=== PATIENT | female | born 1965 | race Caucasian/White ===

== ENCOUNTER 2019-12-22 10:10 | Inpatient (IN) ==
--- NOTE | 2019-11-26 10:09 | PAT Medication Instructions ---
Medication Instructions Date of Service November 26, 2019 Home Medications acetaminophen [Tylenol] 325 mg PO QID PRN amlodipine 2.5 mg PO HS aspirin 81 mg PO QAM atorvastatin 80 mg PO QAM buspirone 10 mg PO HS clonidine HCl 0.1 mg PO HS clopidogrel 75 mg PO HS docusate sodium [Stool Softener] 100 mg PO DAILY PRN empagliflozin [Jardiance] 25 mg PO QAM ezetimibe [Zetia] 10 mg PO QAM fluoxetine [Prozac] 20 mg PO HS insulin aspart U-100 [Novolog U-100 Insulin aspart] 14 unit SUBCUT QDD insulin glargine [Lantus U-100 Insulin] 24 unit SUBCUT QAM levothyroxine 112 mcg PO QAM losartan 50 mg PO HS metoprolol succinate 25 mg PO HS montelukast [Singulair] 10 mg PO QAM omeprazole 20 mg PO QAM spironolactone 12.5 mg PO QAM trazodone 50 mg PO HS ASK your prescriber and surgeon aspirin 81 mg PO QAM clopidogrel 75 mg PO HS DO NOT take the morning of surgery docusate sodium [Stool Softener] 100 mg PO DAILY PRN empagliflozin [Jardiance] 25 mg PO QAM montelukast [Singulair] 10 mg PO QAM spironolactone 12.5 mg PO QAM Take morning of surgery With a small sip of water, OTHERWISE NOTHING TO EAT OR DRINK AFTER MIDNIGHT: acetaminophen [Tylenol] 325 mg PO QID PRN (okay to take up to 4 hours prior to surgery if needed) atorvastatin 80 mg PO QAM ezetimibe [Zetia] 10 mg PO QAM levothyroxine 112 mcg PO QAM omeprazole 20 mg PO QAM Take evening before surgery acetaminophen [Tylenol] 325 mg PO QID PRN (if needed) amlodipine 2.5 mg PO HS buspirone 10 mg PO HS clonidine HCl 0.1 mg PO HS docusate sodium [Stool Softener] 100 mg PO DAILY PRN (if needed) fluoxetine [Prozac] 20 mg PO HS insulin aspart U-100 [Novolog U-100 Insulin aspart] 14 unit SUBCUT QDD losartan 50 mg PO HS metoprolol succinate 25 mg PO HS trazodone 50 mg PO HS Insulin Dependent Diabetic Patients * Test your blood sugar the morning of surgery * If Blood Sugar is GREATER THAN 150, take HALF of your regular dose of: insulin glargine [Lantus U-100 Insulin] take 12 units * If Blood Sugar is LESS THAN 150, DO NOT TAKE ANY: insulin glargine [Lantus U- 100 Insulin] Other Notes If you have any questions please call us at [phone] or [phone] or [phone] or [phone]
--- NOTE | 2019-11-27 13:24 | Anesthesiology Consultation ---
Date of Service November 27, 2019 Assessment & Plan (1) Encounter for pre-operative examination: - Awaiting surgeon-ordered cardiology preop evaluation scheduled 12/11 (Eden Waller, PAC/[facility]). - Check BSG, test AM DOS - ASA/plavix instructions: per surgeon/prescriber History Surgery Operation Date: 12/22/19 09:55 Proposed Procedures p L4-S1 Decompression and Fusion, Spinal Cord Monitoring - Terrance Nuñez, Height/Weight Height: 5 ft 6 in Weight: 101.3 kg Allergies Allergy/AdvReac Type Severity Reaction Status Date / Time lisinopril AdvReac Intermediate cough Unverified 11/21/19 15:31 Medications Home Medications Medication Instructions Recorded Confirmed Last Taken acetaminophen [Tylenol] 325 mg PO QID PRN 11/21/19 11/21/19 Unknown amlodipine 2.5 mg PO HS 11/21/19 11/21/19 Unknown aspirin 81 mg PO QAM 11/21/19 11/21/19 Unknown atorvastatin 80 mg PO QA 11/21/19 11/21/19 Unknown buspirone 10 mg PO HS 11/21/19 11/21/19 Unknown clonidine HCl 0.1 mg PO 11/21/19 11/21/19 Unknown clopidogrel 75 mg PO HS 11/21/19 11/21/19 Unknown docusate sodium [Stool Softener] 100 mg PO DAILY PRN 11/21/19 11/21/19 Unknown empagliflozin [Jardiance] 25 mg PO QAM 11/21/19 11/21/19 Unknown ezetimibe [Zetia] 10 mg PO QA 11/21/19 11/21/19 Unknown fluoxetine [Prozac] 20 mg PO HS 11/21/19 11/21/19 Unknown insulin aspart U-100 [Novolog 14 unit SUBCUT QDD 11/21/19 11/21/19 Unknown U-100 Insulin aspart] insulin glargine [Lantus U-100 24 unit SUBCUT QAM 11/21/19 11/21/19 Unknown Insulin] levothyroxine 112 mcg PO QAM 11/21/19 11/21/19 Unknown losartan 50 mg PO HS 11/21/19 11/21/19 Unknown metoprolol succinate 25 mg PO HS 11/21/19 11/21/19 Unknown montelukast [Singulair] 10 mg PO QAM 11/21/19 11/21/19 Unknown omeprazole 20 mg PO QAM 11/21/19 11/21/19 Unknown spironolactone 12.5 mg PO QAM 11/21/19 11/21/19 Unknown trazodone 50 mg PO HS 11/21/19 11/21/19 Unknown Past Medical History Medical History Anxiety CHF (congestive heart failure) CVA (cerebral vascular accident) 2011- on plavix, residual LUE weakness Degenerative disc disease Depression Diabetes mellitus, type 2 IDDM GERD (gastroesophageal reflux disease) controlled HTN (hypertension) Hyperlipemia Hypothyroidism Myocardial infarction 2013- medically managed Obesity Osteoarthritis Spinal stenosis Exercise / Class Metabolic Activity III < 4 Walking/Shop/Light housework Past Family History Family History Other Adopted Past Surgical History Surgical History History of cardiac cath 2013- no stents History of colonoscopy History of D&C History of transesophageal echocardiography (LILI) Past Anesthesia History No Hx of Anesthesia Complications and No Family Hx of Anesthesia Complications (Patient adopted- no known family hx) History of PONV No Hx of PONV and No Hx of Motion Sickness Social History Smoking Status: Former smoker Do You Dip or Chew Tobacco: No Smoking End Date: Quit 10 years ago Hx Alcohol Use: No Hx Substance Use: No substance use type: does not use Review of Systems Controlled reflux. Patient denies chest pain, shortness of breath, cough, wheezing, palpitations. Physical Exam Vital Signs VITALS BP 111/66 P 54 TEMP 98.0 SP02 96%RA RESP 16 PHYSICAL Full neck and c-spine range of motion. Full TMJ range of motion. TMD 3 finger breaths Mallampati Score 3 Dentition: misisng sides/molars, upper front caps, poor dentition Lungs: clear throughout to auscultation Cardiac: regular rate and rhythm, no murmurs noted Spine: normal Carotid arteries: negative bruit Extremities: no edema Testing Laboratory Results 11/27/19 13:55 11/27/19 13:55 PT 10.3 Seconds (9.0-12.0) 11/27/19 13:55 INR 1.0 (0.9-1.1) 11/27/19 13:55 APTT 25.4 Seconds (21.0-31.0) 11/27/19 13:55 Hemoglobin A1c 9.6 % (4.5-5.6) H 11/27/19 13:55 Urine Color Yellow 11/27/19 13:55 Urine Appearance Clear (Clear) 11/27/19 13:55 Urine pH 5.0 (4.5-7.5) 11/27/19 13:55 Ur Specific [place] 1.043 (1.000-1.030) H 11/27/19 13:55 Urine Protein Negative (Negative) 11/27/19 13:55 Urine Glucose (UA) 3+ (Negative) H 11/27/19 13:55 Urine Ketones Negative (Negative) 11/27/19 13:55 Urine Nitrite Negative (Negative) 11/27/19 13:55 Ur Leukocyte Esterase Negative (Negative) 11/27/19 13:55 Blood Type O Positive 11/27/19 13:55 Antibody Screen NEGATIVE 11/27/19 13:55 *Surgeon's office made aware of elevated HGBA1C* Electrocardiogram Date: 07/17/19 Ectopic atrial rhythm at 63 bpm. Low voltage QRS, consider pulmonary disease, pericardial effusion, or normal variant. Cannot rule out anterior infarct, age undetermined. No change compared to 01/30/2017 per cardiology. Patient subsequently had nuclear stress test 07/2019 without evidence of myocardial ischemia. Chest X-Ray Date: 11/27/19 Findings: + NAD Echocardiogram Date: 01/06/19 LVEF 45 to 49%. Anterior, anterolateral, inferolateral, and apical wall hypokinesis. Borderline increased concentric LV wall thickness. grade 1 diastolic dysfunction. Mildly calcified mitral valve leaflets. Grade 1 diastolic dysfunction. Stress Test Date: 08/21/19 Type: nuclear Medium sized infarct involving the anterior and anterior lateral arias. No signs of ischemia. Akinesis of the above segments. EF calculated to be 47%. Stress test positive for scar without superimposed ischemia. No change compared to previous study 03/01/2017. Chest pain once again reproduced with Lexiscan injection. 87% MPHR. Cardiac Catheterization Date: 08/24/14 Hyperdynamic right coronary system. coronary anatomy is widely patent and within normal limit. There is evidence of the left ventriculogram of a previous ND with an aneurysmal segment of the lateral myocardium with akinesis to dyskinesia. Medical management recommended.
--- NOTE | 2019-11-27 14:12 | XRay Report ---
XR chest Pre-admission PA/Lat CLINICAL HISTORY: Preoperative chest COMPARISON STUDY: 07/29/2014 FINDINGS: The cardiac and mediastinal contours are normal. There is no evidence of focal pulmonary co nsolidation. There is no evidence of failure. No pleural effusions are visualized.[ IMPRESSION: No active disease in the chest. ACT 112: Negative or not required by law. Electronically signed by: William Ag M.D. 11/27/2019 2:11 PM
[2019-11-27 15:17] LABS: Appearance Urine Clear (Clear); Bilirubin Urine Negative (Negative); Blood Urine Negative (Negative); Color Urine Yellow; Glucose Urine UA 3+ (Negative); Ketones Urine Negative (Negative); Leukocyte Esterase Urine Negative (Negative); Nitrite Urine Negative (Negative); Protein Urine Negative (Negative); Specific Gravity Urine 1.043 (1.000-1.030); Urobilinogen Urine Negative (Negative)
[2019-11-27 15:22] LABS: Basophils # (auto) 0.03 K/uL (0-0.2); Basophils % (auto) 0.4 %; Eosinophils # (auto) 0.23 K/uL (0-0.5); Hematocrit (blood only) 41.6 % (37-47); Immature Granulocytes # (auto) 0.01 K/uL (0.00-0.02); Immature Granulocytes % (auto) 0.1 %; Lymphocytes # (auto) 2.42 K/uL (1.2-3.4); Lymphocytes % (auto) 31.9 %; Mean Corpuscular Hemoglobin 29.4 pg (25-34); Mean Corpuscular Hgb Conc 33.7 g/dL (32-36); Mean Corpuscular Volume 87.2 fL (80-100); Mean Platelet Volume 11.5 fL (7.4-10.4); Monocytes # (auto) 0.43 K/uL (0.11-0.59); Monocytes % (auto) 5.7 %; Neutrophils # (auto) 4.47 K/uL (1.4-6.5); Neutrophils % (auto) 58.9 %; Platelet Count 240 K/uL (130-400); RDW Coefficient of Variation 13.4 % (11.5-14.5); RDW Standard Deviation 42.5 fL (36.4-46.3); Red Blood Count 4.77 M/uL (4.2-5.4); White Blood Count 7.59 K/uL (4.8-10.8)
[2019-11-27 15:23] LABS: BUN Creatinine Ratio 16.6 (10-20); Calcium 9.5 mg/dl (8.5-10.1); Est GFR (African American) 74.9; Est GFR (Non-African American) 64.6
[2019-11-27 15:39] LABS: Partial Thromboplastin Ratio 0.9; Partial Thromboplastin Time 25.4 Seconds (21.0-31.0); Prothrombin Time 10.3 Seconds (9.0-12.0)
[2019-11-28 05:54] LABS: Estimated Average Glucose 229 mg/dl; Hemoglobin A1C 9.6 % (4.5-5.6)
[~2019-12-22 10:10] MED LIST: ACETAMINOPHEN 500 MG TAB PO SCH; CEFAZOLIN 2000MG 2,000 MG/15 ML SYR IV SCH; CeleBREX 200 MG CAP PO SCH; GABAPENTIN 900 MG DOSE PO SCH; LR 15ML/HR IV SCH
[2019-12-22] MEDS ORDERED: INSULIN ASPART PER UNIT ONE (11:55)
[2019-12-22] MEDS ORDERED: INSULIN ASPART PER UNIT SC STA (11:56)
[2019-12-22] MEDS ORDERED: ATROPINE SULFATE 0.1 MG/ML 10ML SYR IV PRN (11:57)
[2019-12-22] MEDS ORDERED: fentaNYL citrate 100 MCG/2 ML VIAL IV PRN (11:57)
[2019-12-22] MEDS ORDERED: ePHEDrine sulfate 50 MG/ML AMP IV PRN (11:57)
[2019-12-22] MEDS ORDERED: HYDROmorphone INJ 2 MG/ML SYR/VIAL IV PRN (11:57)
[2019-12-22] MEDS ORDERED: PROMETHAZINE HCL 12.5 MG in SODIUM CHLORIDE 0.9% 50 ML IV PRN ×2 (11:57→16:43)
[2019-12-22] MEDS ORDERED: ONDANSETRON INJ 2 MG/ML 2 ML VIAL IV PRN ×2 (11:57→16:43)
--- NOTE | 2019-12-22 12:11 | History & Physical Bridge Note ---
Date of Service December 22, 2019 History & Physical Bridge Note I have examined the patient, reviewed the History & Physical and in the interval since the performance of the History & Physical I have noted the following changes of clinical significance: no changes noted
--- NOTE | 2019-12-22 12:12 | History & Physical Report ---
Date of Service December 22, 2019 Assessment & Plan (1) Neurogenic claudication due to lumbar spinal stenosis: L4-S1 decompression fusion Present on Admission?: Yes History of Present Illness Chief Complaint: Back and bilateral leg pain Primary Care Provider: Jes Medina MD This is a 54-year-old female who presents with back and bilateral leg pain. After failing extensive course of nonoperative care is here for surgical intervention. Allergies Allergy/AdvReac Type Severity Reaction Status Date / Time lisinopril AdvReac Intermediate cough Unverified 11/21/19 15:31 Home Medications Home Medications Medication Instructions Recorded Confirmed Type acetaminophen [Tylenol] 325 mg PO QID PRN 11/21/19 12/22/19 History amlodipine 2.5 mg PO HS 11/21/19 12/22/19 History aspirin 81 mg PO QAM 11/21/19 12/22/19 History atorvastatin 80 mg PO QAM 11/21/19 12/22/19 History buspirone 10 mg PO HS 11/21/19 12/22/19 History clonidine HCl 0.1 mg PO HS 11/21/19 12/22/19 History clopidogrel 75 mg PO HS 11/21/19 12/22/19 History docusate sodium [Stool Softener] 100 mg PO DAILY PRN 11/21/19 12/22/19 History empagliflozin [Jardiance] 25 mg PO QAM 11/21/19 12/22/19 History ezetimibe [Zetia] 10 mg PO QAM 11/21/19 12/22/19 History fluoxetine [Prozac] 20 mg PO HS 11/21/19 12/22/19 History insulin aspart U-100 [Novolog 14 unit SUBCUT QDD 11/21/19 12/22/19 History U-100 Insulin aspart] insulin glargine [Lantus U-100 24 unit SUBCUT QAM 11/21/19 12/22/19 History Insulin] levothyroxine 112 mcg PO QAM 11/21/19 12/22/19 History losartan 50 mg PO HS 11/21/19 12/22/19 History metoprolol succinate 25 mg PO HS 11/21/19 12/22/19 History montelukast [Singulair] 10 mg PO QAM 11/21/19 11/21/19 History omeprazole 20 mg PO QAM 11/21/19 12/22/19 History spironolactone 12.5 mg PO QAM 11/21/19 12/22/19 History trazodone 50 mg PO HS 11/21/19 12/22/19 History Past Med/Surg History Medical History Anxiety CHF (congestive heart failure) CVA (cerebral vascular accident) 2012- on plavix, residual LUE weakness Degenerative disc disease Depression Diabetes mellitus, type 2 IDDM GERD (gastroesophageal reflux disease) controlled HTN (hypertension) Hyperlipemia Hypothyroidism Myocardial infarction 2013- medically managed Obesity Osteoarthritis Spinal stenosis Surgical History History of cardiac cath 2014- no stents History of colonoscopy History of D&C History of transesophageal echocardiography (LILI) Family History Other Adopted Social History Preferred Language: Greenlandic Communication Ability: Effective 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 Results & Data Vital Signs (Past 12 Hours) Vital Signs Temp Pulse Resp BP Pulse Ox 12/22/19 11:07 36.7 C 60 20 131/77 96
[2019-12-22] MEDS ORDERED: ONDANSETRON INJ 2 MG/ML 2 ML VIAL ONE (12:29)
[2019-12-22] MEDS ORDERED: fentaNYL citrate 100 MCG/2 ML VIAL ONE (12:29)
[2019-12-22] MEDS ORDERED: LIDOCAINE HCL 2% 2 ML VIAL/AMP(20MG/ML) INFIL ONE (12:29)
[2019-12-22] MEDS ORDERED: HYDROmorphone INJ 2 MG/ML SYR/VIAL ONE (12:29)
[2019-12-22] MEDS ORDERED: PROPOFOL IV EMULSION 10 MG/ML 20 ML VIAL IV ONE (12:29)
[2019-12-22] MEDS ORDERED: MIDAZOLAM HCL 1 MG/ML 2ML VIAL ONE (12:29)
[2019-12-22] MEDS ORDERED: DEXAMETHASONE SOD INJ 4 MG/ML VIAL ONE (12:30)
[2019-12-22] MEDS ORDERED: BACITRACIN INJ 50,000 UNIT VIAL ONE (12:31)
[2019-12-22] MEDS ORDERED: ROCURONIUM BROMIDE 10 MG/ML 5 ML VIAL ONE (12:31)
[2019-12-22] MEDS ORDERED: BUPIVACAINE/EPINEPHRINE 0.5% MPF 1:200,000 10 ML VIAL ONE (12:32)
[2019-12-22] MEDS ORDERED: SODIUM CHLORIDE 0.9% INJ 10 ML VIAL ONE ×2 (12:33→13:58)
[2019-12-22] MEDS ORDERED: BUPIVACAINE/EPINEPHRINE 0.25% 1:200,000 30 ML VIAL ONE (12:51)
[2019-12-22] MEDS ORDERED: LARYING-O-JET KIT (LTA) ONE (13:38)
[2019-12-22] MEDS ORDERED: NEOSTIGMINE METHYLSULFATE 1 MG/ML 10ML VIAL ONE (13:46)
[2019-12-22] MEDS ORDERED: ePHEDrine sulfate 50 MG/ML SYR ONE (13:46)
[2019-12-22] MEDS ORDERED: GLYCOPYRROLATE 0.2 MG/ML VIAL ONE (13:46)
[2019-12-22] MEDS ORDERED: ePHEDrine sulfate 50 MG/ML AMP ONE (13:58)
[2019-12-22] MEDS ORDERED: FLOSEAL HEMOSTATIC MATRIX 10ML TOP ONE (14:40)
--- NOTE | 2019-12-22 14:55 | Operative Report ---
Post Operative Report Pre & Post Diagnosis Operation Date: 12/22/19 12:15 Pre-Op Diagnosis: Lumbar spinal stenosis with neurogenic claudication Post-Op Diagnosis: Same I identified the patient and participated in the time-out.: Yes Procedure Operation Date: 12/22/19 12:15 Actual Procedures #1 lumbar decompression with bilateral medial facetectomies and foraminotomies L4-5, L5-S1. #2 posterior spinal fusion L4-5 and L5-S1. #3 posterior instrumentation L4-5 L5-S1. #4 interbody fusion L4-5 L5-S1. #5 placement peek cage 10 x 22 mm at L4-5 and 8 x 22 mm at L5-S1. #6 placement locally harvested morselized autograft in the posterior lateral gutters. #7 placement infuse collagen sponge combined master graft in the posterior lateral gutters and ost ial amp and interbody space. Surgeon Terrance Nuñez, Fretted Instruments Inspector Ivana Yi Estimated Blood Loss 200 Findings See Below The patient is 5 foot 6 inches tall weighing over 99 kg with a BMI in excess of 35. The patient's body habitus did add increased significant technical difficulty requiring her deepest retractors and longus instruments in order to perform her procedure. This added at least 25% increase to the operative time. Specimens None Indications This is a 54-year-old female who presents above-mentioned diagnosis after failed extensive course of elected to go with above-mentioned procedure. Description of Procedure Patient was met with identified informed consent obtained. Patient was then taken to the operative suite underwent the patient placed in prone position on the Ramirez table on top of the Christopher frame. All bony prominences well-padded eyes inspected to ensure no external pressure placed upon the. This point the lumbar spine was prepped and draped in a normal sterile fashion. Sharp dissection with the assistance of Bovie cautery was performed down to and exposing the lamina and transverse processes of L4-L5 and the sacral ala bilaterally. From caudal cephalad fashion complete laminectomy of L5 and L4 was performed including bilateral medial facetectomies and foraminotomies addressing all stenosis. Pedicle screws were then placed in L4 and L5 and S1 levels bilaterally with assistance of fluoroscopy and the proper sized linn placed. By way of a transforaminal approach on the right complete discectomy of L5-S1 was performed endplates curetted to subcortical bleeding bone and a 8 x 22 mm peek cage filled with osteo-amp bone graft tapped in position. Then proceeded L4-5 and again a complete discectomy performed by way of a transforaminal approach on the right endplates curetted to subcortical bleeding bone and a 10 x 22 mm peek cage with osteo-bone graft tapped in position. The rods were then locked in final position bilaterally. The transverse processes of L4-L5 and sacral ala burred to subcortical bleeding bone. Infuse collagen sponge master graft local autograft placed in the posterior lateral gutters. 15 round DIMITRIOS drain inserted. Incision was then closed with 1 Vicryl in the fascia 2-0 Vicryl subcutaneously and 4 Monocryl for final skin closure. Steri-Strip sterile dressings placed. Patient will continue to PACU stable addition. Please note Ivana Yi present at the entire procedure involved the patient positioning complex portions of the surgery and final skin closure. Lastly spinal cord monitoring was utilized that the procedure no changes noted. I attest to the content of the Intraoperative Record and any orders documented therein. Any exceptions are noted below.
--- NOTE | 2019-12-22 15:01 | Fluoroscopy Report ---
FL lumbar spine 2-3V CLINICAL HISTORY: L4-S1 DECOMPRESSION AND FUSION COMPARISON STUDY: None FLUOROSCOPY TIME: 18 seconds. NUMBER OF FLUOROSCOPIC IMAGES: 2 FINDINGS: 2 intraoperative fluoroscopic spot images reveal postsurgical changes of discectomies inter body fusions at the L4-5 and L5-S1 levels. There is posterior spinal fusion with L4, L5, and S1 pedic le screws and adjoining spinal rods IMPRESSION: Intraoperative fluoroscopic spot images demonstrating an L4-S1 spinal decompression and fusion. ACT 112: Negative or not required by law. Electronically signed by: William Ag M.D. 12/22/2019 2:59 PM
--- NOTE | 2019-12-22 16:04 | Anesthesiology Progress Note ---
Date of Service December 22, 2019 Anesthesia Post Procedure Vital Signs Vital Signs: Temp Pulse Pulse Resp BP Pulse Ox 12/22/19 15:55 37.0 C 65 16 135/87 94 12/22/19 15:45 37.0 C 70 16 142/80 H 96 12/22/19 15:35 70 16 148/82 H 97 12/22/19 15:25 75 16 156/82 H 96 12/22/19 15:15 37.2 C 83 16 149/87 H 96 12/22/19 11:07 36.7 C 60 20 131/77 96 Pain Intensity Back: Pain Intensity: 6 Transfer of Care Handoff Completed per policy Notes Mental Status: alert / awake / arousable Patient Amnestic to Procedure: Yes Nausea / Vomiting: adequately controlled Pain: adequately controlled Airway Patency, RR, SpO2: stable & adequate BP & HR: stable & adequate Hydration State: stable & adequate Anesthetic Complications: no major complications apparent
[2019-12-22] MEDS ORDERED: ACETAMINOPHEN 500 MG TAB PO PRN (16:43)
[2019-12-22] MEDS ORDERED: bisacodyL 10 MG SUPP PR PRN (16:43)
[2019-12-22] MEDS ORDERED: LORazepam 0.5 MG TAB PO PRN (16:43)
[2019-12-22] MEDS ORDERED: DO NOT ADMINISTER FLU VACCINE PRN (16:43)
[2019-12-22] MEDS ORDERED: FAMOTIDINE 20 MG TAB PO PRN (16:43)
[2019-12-22] MEDS ORDERED: HYDROmorphone INJ 1 MG/ML SYRINGE IV PRN (16:43)
[2019-12-22] MEDS ORDERED: NALOXONE HCL 0.4 MG/1 ML VIAL/CARP IV PRN (16:43)
[2019-12-22] MEDS ORDERED: METOCLOPRAMIDE HCL INJ 5 MG/ML 2 ML VIAL IV PRN (16:43)
[2019-12-22] MEDS ORDERED: HYDROmorphone INJ 0.5 MG/0.5 ML SYR IV PRN (16:43)
[2019-12-22] MEDS ORDERED: ALUMINUM/MAGNESIUM SUSP 30 ML UDC PO PRN (16:43)
[2019-12-22] MEDS ORDERED: ACETAMINOPHEN 1,000 MG/100 ML VIAL IV PRN (16:43)
[2019-12-22] MEDS ORDERED: SOD PHOSPHATE/SOD BIPHOSPHATE ENEMA 132 ML BTL PR PRN (16:43)
[2019-12-22] MEDS ORDERED: LORazepam 0.5 MG/1 ML VIAL IV PRN (16:43)
[2019-12-22] MEDS ORDERED: ONDANSETRON 4 MG OD TAB PO PRN (16:43)
[2019-12-22] MEDS ORDERED: MAGNESIUM HYDROXIDE SUSP 30 ML UDC PO PRN (16:43)
[2019-12-22] MEDS ORDERED: OXYCODONE HCL IR 5 MG TAB (IMMEDIATE RELEASE) PO PRN (16:43)
[2019-12-22] MEDS ORDERED: DO NOT ADMINISTER PNEUMOCOCCAL VACCINE PRN (16:43)
[2019-12-22] MEDS ORDERED: DEXTROSE 50% 50 ML SYRINGE IV PRN (17:21)
[2019-12-22] MEDS ORDERED: GLUCOSE 40% GEL 15 GM TUBE PO PRN (17:21)
[2019-12-22] MEDS ORDERED: GLUCAGON FOR INJ 1 MG VIAL SQ PRN (17:21)
[2019-12-22] MEDS ORDERED: CARBOHYDRATES FOR HYPOGLYCEMIA PO PRN (17:21)
[2019-12-22] MEDS ORDERED: GLUCOSE 10 TABS/TUBE PO PRN (17:21)
--- NOTE | 2019-12-22 17:54 | Consultation ---
Date of Consultation December 22, 2019 Assessment & Plan (1) Status post lumbar surgery: Post op day# 0 S/P L4-S1 decompression and fusion by Dr Savannah LEBRON#200ml -pain management per ortho -wound management per ortho -PT/OT as appropriate -DVT prophylaxis per ortho -incentive spirometry -monitor H&H for acute blood loss anemia; pre-op Hgb: 14 (2) Diabetes mellitus, type II: A1c: 9.6 on 11/27/2019. Pt non compliant with meds -Pt received dexamethasone intraoperatively, expect BSGs will be elevated -Hold Jardiance, home insulin -Basal bolus insulin per protocol (3) Shingles: Pt with history shingles to right flank rash started on 12/05/2019. Started 7 day course of Valtrex on 12/10/2019 Rash much improved. No further pain (4) CAD (coronary artery disease): No CP or SOB -Continue aspirin, metoprolol, statin, zetia (5) Hypertension: Stable -Hold tomorrow morning spironolactone and reassess -Plan to resume losartan tomorrow -Continue amlodipine, metoprolol, clonidine with hold parameters (6) Cerebrovascular disease: -Continue aspirin, statin -Resume Plavix when allowed per ortho (7) Chronic combined systolic and diastolic heart failure: Currently euvolemic -Hold tomorrow morning spironolactone and reassess volume status (8) Depression: Stable -Continue fluoxetine, buspirone (9) Hypothyroidism: TSH: 2.7 in 08/2019 -Continue levothyroxine DVT Prophylaxis -SCDs per ortho Disposition per primary service Follows with Dr Medina for routine care Pt was seen and care coordinated with Dr Park. See addendum Thank you for this consultation. We will follow the patient with you during their hospital stay. You can reach a member of the [facility] Hospitalist Team 21/05 via pager @ [phone]. Supervising Physician Co-Signing Physician Notes HISTORY: Record reviewed. Patient interviewed and examined. Care coordinated with Alejandra Byrd PA-C. Please refer to her documentation for complete history. Briefly, 54-year-old female with history of coronary artery disease, CHF, hypertension, diabetes mellitus, and other problems. Lumbar decompression/fusion performed earlier today. Having some postoperative back pain, but otherwise doing well. No chest pain, cough, shortness of breath, nausea, vomiting. EXAM: General- no distress Lungs- clear to auscultation; no respiratory distress Cardiovascular- RRR; no gallop; no JVD; no pretibial edema Abdomen- + bowel sounds, soft, nontender - Ponce cath Extremities- no cyanosis; no calf tenderness Neuro- alert, oriented Skin- warm & dry DATA: Preoperative hemoglobin A1c 9.6 on 11/27/2019. Blood sugar this evening at 1729 = 227. Other lab studies as noted. ASSESSMENT AND PLAN: Status post lumbar decompression/fusion. History of CAD, CHF, hypertension. Cardiovascular status stable postoperatively. Resume aspirin and Plavix postoperatively when okay from cardiac perspective. Continue metoprolol, amlodipine, losartan, spironolactone, statin. Diabetes mellitus type 2, not well controlled. Preoperative hemoglobin A1c 9.6. Anticipate fluctuating blood sugars preoperatively due to surgery, anesthesia, perioperative steroids, etc. Hold Jardiance during hospital stay. Lantus/NovoLog per protocol. Ongoing diabetes education/support as outpatient with PCP and clinic diabetes team. Please refer to ANA Byrd's documentation for discussion of other issues. Thank you for this consultation. We will follow the patient with you during their hospital stay. My cell # is [phone]. You can reach a member of the [facility] Medicine Team 21/05 via pager @ [phone]. History of Present Illness Requesting Physician: Dr Nuñez Reason for Consultation: Post op medical management Attending Physician: Terrance Nuñez, DO History of Present Illness Pt is 54 y/o F with PMH CAD, HTN, dyslipidemia, chronic systolic and diastolic heart failure, EF: 45%, DM II, obesity, hypothyroidism, depression seen in medical consultation for post op medical management s/p L4-S1 decompression and fusion today by Dr Nuñez. Post op pt reports some back pain and leg paresthesias. Denies nausea, vomiting. Last BM reported 2 days ago, pt reports chronic constipation. Pt with history shingles to right flank started on 12/05/2019 and started on Valtrex 12/10/2019 for 7 days. Reports rash much improved and no current blisters and no current pain. Denies MORENO, dizziness, syncope, vision changes, neck pain, CP, SOB, orthopnea, palpitations, cough, sore throat, choking, otalgia, rhinorrhea, abdominal pain, weakness, extremity edema. Allergies Allergy/AdvReac Type Severity Reaction Status Date / Time lisinopril AdvReac Intermediate cough Unverified 11/21/19 15:31 Home Medications Home Medications Medication Instructions Recorded Confirmed Type acetaminophen [Tylenol] 325 mg PO QID PRN 11/21/19 12/22/19 History amlodipine 2.5 mg PO HS 11/21/19 12/22/19 History aspirin 81 mg PO QAM 11/21/19 12/22/19 History atorvastatin 80 mg PO QAM 11/21/19 12/22/19 History buspirone 10 mg PO HS 11/21/19 12/22/19 History clonidine HCl 0.1 mg PO HS 11/21/19 12/22/19 History clopidogrel 75 mg PO HS 11/21/19 12/22/19 History docusate sodium [Stool Softener] 100 mg PO DAILY PRN 11/21/19 12/22/19 History empagliflozin [Jardiance] 25 mg PO QAM 11/21/19 12/22/19 History ezetimibe [Zetia] 10 mg PO QAM 11/21/19 12/22/19 History fluoxetine [Prozac] 20 mg PO HS 11/21/19 12/22/19 History insulin aspart U-100 [Novolog 14 unit SUBCUT QDD 11/21/19 12/22/19 History U-100 Insulin aspart] insulin glargine [Lantus U-100 24 unit SUBCUT QA 11/21/19 12/22/19 History Insulin] levothyroxine 112 mcg PO QAM 11/21/19 12/22/19 History losartan 50 mg PO HS 11/21/19 12/22/19 History metoprolol succinate 25 mg PO HS 11/21/19 12/22/19 History montelukast [Singulair] 10 mg PO QAM 11/21/19 11/21/19 History omeprazole 20 mg PO QAM 11/21/19 12/22/19 History spironolactone 12.5 mg PO QAM 11/21/19 12/22/19 History trazodone 50 mg PO HS 11/21/19 12/22/19 History Patient History Medical History (Updated 12/22/19 @ 18:12 by Alejandra Byrd PA-C) Anxiety CAD (coronary artery disease) CHF (congestive heart failure) Chronic combined systolic and diastolic heart failure CVA (cerebral vascular accident) 2011- on plavix, residual LUE weakness Degenerative disc disease Depression Diabetes mellitus, type 2 IDDM GERD (gastroesophageal reflux disease) controlled HTN (hypertension) Hyperlipemia Hypothyroidism Myocardial infarction 2013- medically managed Obesity Osteoarthritis Spinal stenosis Surgical History (Updated 12/22/19 @ 18:04 by Alejandra Byrd PA-C) History of cardiac cath 2014- no stents History of colonoscopy History of D&C History of transesophageal echocardiography (LILI) Family History Other Adopted Social History Preferred Language: Romanian Communication Ability: Effective Automatic Glove Turner And Former Required: No Beliefs That Will Affect Care: None Current Living Situation: Spouse Other Information That Helps Us Care for You: No Feels Safe at Home: Yes Safety Concerns: Feels Safe At This Time Smoking Status: Former smoker Do You Dip or Chew Tobacco: No ; Smoking End Date: Quit 10 years ago ; Second Hand Exposure: No ; Tobacco Cessation Education Requested by Patient: No Hx Alcohol Use: No Hx Substance Use: No Review of Systems Review of Systems: All systems reviewed & are unremarkable except as noted in HPI & below Physical Exam Physical Exam: General: no distress, obese Head: normocephalic, atraumatic Eyes: PERRL, EOM's intact, conjunctiva non-injected, anicteric ENT: normal inspection external ears, nose, mucous membranes moist Neck: supple, trachea midline Lungs: clear, no respiratory distress, no wheezing/rhonchi/rales CV: RRR, no murmur, no pretibial edema Abd: normal BS, soft, non-tender Back: dressing dry and intact, DIMITRIOS drain with serosanguineous drainage Ext: no cyanosis, no calf tenderness Neuro: A&O x 3, no focal deficits noted, normal affect Skin: warm, dry; right flank with dermatomal distribution patches papules Results & Data ([facility]) Vital Signs (Past 12 Hours) Vital Signs Temp Pulse Pulse Pulse Resp BP Pulse Ox 12/22/19 17:30 36.3 C L 77 20 138/79 96 12/22/19 16:52 36.4 C L 75 16 142/83 H 97 12/22/19 16:20 36.9 C 69 16 138/78 98 12/22/19 15:55 37.0 C 65 16 135/87 94 12/22/19 15:45 37.0 C 70 16 142/80 H 96 12/22/19 15:35 70 16 148/82 H 97 12/22/19 15:25 75 16 156/82 H 96 12/22/19 15:15 37.2 C 83 16 149/87 H 96 12/22/19 11:07 36.7 C 60 20 131/77 96
[2019-12-22] MEDS: INSULIN ASPART 100 UNITS/ML 3 ML PEN SC SCH ×2 (18:07→21:43)
[2019-12-22] MEDS: KETOROLAC TROMETHAMINE 15 MG/ML VIAL IV SCH (18:07)
[2019-12-22] MEDS: CEFAZOLIN 2000MG 2,000 MG/15 ML SYR IV SCH (19:40)
[2019-12-22] MEDS ORDERED: LOSARTAN POTASSIUM 50 MG TAB PO SCH (21:00)
[2019-12-22] MEDS: INSULIN GLARGINE SOLOSTAR 100 UNITS/ML 3 ML PEN SC SCH (21:42)
[2019-12-22] MEDS: METOPROLOL SUCC 25MG EXT REL TAB PO SCH (21:48)
[2019-12-22] MEDS: DOCUSATE SODIUM/SENNA 50/8.6MG TAB PO SCH (21:48)
[2019-12-22] MEDS: FLUOXETINE HCL 20 MG CAP PO SCH (21:48)
[2019-12-22] MEDS: cloNIDine HCL 0.1 MG TAB PO SCH (21:49)
[2019-12-22] MEDS: TRAZODONE HCL 50 MG TAB PO SCH (21:56)
[2019-12-22] MEDS: TRAMADOL HCL 50 MG TABLET PO PRN (21:56)
[2019-12-22] MEDS: AMLODIPINE BESYLATE 5 MG TAB PO SCH (21:57)
[2019-12-22] MEDS: SODIUM CHLORIDE 0.9% 1000ML 1,000 ML IV SCH (22:01)
[2019-12-23] MEDS: KETOROLAC TROMETHAMINE 15 MG/ML VIAL IV SCH ×3 (00:24→12:55)
[2019-12-23] MEDS: SODIUM CHLORIDE 0.9% 1000ML 1,000 ML IV SCH (00:58)
[2019-12-23] MEDS: CEFAZOLIN 2000MG 2,000 MG/15 ML SYR IV SCH (03:11)
[2019-12-23] MEDS: TRAMADOL HCL 50 MG TABLET PO PRN ×3 (05:30→23:15)
[2019-12-23] MEDS: LEVOTHYROXINE SODIUM 112 MCG TABLET PO SCH (05:31)
[2019-12-23] MEDS: POLYETHYLENE (MIRALAX) 17 GM PACK PO SCH ×4 (05:31→23:15)
[2019-12-23 06:05] LABS: Basophils # (auto) 0.01 K/uL (0-0.2); Basophils % (auto) 0.1 %; Eosinophils # (auto) 0.02 K/uL (0-0.5); Eosinophils % (auto) 0.2 %; Hematocrit (blood only) 34.3 % (37-47); Hemoglobin 11.5 g/dL (12.0-16.0); Immature Granulocytes # (auto) 0.01 K/uL (0.00-0.02); Immature Granulocytes % (auto) 0.1 %; Lymphocytes # (auto) 1.39 K/uL (1.2-3.4); Lymphocytes % (auto) 15.4 %; Mean Corpuscular Hemoglobin 29.3 pg (25-34); Mean Corpuscular Hgb Conc 33.5 g/dL (32-36); Mean Corpuscular Volume 87.3 fL (80-100); Mean Platelet Volume 10.6 fL (7.4-10.4); Monocytes # (auto) 0.67 K/uL (0.11-0.59); Monocytes % (auto) 7.4 %; Neutrophils # (auto) 6.92 K/uL (1.4-6.5); Neutrophils % (auto) 76.8 %; Platelet Count 182 K/uL (130-400); RDW Coefficient of Variation 13.7 % (11.5-14.5); RDW Standard Deviation 43.5 fL (36.4-46.3); Red Blood Count 3.93 M/uL (4.2-5.4); White Blood Count 9.02 K/uL (4.8-10.8)
[2019-12-23 06:13] LABS: BUN Creatinine Ratio 12.7 (10-20); Blood Urea Nitrogen 11 mg/dl (7-18); Calcium 8.4 mg/dl (8.5-10.1); Carbon Dioxide 27 mmol/L (21-32); Chloride 105 mmol/L (98-107); Creatinine Clr Calc Pharmacy 89.8 ml/min; Est GFR (Non-African American) 77.7; Glucose 169 mg/dl (70-99); Sodium 137 mmol/L (136-145)
--- NOTE | 2019-12-23 07:48 | Anesthesiology Progress Note ---
Date of Service December 23, 2019 Anesthesia Post Procedure Vital Signs Vital Signs: Temp Pulse Pulse Pulse Resp BP Pulse Ox 12/22/19 22:51 36.6 C 70 18 106/67 97 12/22/19 21:13 36.6 C 70 18 144/81 H 97 12/22/19 19:20 36.6 C 72 16 119/70 96 12/22/19 18:18 36.4 C L 64 12 129/77 95 12/22/19 17:30 36.3 C L 77 20 138/79 96 12/22/19 16:52 36.4 C L 75 16 142/83 H 97 12/22/19 16:20 36.9 C 69 16 138/78 98 12/22/19 15:55 37.0 C 65 16 135/87 94 12/22/19 15:45 37.0 C 70 16 142/80 H 96 12/22/19 15:35 70 16 148/82 H 97 12/22/19 15:25 75 16 156/82 H 96 12/22/19 15:15 37.2 C 83 16 149/87 H 96 12/22/19 11:07 36.7 C 60 20 131/77 96 Pain Intensity Back: Pain Intensity: 8 Notes Mental Status: alert / awake / arousable and participated in evaluation Patient Amnestic to Procedure: Yes Nausea / Vomiting: adequately controlled Pain: adequately controlled Airway Patency, RR, SpO2: stable & adequate BP & HR: stable & adequate Hydration State: stable & adequate Anesthetic Complications: no major complications apparent and Pt Satisfied with anesthetic care
[2019-12-23] MEDS: INSULIN ASPART 100 UNITS/ML 3 ML PEN SC SCH ×4 (08:40→21:19)
[2019-12-23] MEDS: INSULIN GLARGINE SOLOSTAR 100 UNITS/ML 3 ML PEN SC SCH ×2 (08:41→21:19)
[2019-12-23] MEDS: ATORVASTATIN 40 MG TAB PO SCH (08:43)
[2019-12-23] MEDS: MONTELUKAST SODIUM 10 MG TABLET PO SCH (08:44)
[2019-12-23] MEDS: ASPIRIN 81 MG ECTAB PO SCH (08:44)
[2019-12-23] MEDS: PANTOprazole 40 MG TAB PO SCH (08:44)
[2019-12-23] MEDS: EZETIMIBE 10 MG TABLET PO SCH (08:45)
[2019-12-23] MEDS ORDERED: SPIRONOLACTONE 25 MG TAB PO SCH (09:00)
--- NOTE | 2019-12-23 11:02 | Hospitalist Progress Note ---
Date of Service December 23, 2019 Assessment & Plan (1) Status post lumbar surgery: Acute blood loss anemia -S/P L4-S1 decompression and fusion by Dr Nuñez on 12/22/2019 -pain management per ortho -PT/OT -hemoglobin as pre-op Hemoglobin of 14, with estimated blood loss around 200 ml during the 12/22/2019, and Hgb is 11.5 on 12/23/2019. management of DIMITRIOS drain with serosanguinous fluid as per orthopedics. no need for blood transfusions at this time. repeat CBC on 12/24/2019 (2) Diabetes mellitus, type II: Type 2 diabetes mellitus with fpc current use of medications -HbA1c: 9.6 on 11/27/2019. possible non compliance with outpatient medications -Pt received dexamethasone intraoperatively -Hold Jardiance, home insulin -Basal bolus insulin per protocol -glucose under 200 (3) Shingles: Pt with history shingles to right flank rash started on 12/05/2019. Started 7 day course of Valtrex on 12/10/2019 -no further skin complaints or skin issues at this time (4) CAD (coronary artery disease): patient denies any history of coronary artery stent but reported history of heart attack several years ago -No Chest pain or shortness of breath -Continue aspirin, metoprolol, statin, zetia (5) Hypertension: blood pressure is low normotensive on 12/23/2019 -Hold spironolactone for now -can consider resuming spironolactone when blood pressures are higher -on losartan, on amlodipine, on metoprolol (6) Cerebrovascular disease: -Continue aspirin, statin -Resume Plavix when allowed per ortho (7) Chronic combined systolic and diastolic heart failure: Currently euvolemic -Hold spironolactone for now -can consider resuming spironolactone when blood pressures are higher (8) Depression: Stable -Continue fluoxetine, buspirone (9) Hypothyroidism: TSH: 2.7 in 08/2019 -Continue levothyroxine DVT Prophylaxis -SCDs per ortho Disposition per primary service Follows with Dr Medina for routine care My colleague Dr. Oconnor will by following the patient starting on 12/24/2019 Admission and Anticipated Discharge Date Admission Date: December 22, 2019 Subjective Patient seen and examined sitting up in the chair. No acute distress. DIMITRIOS drain in place. some back stiffness. otherwise pain is controlled. patient was able to work with therapy today. no distress breathing on room air. speaking in full sentences. no abdomen pain. no nausea. no vomiting Review of Systems Review of Systems: All systems reviewed & are unremarkable except as noted in HPI & below Physical Exam Constitutional: comfortable Eyes: PERRL, conjunctivae normal, anicteric sclerae EOM intact bilaterally Neck: normal visual inspection Respiratory: normal respiratory effort, lungs clear to auscultation Cardiovascular: Rate/Rhythm: regular rate and regular rhythm Gastrointestinal (Abdomen): normal bowel sounds, soft, nontender, no hepatosplenomegaly Musculoskeletal: Head/Neck/Chest: normocephalic and head atraumatic Neurologic: PERRL, EOMI, accommodation nl, no face palsy, no dysarthria CN's II-XI intact bilaterally Psychiatric: A+Ox3, euthymic affect Results & Data ([facility]) Vital Signs (Past 12 Hours) Vital Signs Temp Pulse Resp BP Pulse Ox 12/23/19 07:52 36.6 C 67 16 104/65 96
--- NOTE | 2019-12-23 13:26 | Orthopedic Progress Note ---
Date of Service December 23, 2019 Assessment & Plan (1) Neurogenic claudication due to lumbar spinal stenosis: This time we will continue physical therapy monitor DIMITRIOS output hopefully discharge home in the next few days. Present on Admission?: Yes Admission and Anticipated Discharge Date Admission Date: December 22, 2019 Subjective Back pain controlled leg pain improved. Physical Exam Physical Exam: Patient is in the chair at the bedside is good strength testing. Appears comfortable. Results & Data ([facility]) Vital Signs (Past 12 Hours) Vital Signs Temp Pulse Resp BP Pulse Ox 12/23/19 11:46 36.5 C 58 L 16 93/58 L 98 12/23/19 07:52 36.6 C 67 16 104/65 96
[2019-12-23] MEDS ORDERED: LOSARTAN POTASSIUM 50 MG TAB PO SCH (21:00)
[2019-12-23] MEDS: METOPROLOL SUCC 25MG EXT REL TAB PO SCH (21:13)
[2019-12-23] MEDS: AMLODIPINE BESYLATE 5 MG TAB PO SCH (21:14)
[2019-12-23] MEDS: cloNIDine HCL 0.1 MG TAB PO SCH (21:14)
[2019-12-23] MEDS: FLUOXETINE HCL 20 MG CAP PO SCH (21:43)
[2019-12-23] MEDS: TRAZODONE HCL 50 MG TAB PO SCH (21:43)
[2019-12-23] MEDS: DOCUSATE SODIUM/SENNA 50/8.6MG TAB PO SCH (21:43)
[2019-12-24] MEDS: POLYETHYLENE (MIRALAX) 17 GM PACK PO SCH ×4 (06:01→23:17)
[2019-12-24] MEDS: TRAMADOL HCL 50 MG TABLET PO PRN ×2 (06:01→16:53)
[2019-12-24] MEDS: LEVOTHYROXINE SODIUM 112 MCG TABLET PO SCH (07:15)
[2019-12-24] MEDS: INSULIN ASPART 100 UNITS/ML 3 ML PEN SC SCH ×4 (08:27→21:30)
[2019-12-24] MEDS: INSULIN GLARGINE SOLOSTAR 100 UNITS/ML 3 ML PEN SC SCH ×2 (08:30→21:31)
[2019-12-24] MEDS: ASPIRIN 81 MG ECTAB PO SCH (09:11)
[2019-12-24] MEDS: ATORVASTATIN 40 MG TAB PO SCH (09:12)
[2019-12-24] MEDS: PANTOprazole 40 MG TAB PO SCH (09:13)
[2019-12-24] MEDS: EZETIMIBE 10 MG TABLET PO SCH (09:14)
[2019-12-24] MEDS: MONTELUKAST SODIUM 10 MG TABLET PO SCH (09:14)
--- NOTE | 2019-12-24 11:07 | Hospitalist Progress Note ---
Date of Service December 24, 2019 Assessment & Plan (1) Status post lumbar surgery: -POD#2 L4-S1 decompression and fusion by Dr Nuñez -PT/OT -activity and wound care orders as per ortho -pain control with bowel regimen -monitor H/H for acute blood loss anemia and transfuse blood products PRN -EBL 200cc, DIMITRIOS drain output to date 595 cc (2) Acute blood loss anemia: -Preop Hgb 14 -> 11.5 -> 11.5 -No need for PRBC transfusion at this time (3) Diabetes mellitus, type II: -HbA1c: 9.6 on 11/27/2019 (? non compliance with outpatient medications) -Managed with Jardiance, Lantus, NovoLog at home -Pt received dexamethasone intraoperatively -Lantus and NovoLog per protocol while hospitalized- -blood sugars controlled (4) Shingles: -Pt with history shingles to right flank rash started on 12/05/2019. Started 7 day course of Valtrex on 12/10/2019 -no further skin complaints or skin issues at this time (5) Hypertension: -BPs remain borderline low at times -Spironolactone has been on hold -will hold losartan, amlodipine, clonidine starting today; reduce metoprolol to 12.5 mg -Gentle IVF, monitor orthostatic BPs (6) CAD (coronary artery disease): -patient denies any history of coronary artery stent but reported history of heart attack several years ago -Appears stable, no reports of chest pain -Continue aspirin, statin, zetia; metoprolol dosing as above -Resume Plavix when okay with spine orthopedics (7) Cerebrovascular disease: -Continue aspirin, statin -Resume Plavix when allowed per ortho (8) Chronic combined systolic and diastolic heart failure: -Appears euvolemic -Holding spironolactone as above -consider resuming spironolactone when blood pressures are higher (9) Depression: -Continue fluoxetine, buspirone (10) Hypothyroidism: -TSH: 2.7 in 08/2019 -Continue levothyroxine (11) DVT prophylaxis: -Teds/SCDs as per spine orthopedics Admission and Anticipated Discharge Date Admission Date: December 22, 2019 Supervising Physician Co-Signing Physician Notes Attending Addendum: care coordinated with REGGIE [place] please refer to her notes for full details, I agree with her notes patient seen and examined, records reviewed by myself as well on exam, patient seen sitting up in bedside chair, comfortable, in good spirits Able to ambulate in the hallways today, no dizziness, no shortness of breath, no chest Back pain adequately controlled no other symptoms VS noted and reviewed oriented x 3, not in distress, speaks in sentences with no effort nor accessory muscle use normal rate, regular rhythm, no murmurs clear breath sounds bilaterally non distended, soft, nontender no bipedal edema, erythema, warmth no neuro deficits WBC 8.3 Hg 11.5 Crea 0.75 ASSESSMENT AND PLAN Marginal blood pressure --Hold all blood pressure medications except for metoprolol but reduce to 12.5 mg p.o. at bedtime Gentle IV fluids ordered Hold diuretics --Monitor blood pressure closely Acute blood loss anemia --Repeat H&H tomorrow other diagnoses and plan of care as per REGGIE Oconnor MD Subjective Patient seen and examined. Sitting up in the chair. Just received some pain medications and reports she is feeling a bit woozy. Pain is well controlled with current pain medication regimen. Denies chest pain and shortness of breath. No numbness or tingling to lower extremities. Passing flatus however no BM yet. Physical Exam Constitutional: no acute distress Sitting up in the chair Respiratory: normal respiratory effort, lungs clear to auscultation Cardiovascular: Rate/Rhythm: regular rate and regular rhythm Vessels: normal peripheral pulses Extremities: no edema Musculoskeletal: S/p back surgery, strength strong and equal to bilateral lower extremities, drain in place draining serous sanguinous drainage Psychiatric: Orientation: alert and oriented x 3 Results & Data ([facility]) Vital Signs (Past 12 Hours) Vital Signs Temp Pulse Resp BP Pulse Ox 12/24/19 06:31 36.6 C 54 L 16 113/68 98 12/23/19 23:50 36.7 C 58 L 16 116/73 96
[2019-12-24 11:26] LABS: Hematocrit (blood only) 34.5 % (37-47); Hemoglobin 11.5 g/dL (12.0-16.0); Mean Corpuscular Hgb Conc 33.3 g/dL (32-36); Mean Corpuscular Volume 87.1 fL (80-100); Mean Platelet Volume 10.1 fL (7.4-10.4); Platelet Count 192 K/uL (130-400); RDW Standard Deviation 44.2 fL (36.4-46.3); Red Blood Count 3.96 M/uL (4.2-5.4); White Blood Count 8.38 K/uL (4.8-10.8)
[2019-12-24 11:55] LABS: Calcium 8.6 mg/dl (8.5-10.1); Creatinine Clr Calc Pharmacy 101.8 ml/min; Est GFR (African American) 104.7; Est GFR (Non-African American) 90.4; Potassium 4.1 mmol/L (3.5-5.1)
[2019-12-24] MEDS ORDERED: SODIUM CHLORIDE 0.9% 1000ML 1,000 ML IV SCH (12:00)
--- NOTE | 2019-12-24 13:03 | Orthopedic Progress Note ---
Date of Service December 24, 2019 Assessment & Plan (1) Neurogenic claudication due to lumbar spinal stenosis: At this time we will continue physical therapy monitor DIMITRIOS output. I will change her from oxycodone to Dilaudid as she is unable to tolerate the oxycodone. Present on Admission?: Yes Admission and Anticipated Discharge Date Admission Date: December 22, 2019 Subjective Back pain controlled leg symptoms improved. Physical Exam Physical Exam: Patient is in the chair at the bedside. Skin strength testing. Results & Data ([facility]) Vital Signs (Past 12 Hours) Vital Signs Temp Pulse Pulse Resp BP BP Pulse Ox 12/24/19 11:50 36.5 C 69 17 124/80 96 12/24/19 06:31 36.6 C 54 L 16 113/68 98
[2019-12-24] MEDS ORDERED: DEXAMETHASONE SOD PHOSPHATE 8 MG in SYRINGE 0 ML IV ONE (13:30)
[2019-12-24] MEDS: HYDROmorphone HCL 2 MG TAB PO PRN ×2 (13:37→21:29)
[2019-12-24] MEDS ORDERED: METOPROLOL SUCC 25MG EXT REL TAB PO SCH (21:00)
[2019-12-24] MEDS: DOCUSATE SODIUM/SENNA 50/8.6MG TAB PO SCH (21:42)
[2019-12-24] MEDS: FLUOXETINE HCL 20 MG CAP PO SCH (21:42)
[2019-12-24] MEDS: TRAZODONE HCL 50 MG TAB PO SCH (21:42)
[2019-12-25] MEDS: POLYETHYLENE (MIRALAX) 17 GM PACK PO SCH (06:05)
[2019-12-25] MEDS: HYDROmorphone HCL 2 MG TAB PO PRN (06:06)
[2019-12-25] MEDS: LEVOTHYROXINE SODIUM 112 MCG TABLET PO SCH (06:06)
[2019-12-25 08:52] LABS: Hematocrit (blood only) 35.5 % (37-47); Hemoglobin 12.1 g/dL (12.0-16.0)
[2019-12-25] MEDS: INSULIN ASPART 100 UNITS/ML 3 ML PEN SC SCH (09:00)
[2019-12-25] MEDS: ATORVASTATIN 40 MG TAB PO SCH (09:02)
[2019-12-25] MEDS: MONTELUKAST SODIUM 10 MG TABLET PO SCH (09:02)
[2019-12-25] MEDS: INSULIN GLARGINE SOLOSTAR 100 UNITS/ML 3 ML PEN SC SCH (09:02)
[2019-12-25] MEDS: PANTOprazole 40 MG TAB PO SCH (09:02)
[2019-12-25] MEDS: ASPIRIN 81 MG ECTAB PO SCH (09:03)
[2019-12-25] MEDS: EZETIMIBE 10 MG TABLET PO SCH (09:03)
--- NOTE | 2019-12-25 10:26 | Hospitalist Progress Note ---
Date of Service December 25, 2019 Assessment & Plan (1) Status post lumbar surgery: -POD#3 L4-S1 decompression and fusion by Dr Nuñez -PT/OT -activity and wound care orders as per ortho -pain control with bowel regimen -monitor H/H for acute blood loss anemia and transfuse blood products PRN -EBL 200cc, DIMITRIOS drain output to date 730 cc (2) Acute blood loss anemia: -Preop Hgb 14 -> 11.5 -> 11.5 -> 12.1 -No need for PRBC transfusion at this time (3) Diabetes mellitus, type II: -HbA1c: 9.6 on 11/27/2019 (? non compliance with outpatient medications) -Managed with Jardiance, Lantus, NovoLog at home -Pt received dexamethasone intraoperatively -Lantus and NovoLog per protocol while hospitalized -blood sugars controlled (4) Shingles: -Pt with history shingles to right flank rash started on 12/05/2019. Started 7 day course of Valtrex on 12/10/2019 -no further skin complaints or skin issues at this time (5) Hypertension: -BPs remain borderline low at times -Spironolactone has been on hold -losartan, amlodipine, clonidine held and metoprolol reduced to 12.5 mg daily on 12/24 -On discharge, continue reduced metoprolol dose and continue to hold other antihypertensives until follow-up with PCP on 12/29 (6) CAD (coronary artery disease): -patient denies any history of coronary artery stent but reported history of heart attack several years ago -Appears stable, no reports of chest pain -Continue aspirin, statin, zetia; metoprolol dosing as above -Resume Plavix when okay with spine orthopedics (7) Cerebrovascular disease: -Continue aspirin, statin -Resume Plavix when allowed per ortho (8) Chronic combined systolic and diastolic heart failure: -Appears euvolemic -Holding spironolactone as above -consider resuming spironolactone when blood pressures are higher (9) Depression: -Continue fluoxetine, buspirone (10) Hypothyroidism: -TSH: 2.7 in 08/2019 -Continue levothyroxine (11) DVT prophylaxis: -Teds/SCDs as per spine orthopedics Admission and Anticipated Discharge Date Admission Date: December 22, 2019 Supervising Physician Co-Signing Physician Notes Attending Addendum: care coordinated with REGGIE emjía please refer to her notes for full details, I agree with her notes patient seen and examined, records reviewed by myself as well on exam, patient seen resting in bedside chair, using her iPad tablet In good spirits, states pain is well controlled Denies chest pain, shortness of breath, dizziness, palpitations, ambulating with no problem no other symptoms VS noted and reviewed oriented x 3 , not in distress, speaks in sentences with no effort nor accessory muscle use normal rate, regular rhythm, no murmurs clear breath sounds bilaterally non distended, soft, nontender no bipedal edema, erythema, warmth no neuro deficits Hemoglobin 12.1 ASSESSMENT AND PLAN History of hypertension --Currently blood pressure stable --Recommended to patient to hold off on all blood pressure medications except for metoprolol which is reduced to 12.5 mg daily Strongly encouraged to follow-up with primary care physician next week for reevaluation Acute blood loss anemia --Hemoglobin is 12 Monitor as an outpatient other diagnoses and plan of care as per REGGIE Oconnor MD Subjective Patient seen and examined. Reports feeling well this morning, offers no complaints. Pain is well controlled current pain medication regimen. Denies chest pain and shortness of breath. No lightheadedness or dizziness. Urinating without difficulty, passing flatus however no BM. Denies abdominal pain and nausea. Physical Exam Constitutional: no acute distress Sitting up in the chair Respiratory: normal respiratory effort, lungs clear to auscultation Cardiovascular: Rate/Rhythm: regular rate and regular rhythm Vessels: normal peripheral pulses Extremities: no edema Musculoskeletal: S/p back surgery, pedal pushes and pulls strong bilaterally, drain in place draining a small amount of serosanguineous drainage Psychiatric: Orientation: alert and oriented x 3 Results & Data ([facility]) Vital Signs (Past 12 Hours) Vital Signs Temp Pulse Resp BP Pulse Ox 12/25/19 07:25 36.8 C 57 L 14 107/63 97 12/24/19 23:52 36.8 C 65 14 114/68 96 Laboratory Results Short CBC 12/24/19 12/25/19 Range/Units 11:10 08:39 WBC 8.38 (4.8-10.8) K/uL Hgb 11.5 L 12.1 (12.0-16.0) g/dL Hct 34.5 L 35.5 L (37-47) % Plt Count 192 (130-400) K/uL BMP 12/24/19 11:10 Sodium 138 Potassium 4.1 Chloride 107 Carbon Dioxide 27 BUN 13 Creatinine 0.75 Glucose 165 H Calcium 8.6
[2019-12-25] MEDS: TRAMADOL HCL 50 MG TABLET PO PRN (10:57)
--- NOTE | 2019-12-25 14:02 | Discharge Summary ---
Date of Service December 25, 2019 Admission HPI Per Admitting Provider This is a 54-year-old female who presents with back and bilateral leg pain. After failing extensive course of nonoperative care is here for surgical intervention. Principal Diagnosis Lumbar spinal stenosis with neurogenic claudication Discharge Data Allergies Allergy/AdvReac Type Severity Reaction Status Date / Time lisinopril AdvReac Intermediate cough Unverified 11/21/19 15:31 Consultations 12/22/19 16:43 Consult Case Management - Discharge Planning Routine Consult Hospitalist Routine Procedures Performed Operation Date: 12/22/19 12:15 Actual Procedures p L4-S1 Decompression and Fusion, Spinal Cord Monitoring, Application of Bone Infuse and Allograft, Placement of Interbody L4-S1 - Terrance Nuñez, Ordered Studies 12/22/19 12:15 FL fluoroscopy <1hr Routine FL lumbar spine 2-3V Routine Hospital Course (1) Neurogenic claudication due to lumbar spinal stenosis: Patient underwent multilevel lumbar decompression fusion tolerated this well stay to the orthopedic floor postoperative. Postop day 1 she was up and ambulating leg symptoms improved. She progressed to postop day #2 on postop day 3 she had good strength testing was comfortable DIMITRIOS drain decreasing probably. Subsequent discharge home. Discharge orders and instructions found in the chart for further review. Total Time Total Time Spent Total Time Spent (In Minutes): 20 minutes Discharge Plan Discharge Items Patient Disposition: Home - Self-Care Reason For Visit: LUMBAR SPINAL STENOSIS WO NEUROGENIC CLAUDICATION Discharge Diagnosis: Lumbar spinal stenosis with neurogenic claudication Activity: As commented below Non-emergency contact: Primary Care Provider Call non-emergency contact if: you have any medication questions Follow-up/Referrals: Jes Medina MD [Primary Care Provider] - 12/30/19 12:45 pm (F/U VISIT WITH DR MEDINA. IF YOU NEED TO CHANGE APPT PLEASE CALL [phone].) Diet: Regular Addtl Attending Provider Instructions: ACTIVITY RECOMMENDATIONS: SELF CARE INSTRUCTIONS AFTER THORACIC/LUMBAR FUSIONS 1. You may walk to your tolerance. It is good exercise for your legs and back. Expect some back and intermittent leg aches and pains. 2. You may perform "counter-top" level activities (make a sandwich, [place] with a project, etc.). 3. No bending or lifting of more than 10 pounds or back twisting of any nature (roll like a log when turning in bed). 4. You may ride in a car for 20-30 minutes at a time. No driving until after your first visit with your doctor. 5. Frequent changes of position and restricting sitting to 30 minutes at a time will help limit the amount of back spasms and stiffness you may experience. 6. You may discontinue the use of ambulatory aids (cane, crutches, etc.) once your strength and confidence allow. 7. You may concession stand attendant the shower and let water strike your incision when you arrive home at least once daily. Do not take a tub bath, sit in a hot tub or go into a swimming pool until after your first recheck in the office. SPECIAL CARE INSTRUCTIONS: VERY IMPORTANT TO READ AND REVIEW A. Your surgical incision has been closed with a cosmetic suture under the skin that will dissolve in about 6 weeks. In 14 days, you can use a pair of clean scissors and cut the suture that is left outside of the skin at the ends of your incision. 1. The small skin tapes can be removed 7 days after surgery if they have not fallen off by that point. 2. You may keep the wound open to air as much as possible to promote healing after post-op day number 5 unless told otherwise by your doctor. 3. If you think the wound looks like it is becoming infected (redness or worsening drainage) and/or you are experiencing fever, chill or worsening back pain and muscle spasms, contact the office so that we may evaluate you as soon as possible. B. Complications are uncommon, but please contact us if you have any signs or symptoms of: 1. wound infection (fever higher than 102.5 degrees F, redness, separation of wound, drainage, or increasing pain from the incision) 2. blood clots in legs (pain, swelling, redness and warmth in legs) 3. urinary tract infection (fever higher than 102.5 degrees F, burning upon urination or increased frequency of urination) 4. nerve problems (inability to walk on your toes or heels, numbness, loss of bowel or bladder control) 5. any other symptoms that concern you C. Please call the office at if you have any concerns or questions about your operation or recovery. D. No smoking! Smoking drastically decreases the chance of a solid fusion. E. Do not take any anti-inflammatory medications (Indocin, Advil, Motrin, Aspirin, Naprosyn, etc.) as these may inhibit the chance of a solid fusion. Tylenol is okay to take for pain. MANAGING PAIN AFTER SPINAL SURGERY 1. Narcotic medication is intended for short-term use and will be provided for surgical pain. Surgical pain usually lasts for a period of 4-6 weeks. Narcotic medication includes Percocet, Vicodin, Darvocet, Tylenol #3 or Lortab. 2. Longer-term pain is more appropriately treated with non-narcotic medication such as Tylenol ES. 3. Muscle spasm is not appropriately treated with narcotics. Muscle relaxers such as Soma, Flexeril or Skelaxin can be used along with Tylenol ES. 4. Remember that we all live with some "aches and pains". This is not unusual or uncommon after an injury or as we get older. a. Back pain is expected and may include muscle spasms for 4 to 6 weeks after surgery. The pain should gradually improve. If the pain worsens for no apparent reason, please contact the office. b. Intermittent leg pain may also be experienced and should not be concerned about unless it worsens for no apparent reason. If so, please contact the office. 5. We will provide appropriate medication within the normal guidelines of their prescribed use. We will also be very cautious and aware of potential abuse and extended duration of patients' medication needs. a. Pain medications are for your comfort and to assist with sleep and rest so that the tissue can heal. They are not provided in order to return to normal activity and should not be used through the day. To do so or worsening pain at night can result from ongoing tissue damage and development of tolerance to the prescribed medicine. 6. Please allow 2-3 days to process refills. Prescriptions will not be mailed but must be picked up at the office. FOLLOW UP VISIT: Keep your scheduled follow-up appointment. Any questions, please call the office at . Addtl Client Coordinator Provider Instructions: HOSPITALIST INSTRUCTIONS: Hold the following blood pressure medications until you are seen by your PCP: amlodipine, losartan, clonidine, spironolactone Reduce your metoprolol dose to 12.5mg (half of the 25mg tablet you have) Pending Studies at Discharge: No Stand-Alone Forms: [facility], Opioid Pain Management, Smoking Cessation Medications and DC Order Prescriptions: New tramadol 50 mg tablet 50 mg PO Q6H PRN (Reason: pain, moderate) Qty: 30 RF: 0 hydromorphone [Dilaudid] 2 mg tablet 2 mg PO Q6H PRN (Reason: pain) Qty: 10 RF: 0 metoprolol succinate 25 mg Tablet Extended Release 24 Hr 12.5 mg PO HS Qty: 10 RF: 0 Continued atorvastatin 80 mg Tablet 80 mg PO QAM RF: 0 acetaminophen [Tylenol] 325 mg Tablet 325 mg PO QID PRN (Reason: Pain) RF: 0 trazodone 50 mg Tablet 50 mg PO HS RF: 0 clopidogrel 75 mg Tablet 75 mg PO HS RF: 0 aspirin 81 mg Tablet,Delayed Release (Dr/Ec) 81 mg PO QAM RF: 0 buspirone 10 mg Tablet 10 mg PO HS RF: 0 omeprazole 20 mg Capsule,Delayed Release(Dr/Ec) 20 mg PO QAM RF: 0 montelukast [Singulair] 10 mg Tablet 10 mg PO QAM RF: 0 fluoxetine [Prozac] 20 mg Capsule 20 mg PO HS RF: 0 docusate sodium [Stool Softener] 100 mg Tablet 100 mg PO DAILY PRN (Reason: constipation ) RF: 0 levothyroxine 112 mcg Tablet 112 mcg PO QAM RF: 0 ezetimibe [Zetia] 10 mg Tablet 10 mg PO QAM RF: 0 Jardiance 25 mg Tablet 25 mg PO QAM RF: 0 Lantus U-100 Insulin 100 unit/mL Solution 24 unit SUBCUT QAM RF: 0 insulin aspart U-100 [Novolog U-100 Insulin aspart] 100 unit/mL Solution 14 unit SUBCUT QDD RF: 0 Discontinued losartan 50 mg Tablet 50 mg PO HS RF: 0 clonidine HCl 0.1 mg Tablet 0.1 mg PO HS RF: 0 amlodipine 2.5 mg Tablet 2.5 mg PO HS RF: 0 spironolactone 25 mg Tablet 12.5 mg PO QAM RF: 0 metoprolol succinate 25 mg Tablet Extended Release 24 Hr 25 mg PO HS RF: 0 Discharge Orders: Discharge Order (Routine); Ordered 12/25/19 Ordered By: Terrance Nguyen/Other Patient Handouts: Diabetes Residential Complications, Diabetes Healthy Meals, Diabetes Exercise Benefits, Diabetes Living Life, Diabetes Manage A1C Test Admission Data Admit Date/Time: 12/22/19 15:18 Attending Provider: Terrance Nuñez Admit Provider: Terrance Nuñez Primary Care Provider: Jes Medina Other Providers: Amanda Joseph I. ; Antonino Estrada ; [place] Other Interventions: Discharge Summary Assessment (RN) Last Done: 12/25/19 10:51 DC Date/Time DO NOT enter until pt leaves facility: 12/25/19 12:59
== END 2019-12-25 12:59 | disposition home or self-care (01) | DRG 454 ==
LOC: ASU 10:10 → 3E 15:18

== ENCOUNTER 2024-08-14 11:33 | Inpatient (IN) ==
--- NOTE | 2024-08-14 11:49 | Emergency Department Note ---
Impression & Plan Atrial flutter, Atrial fibrillation with rapid ventricular response, Hypomagnesemia, Elevated troponin I level ED Provider Note NAME: SHANELLE GUERRERO AGE: 58 SEX: F : 1965 ARRIVES VIA: Ambulance INFORMANT: Patient, EMS ED PROVIDER(S): Gino Brenner DO CHIEF COMPLAINT: Chest pain HPI: The patient is a 58-year-old female who presented to the emergency department for chest pain. The patient states that she has had some GI issues such as diarrhea over the last few days. This is since improved over the last 24 hours but today when she was getting ready for her day and was showering she noticed an episode of chest pressure. She states she then felt her defibrillator fired. She has had the defibrillator for 2 years and has not had any firing of the defibrillator. She has a defibrillator because of a history of cardiac sarcoidosis and low ejection fraction. The patient denies having any history of dysrhythmia in the past. She denies having any nausea or vomiting today. She states her chest discomfort is not resolved. She states she did have a second episode of the defibrillator pacemaker firing. This occurred prior to EMS arrival. ROS: See above HPI for pertinent positives & negatives. A total of 10 systems reviewed and were otherwise negative. PAST MEDICAL HISTORY: See Below PAST SURGICAL HISTORY: See Below FAMILY HISTORY: See Below SOCIAL HISTORY: See Below HOME MEDICATIONS: See Below ALLERGIES: See Below VITALS: See Below PHYSICAL EXAMINATION: GENERAL: The patient is awake and alert. She is somewhat anxious appearing. EYES: The conjunctivae are clear. The pupils are round and reactive. EARS, NOSE, MOUTH AND THROAT: The nose is without any evidence of any deformity. NECK: The neck is nontender and supple. RESPIRATORY: Normal respiratory effort is noted there is no evidence of wheezing rhonchi or rales CARDIOVASCULAR: Tachycardic and irregular heart sounds were noted to auscultation. There is no definite murmur. GASTROINTESTINAL: The abdomen is soft. Abdomen is nontender. MUSCULOSKELETAL/EXTREMITIES: There is no evidence of gross deformity full range of motion is noted in the hips and shoulders. SKIN: There is no obvious evidence of any rash. There are no petechiae, pallor or cyanosis noted. NEUROLOGIC: Patient is awake alert and oriented x3 MEDICAL DECISION MAKING: The patient is a 58-year-old female who presented to the emergency department for an evaluation of chest pain as well as her defibrillator firing. The patient arrived at the emergency department appeared to be in atrial flutter. She was treated with IV fluids IV magnesium and IV Cardizem in the emergency department. She was reevaluated multiple times. She did have a recent GI illness. This could be part of the reason why she went into this dysrhythmia today. She did receive 2 defibrillation's from her implantable defibrillator. This was interrogated and appears to be consistent with a rapid atrial flutter over 200 bpm. I discussed the patient's laboratory and radiographic studies with her. She continued to be in a tachycardic dysrhythmia. For this reason I discussed her condition with the on-call [facility] hospitalist. They have agreed to evaluate the patient in the emergency department. Triage Nursing notes reviewed. Prior medical records reviewed Vital Signs: reviewed and remarkable for tachycardia. Differential diagnosis: Cardiac ischemia, aortic dissection, pulmonary embolism, pneumothorax, pneumonia, pericarditis, myocarditis, esophageal rupture, GERD, cholecystitis, pancreatitis, musculoskeletal, as well as other pathologies. ER treatment provided: See below Diagnostics interpreted by me: ECG: EKG was obtained in the emergency department. My interpretation is atrial fibrillation at 135 bpm. No PVCs were noted. Nonspecific ST segment depressions with low voltage was noted. This was compared to a tracing from November 09, 2021. The previous tracing was consistent with sinus rhythm at 65 bpm. Prehospital EKG was also reviewed. My interpretation is atrial fibrillation at 140 bpm. No PVCs were noted. This compares similar to the tracing obtained in the emergency department. An EKG was obtained while the patient was in the emergency department. 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 The EKG to my interpretation is sinus rhythm at 76 bpm. There is no ectopy. There was no acute ST segment abnormalities noted. Cardiac Monitoring: An order was placed for continuous cardiac monitoring. The monitor shows a rate of 130 bpm with atrial flutter. Laboratory studies: As stated above and show below. Imaging studies: See below. Radiographic imaging was reviewed by myself Consultation(s): I discussed the patient's defibrillator interrogation with the [employer] rep. The patient was shocked for what appears to be atrial flutter but her rate was over 200 bpm. I discussed this case [facility] COURSE: Procedures: none Critical Care: I have personally spent greater than 45 minutes of critical care time in the direct management of this patient. This includes bedside care, interpretation of diagnostic studies, and testing, discussion with consultants, patient, and family members, and other required patient management activities. This 45 minutes is in excess of all separately billable procedures. Past Med/Surg History Problem List (Updated 08/14/24 @ 14:15 by Kavita Holden PA-C) Nonadherence to medication Atrial flutter with rapid ventricular response Elevated troponin I level (Acute) Hypomagnesemia (Acute) Atrial fibrillation with rapid ventricular response (Acute) Atrial flutter (Acute) Recurrent UTI Abnormal nuclear stress test Chest pressure DVT prophylaxis Acute blood loss anemia Shingles Chronic combined systolic and diastolic heart failure CAD (coronary artery disease) Status post lumbar surgery Neurogenic claudication due to lumbar spinal stenosis Encounter for pre-operative examination TIA (transient ischemic attack) (Acute) Hypertension (Chronic) Diabetes mellitus, type II (Chronic) Cerebrovascular disease (Chronic) "left cerebellar ischemic stroke 2011" Dyslipidemia (Chronic) GERD (gastroesophageal reflux disease) (Chronic) Hypothyroidism (Chronic) Depression (Chronic) Asthma (Chronic) Diabetes mellitus, type II (Acute) Hypertension (Acute) Medical History (Updated 08/14/24 @ 14:15 by Kavita Holden PA-C) Cardiac sarcoidosis Obesity Spinal stenosis Degenerative disc disease Osteoarthritis Depression Anxiety CHF (congestive heart failure) Myocardial infarction 2014- medically managed GERD (gastroesophageal reflux disease) controlled Hypothyroidism Diabetes mellitus, type 2 IDDM Hyperlipemia HTN (hypertension) CVA (cerebral vascular accident) 2011- on plavix, residual LUE weakness Surgical History History of D&C History of transesophageal echocardiography (LILI) History of colonoscopy History of cardiac cath 2014- no stents Family History Other Adopted Social History Smoking Status: Former smoker Tobacco Type: Cigarettes Second Hand Exposure: No; Do You Dip or Chew Tobacco: No; Hx Alcohol Use: No Hx Substance Use: No Preferred Language: Korean Communication Ability: Effective Visual Impairment: Limited Behavioral Therapist Required: No Beliefs That Will Affect Care: None marital status: Current Living Situation: Spouse Feels Safe at Home: Yes Assistive Devices: None Allergies Allergies Allergy/AdvReac Type Severity Reaction Status Date / Time lisinopril AdvReac Intermediate cough Unverified 01/23/24 13:32 Home Meds Home Medications Medication Instructions Recorded Confirmed apixaban 5 mg tablet 5 mg PO BID 08/14/24 08/14/24 atorvastatin 80 mg tablet 80 mg PO DAILY 08/14/24 08/14/24 buspirone 10 mg tablet 10 mg PO HS 08/14/24 08/14/24 dapagliflozin propanediol 10 mg 10 mg PO QAM 08/14/24 08/14/24 tablet (Farxiga) dulaglutide 0.75 mg/0.5 mL 0.75 mg subcut WK 08/14/24 08/14/24 subcutaneous pen injector (Mannulicity) escitalopram oxalate 10 mg tablet 10 mg PO HS 08/14/24 08/14/24 evolocumab 140 mg/mL subcutaneous 140 mg subcut Q14D 08/14/24 08/14/24 pen injector (Yokasta Mueller) ezetimibe 10 mg tablet 10 mg PO DAILY 08/14/24 08/14/24 famotidine 20 mg tablet 20 mg PO HS 08/14/24 08/14/24 insulin glargine 100 unit/mL (3 40 unit subcut HS 08/14/24 08/14/24 mL) subcutaneous pen levothyroxine 125 mcg tablet 125 mcg PO DAILY@0630 08/14/24 08/14/24 methotrexate sodium 2.5 mg tablet 15 mg PO WE 08/14/24 08/14/24 metoprolol succinate 100 mg 100 mg PO DAILY 08/14/24 08/14/24 tablet,extended release 24 hr metoprolol succinate 25 mg 25 mg PO DAILY 08/14/24 08/14/24 tablet,extended release 24 hr pantoprazole 20 mg tablet,delayed 40 mg PO DAILY 08/14/24 08/14/24 release sacubitril 49 mg-valsartan 51 mg 1 tab PO BID 08/14/24 08/14/24 tablet (Entresto) torsemide 10 mg tablet 10 mg PO MOWEFR 08/14/24 08/14/24 trazodone 100 mg tablet 100 mg PO HS 08/14/24 08/14/24 Results & Data (ED) Vital Signs Vital Signs - 24 hr 08/14/24 11:48 08/14/24 12:23 08/14/24 12:23 Pulse Rate 135 H Pulse Rate [Right Brachial] 137 H Pulse Rhythm Regular Pulse Rhythm [Right Brachial] Regular Pulse Strength Normal Pulse Strength [Right Brachial] Respiratory Rate 18 18 Respiratory Effort / Characteristics Non-Labored Non-Labored Respiratory Depth Normal Normal Respiratory Pattern Regular Regular Blood Pressure 142/98 H Blood Pressure [Right Arm] 103/85 Blood Pressure Mean 112 Blood Pressure Mean [Right Arm] 91 Blood Pressure Position Lying Blood Pressure Position [Right Arm] Sitting Pulse Oximetry 98 96 Oxygen Delivery Method Room Air Room Air Sepsis Recent Fever Within 48 Hours No Sepsis New/Unexplained Change in Mental Status No Sepsis Action Taken by Nursing No Action Required 08/14/24 12:33 08/14/24 14:32 Pulse Rate 137 H Pulse Rate [Right Brachial] 71 Pulse Rhythm Pulse Rhythm [Right Brachial] Regular Pulse Strength Pulse Strength [Right Brachial] Normal Respiratory Rate 18 Respiratory Effort / Characteristics Non-Labored Respiratory Depth Normal Respiratory Pattern Regular Blood Pressure Blood Pressure [Right Arm] 100/76 Blood Pressure Mean Blood Pressure Mean [Right Arm] 84 Blood Pressure Position Blood Pressure Position [Right Arm] Sitting Pulse Oximetry 98 Oxygen Delivery Method Room Air Sepsis Recent Fever Within 48 Hours Sepsis New/Unexplained Change in Mental Status Sepsis Action Taken by Half-Way Medications Current Medication List: was personally reviewed by me Laboratory Data Attestation: I reviewed the patient's lab results. 08/14/24 11:42 08/14/24 11:42 Lab Results 08/14/24 Range/Units 11:42 WBC 6.56 (4.8-10.8) K/ul RBC 5.21 (4.20-5.40) M/uL Hgb 14.6 (12.0-16.0) g/dl Hct 43.4 (37.0-47.0) % MCV 83.3 (80.0-100.0) fL MCH 28.0 (25.0-34.0) pg MCHC 33.6 (32.0-36.0) g/dL RDW Std Deviation 42.9 (36.4-46.3) fL RDW Coeff of Daphnie 14.3 (11.5-14.5) % Plt Count 211 (130-400) K/uL MPV 10.6 (9.4-12.4) fL Immature Gran % (Auto) 0.3 % Neut % (Auto) 66.0 % Lymph % (Auto) 23.6 % Benson % (Auto) 7.9 % Eos % (Auto) 1.7 % Baso % (Auto) 0.5 % Neut # (Auto) 4.33 (1.40-6.50) K/uL Lymph # (Auto) 1.55 (1.20-3.40) K/uL Benson # (Auto) 0.52 (0.11-0.59) K/uL Eos # (Auto) 0.11 (0.00-0.50) K/uL Baso # (Auto) 0.03 (0.00-0.20) K/uL Immature Gran # (Auto) 0.02 (0.01-0.20) K/uL PT 10.9 (9.0-12.0) Seconds INR 1.0 (0.9-1.1) APTT 27 (21-31) Seconds PTT Ratio 1.0 Sodium 139 (136-145) mmol/L Potassium 3.8 (3.5-5.1) mmol/L Chloride 107 (98-107) mmol/L Carbon Dioxide 19 L (21-32) mmol/L Anion Gap 13 H (3-11) BUN 9 (6-23) mg/dl Creatinine 1.03 (0.6-1.2) mg/dl Est Cr Clr Drug Dosing 70.0 ml/min eGFR 63.03 BUN/Creatinine Ratio 8.7 L (10-20) Glucose 208 H (70-99(Fasting)) mg/dl Calcium 9.3 (8.6-10.3) mg/dl Magnesium 1.6 L (1.7-2.4) mg/dl Total Bilirubin 0.4 (0.2-1.0) mg/dl AST 16 (13-39) U/L ALT 14 (7-52) U/L Alkaline Phosphatase 88 (34-104) U/L Troponin I High Sens 24.4 H (0-14) pg/ml Total Protein 7.6 (6.0-8.3) gm/dl Albumin 4.2 (3.4-5.0) gm/dl Globulin 3.4 (2.5-4.0) gm/dl Albumin/Globulin Ratio 1.2 (0.9-2) TSH 12.503 H (0.300-4.500) uIu/ml Free T4 0.68 (0.61-1.60) ng/dl Administered Medications Diltiazem HCl 125 mg/ Dextrose 125 mls @ 5 mls/hr IV .Q24H TIFFANY; Protocol Stop: 09/13/24 12:59 Last Admin: 08/14/24 13:32 Dose: 5 mg/hr, 5 mls/hr Documented By: CHANTE Co-signed By: BRITNI Discontinued Medications Diltiazem HCl (Diltiazem Hcl 5 Mg/Ml 5 Ml Vial) 10 mg IV NOW STA Stop: 08/14/24 12:41 Last Admin: 08/14/24 12:49 Dose: 10 mg Documented By: CONOR Co-signed By: CHANTE Sodium Chloride (Nss) 500 mls @ 999 mls/hr IV .Q31M ONE Stop: 08/14/24 12:14 Last Infusion: 08/14/24 13:05 Dose: Infused Documented By: Admin: 08/14/24 12:14 Dose: 999 mls/hr Documented By: BRITNI Magnesium Sulfate/Dextrose (Magnesium Sulfate / D5w) 1 gm in 100 mls @ 100 mls/hr IV NOW STA Stop: 08/14/24 12:48 Last Infusion: 08/14/24 14:03 Dose: Infused Documented By: Admin: 08/14/24 12:13 Dose: 100 mls/hr Documented By: BRITNI Sodium Chloride (Nss) 500 mls @ 999 mls/hr IV .Q31M ONE Stop: 08/14/24 13:10 Last Infusion: 08/14/24 14:03 Dose: Infused Documented By: Admin: 08/14/24 12:50 Dose: 999 mls/hr Documented By: CONOR Magnesium Sulfate/Dextrose (Magnesium Sulfate / D5w) 1 gm in 100 mls @ 100 mls/hr IV NOW STA Stop: 08/14/24 13:39 Last Infusion: 08/14/24 14:19 Dose: Infused Documented By: Admin: 08/14/24 13:12 Dose: 100 mls/hr Documented By: CHANTE Methotrexate (Methotrexate Sodium 2.5 Mg Tab) 15 mg PO NOW STA Stop: 08/14/24 13:49 Last Admin: 08/14/24 14:23 Dose: 15 mg Documented By: BRITNI Co-signed By: CHANTE Metoprolol Succinate (Metoprolol Succ 50mg Ext Rel Tab) 100 mg PO NOW STA Stop: 08/14/24 13:48 Last Admin: 08/14/24 14:23 Dose: 100 mg Documented By: BRITNI Miscellaneous (Stat Iv Infusion Titration Per Protocol) 1 each N/A NOW STA Stop: 08/14/24 13:00 Last Admin: 08/14/24 13:33 Dose: Not Given Documented By: CHANTE Potassium Chloride (Potassium Chloride Crtab 20 Meq Tabcr) 40 meq PO NOW STA Stop: 08/14/24 13:21 Last Admin: 08/14/24 13:33 Dose: 40 meq Documented By: CHANTE Imaging Data Attestation: I personally reviewed and interpreted this imaging study as follows: My Impression: 1 view chest x-ray was obtained in the emergency department. My interpretation is no free air or definite infiltrate, final report below. Radiologist's Impression: Chest X-Ray 08/14/24 11:36 XR chest 1V portable CLINICAL HISTORY: Dysrhythmia TECHNIQUE: Single frontal radiograph of the chest was obtained. Comparison: Comparison is made to chest radiograph 11/09/2021 FINDINGS: Pacemaker defibrillator is seen. The cardiomediastinal silhouette is normal. The lungs are clear. No evidence of pleural effusion or pneumothorax. IMPRESSION: No acute chest disease. ACT 112: Negative or not required by law. Electronically signed by: Goran Willoughby M.D. 08/14/2024 12:06 PM Discharge Plan Visit Data Chief Complaint: Cardiac Assessment Stated Complaint: CARDIAC ASSESSMENT ED Provider: Gino Brenner Discharge Problem: Atrial flutter, Atrial fibrillation with rapid ventricular response, Hypomagnesemia, Elevated troponin I level Patient Disposition: Being Evaluated by Hospitalist Forms Stand Alone Forms: My [facility] Prescriptions Prescriptions: No Action atorvastatin 80 mg tablet 80 mg PO DAILY metoprolol succinate 100 mg tablet extended release 24 hr 100 mg PO DAILY Rx Instructions: take with 25 to = 125mg torsemide 10 mg Tablet 10 mg PO MOWEFR pantoprazole 20 mg tablet,delayed release (DR/EC) 40 mg PO DAILY famotidine 20 mg tablet 20 mg PO HS methotrexate sodium 2.5 mg tablet 15 mg PO WE trazodone 100 mg Tablet 100 mg PO HS levothyroxine 125 mcg tablet 125 mcg PO DAILY@0630 buspirone 10 mg tablet 10 mg PO HS metoprolol succinate 25 mg tablet extended release 24 hr 25 mg PO DAILY Rx Instructions: take with 100 to = 125mg escitalopram oxalate 10 mg Tablet 10 mg PO HS ezetimibe 10 mg Tablet 10 mg PO DAILY insulin glargine 100 unit/mL (3 mL) Insulin Pen 40 unit SUBCUT HS apixaban 5 mg Tablet 5 mg PO BID dapagliflozin propanediol [Farxiga] 10 mg Tablet 10 mg PO QAM Trulicity 0.75 mg/0.5 mL Pen Injector 0.75 mg SUBCUT WK Entresto 49-51 mg Tablet 1 tab PO BID Repatha SureClick 140 mg/mL pen injector 140 mg SUBCUT Q14D Referrals Referrals: Jes Medina MD [Primary Care Provider] - Discharge Problem: Atrial flutter Qualifiers: Atrial flutter type: unspecified Qualified Code(s): I48.92 - Unspecified atrial flutter
--- NOTE | 2024-08-14 12:07 | XRay Report ---
XR chest 1V portable CLINICAL HISTORY: Dysrhythmia TECHNIQUE: Single frontal radiograph of the chest was obtained. Comparison: Comparison is made to chest radiograph 11/09/2021 FINDINGS: Pacemaker defibrillator is seen. The cardiomediastinal silhouette is normal. The lungs are clear. No evidence of pleural effusion or pneumothorax. IMPRESSION: No acute chest disease. ACT 112: Negative or not required by law. Electronically signed by: Goran Willoughby M.D. 08/14/2024 12:06 PM
[2024-08-14 12:10] LABS: Basophils # (auto) 0.03 K/uL (0.00-0.20); Basophils % (auto) 0.5 %; Eosinophils # (auto) 0.11 K/uL (0.00-0.50); Eosinophils % (auto) 1.7 %; Hematocrit (blood only) 43.4 % (37.0-47.0); Hemoglobin 14.6 g/dl (12.0-16.0); Immature Granulocytes # (auto) 0.02 K/uL (0.01-0.20); Immature Granulocytes % (auto) 0.3 %; Lymphocytes # (auto) 1.55 K/uL (1.20-3.40); Lymphocytes % (auto) 23.6 %; Mean Corpuscular Hgb Conc 33.6 g/dL (32.0-36.0); Mean Corpuscular Volume 83.3 fL (80.0-100.0); Mean Platelet Volume 10.6 fL (9.4-12.4); Monocytes # (auto) 0.52 K/uL (0.11-0.59); Monocytes % (auto) 7.9 %; Neutrophils # (auto) 4.33 K/uL (1.40-6.50); Platelet Count 211 K/uL (130-400); RDW Coefficient of Variation 14.3 % (11.5-14.5); RDW Standard Deviation 42.9 fL (36.4-46.3); Red Blood Count 5.21 M/uL (4.20-5.40); White Blood Count 6.56 K/ul (4.8-10.8)
[2024-08-14] MEDS: MAGNESIUM SULFATE / D5W 1 GM/100 ML BAG IV STA ×2 (12:13→13:12)
[2024-08-14] MEDS: SODIUM CHLORIDE 0.9% 500 ML IV ONE ×2 (12:14→12:50)
[2024-08-14 12:27] LABS: Albumin Globulin Ratio 1.2 (0.9-2); Albumin Level 4.2 gm/dl (3.4-5.0); BUN Creatinine Ratio 8.7 (10-20); Bilirubin,Total 0.4 mg/dl (0.2-1.0); Calcium 9.3 mg/dl (8.6-10.3); Globulin 3.4 gm/dl (2.5-4.0); Magnesium 1.6 mg/dl (1.7-2.4); Potassium 3.8 mmol/L (3.5-5.1); Total Protein 7.6 gm/dl (6.0-8.3)
[2024-08-14 12:33] LABS: Troponin I High Sensitivity 24.4 pg/ml (0-14)
[2024-08-14 12:34] LABS: Partial Thromboplastin Time 27 Seconds (21-31); Prothrombin Time 10.9 Seconds (9.0-12.0)
[2024-08-14 12:42] LABS: Thyroid Stimulating Hormone 12.503 uIu/ml (0.300-4.500)
[2024-08-14] MEDS: dilTIAZem HCl 5 MG/ML 5 ML VIAL IV STA (12:49)
[2024-08-14 13:14] LABS: T4 Free Thyroxine 0.68 ng/dl (0.61-1.60)
--- NOTE | 2024-08-14 13:21 | History & Physical Report ---
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 Pt presents to ED after sustaining chest pressure, SOB and her ICD firing x 2 approx 20 minutes apart. Interrogation revealed HR in 200s with likely atrial flutter. Pt reports recent GI illness as well as missing her metoprolol succinate dose at least for 3 days. Atrial flutter with RVR Elevated troponin Nonadherence to medication due to running out of supply admit to PCU pt currently on diltiazem gtt, titrate accordingly resume her home metoprolol succinate 125mg daily and eliquis (she reports not missing any doses of this) last echo 07/09/24 preserved EF consult cardiology for rate/rhythm control replace electrolytes Hypomagnesemia replace will give 40meq KCL as well Cardiac sarcoidosis Hx of nonischemic Cardiomyopathy Chronic HFpEF CAD continue eliquis, statin, zetia, repatha, metoprolol, entreso, farxiga and torsemide pt reports she has not been taking her torsemide due to lifestyle and it making her urinate daily weights, strict I and O, she reports recent weight loss/no edema T2DM a1c 6.8 in January, will repeat as pt has not been taking lantus lantus/novolog per protocol GERD: on PPI/H2 thad - pt reports heartburn x 2 months, will add sucralfate Complicated grief: pt lost her 3 months ago and is under a lot of stress Hypothyroidism: TSH high, T4 low normal - will increase levothyroxine to 137.5mcg, recommend repeat TSH in 6 weeks DVT ppx: Elirasta DNR/DNI PCP: Adam Dispo: admit to PCU Pt was seen and examined in collaboration with Dr. López, please see addendum I spent a total of 65 minutes reviewing notes, outpatient records, labs, medication, coordinating, documenting and providing care for this patient excluding time spent in the performance of separately billed services. History of Present Illness Chief Complaint: Chest heaviness and shock x 2. 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 Hx obtained from pt and op chart review. Her last echo was in Jun of 07/09/24 which showed stable findings, no valvular heart disease and preserved EF. Around 930 she started to feel substernal chest heaviness and shortness of breath. She tried to lean forward to make it easier to breath and she felt her ICD fire, "it blew up." She thene then fell backward. She was able to get herself up and went to sit down on toilet. After she sat down she began to feel chest heaviness again and an additional ICD shock occurred. These episodes were approximately 20 minutes apart. She then summoned EMS. This has never happened in the past. Per ED provider her pacemaker was interrogated and pt was having sustained atrial flutter in the 200s. Upon presentation to ED she was persistent in the 130s. She received IV magnesium along with IVF and 10mg IV diltiazem. She was eventually started on diltiazem gtt. She reports through Sunday and Sunday she had a GI illness consistent with nausea and diarrhea. She also had poor appetite. She also reports not being compliant with her medication due to running out of them. She reports not taking her 100 mg of metoprolol for at least 3 days as well as missing her insulin. She also reports not taking her methotrexate yesterday because she, "forgot. "She reports being under a lot of stress. Her passed 3 months ago and she reports she was left with a mess. Currently in ED she is chest pain free. She reports persistent heart burn for last 2 months despite pepcid/PPI. She denies current f/c/s, chest pain, sob, n/v/d, abd pain. She is now moving bowels regularly and denies any urinary sx. She denies any sick contacts. Allergies Allergy/AdvReac Type Severity Reaction Status Date / Time lisinopril AdvReac Intermediate cough Unverified 01/23/24 13:32 Home Medications Medication Instructions Recorded Confirmed Type apixaban 5 mg tablet 5 mg PO BID 08/14/24 08/14/24 History atorvastatin 80 mg tablet 80 mg PO DAILY 08/14/24 08/14/24 History buspirone 10 mg tablet 10 mg PO HS 08/14/24 08/14/24 History dapagliflozin propanediol 10 mg 10 mg PO QAM 08/14/24 08/14/24 History tablet (Farxiga) dulaglutide 0.75 mg/0.5 mL 0.75 mg subcut WK 08/14/24 08/14/24 History subcutaneous pen injector (Trulicity) escitalopram oxalate 10 mg tablet 10 mg PO HS 08/14/24 08/14/24 History evolocumab 140 mg/mL subcutaneous 140 mg subcut Q14D 08/14/24 08/14/24 History pen injector (Repatha SureClick) ezetimibe 10 mg tablet 10 mg PO DAILY 08/14/24 08/14/24 History famotidine 20 mg tablet 20 mg PO HS 08/14/24 08/14/24 History insulin glargine 100 unit/mL (3 40 unit subcut HS 08/14/24 08/14/24 History mL) subcutaneous pen levothyroxine 125 mcg tablet 125 mcg PO DAILY@0630 08/14/24 08/14/24 History methotrexate sodium 2.5 mg tablet 15 mg PO WE 08/14/24 08/14/24 History metoprolol succinate 100 mg 100 mg PO DAILY 08/14/24 08/14/24 History tablet,extended release 24 hr metoprolol succinate 25 mg 25 mg PO DAILY 08/14/24 08/14/24 History tablet,extended release 24 hr pantoprazole 20 mg tablet,delayed 40 mg PO DAILY 08/14/24 08/14/24 History release sacubitril 49 mg-valsartan 51 mg 1 tab PO BID 08/14/24 08/14/24 History tablet (Entresto) torsemide 10 mg tablet 10 mg PO MOWEFR 08/14/24 08/14/24 History trazodone 100 mg tablet 100 mg PO HS 08/14/24 08/14/24 History Past Med/Surg History Problem List (Updated 08/14/24 @ 14:15 by Kavita Holden PA-C) Nonadherence to medication Atrial flutter with rapid ventricular response Elevated troponin I level (Acute) Hypomagnesemia (Acute) Atrial fibrillation with rapid ventricular response (Acute) Atrial flutter (Acute) Recurrent UTI Abnormal nuclear stress test Chest pressure DVT prophylaxis Acute blood loss anemia Shingles Chronic combined systolic and diastolic heart failure CAD (coronary artery disease) Status post lumbar surgery Neurogenic claudication due to lumbar spinal stenosis Encounter for pre-operative examination TIA (transient ischemic attack) (Acute) Hypertension (Chronic) Diabetes mellitus, type II (Chronic) Cerebrovascular disease (Chronic) "left cerebellar ischemic stroke 2011" Dyslipidemia (Chronic) GERD (gastroesophageal reflux disease) (Chronic) Hypothyroidism (Chronic) Depression (Chronic) Asthma (Chronic) Diabetes mellitus, type II (Acute) Hypertension (Acute) Medical History (Updated 08/14/24 @ 14:15 by Kavita Holden PA-C) Cardiac sarcoidosis Obesity Spinal stenosis Degenerative disc disease Osteoarthritis Depression Anxiety CHF (congestive heart failure) Myocardial infarction 2013- medically managed GERD (gastroesophageal reflux disease) controlled Hypothyroidism Diabetes mellitus, type 2 IDDM Hyperlipemia HTN (hypertension) CVA (cerebral vascular accident) 2011- on plavix, residual LUE weakness Surgical History History of D&C History of transesophageal echocardiography (LILI) History of colonoscopy History of cardiac cath 2013- no stents Family History Other Adopted Social History Smoking Status: Former smoker Tobacco Type: Cigarettes Second Hand Exposure: No; Do You Dip or Chew Tobacco: No; Hx Alcohol Use: No Hx Substance Use: No Preferred Language: Arabic Communication Ability: Effective Visual Impairment: Limited [employer] Required: No Beliefs That Will Affect Care: None marital status: Current Living Situation: Spouse Feels Safe at Home: Yes Assistive Devices: None Review of Systems Review of Systems: All systems reviewed & are unremarkable except as noted in HPI & below Physical Exam Physical Exam: Gen: WD/WN,F, NAD, A&O x3 HEENT: Normocephalic, atraumatic, conjunctivae moist, sclerae anicteric, mucous membranes moist. Lung: Clear to Auscultation bilaterally, no wheezes/rales/rhonchi Heart: IRR/IRR, ICD noted LACW, no murmurs, rubs, or gallops Abdomen: Soft, NT, ND +BS x 4 Extremities: No edema Skin: Warm, no rash, negative turgor. Results & Data Results & Data Vital Signs (Past 12 Hours) Vital Signs Pulse Pulse Resp BP BP Pulse Ox O2 Del Method 08/14/24 12:33 137 H 08/14/24 12:23 137 H 18 103/85 96 08/14/24 12:23 Room Air 08/14/24 11:48 135 H 18 142/98 H 98 Room Air Laboratory Results I have independently reviewed and interpreted patient's admitting labs including CBC, CMP, mag, trop, TSH Diagnostic Findings Chest X-Ray 08/14/24 11:36 XR chest 1V portable CLINICAL HISTORY: Dysrhythmia TECHNIQUE: Single frontal radiograph of the chest was obtained. Comparison: Comparison is made to chest radiograph 11/09/2021 FINDINGS: Pacemaker defibrillator is seen. The cardiomediastinal silhouette is normal. The lungs are clear. No evidence of pleural effusion or pneumothorax. IMPRESSION: No acute chest disease. ACT 112: Negative or not required by law. Electronically signed by: Goran Willoughby M.D. 08/14/2024 12:06 PM Medications Administered Medication List Magnesium Sulfate/Dextrose (Magnesium Sulfate / D5w) 1 gm in 100 mls @ 100 mls/hr IV NOW STA Stop: 08/14/24 13:39 Last Admin: 08/14/24 13:12 Dose: 100 mls/hr Documented By: CHANTE Discontinued Medications Diltiazem HCl (Diltiazem Hcl 5 Mg/Ml 5 Ml Vial) 10 mg IV NOW STA Stop: 08/14/24 12:41 Last Admin: 08/14/24 12:49 Dose: 10 mg Documented By: CONOR Co-signed By: CHANTE Sodium Chloride (Nss) 500 mls @ 999 mls/hr IV .Q31M ONE Stop: 08/14/24 12:14 Last Infusion: 08/14/24 13:05 Dose: Infused Documented By: Admin: 08/14/24 12:14 Dose: 999 mls/hr Documented By: BRITNI Magnesium Sulfate/Dextrose (Magnesium Sulfate / D5w) 1 gm in 100 mls @ 100 mls/hr IV NOW STA Stop: 08/14/24 12:48 Last Admin: 08/14/24 12:13 Dose: 100 mls/hr Documented By: BRITNI Sodium Chloride (Nss) 500 mls @ 999 mls/hr IV .Q31M ONE Stop: 08/14/24 13:10 Last Admin: 08/14/24 12:50 Dose: 999 mls/hr Documented By: CONOR ECG Additional Comments: I have independently reviewed and interpreted patient's admitting EKG which revealed: 135bpm ST COVID-19 Results Results COVID-19 Adm Lab Results: RBC 5.21 M/uL (4.20-5.40) 08/14/24 WBC 6.56 K/ul (4.8-10.8) 08/14/24 Hct 43.4 % (37.0-47.0) 08/14/24 Plt Count 211 K/uL (130-400) 08/14/24 Neutrophils (%) (Auto) 66.0 % 08/14/24 Lymphocytes (%) (Auto) 23.6 % 08/14/24 Monocytes # (Auto) 0.52 K/uL (0.11-0.59) 08/14/24 Eosinophils # (Auto) 0.11 K/uL (0.00-0.50) 08/14/24 Immature Granulocyte % (Auto) 0.3 % 08/14/24 Neutrophils # (Auto) 4.33 K/uL (1.40-6.50) 08/14/24 Lymphocytes # (Auto) 1.55 K/uL (1.20-3.40) 08/14/24 Monocytes # (Auto) 0.52 K/uL (0.11-0.59) 08/14/24 Eosinophils # (Auto) 0.11 K/uL (0.00-0.50) 08/14/24 Basophils # (Auto) 0.03 K/uL (0.00-0.20) 08/14/24 Immature Granulocyte # (Auto) 0.02 K/uL (0.01-0.20) 4 Na 139 mmol/L (136-145) 08/14/24 K 3.8 mmol/L (3.5-5.1) 08/14/24 Cl 107 mmol/L (98-107) 08/14/24 CO2 19 mmol/L (21-32) L 08/14/24 Anion Gap 13 (3-11) H 08/14/24 BUN 9 mg/dl (6-23) 08/14/24 Creatinine 1.03 mg/dl (0.6-1.2) 08/14/24 BUN/Creatinine Ratio 8.7 (10-20) L 08/14/24 Glucose Level 208 mg/dl (70-99(Fasting)) H 08/14/24 Ca 9.3 mg/dl (8.6-10.3) 08/14/24 Total Bilirubin 0.4 mg/dl (0.2-1.0) 08/14/24 AST/SGOT 16 U/L (13-39) 08/14/24 ALT/SGPT 14 U/L (7-52) 08/14/24 Alkaline Phosphatase 88 U/L (34-104) 08/14/24 Total Protein 7.6 gm/dl (6.0-8.3) 08/14/24 Albumin 4.2 gm/dl (3.4-5.0) 08/14/24 Globulin 3.4 gm/dl (2.5-4.0) 08/14/24 Albumin/Globulin Ratio 1.2 (0.9-2) 08/14/24 PTT 27 Seconds (21-31) 08/14/24 INR 1.0 (0.9-1.1) 08/14/24 Chest X-Ray 08/14/24 Code Status & VTE Plan Code Status FULL CODE Supervising Physician Co-Signing Physician Notes 58-year-old female with PMH of cardiac sarcoidosis status post dual-chamber ICD October 2021, nonischemic cardiomyopathy with improved EF, chronic HFpEF, PAF, CAD, CVA, T2DM, HLD, hypothyroidism, GERD, depression presented to the ED after ICD firing x 2. Patient reports she was going about her regular activities, after shower in the morning at about 9:30 AM she felt some shortness of breath/was scared/felt chest tightness and heaviness. She stooped forward to catch breath, at which point her defibrillator fired. Then again about 20 minutes later, as she was standing up she had dizziness and she sat herself down when defib fired again. She called 911 and came to the ED. Patient reports diarrheal episodes on last Sunday and Sunday, reports noncompliance with Lantus and torsemide, takes torsemide prn, reports running out of metoprolol and was taking only 25 Mg daily metoprolol for last 2 to 3 days [supposed to take 125 Mg daily of metoprolol], has not taken her methotrexate yesterday/she forgot. Reports her levothyroxine dose was adjusted more than 6 months ago. Labs reviewed, CBC fairly WNL, potassium 3.8, magnesium 1.6, TSH 12.5, troponin 24.4. CXR with no acute finding. EKG with A-fib RVR with heart rate in 135. Active problems: A-fib RVR: Defib firing x 2 prior to arrival. Potassium repleted 40 mill equivalent, replete total of 3 g of IV magnesium today. Continue with diltiazem drip, consult cardiology, trend troponin. Elevated TSH: FT4 WNL, increase levothyroxine from 125 mcg to 137.5 mcg, repeat TSH in about 6 weeks and follow-up with PCP for ongoing titration. Medicine noncompliance: Patient encouraged to maintain compliance with medications. Heart burn iso GERD hx: c/w home ppi and pepcid. will try sucralfate qid. pt will benefit from OP GI eval on DC. DM: med noncompliance, a1c in AM, skate boarder consult. diabetic clinic f/u on DC. Sarcoidosis: forgot her mtx dose yesterday, we can give today. On exam: GENERAL: Alert and oriented x3. NAD, on RA. HEENT: No pallor, no icterus. Pupils equal, round and reactive to light. Oral mucosa moist. NECK: No JVD, no neck masses. HEART: S1 and S2 heard. irregular rate and rhythm. HR in 130s. No murmur, no gallop. RESPIRATORY SYSTEM: Normal AP diameter. No accessory muscle use. No wheezing, no crackles. ABDOMEN: Soft, bowel sounds present, nontender, no distention. CENTRAL NERVOUS SYSTEM: No facial droop. Speech is clear. Obeys simple commands. Moves extremities. EXTREMITIES: No edema, no erythema seen. I have seen and examined the patient and have discussed the case with the provider above. I agree with the assessment and plan as stated. Time spent: 30 min.
[2024-08-14] MEDS: dilTIAZem HCL 125 MG in DEXTROSE 5% 100 ML IV SCH (13:32)
[2024-08-14] MEDS: STAT IV Infusion **Titration per Protocol STA (13:33)
[2024-08-14] MEDS: POTASSIUM CHLORIDE CRTAB 20 MEQ TABCR PO STA (13:33)
--- NOTE | 2024-08-14 14:22 | Cardiology Consultation ---
Date of Consultation August 14, 2024 Assessment & Plan (1) Atrial flutter with rapid ventricular response: (2) Nonadherence to medication: (3) Hypomagnesemia: (4) Cardiac sarcoidosis: Plan Patient admitted to [facility] after receiving 2 AICD shocks due to atrial flutter RVR. Upon arrival to NH patient was found to have atrial flutter with ventricular rate in the 130's. She admits to non compliance with oral metoprolol. She had run out of the 100 mg tablets on Sunday and was only taking 25 mg (not 125 mg as prescribed) Upon arrival to ER, she was given oral metoprolol 100 mg and started on IV diltiazem. She successfully converted to NSR/atrial paced rhythm with these therapies. She has been taking apixaban without missed doses. Continue metoprolol 125 mg daily. Compliance encouraged continue Apixaban 5 mg BID. If she has recurrent or more frequent arrhythmias, would consider EP evaluation Magnesium was low on arrival - likely due to GI illness this week. Supplementation ordered. Recheck in AM. Mag goal > 2.0 Potassium was also low normal. This was supplemented. Recheck in AM. Goal 4.0- 5.0. She has been non compliant with levothyroxine at home. TSH > 12. Will need to resume therapy and monitor as outpatient. Recent echo with preserved EF, no significant valvular heart disease. Minimally elevated troponin at 24 consistent with Atrial flutter RVR. Not indicative of ACS. Continue other outpatient medications including Atorvastatin, Zetia, Entresto, torsemide. Case discussed with Dr. Quiroga I spent a total of 45 minutes on the date of service in preparation, delivery, and documentation of the care provided to this patient, excluding any time spent in the performance of separately billed services. Eden Waller PA-C Department of Cardiology, [facility] This chart was completed in part utilizing Speech Voice Recognition Software. Grammatical errors, random word insertions, pronoun errors, and incomplete sentences are an occasional consequence of this system due to software limitations, ambient noise, and hardware issues. Any formal questions or concerns about the content, text, or information contained within the body of this dictation should be directly addressed to the provider for clarification. Supervising Physician Co-Signing Physician Notes I have personally performed a history and physical examination on the patient. I have reviewed the advance practitioner's documentation, and I agree with, and take responsibility for the plan of care. 58-year-old female presents to the ER after ICD firing x 2. History of ICD implantation for primary prevention due to sarcoidosis. Diagnosed with paroxysmal atrial fibrillation earlier this year and prescribed anticoagulation with Eliquis. Patient admits to running out of 100 mg metoprolol succinate tablet on Sunday. She has been taking 25 mg daily over the past 3 days instead of 125mg as prescribed. Developed significant gastrointestinal illness with severe diarrhea over the past 72 hours. Upon arrival to the ER patient noted be atrial flutter with rapid ventricular response. Pacemaker interrogation reveals atrial flutter with rapid ventricular response prompting ICD firing x 2. After receiving 100 mg oral metoprolol, magnesium supplementation, and IV fluid she has converted to sinus rhythm. Will continue metoprolol succinate 125 mg daily. Intravenous diltiazem infusion may be discontinued at this time. Repeat electrolytes in a.m. with supplementation as indicated. Possible discharge in 24-48 hours. Cortez Quiroga DO, [facility] History of Present Illness Reason for Consultation: Atrial flutter RVR; s/p ICD shocks x2 Requesting Physician: [facility] Hospitalist Attending Physician: Dr. Quiroga History of Present Illness Patient is a 58 year old female known to [facility] cardiology (Dr. Whitman) who presented to [facility] after receiving 2 ICD shocks this morning about 15 minutes apart. Upon arrival to ER, she was found to have atrial flutter with RVR. Pacemaker/ICD interrogation revealed Recurrent atrial flutter with 2:1 conduction with ventricular rates > 200 BMP for which she received shock, which successfully converted to sinus/paced rhythm. Unfortunately several minutes later, patient had recurrent episode of Atrial flutter RVR and received 2nd shock. During this time, patient was getting out of the shower. She felt SOB and had substernal chest tightness. Cammal near syncopal. After the ICD shock, symptoms improved. She admits to running out of her metoprolol 100 mg tablets last Sunday and had not yet received her mail order. She was only taking 25 mg not the 125 mg total as prescribed. She also had GI illness Sunday into Sunday with significant diarrhea and has felt "dehydrated. On arrival, patient found to have atrial flutter with RVR. Magnesium was low and supplemented. She was also started on IV diltiazem and oral home dose metoprolol 100 mg provided. About 1 hour after receiving home dose metoprolol 100 mg and IV diltiazem, she converted back to NSR/atrial paced rhythm. Minimally elevated troponin on admission at 24 likely due to atrial flutter RVR and ICD shocks x2. At time of consult, patient resting in bed comfortably. Denies chest pain or dyspnea currently. No dizziness. No orthopnea, PND or increased edema. She also admitted she has not been taking her thyroid medication on a regular basis Complex history Cardiac problems: 1. Cardiac Sarcoidosis S/P dual chamber ICD 10/30/2021 2. NICM EF 30-34% improved to 50-54% echo December, 3. CAD luminal irregularities on cath from 12/2020 4. CVA 5. Paroxysmal Atrial fibrillation 6. hypertension 7. HLD 8. DM 9. Genetic testing with variants of uncertain significance in regards to cardiomyopathy and FH Allergies Allergy/AdvReac Type Severity Reaction Status Date / Time lisinopril AdvReac Intermediate cough Unverified 01/23/24 13:32 Home Medications Medication Instructions Recorded Confirmed Type apixaban 5 mg tablet 5 mg PO BID 08/14/24 08/14/24 History atorvastatin 80 mg tablet 80 mg PO DAILY 08/14/24 08/14/24 History buspirone 10 mg tablet 10 mg PO HS 08/14/24 08/14/24 History dapagliflozin propanediol 10 mg 10 mg PO QAM 08/14/24 08/14/24 History tablet (Farxiga) dulaglutide 0.75 mg/0.5 mL 0.75 mg subcut WK 08/14/24 08/14/24 History subcutaneous pen injector (Trulicity) escitalopram oxalate 10 mg tablet 10 mg PO HS 08/14/24 08/14/24 History evolocumab 140 mg/mL subcutaneous 140 mg subcut Q14D 08/14/24 08/14/24 History pen injector (Repatha SureClick) ezetimibe 10 mg tablet 10 mg PO DAILY 08/14/24 08/14/24 History famotidine 20 mg tablet 20 mg PO HS 08/14/24 08/14/24 History insulin glargine 100 unit/mL (3 40 unit subcut HS 08/14/24 08/14/24 History mL) subcutaneous pen levothyroxine 125 mcg tablet 125 mcg PO DAILY@0630 08/14/24 08/14/24 History methotrexate sodium 2.5 mg tablet 15 mg PO WE 08/14/24 08/14/24 History metoprolol succinate 100 mg 100 mg PO DAILY 08/14/24 08/14/24 History tablet,extended release 24 hr metoprolol succinate 25 mg 25 mg PO DAILY 08/14/24 08/14/24 History tablet,extended release 24 hr pantoprazole 20 mg tablet,delayed 40 mg PO DAILY 08/14/24 08/14/24 History release sacubitril 49 mg-valsartan 51 mg 1 tab PO BID 08/14/24 08/14/24 History tablet (Entresto) torsemide 10 mg tablet 10 mg PO MOWEFR 08/14/24 08/14/24 History trazodone 100 mg tablet 100 mg PO HS 08/14/24 08/14/24 History Patient History Medical History (Updated 08/14/24 @ 14:15 by Kavita Holden PA-C) Cardiac sarcoidosis Obesity Spinal stenosis Degenerative disc disease Osteoarthritis Depression Anxiety CHF (congestive heart failure) Myocardial infarction 2013- medically managed GERD (gastroesophageal reflux disease) controlled Hypothyroidism Diabetes mellitus, type 2 IDDM Hyperlipemia HTN (hypertension) CVA (cerebral vascular accident) 2011- on plavix, residual LUE weakness Surgical History History of D&C History of transesophageal echocardiography (LILI) History of colonoscopy History of cardiac cath 2013- no stents Family History Other Adopted Social History Smoking Status: Former smoker Tobacco Type: Cigarettes Second Hand Exposure: No; Do You Dip or Chew Tobacco: No; Hx Alcohol Use: No Hx Substance Use: No Preferred Language: Somali Communication Ability: Effective Visual Impairment: Limited 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 Beliefs That Will Affect Care: None marital status: Current Living Situation: Spouse Feels Safe at Home: Yes Assistive Devices: None Review of Systems Review of Systems: All systems reviewed & are unremarkable except as noted in HPI & below Physical Exam Constitutional: WD/WN, vitals as above well developed; no acute distress Neck: trachea midline, no thyromegaly Respiratory: normal respiratory effort, lungs clear to auscultation Cardiovascular: RRR, no murmur, no edema Gastrointestinal (Abdomen): normal bowel sounds, soft, nontender, no hepatosplenomegaly Musculoskeletal: no cyanosis or clubbing, extremities motor strength 5/5 Neurologic: PERRL, EOMI, accommodation nl, no face palsy, no dysarthria Psychiatric: A+Ox3, euthymic affect Results & Data Vital Signs (Past 12 Hours) Vital Signs Pulse Pulse Resp BP BP Pulse Ox O2 Del Method 08/14/24 12:33 137 H 08/14/24 12:23 137 H 18 103/85 96 08/14/24 12:23 Room Air 08/14/24 11:48 135 H 18 142/98 H 98 Room Air Laboratory Results Cardiac Enzymes 08/14/24 08/14/24 Range/Units 11:42 14:20 AST 16 (13-39) U/L Troponin I High Sens 24.4 H 50.9 H* D (0-14) pg/ml Coagulation 08/14/24 Range/Units 11:42 PT 10.9 (9.0-12.0) Seconds APTT 27 (21-31) Seconds CBC 08/14/24 Range/Units 11:42 WBC 6.56 (4.8-10.8) K/ul RBC 5.21 (4.20-5.40) M/uL Hgb 14.6 (12.0-16.0) g/dl Hct 43.4 (37.0-47.0) % Plt Count 211 (130-400) K/uL Neut # (Auto) 4.33 (1.40-6.50) K/uL Lymph # (Auto) 1.55 (1.20-3.40) K/uL Wise # (Auto) 0.52 (0.11-0.59) K/uL Eos # (Auto) 0.11 (0.00-0.50) K/uL Baso # (Auto) 0.03 (0.00-0.20) K/uL Comprehensive Metabolic Panel 08/14/24 Range/Units 11:42 Sodium 139 (136-145) mmol/L Potassium 3.8 (3.5-5.1) mmol/L Chloride 107 (98-107) mmol/L Carbon Dioxide 19 L (21-32) mmol/L BUN 9 (6-23) mg/dl Creatinine 1.03 (0.6-1.2) mg/dl Glucose 208 H (70-99(Fasting)) mg/dl Calcium 9.3 (8.6-10.3) mg/dl AST 16 (13-39) U/L ALT 14 (7-52) U/L Alkaline Phosphatase 88 (34-104) U/L Total Protein 7.6 (6.0-8.3) gm/dl Albumin 4.2 (3.4-5.0) gm/dl Intake and Output 08/14/24 08/14/24 08/14/24 06:59 14:59 22:59 Intake Total 1200 / 1200 Balance 1200 / 1200 Intake: IV 1200 / 1200 Magnesium Sulfate / D5w 1 gm In 200 / 200 100 ml @ 100 mls/hr IV NOW STA Rx#:[id number] Sodium Chloride 0.9% 500 ml @ 1000 / 1000 999 mls/hr IV .Q31M ONE Rx#: [id number] Other: Weight 100.7 kg Weight Measurement Method Built in [facility] Patient Weight 08/15/24 06:59 Weight 100.7 kg Diagnostic Findings Telemetry reviewed: Atrial fib/flutter noted on admission with elevated rates. At 2:26 PM, patient converted from afib to NSR/atrial paced rhythm in the 70's. EKG reviewed from admission: Probable atrial flutter with 2:1 AV conduction at 135 bmp LAD Pacemaker/AICD interrogation reviewed with [employer] rep: Probable Atrial flutter with RVR receiving 2 ICD shocks about 15 minutes apart. Chest X-Ray 08/14/24 11:36 XR chest 1V portable CLINICAL HISTORY: Dysrhythmia Comparison: Comparison is made to chest radiograph 11/09/2021 FINDINGS: Pacemaker defibrillator is seen. The cardiomediastinal silhouette is normal. The lungs are clear. No evidence of pleural effusion or pneumothorax. IMPRESSION: No acute chest disease. Echo results reviewed from Jul 09, 2024: Interpretation Summary The examination is adequate to evaluate the referral indication. The left ventricular cavity size is normal. The qualitative LV ejection fraction is 55-59% (normal). The left ventricular wall motion is normal. The right ventricular systolic function is normal as assessed by tricuspid annular plane systolic excursion (TAPSE) (normal >1.7 cm). The left atrium is normal sized. The right atrial size is normal. There is focal thickening of the posterior mitral valve leaflet(s). Mild mitral regurgitation is present. Medications Administered Current Inpatient Medications Diltiazem HCl 125 mg/ Dextrose 125 mls @ 5 mls/hr IV .Q24H [facility]; Protocol Stop: 09/13/24 12:59 Last Admin: 08/14/24 13:32 Dose: 5 mg/hr, 5 mls/hr
[2024-08-14] MEDS: metHOTREXate sodium 2.5 MG TAB PO STA (14:23)
[2024-08-14] MEDS: METOPROLOL SUCC 50MG EXT REL TAB PO STA (14:23)
--- NOTE | 2024-08-14 16:22 | Electrocardiogram Report ---
Test Reason : Blood Pressure : */* mmHG Vent. Rate : 74 BPM Atrial Rate : * BPM P-R Int : * ms QRS Dur : 94 ms QT Int : 420 ms P-R-T Axes : * -27 86 degrees QTcB Int : 466 ms Sinus rhythm Low voltage QRS Poor R wave progression, consider anterior OH vs. lead placement vs. LVH Abnormal ECG When compared with ECG of 14-Aug-2024 11:38, Supraventricular tachycardia no longer present Vent. rate has decreased by 61 bpm Confirmed by Willy Limon ([id number]) on 08/14/2024 4:22:15 PM Referred By: REFERRED SELF Confirmed By: Willy Limon
[2024-08-14] MEDS ORDERED: DEXTROSE 50% 50 ML SYRINGE IV PRN (16:43)
[2024-08-14] MEDS ORDERED: GLUCOSE 10 TAB/TUBE PO PRN (16:43)
[2024-08-14] MEDS ORDERED: ONDANSETRON INJ 2 MG/ML 2 ML VIAL IV PRN (16:43)
[2024-08-14] MEDS ORDERED: GLUCOSE 40% GEL 15 GM TUBE PO PRN (16:43)
[2024-08-14] MEDS ORDERED: GLUCAGON FOR INJ 1 MG VIAL SQ PRN (16:43)
[2024-08-14] MEDS ORDERED: CARBOHYDRATES FOR HYPOGLYCEMIA PO PRN (16:43)
[2024-08-14] MEDS ORDERED: FAMOTIDINE 20 MG TAB PO PRN (16:43)
[2024-08-14] MEDS ORDERED: ACETAMINOPHEN 325 MG TAB PO PRN (16:43)
[2024-08-14] MEDS ORDERED: POLYETHYLENE (MIRALAX) 17 GM PACK PO PRN (16:43)
[2024-08-14] MEDS: MAGNESIUM SULFATE / D5W 1 GM/100 ML BAG IV ONE (17:08)
[2024-08-14] MEDS: INSULIN ASPART PER UNIT CHARGE SC SCH (17:15)
[2024-08-14] MEDS: SUCRALFATE 1 GM TAB PO SCH (17:52)
[2024-08-14] MEDS: MAGNESIUM OXIDE 400 MG TAB PO SCH (17:52)
[2024-08-14] MEDS: VALSARTAN/SACUBITRIL 51/49 MG TAB PO SCH (20:13)
[2024-08-14] MEDS: FAMOTIDINE 20 MG TAB PO SCH (20:13)
[2024-08-14] MEDS: APIXABAN 5 MG TABLET PO SCH (20:13)
[2024-08-14] MEDS: ESCITALOPRAM OXALATE 10 MG TAB PO SCH (20:13)
[2024-08-14] MEDS: traZODone HCL 100 MG TAB PO SCH (20:13)
[2024-08-14] MEDS: busPIRone 5 MG TAB PO SCH (20:13)
[2024-08-14] MEDS: LANTUS PER UNIT CHARGE SQ SCH (20:20)
[2024-08-14] MEDS ORDERED: MELATONIN 3 MG TAB PO PRN (21:00)
--- OUTSIDE RECORDS SUMMARY | 2024-08-15 02:55 | External Medical Summary | Summary of Care ---
Author Name Unknown Organization [facility] Address [address] [place] [address] Phone [phone] Care Team Providers Care Payroll Examiner Name Role Phone Jes Medina MD Primary Care Provide r Reason for Visit * Reason Comments Appointment Encounter Details Date Type Department Care Team (Late st Contact Info) Description 08/08/2024 6:10 PM EDT Pharmacy Pharmacy, [address] [place] [address] [place] [address] Type 2 diabetes mellitus with hemoglobin A1c goal of less than 7.0% (FORMERLY [facility])* Allergies Active Allergy Reactions Criticality Noted Date Comments Carmelo Inhibitors Cough 12/10/2012 Empagliflozin Other (Please comment) 03/29/2021 Yeast infection(s) documented as of this encounter (statuses as of 08/08/2024) Medications Medication Sig Dispensed Refills Start Date End Date Status BD Pen Needle Namrata U/F 32G X 4 MM (Insulin Pen Needle)Indications: Type 2 diabetes mellitus with hemoglobin A1c goal of less than 7.0% ([facility]) Use once a day with Lantus. DX e11.9 100 Each 3 12/26/2021 Active FreeStyle Lite Test In Vitro Strip (Glucose Blood)Indications:T ype 2 diabetes mellitus with hemoglobin A1c goal of less than 7.0% ([facility]) Use to check blood sugar two times daily or as directed. E 11.9 200 Strip 3 12/26/2021 Active FreeStyle LancetsIndications: Type 2 diabetes mellitus with hemoglobin A1c goal of less than 7.0% (HCC) Use to test blood sugar TWICE a day. DX e11.9 200 Each 3 12/26/2021 Active FreeStyle Lite DeviceIndications:T ype 2 diabetes mellitus with hemoglobin A1c goal of less than 7.0% (HCC) Use to test blood sugar TWICE a day. DX e11.9 1 Each 12/26/2021 Active Insulin Glargine 100 UNIT/ML Subcutaneous Solution Pen-injector (Lantus)Indications :Type 2 diabetes mellitus with hemoglobin A1c goal of less than 7.0% (HCC) Inject 40 Units under the skin every night at bedtime. 39 mL 3 12/14/2022 Active Ezetimibe 10 MG Oral Tablet (Zetia)Indications: Dyslipidemia, goal LDL below 70 TAKE 1 TABLET DAILY 90 Tablet 3 08/07/2023 Active Metoprolol Succinate ER 25 MG Oral Tablet Extended Release 24 Hour (toPROL XL) TAKE 1 TABLET IN THE MORNING ONCE DAILY IN ADDITION TO TAKING METOPROLOL 100 MG FOR A TOTAL DAILY DOSE OF 125 MG 90 Tablet 3 10/30/2023 Active Entresto 49-51 MG Oral Tablet (sacubitril-valsart an 49-51 mg per tab) TAKE 1 TABLET IN THE MORNING AND 1 TABLET BEFORE BEDTIME 180 Tablet 3 11/05/2023 Active Additional Information Patient taking differently: 1 Tablet Oral ONCE, Reported on 03/04/2024 Yokasta Mueller 140 MG/ML Subcutaneous Solution Auto-injector (evolocumab) INJECT 140 MG UNDER THE SKIN EVERY 14 DAYS 6 mL 3 12/31/2023 Active Metoprolol Succinate ER 100 MG Oral Tablet Extended Release 24 Hour (toPROL XL) TAKE 1 TABLET ONCE DAILY IN ADDITION TO TAKING METOPROLOL 25 MG, FOR A TOTAL DAILY DOSE OF 125 MG 90 Tablet 3 02/06/2024 Active Apixaban 5 MG Oral Tablet (Eliquis) Take 1 Tablet by mouth in the morning and 1 Tablet before bedtime. 180 Tablet 30 04/10/2024 Active Methotrexate Sodium 2.5 MG Oral Tablet TAKE 6 TABLETS ONCE A WEEK FOR USAGE IN RHEUMATIC DISEASES 78 Tablet 1 04/11/2024 Active Torsemide 10 MG Oral Tablet (Demadex)Indication s:MOYA (dyspnea on exertion),NICM (nonischemic cardiomyopathy) ([facility]) One tablet by mouth three days per week on Mondays, Sunday, and Fridays with extra dose as needed for swelling 45 Tablet 3 05/02/2024 Active Levothyroxine Sodium 125 MCG Oral Tablet (Levoxyl)Indication s:Hypothyroidism (acquired) TAKE 1 TABLET IN THE MORNING (AT LEAST 30 MINUTES PRIOR TO BREAKFAST OR OTHER MEDICATIONS) 90 Tablet 3 05/07/2024 Active Dapagliflozin Propanediol 10 MG Oral Tablet (Farxiga)Indication s:Chronic heart failure with preserved ejection fraction (HCC) Take 1 Tablet by mouth in the morning. 90 Tablet 3 06/17/2024 Active Famotidine 20 MG Oral Tablet (Pepcid)Indications :Gastroesophageal reflux disease, unspecified whether esophagitis present Take 1 Tablet by mouth every night at bedtime. 90 Tablet 3 07/04/2024 Active Atorvastatin Calcium 80 MG Oral Tablet (Lipitor)Indication s:Dyslipidemia, goal LDL below 100 TAKE 1 TABLET DAILY 90 Tablet 3 07/18/2024 Active busPIRone HCl 10 MG Oral Tablet (Buspar)Indications :Moderate episode of recurrent major depressive disorder (HCC) TAKE 1 TABLET TWICE A DAY NEEDED FOR ANXIETY 180 Tablet 3 07/18/2024 Active traZODone HCl 100 MG Oral Tablet (Desyrel)Indication s:Persistent insomnia Take 1 Tablet by mouth at bedtime. 07/25/2024 Active Pantoprazole Sodium 40 MG Oral Tablet Delayed Release (Protonix)Indicatio ns:Gastroesophageal reflux disease, unspecified whether esophagitis present Take 1 Tablet by mouth in the morning. In the morning.. 07/25/2024 Active Escitalopram Oxalate 10 MG Oral Tablet (Lexapro)Indication s:Moderate episode of recurrent major depressive disorder (HCC) Take 1 Tablet by mouth in the morning. 90 Tablet 1 07/25/2024 Active Trulicity 0.75 MG/0.5ML Subcutaneous Solution Pen-injector (Dulaglutide)Indica tions:Type 2 diabetes mellitus with hemoglobin A1c goal of less than 7.0% ([facility]) Inject 0.75 mg under the skin once a week. 6 mL 07/25/2024 Active documented as of this encounter (statuses as of 08/08/2024) Active Problems Problem Noted Date Diagnosed Date PAF (paroxysmal atrial fibrillation) 07/25/2024 Chronic heart failure with preserved ejection fr action 11/27/2023 NICM (nonischemic cardiomyopathy) 11/27/2023 History of 2019 novel coronavirus disease (COVID -19) 02/09/2023 S/P ICD (internal cardiac defibrillator) procedu re 01/31/2022 Trochanteric bursitis of right hip 07/13/2021 Primary osteoarthritis of both knees 07/13/2021 Cardiac sarcoidosis 07/13/2021 Encounter for therapeutic drug monitoring 2020 Type 2 diabetes mellitus wit h hyperglycemia, with long-term current use of insulin 01/18/2021 S/P lumbar spinal fusion 12/30/2019 Primary osteoarthritis of right hand 10/08/2017 Mitral regurgitation 06/04/2015 Edema 03/26/2015 Moderate episode of recurrent major depressive d isorder 03/05/2015 Old NC (myocardial infarction) 11/20/2014 GERD (gastroesophageal reflux disease) 4 Constipation 09/29/2014 Lumbar degenerative disc disease 08/06/2014 Hypothyroidism (acquired) 05/14/2014 Type 2 diabetes mellitus wit h hemoglobin A1c goal of less than 7.0% 04/13/2014 Overview: ICD-10 update of inactive term Cerebrovascular disease, arteriosclerotic, post- stroke 02/26/2012 HTN, goal below 140/90 01/12/2012 Dyslipidemia, goal LDL below 70 10/05/2009 Overview: Per Lipid Taxonomy. FAM HX-DIABETES MELLITUS 03/15/2006 ADVANCE DIRECTIVE INFORMATION 09/06/2005 Overview: No, Advance Directive brochure offered , patient declined. Allergic rhinitis 09/06/2005 Family history of other cardiovascular diseases 06/14/2005 Overview: ICD-10 update of inactive term documented as of this encounter (statuses as of 08/08/2024) Resolved Problems Problem Noted Date Diagnosed Date Resolved Date Type 2 diabetes mellitus with hyperglycemia 03/18/2020 01/18/2021 Sacroiliitis 12/10/2019 12/30/2019 Chronic combined systolic an d diastolic heart failure 03/19/2017 01/18/2021 SOB (shortness of breath) 06/04/2015 Chest pain 03/26/2015 09/06/2018 Abnormal dobutamine stress echocardiogram 08/21/2014 10/08/2017 MOYA (dyspnea on exertion) 07/31/2014 Chest pain 07/31/2014 09/29/2014 Equivocal stress test 07/31/20142014 Left ventricular aneurysm 07/29/2014 Low back pain 05/26/2014 09/06/2018 Intermittent asthma with rel iever use up to twice per week 04/13/2014 03/05/2018 Asthma with severity to be determined 04/21/2010 05/16/2010 Overview: Per Asthma Taxonomy ICD-10 update of inactive term Severe obesity with body mas s index (BMI) of 35.0 to 39.9 with serious comorbidity 01/24/2010 Overview: Per Obesity Taxonomy ICD-10 update of inactive diagnosis DM type 2 causing renal disease 08/26/2009 04/13/2014 Overview: Per Diabetes Taxonomy. Added per DM w/ renal complications protocol #4 Type 2 diabetes mellitus wit h hemoglobin A1c goal of less than 8.0% 08/26/2009 04/13/2014 Overview: Per Diabetes Taxonomy. ICD-10 update of inactive term Dyslipidemia, goal to be determined 12/07/2008 10/05/2009 Overview: Per Lipid Taxonomy. DIAB RENAL MANIF ADULT 05/20/200808/26 Overview: Per Diabetes Taxonomy. Added per DM w/ renal complications protocol #4 Type 2 diabetes mellitus wit h hemoglobin A1c goal of less than 7.0% 03/29/2007 08/26/2009 Overview: Per Diabetes Taxonomy. ICD-10 update of inactive term Hypothyroidism 10/30/2006 05/14/2014 Metabolic syndrome 10/30/2006 0 EXTRINSIC ASTHMA, UNSPEC 03/15/2006 OBESITY, UNSPECIFIED 03/15/2006 010 Overview: Per Obesity Taxonomy Tobacco use disorder 06/14/2005 008 documented as of this encounter (statuses as of 08/08/2024) Immunizations Name Administration Dates Next Due COVID-19 mRNA, LNP-s, No Pre serve, 2-Dose Series (Moderna) 07/13/2021,03/09/2021,02/09/2021 COVID-19, mRNA, LNP-s, PF, B ooster, 100mcg/0.5mg (Moderna) 02/07/2022 Covid-19, Mrna, Lnp-s, Pf, B ivalent, 30 Mcg, IM, 12 yrs and above (Pfizer) 08/29/2022 Hepatitis B, 20+ yrs 12/13/2015,07/09/2015,06/07 Pneumococcal Conjugate Vacci ne, 20-valent ([id number]) 08/21/2022 Pneumococcal Polysaccharide PPV23 (Pneumovax) 07/16/2007,10/29/2000 Seasonal Influenza Vac., MDV , IM, 0.5 mL (Fluzone) 06/30/2014,07/07/2013,12/19/2012,10/26,11/20/2008(Deferred: Patient Refused),09/26/2007 Seasonal Influenza, PF, 6 M & above, IM , (FluLaval or Fluzone) 07/13/2023,08/21/2022,07/26/2021,07/20,09/15/2019,07/04/2018,10/08/2017 TD - Tetanus/Diptheria (ADULT) 10/29/2002 TDAP (age 10 and older)(Boostrix) 01/31/2022 TDAP, Age 7 and older, IM (Adacel) 05/19/2011 Zoster Vaccine Recombinant (Shingrix) 08/23/2020 ,03/18/2020 documented as of this encounter Social History Tobacco Use Types Packs/Day Years Used Date Smoking Tobacco: Former Cigarettes 1 10 1 11/11/1994 - 09/11/2005 Smokeless Tobacco: Never Alcohol Use Standard Drinks/Week Comments No 0 (1 standard drink = 0.6 oz pur e alcohol) PHQ-2 Answer Date Recorded PHQ-2 Score 2 09/15/2019 Hunger Vital Sign Answer Date Recorded Worried About Running Out of Food in the Last Ye ar Never true 09/15/2019 Ran Out of Food in the Last Year Never true 09/15/2019 Sex and Gender Information Value Date Recorded Sex Assigned at Not on file Gender Identity Not on file Sexual Orientation Not on file Job Start Date Occupation Industry Not on file Not on file Not on file documented as of this encounter Progress Notes * Chica Sharp appraiser real estate - 08/08/2024 8:23 AM EDT Patient Phone Numbers Spoke with patient to schedule [facility] appointment for diabetes management. Appointment scheduled as noted below. 08/14/2024 Thank you, Chica Sharp [facility] Hand Inspector [facility] 08/08/2024,8:24 AM documented in this encounter Plan of Treatment Upcoming Encounters Date Type Department Care Team (Late st Contact Info) Description 08/14/2024 11:30 AM EDT Office Visit Pharmacy, [address] [place] [id number] [place] [address] 11/19/2024 11:00 AM EST Imaging Radiology [address] [place] [address] 11/28/2024 8:20 AM EST Office Visit Family Medicine [address] [place] [phone] Jes Medina MD [address] [place] [address] [place] [address] 02/23/2025 3:40 PM EDT Office Visit Rheumatology [address] [place] [phone] Tony Bruner MD [address] [facility] [place] [id number] Health Maintenance Due Date Last Done Comments Cologuard 2010 Fecal Occult Blood Test 2010 Sigmoidoscopy 2010 Depression Monitoring 09/15/2020 09/15/2019 Colonoscopy 06/27/2021 06/27/2016, 06/27/2016 Colorectal Cancer Screening 06/27/2021 Mammogram 02/21/2023 02/21/2022, 040 11/2020, 11/17/2019, Additional history exists COVID-19 Vaccine ( season) 2024 08/29/2022, 02/07/2022, 07/13/2021, Additional history exists Influenza Vaccine (FLU shot) (#1) 2024 07/13/2023, 08/21/2022, 07/26/2021, Additional history exists HbA1c 08/23/2024 02/22/2024, 10/31, 05/21/2023, Additional history exists Albumin/Creatinine Ratio 11/27/2024 024, 01/01/2023, 12/26/2021, Additional history exists Diabetic Eye Exam 12/12/2024 12/12/2023, , 06/30/2021, Additional history exists GFR 03/25/2025 03/25/2024, 10/30, 08/09/2023, Additional history exists TSH 03/25/2025 03/25/2024, 04/29, 01/01/2023, Additional history exists Diabetic Foot Exam 06/20/2025 06/20/2024, 0 05/29/2022, 03/18/2020, Additional history exists Pap Smear 08/15/2026 08/15/2023, 11/17/2013 Cervical Cancer Screening 08/15/2028 HPV/Co-Test 08/15/2028 08/15/2023 DTap/Tdap Vaccines (3 - Td or Tdap) 02/01/2032 01/31/2022, 05/19/2011, 10/29/2002 Hepatitis B Vaccine Completed 12/13/2015, 07/09/2015, 06/07/2015 RETIRED - COLONOSCOPY-EVERY 5 YRS AGES 18-100 Discontinued 06/27/2016, 06/27/2016 Zoster Vaccines Completed 08/23/2020, 03/18/2020 Pneumococcal Vaccine: Pediatrics (0 to 5 Years) and At-Risk Patients (6 to 64 Years) Completed 08/21/2022, 07/16/2007, 10/29/2000 HPV (Gardasil) Vaccine Aged Out No lo nger eligible based on patient's age to complete this topic MENINGOCOCCAL (MENACTRA/MENVEO) Aged Out No longer eligible based on patient's age to complete this topic documented as of this encounter Medical Devices Not on filedocumented as of this encounter Visit Diagnoses Diagnosis Type 2 diabetes mellitus with hemoglobin A1c goal of less than 7.0% (HCC)- Primary documented in this encounter Care Teams Payroll Examiner Relationship Specialty Start Date End Date Jes Medina MD [address] [place] [address] [place] [address] PCP - General Family Medicine 11/27/23 documented as of this encounter
--- OUTSIDE RECORDS SUMMARY | 2024-08-15 02:55 | External Medical Summary | Summary of Care ---
Author Name Unknown Organization [facility] Address [address] [place] [address] Phone [phone] Care Team Providers Care Fulfillment Associate Name Role Phone Jes Medina MD Primary Care Provide r Reason for Visit * Reason Comments Acute Encounter Details Date Type Department Care Team (Late st Contact Info) Description 07/25/2024 3:00 PM EDT Office Visit Family Medicine [address] [phone] Jes Medina MD [address] [place] [address] [place] [id number] Type 2 diabetes mellitus with hyperglycemia, with long-term current use of insulin ([facility])*; Moderate episode of recurrent major depressive disorder ([facility]); Persistent insomnia; Type 2 diabetes mellitus with hemoglobin A1c goal of less than 7.0% ([facility]); Gastroesophageal reflux disease, unspecified whether esophagitis present; PAF (paroxysmal atrial fibrillation) ([facility]) Allergies Active Allergy Reactions Criticality Noted Date Comments Carmelo Inhibitors Cough 12/10/2012 Empagliflozin Other (Please comment) 03/29/2021 Yeast infection(s) documented as of this encounter (statuses as of 07/25/2024) Medications Medication Sig Dispensed Refills Start Date End Date Status BD Pen Needle Namrata U/F 32G X 4 MM (Insulin Pen Needle)Indicatio ns:Type 2 diabetes mellitus with hemoglobin A1c goal of less than 7.0% (HCC) Use once a day with Lantus. DX e11.9 100 Each 3 2 Active FreeStyle Lite Test In Vitro Strip (Glucose Blood)Indication s:Type 2 diabetes mellitus with hemoglobin A1c goal of less than 7.0% (HCC) Use to check blood sugar two times daily or as directed. E 11.9 200 Strip 3 2 Active FreeStyle LancetsIndicatio ns:Type 2 diabetes mellitus with hemoglobin A1c goal of less than 7.0% (HCC) Use to test blood sugar TWICE a day. DX e11.9 200 Each 3 2 Active FreeStyle Lite DeviceIndication s:Type 2 diabetes mellitus with hemoglobin A1c goal of less than 7.0% (HCC) Use to test blood sugar TWICE a day. DX e11.9 1 Each 2 Active Insulin Glargine 100 UNIT/ML Subcutaneous Solution Pen-injector (Lantus)Indicati ons:Type 2 diabetes mellitus with hemoglobin A1c goal of less than 7.0% (HCC) Inject 40 Units under the skin every night at bedtime. 39 mL 3 3 Active Ezetimibe 10 MG Oral Tablet (Zetia)Indicatio ns:Dyslipidemia, goal LDL below 70 TAKE 1 TABLET DAILY 90 Tablet 3 3 Active Metoprolol Succinate ER 25 MG Oral Tablet Extended Release 24 Hour (toPROL XL) TAKE 1 TABLET IN THE MORNING ONCE DAILY IN ADDITION TO TAKING METOPROLOL 100 MG FOR A TOTAL DAILY DOSE OF 125 MG 90 Tablet 3 4 Active Entresto 49-51 MG Oral Tablet (sacubitril-vals faizan 49-51 mg per tab) TAKE 1 TABLET IN THE MORNING AND 1 TABLET BEFORE BEDTIME 180 Tablet 3 4 Active Additional Information Patient taking differently: 1 Tablet Oral ONCE, Reported on 03/04/2024 atha SureClick 140 MG/ML Subcutaneous Solution Auto-injector (evolocumab) INJECT 140 MG UNDER THE SKIN EVERY 14 DAYS 6 mL 3 4 Active Metoprolol Succinate ER 100 MG Oral Tablet Extended Release 24 Hour (toPROL XL) TAKE 1 TABLET ONCE DAILY IN ADDITION TO TAKING METOPROLOL 25 MG, FOR A TOTAL DAILY DOSE OF 125 MG 90 Tablet 3 4 Active Apixaban 5 MG Oral Tablet (Eliquis) Take 1 Tablet by mouth in the morning and 1 Tablet before bedtime. 180 Tablet 30 4 Active Methotrexate Sodium 2.5 MG Oral Tablet TAKE 6 TABLETS ONCE A WEEK FOR USAGE IN RHEUMATIC DISEASES 78 Tablet 1 4 Active Torsemide 10 MG Oral Tablet (Demadex)Indicat ions:JACOBS (dyspnea on exertion),NICM (nonischemic cardiomyopathy) (HCC) One tablet by mouth three days per week on Mondays, Sunday, and Fridays with extra dose as needed for swelling 45 Tablet 3 4 Active Levothyroxine Sodium 125 MCG Oral Tablet (Levoxyl)Indicat ions:Hypothyroid ism (acquired) TAKE 1 TABLET IN THE MORNING (AT LEAST 30 MINUTES PRIOR TO BREAKFAST OR OTHER MEDICATIONS) 90 Tablet 3 4 Active Dapagliflozin Propanediol 10 MG Oral Tablet (Farxiga)Indicat ions:Chronic heart failure with preserved ejection fraction (HCC) Take 1 Tablet by mouth in the morning. 90 Tablet 3 4 Active Famotidine 20 MG Oral Tablet (Pepcid)Indicati ons:Gastroesopha geal reflux disease, unspecified whether esophagitis present Take 1 Tablet by mouth every night at bedtime. 90 Tablet 3 4 Active Atorvastatin Calcium 80 MG Oral Tablet (Lipitor)Indicat ions:Dyslipidemi a, goal LDL below 100 TAKE 1 TABLET DAILY 90 Tablet 3 4 Active busPIRone HCl 10 MG Oral Tablet (Buspar)Indicati ons:Moderate episode of recurrent major depressive disorder (HCC) TAKE 1 TABLET TWICE A DAY NEEDED FOR ANXIETY 180 Tablet 3 4 Active traZODone HCl 100 MG Oral Tablet (Desyrel)Indicat ions:Persistent insomnia Take 1 Tablet by mouth at bedtime. 4 Active Pantoprazole Sodium 40 MG Oral Tablet Delayed Release (Protonix)Indica tions:Gastroesop hageal reflux disease, unspecified whether esophagitis present Take 1 Tablet by mouth in the morning. In the morning.. 4 Active Escitalopram Oxalate 10 MG Oral Tablet (Lexapro)Indicat ions:Moderate episode of recurrent major depressive disorder (HCC) Take 1 Tablet by mouth in the morning. 90 Tablet 1 4 Active Trulicity 0.75 MG/0.5ML Subcutaneous Solution Pen-injector (Dulaglutide)Ind ications:Type 2 diabetes mellitus with hemoglobin A1c goal of less than 7.0% ([facility]) Inject 0.75 mg under the skin once a week. 6 mL 4 Active traZODone HCl 50 MG Oral Tablet (Desyrel)Indicat ions:Persistent insomnia TAKE 1 TABLET AT BEDTIME 90 Tablet 3 3 07/25/20 24 Discontinued Pantoprazole Sodium 20 MG Oral Tablet Delayed Release (Protonix)Indica tions:Gastroesop hageal reflux disease, unspecified whether esophagitis present TAKE 1 TABLET IN THE MORNING 90 Tablet 3 3 07/25/20 24 Discontinued FLUoxetine HCl 20 MG Oral Capsule (PROzac)Indicati ons:Depression TAKE 1 CAPSULE DAILY 90 Capsule 3 4 07/25/20 24 Discontinued Escitalopram Oxalate 10 MG Oral Tablet (Lexapro) Take 1 Tablet by mouth in the morning. 90 Tablet 1 4 07/25/20 24 Discontinued(Ref ill) documented as of this encounter (statuses as of 07/25/2024) Active Problems Problem Noted Date Diagnosed Date [...] recurrent major depressive d isorder 03/05/2015 Old IN (myocardial infarction) 11/20/2014 GERD (gastroesophageal reflux disease) [...] as of this encounter (statuses as of 07/25/2024) Resolved Problems Problem Noted Date Diagnosed Date Resolved Date Type 2 diabetes mellitus with hyperglycemia 03/18/2020 01/18/2021 Sacroiliitis 12/10/2019 12/30/2019 Chronic combined systolic an d diastolic heart failure 03/19/2017 01/18/2021 SOB (shortness of breath) 06/04/2015 Chest pain 03/26/2015 09/06/2018 Abnormal dobutamine stress echocardiogram 08/21/2014 10/08/2017 JACOBS (dyspnea on exertion) 07/31/2014 Chest pain 07/31/2014 [...] as of this encounter (statuses as of 07/25/2024) Immunizations Name Administration Dates Next Due COVID-19 mRNA, LNP-s, No Pre serve, 2-Dose Series (Moderna) 07/13/2021,03/09/2021,02/09/2021 COVID-19, mRNA, LNP-s, PF, B ooster, 100mcg/0.5mg (Moderna) 02/07/2022 Covid-19, Mrna, Lnp-s, Pf, B ivalent, 30 Mcg, IM, 12 yrs and above (Extraprise) 08/29/2022 Hepatitis B, 20+ yrs 12/13/2015,07/09/2015,06/07 Pneumococcal Conjugate Vacci ne, 20-valent ([id number]) 08/21/2022 Pneumococcal Polysaccharide PPV23 (Pneumovax) 07/16/2007,10/29/2000 Seasonal Influenza, PF, 6 M & above, IM , (FluLaval or Fluzone) 07/13/2023,08/21/2022,07/26/2021,07/20,09/15/2019,07/04/2018,10/08/2017 Seasonal Influenza, Trivalen t, (IIV3), with Preserv, (Fluzone) 06/30/2014,07/07/2013,12/19/2012,10/26,11/20/2008(Deferred: Patient Refused),09/26/2007 TD - Tetanus/Diptheria (ADULT) 10/29/2002 TDAP (age [...] on file documented as of this encounter Last Filed Vital Signs Vital Sign Reading Time Taken Comments Blood Pressure 124/72 07/25/2024 2:44 PM EDT Pulse 96 07/25/2024 2:44 PM EDT Temperature 36.1 C (97 F) 07/25/2024 2:44 PM EDT Respiratory Rate - - Oxygen Saturation 96% 07/25/2024 2:44 PM EDT Inhaled Oxygen Concentration - - Weight 98.4 kg (217 lb) 07/25/2024 2:44 PM EDT Height 165.1 cm (5' 5") 07/25/2024 2:44 PM EDT Body Mass Index 36.11 07/25/2024 2:44 PM EDT documented in this encounter Progress Notes * Jes Medina MD - 07/25/2024 3:06 PM EDT Subjective: Bailey Alejandra is a 58 year old female. Chief Complaint Patient presents with Acute HPI: Brief Clinical History Ms. Alejandra is a 58 year old female last seen in Family Medicine [facility] on 06/20/2024 by Gardenia Aguirre She has a h/o the following chronic conditions indicated on the problem list: Chronic Conditions Cerebrovascular disease, arteriosclerotic, post-stroke Moderate episode of recurrent major depressive disorder (HCC) Type 2 diabetes mellitus with hemoglobin A1c goal of less than 7.0% ([facility]) Sugars have been high. Has been out of Trulicity since February. It was on back-order for a while and then when it was back in stock, she was told she needed a refill but did not hear back about the refills. Has not seen MTM for a few months. Is taking the Farxiga and Lantus. Denies any hypoglycemia. Has been urinating a lot at night. Sugars are often in the 300-400 range. Under a lot of stress. Has anxiety and depression. Recently lost spouse and her breast friend yesterday. Has been on fluoxetine 20 mg for a long time. Is taking Buspar mostly at night andsometimes twice a day but does not help much. The Trazodone does help her to sleep. She was told toincrease it to 100 mg and it does help her to sleep. Has been having heartburn. Was put on famotidine at night but still having heartburn a lot. Is taking Protonix 20 mg daily. Follows with cardiology. Was to have appointment in July but canceled and not yet rescheduled. Is now on Eliquis for PAF. Results for orders placed or performed in visit on 07/09/24 ECHO, COMPLETE (2D), TRANS-THORACIC Result Value Ref Range LEFT VENTRICULAR EJECTION FRACTION 55 % *Note: Due to a large number of results and/or encounters for the requested time period, some results have not been displayed. A complete set of results can be found in Results Review. PHM: Patient Active Problem List Diagnosis Family history of other cardiovascular diseases ADVANCE DIRECTIVE INFORMATION Allergic rhinitis FAM HX-DIABETES MELLITUS Dyslipidemia, goal LDL below 70 HTN, goal below 140/90 Cerebrovascular disease, arteriosclerotic, post-stroke Type 2 diabetes mellitus with hemoglobin A1c goal of less than 7.0% (HCC) Hypothyroidism (acquired) Lumbar degenerative disc disease GERD (gastroesophageal reflux disease) Constipation Old IN (myocardial infarction) Moderate episode of recurrent major depressive disorder (HCC) Edema Mitral regurgitation Primary osteoarthritis of right hand S/P lumbar spinal fusion Type 2 diabetes mellitus with hyperglycemia, with long-term current use of insulin (HCC) Trochanteric bursitis of right hip Primary osteoarthritis of both knees Cardiac sarcoidosis Encounter for therapeutic drug monitoring S/P ICD (internal cardiac defibrillator) procedure History of 2019 novel coronavirus disease (COVID-19) Chronic heart failure with preserved ejection fraction (HCC) NICM (nonischemic cardiomyopathy) ([facility]) Current Outpatient Medications Medication Sig Dispense Refill BD Pen Needle Namrata U/F 32G X 4 MM (Insulin Pen Needle) Use once a day with Lantus. DX e11.9 100 Each 3 FreeStyle Lite Test In Vitro Strip (Glucose Blood) Use to check blood sugar two times daily or as directed. E 11.9 200 Strip 3 FreeStyle Lancets Use to test blood sugar TWICE a day. DX e11.9 200 Each 3 FreeStyle Lite Device Use to test blood sugar TWICE a day. DX e11.9 1 Each 0 Insulin Glargine 100 UNIT/ML Subcutaneous Solution Pen-injector (Lantus) Inject 40 Units under the skin every night at bedtime. 39 mL 3 Ezetimibe 10 MG Oral Tablet (Zetia) TAKE 1 TABLET DAILY 90 Tablet 3 traZODone HCl 50 MG Oral Tablet (Desyrel) TAKE 1 TABLET AT BEDTIME 90 Tablet 3 Pantoprazole Sodium 20 MG Oral Tablet Delayed Release (Protonix) TAKE 1 TABLET IN THE MORNING 90 Tablet 3 Metoprolol Succinate ER 25 MG Oral Tablet Extended Release 24 Hour (toPROL XL) TAKE 1 TABLET IN THEMORNING ONCE DAILY IN ADDITION TO TAKING METOPROLOL 100 MG FOR A TOTAL DAILY DOSE OF 125 MG 90 Tablet 3 Entresto 49-51 MG Oral Tablet (sacubitril-valsartan 49-51 mg per tab) TAKE 1 TABLET IN THE MORNING AND 1 TABLET BEFORE BEDTIME (Patient taking differently: Take 1 Tablet by mouth once.) 180 Tablet 3 Repatha SureClick 140 MG/ML Subcutaneous Solution Auto-injector (evolocumab) INJECT 140 MG UNDER THE SKIN EVERY 14 DAYS 6 mL 3 Metoprolol Succinate ER 100 MG Oral Tablet Extended Release 24 Hour (toPROL XL) TAKE 1 TABLET ONCE DAILY IN ADDITION TO TAKING METOPROLOL 25 MG, FOR A TOTAL DAILY DOSE OF 125 MG 90 Tablet 3 FLUoxetine HCl 20 MG Oral Capsule (PROzac) TAKE 1 CAPSULE DAILY 90 Capsule 3 Apixaban 5 MG Oral Tablet (Eliquis) Take 1 Tablet by mouth in the morning and 1 Tablet before bedtime. 180 Tablet 30 Methotrexate Sodium 2.5 MG Oral Tablet TAKE 6 TABLETS ONCE A WEEK FOR USAGE IN RHEUMATIC DISEASES 78 Tablet 1 Torsemide 10 MG Oral Tablet (Demadex) One tablet by mouth three days per week on Mondays, Sunday, and Fridays with extra dose as needed for swelling 45 Tablet 3 Levothyroxine Sodium 125 MCG Oral Tablet (Levoxyl) TAKE 1 TABLET IN THE MORNING (AT LEAST 30 MINUTES PRIOR TO BREAKFAST OR OTHER MEDICATIONS) 90 Tablet 3 Dapagliflozin Propanediol 10 MG Oral Tablet (Farxiga) Take 1 Tablet by mouth in the morning. 90 Tablet 3 Famotidine 20 MG Oral Tablet (Pepcid) Take 1 Tablet by mouth every night at bedtime. 90 Tablet 3 Atorvastatin Calcium 80 MG Oral Tablet (Lipitor) TAKE 1 TABLET DAILY 90 Tablet 3 busPIRone HCl 10 MG Oral Tablet (Buspar) TAKE 1 TABLET TWICE A DAY NEEDED FOR ANXIETY 180 Tablet3 No current facility-administered medications for this visit. Past Medical History: Diagnosis Date Allergic rhinitis Asthma, mild persistent Cerebrovascular disease, arteriosclerotic, post-stroke 02/26/2012 Constipation 09/29/2014 CVA (cerebral vascular accident) ([facility]) Depressive disorder, not elsewhere classified DM type 2, goal A1c below 7 04/13/2014 DM type 2, not at goal ([facility]) Dyslipidemia, goal LDL below 100 Esophageal reflux GERD (gastroesophageal reflux disease) 09/29/2014 HTN, goal below 140/90 01/12/2012 Hypothyroidism (acquired) 05/14/2014 Intermittent asthma with reliever use up to twice per week 04/13/2014 Left ventricular aneurysm 07/2014 Low back pain 05/26/2014 Lumbar degenerative disc disease 08/06/2014 Metabolic syndrome 10/30/2006 Osteoarthrosis Other postablative hypothyroidism Past Surgical History: Procedure Laterality Date CARDIAC CATHETERIZATION REPORT 07/2014 aneurysmal segment of LV with hypokinesis of lateral wall COLONOSCOPY, DIAGNOSTIC (RECTUM) 06/27/2016 adenomatous polyps, repeat 5 yrs/COLONOSCOPY FLEXIBLE PROXIMAL DIAGNOSTIC performed by Armen Otero MD at ENDOSCOPY [facility] INJECT DX/THER SUBSTANCE INTERLAMINAR LUMBAR/SACRAL W IMAGE GUIDE 05/08/2019 INJECTION SPINE LUMBAR OR SACRAL performed by Champ Tomlinson, at OR [facility] NONE SACROILIAC JOINT INJECT W/GUIDANCE 06/16/2019 INJECTION SACROILIAC JOINT performed by Champ Tomlinson, at [facility]INAL FUSION, LUMBAR, COMBINED 12/22/2019 L4-S1 decompression and fusion; interbody L4-S1; [place] Social History Socioeconomic History Marital status: Spouse name: Not on file Number of children: 2 Years of education: Not on file Highest education level: Not on file Occupational History Occupation: housewife Tobacco Use Smoking status: Former Current packs/day: 0.00 Average packs/day: 1 pack/day for 10.0 years (10.0 ttl pk-yrs) Types: Cigarettes Start date: 09/11/1995 Quit date: 09/11/2005 Years since quittin.8 Smokeless tobacco: Never Vaping Use Vaping status: Never Used Substance and Sexual Activity Alcohol use: No Drug use: No Sexual activity: Yes Partners: Male control/protection: Surgical Comment: had vasectomy Other Topics Concern Service No Blood Transfusions No Caffeine Concern Yes Occupational Exposure No Hobby Hazards No Sleep Concern No Stress Concern No Weight Concern Yes Special Diet No Back Care Not Asked Exercise No Bike Helmet Not Asked Seat Belt Yes Self-Exams Not Asked Social History Narrative Homemaker: 2 kids Social Determinants of Health Financial Resource Strain: Not on file Food Insecurity: No Food Insecurity (09/15/2019) Hunger Vital Sign Worried About Running Out of Food in the Last Year: Never true Ran Out of Food in the Last Year: Never true Transportation Needs: Not on file Social Connections: Unknown (07/25/2024) Social Connections How often do you feel lonely or isolated from those around you? (Adult - for ages 18 years and over): Not on file Housing Stability: Not on file Review of patient's allergies indicates: Allergen Reactions Carmelo Inhibitors Cough Jardiance [Empagliflozin] Other (Please comment) Yeast infection(s) Objective: BP 124/72 | Pulse 96 | Temp 36.1 C (97 F) (Tympanic) | Ht 1.651 m (5' 5") | Wt 98.4 kg (217 lb)| LMP 09/12/2013 | SpO2 96% | BMI 36.11 kg/m | BSA 2.12 m Physical Exam: General: alert, healthy, no distress, well nourished, and well developed Head: Normocephalic, No masses, lesions, tenderness or abnormalities Eye Exam: PERRLA, extraocular movements intact, conjunctiva are pink and non- injected, sclera clear Ears: External ears normal Nose: no mucosal erythema, no mucosal edema, no purulent discharge Oropharynx: no exudate, no erythema, lips, buccal mucosa, and tongue normal, and mucous membranes are moist Neck: supple, no adenopathy, no bruits Heart: regular rate & rhythm, no murmur, and no gallops Lungs: chest symmetric with normal AP diameter, no chest deformities noted, no chest wall tenderness, lungs clear to auscultation Abdomen: soft, normal bowel sounds, mild epigastric tenderness Extremities: no edema, no clubbing, no cyanosis Neuro Exam: alert & oriented x 3 with fluent speech, no focal motor/sensory deficits Extensive ROS Constitutional (f/c/wt/vision/hearing): Negative Resp (cough/sob/jacobs): see above hpi CV (cp/palp/fluttering/diaphoresis/jacobs/pnd):see above hpi GI (n/v/d/hrtburn): see above hpi Endo (hair/cold or heat intol/ 3 p's): see above hpi Neuro (shaking/weak/fatigu/parasthesi/): Negative Skin (rash/easy bruis/xerosis): Negative Psy (si/hi/halluc/): see above hpi (nocturia/hesit/drib/sexual review): Negative Lymph (swollen glands/b sx's/: Negative ASSESSMENT: Type 2 diabetes mellitus with hyperglycemia, with long-term current use of insulin (HCC) (Primary)--uncontrolled since she went off Trulicity due to back order in February and has not been able to restart. Restart Trulicity. Moderate episode of recurrent major depressive disorder (HCC)--change to Lexapro. Discussed considering counseling or a grief support group. - Escitalopram Oxalate 10 MG Oral Tablet (Lexapro); Take 1 Tablet by mouth in the morning. Persistent insomnia--increase Trazodone to 100 mg. Type 2 diabetes mellitus with hemoglobin A1c goal of less than 7.0% ([facility]) - Trulicity 0.75 MG/0.5ML Subcutaneous Solution Pen-injector (Dulaglutide); Inject 0.75 mg under the skin once a week. Gastroesophageal reflux disease, unspecified whether esophagitis present--increase Protonix to 40 mg daily. PAF (paroxysmal atrial fibrillation) ([facility])--now on Eliquis. Follow-up with cardiology as scheduled.Rate controlled with metoprolol succinate 25 mg daily. Follow-up: Return as scheduled. | Check-out note: Needs f/u scheduled with cardiology PLAN: Continue present medication(s): Begin medication(s): Escitalopram 10 mg daily for uncontrolled depression/anxiety. Restart Trulicity. Has been out of it for months and now sugars are high. Last A1C was 6.8 while taking it. Titrate up the dose as tolerated. Was following with MTM and to be called to reschedule appointment in July. Discontinue medication(s): fluoxetine in favor of escitalopram Change dose of medication(s) to Increase Trazodone to 100 mg for sleep. Is helping. Increase Protonix to 40 mg daily for uncontrolled GERD. Patient education: Discussed depression, anxiety, and medication changes. Follow up: As scheduled. Jes Medina MD documented in this encounter Nursing Notes * Kavita Polanco LPN - 07/25/2024 2:44 PM EDT Just doesn't feel good Blood sugars are over 400s at times Anxiety & stress are not managed well documented in this encounter Plan of Treatment Upcoming Encounters Date Type Department Care Team (Late st Contact Info) Description 08/08/2024 6:10 PM EDT Pharmacy Pharmacy, [address] [place] [id number] [place] [address] 11/19/2024 11:00 AM EST Imaging Radiology [address] [place] [address] 11/28/2024 8:20 AM EST Office Visit Family Medicine [address] [place] [phone] Jes Medina MD [address] [place] [address] [place] [address] 02/23/2025 3:40 PM EDT Office Visit Rheumatology [address] [place] [phone] Tony Bruner MD [address] [place] [address] [place] [address] Health Maintenance Due Date Last Done Comments Cologuard 2010 Fecal Occult Blood Test 2010 Sigmoidoscopy 2010 Depression Monitoring 09/15/2020 09/15/2019 Colonoscopy 06/27/2021 06/27/2016, 06/27/2016 Colorectal Cancer Screening 06/27/2021 Mammogram 02/21/2023 02/21/2022, 11/2020, 11/17/2019, Additional history exists COVID-19 Vaccine [...] Diagnoses Diagnosis Type 2 diabetes mellitus with hyperglycemia, with long-term current use of insulin (HCC)- Primary Moderate episode of recurrent major depressive disorder (HCC) Persistent insomnia Persistent disorder of initiating or maintaining sleep Type 2 diabetes mellitus with hemoglobin A1c goal of less than 7.0% (HCC) Gastroesophageal reflux disease, unspecified whether esophagitis present PAF (paroxysmal atrial fibrillation) (HCC) Atrial fibrillation documented in this encounter Care Teams Fulfillment Associate Relationship Specialty Start Date End Date Jes Medina MD [address] [place] [address] [place] [address] PCP - General Family Medicine 11/27/23 documented as of this encounter
--- OUTSIDE RECORDS SUMMARY | 2024-08-15 02:55 | External Medical Summary | Summary of Care ---
Author Name Unknown Organization [facility] Address [address] [place] [address] Phone [phone] Care Team Providers Care Geophysical Drafter Name Role Phone Jes Medina MD Primary Care Provide r Encounter Details Date Type Department Care Team (Late st Contact Info) Description 07/21/2024 Orders Only Outcomes Research Department [address] [place] [address] Chyna Sadler CHRA MyCode Research Other*[id number] Allergies Active Allergy Reactions Criticality Noted Date Comments Carmelo Inhibitors Cough 12/10/2012 Empagliflozin Other (Please comment) 03/29/2021 Yeast infection(s) documented as of this encounter (statuses as of 07/21/2024) Medications Medication Sig Dispensed Refills Start Date End Date Status BD Pen Needle Namrata U/F 32G X 4 MM (Insulin Pen Needle)Indications: Type 2 diabetes mellitus with hemoglobin A1c goal of less than 7.0% ([facility]) Use once a day with Lantus. DX e11.9 100 Each 3 12/26/2021 Active FreeStyle Lite Test In Vitro Strip (Glucose Blood)Indications:T ype 2 diabetes mellitus with hemoglobin A1c goal of less than 7.0% ([facility]) Use to check blood sugar two times daily or as directed. E 11.9 200 Strip 3 12/26/2021 Active FreeStyle LancetsIndications: Type 2 diabetes mellitus with hemoglobin A1c goal of less than 7.0% ([facility]) Use to test blood sugar TWICE a [...] TABLET DAILY 90 Tablet 3 08/07/2023 Active traZODone HCl 50 MG Oral Tablet (Desyrel)Indication s:Persistent insomnia TAKE 1 TABLET AT BEDTIME 90 Tablet 3 10/08/2023 Active Pantoprazole Sodium 20 MG Oral Tablet Delayed Release (Protonix)Indicatio ns:Gastroesophageal reflux disease, unspecified whether esophagitis present TAKE 1 TABLET IN THE MORNING 90 Tablet 3 10/08/2023 Active Metoprolol Succinate ER 25 MG Oral [...] 1 Tablet Oral ONCE, Reported on 03/04/2024 Repatha SureClick 140 MG/ML Subcutaneous Solution Auto-injector (evolocumab) INJECT 140 MG UNDER THE SKIN EVERY 14 DAYS 6 mL 3 12/31/2023 Active Metoprolol Succinate ER 100 MG Oral Tablet Extended Release 24 Hour (toPROL XL) TAKE 1 TABLET ONCE DAILY IN ADDITION TO TAKING METOPROLOL 25 MG, FOR A TOTAL DAILY DOSE OF 125 MG 90 Tablet 3 02/06/2024 Active FLUoxetine HCl 20 MG Oral Capsule (PROzac)Indications :Depression TAKE 1 CAPSULE DAILY 90 Capsule 3 03/03/2024 Active Apixaban 5 MG Oral Tablet (Eliquis) Take 1 Tablet by mouth in the morning and 1 Tablet before bedtime. 180 Tablet 30 04/10/2024 Active Methotrexate Sodium 2.5 MG Oral Tablet TAKE 6 TABLETS ONCE A WEEK FOR USAGE IN RHEUMATIC DISEASES 78 Tablet 1 04/11/2024 Active Torsemide 10 MG Oral Tablet (Demadex)Indication s:MOYA (dyspnea on exertion),NICM (nonischemic cardiomyopathy) ([facility]) One tablet by mouth three days per [...] the morning. 90 Tablet 3 06/17/2024 Active Additional Information Patient not taking.Reported on 06/20/2024 Famotidine 20 MG Oral Tablet (Pepcid)Indications :Gastroesophageal [...] FOR ANXIETY 180 Tablet 3 07/18/2024 Active documented as of this encounter (statuses as of 07/21/2024) Active Problems Problem Noted Date Diagnosed Date Chronic heart failure with preserved ejection fr [...] recurrent major depressive d isorder 03/05/2015 Old [place] (myocardial infarction) 11/20/2014 GERD (gastroesophageal reflux disease) [...] as of this encounter (statuses as of 07/21/2024) Resolved Problems Problem Noted Date Diagnosed Date [...] as of this encounter (statuses as of 07/21/2024) Immunizations Name Administration Dates Next Due COVID-19 mRNA, LNP-s, No Pre serve, 2-Dose Series (Moderna) 07/13/2021,03/09/2021,02/09/2021 COVID-19, mRNA, LNP-s, PF, B ooster, 100mcg/0.5mg (Moderna) 02/07/2022 Covid-19, Mrna, Lnp-s, Pf, B ivalent, 30 Mcg, IM, 12 yrs and above (Pfizer) 08/29/2022 Hepatitis B, 20+ yrs 12/13/2015,07/09/2015,06/07 Pneumococcal Conjugate Vacci ne, 20-valent ([id number]) 08/21/2022 Pneumococcal Polysaccharide PPV23 (Pneumovax) 07/16/2007,10/29/2000 Seasonal [...] on file documented as of this encounter Plan of Treatment Upcoming Encounters Date Type Department Care Team (Late st Contact Info) Description 08/08/2024 6:10 PM EDT Pharmacy Pharmacy, [address] [place] [address] [place] [address] 11/19/2024 11:00 AM EST Imaging Radiology [address] [place] [address] 11/28/2024 8:20 AM EST Office Visit Family Medicine [address] [phone] Jes Medina MD [address] [place] [address] [place] [address] 02/23/2025 3:40 PM EDT Office Visit Rheumatology [address] [place] [phone] Tony Bruner MD [address] [place] [address] [place] [address] Scheduled Orders Name Type Priority Associated Diagnoses Orde r Schedule MYCODE SUBSEQUENT ADULT Lab Routine MyCode Research Other*[id number] Every 6 Months for 2 Occurrences starting 07/21/2024 until 08/10/2025 Health Maintenance Due Date Last Done Comments Cologuard 2010 Fecal Occult Blood Test 2010 Sigmoidoscopy 2010 Depression Monitoring 09/15/2020 09/15/2019 Colonoscopy 06/27/2021 06/27/2016, 06/27/2016 Colorectal Cancer Screening 06/27/2021 Mammogram 02/21/2023 02/21/2022, 04/0 11/2020, 11/17/2019, Additional history exists COVID-19 Vaccine [...] as of this encounter Visit Diagnoses Diagnosis MyCode Research Other*[id number] documented in this encounter Care Teams Geophysical Drafter Relationship Specialty Start Date End Date Jes Medina MD [address] [place] [address] [place] [address] PCP - General Family Medicine 11/27/23 documented as of this encounter
--- OUTSIDE RECORDS SUMMARY | 2024-08-15 02:55 | External Medical Summary | Summary of Care ---
Author Name Unknown Organization [facility] Address [address] [place] [address] Phone [phone] Care Team Providers Care Purification Operator Name Role Phone Jes Medina MD Primary Care Provide r Reason for Visit * Reason Onset Date Comments MyCode Consent 09/16/2015 Encounter Details Date Type Department Care Team (Late st Contact Info) Description 09/16/2015 Orders Only Outcomes Research Department [address] [place], [place] [id number] Jonathan Hammond, MPH MyCode Research Other*[id number]* Allergies Active Allergy Reactions Criticality Noted Date Comments Carmelo Inhibitors Cough 12/10/2012 Empagliflozin Other (Please comment) 03/29/2021 Yeast infection(s) documented as of this encounter (statuses as of 07/22/2024) Medications Medication Sig Dispensed Refills Start Date End Date Status IBUPROFEN 800 MG PO TABSIndications :Lumbago,Hip arthritis One pill by mouth 3 times a day with food for pain 270 Tab 2 05/16/2013 6 Discontinued(Oth er) ASPIRIN 81 MG PO TABS 1 tablet a day 4 Discontinued CLOPIDOGREL BISULFATE 75 MG PO TABSIndications :Chest pain,Equivocal stress test take one tablet daily 90 Tab 3 09/09/2014 6 Discontinued(Pat ient preference/disco ntinuation) MIRALAX PO POWDIndications :Constipation Dissolve one heaping tablespoon in 8 ounces of water or juice - one dose per day 3 Bottle 1 12/31/2014 7 Discontinued(Cou rse of treatment completed) amLODIPine (NORVASC) 2.5 MG TabletIndicatio ns:Chest pain,HTN, goal below 140/90 Take 1 Tab by mouth daily. 30 Tab 3 03/26/2015 6 Discontinued(Ref ill) metoprolol succinate XL (TOPROL XL) 25 MG TB24 Take 1 Tab by mouth daily. 90 Tab 3 04/26/2015 6 Discontinued(Ref ill) spironolactone (ALDACTONE) 25 MG Tablet Take 0.5 Tabs by mouth 2 times a day. 90 Tab 3 04/27/2015 6 Discontinued(Dup licate) atorvaSTATin (LIPITOR) 40 MG TabletIndicatio ns:Dyslipidemia , goal LDL below 100 TAKE 1 TABLET DAILY 90 Tab 1 05/28/2015 6 Discontinued(Ref ill) fluticasone (FLONASE) 50 MCG/ACT nasal sprayIndication s:Allergic rhinitis USE 2 SPRAYS IN EACH NOSTRIL DAILY 3 Bottle 1 05/28/2015 5 Discontinued(Ref ill) montelukast (SINGULAIR) 10 MG TabletIndicatio ns:Allergic rhinitis TAKE 1 TABLET DAILY FOR ALLERGIES AND ASTHMA 90 Tab 1 05/28/2015 5 Discontinued(Ref ill) [place]-3 Fatty Acids (FISH OIL) 500 MG Capsule Take 500 mg by mouth 3 times a day. 6 Discontinued(Cou rse of treatment completed) furosemide (LASIX) 40 MG Tablet Take 1 Tab by mouth 2 times a day. 60 Tab 11 06/07/2015 6 Discontinued(Med ication/Dose Changed) glipiZIDE XL (GLIPIZIDE XL) 10 MG [id number] :DM type 2, goal A1c below 7 Take 1 Tab by mouth daily. 30 minutes before a meal. 90 Tab 3 07/09/2015 6 Discontinued(Med ication/Dose Changed) FREESTYLE LITE STRP TEST ONCE DAILY 100 Strip 5 08/02/2015 9 Discontinued losartan (COZAAR) 50 MG Tablet TAKE 1 TABLET DAILY 90 Tab 1 08/16/2015 6 Discontinued(Ref ill) MetFORMIN (GLUCOPHAGE) 1000 MG Tablet TAKE 1 TABLET TWICE A DAY WITH MEALS 180 Tab 1 08/16/2015 6 Discontinued(The rapeutic interchange) furosemide (LASIX) 20 MG TabletIndicatio ns:Chest pain TAKE 1 TABLET DAILY 90 Tab 2 09/06/2015 6 Discontinued(Med ication/Dose Changed) levothyroxine sodium (LEVOXYL) 125 MCG TabletIndicatio ns:Hypothyroidi sm TAKE 1 TABLET DAILY 90 Tab 2 09/06/2015 6 Discontinued(Ref ill) FLUoxetine (PROZAC) 20 MG CapsuleIndicati ons:Depression Take 1 Cap by mouth daily. 90 Cap 1 09/02/2015 6 Discontinued(Ref ill) omeprazole (PRILOSEC) 20 MG CPDRIndications :GERD (gastroesophage al reflux disease) Take 1 Cap by mouth daily. 1 hour before the first meal of the day. 90 Cap 1 09/02/2015 6 Discontinued(Ref ill) documented as of this encounter (statuses as of 07/22/2024) Active Problems Problem Noted Date Diagnosed Date [...] recurrent major depressive d isorder 03/05/2015 Old [place] (myocardial infarction) 11/20/2014 GERD (gastroesophageal reflux disease) [...] as of this encounter (statuses as of 07/22/2024) Resolved Problems Problem Noted Date Diagnosed Date [...] as of this encounter (statuses as of 07/22/2024) Immunizations Name Administration Dates Next Due COVID-19 mRNA, LNP-s, No Pre serve, 2-Dose Series (Moderna) 07/13/2021,03/09/2021,02/09/2021 COVID-19, mRNA, LNP-s, PF, B ooster, 100mcg/0.5mg (Moderna) 02/07/2022 Covid-19, Mrna, Lnp-s, Pf, B ivalent, 30 Mcg, IM, 12 yrs and above (Pfizer) 08/29/2022 Hepatitis B, 20+ yrs 12/13/2015,07/09/2015,06/07 Pneumococcal Conjugate Vacci ne, 20-valent ([id number]) 08/21/2022 Pneumococcal Polysaccharide PPV23 (Pneumovax) 07/16/2007,10/29/2000 Seasonal [...] file Not on file Not on file COVID-19 Exposure Response Date Recorded In the last month, have you been in contact with someone who was confirmed or suspected to have Coronavirus / COVID-19? No / Unsure 06/02/2020 8:47 AM EDT documented as of this encounter Progress Notes * Jonathan Hammond, MPH - 09/16/2015 3:56 PM EST [employer] Consent Documentation Bailey Choi Justyn was approached in the clinic regarding participation in the [employer] Project and consented. documented in this encounter Plan of Treatment Upcoming Encounters Date Type Department Care Team (Late st Contact Info) Description 08/08/2024 6:10 PM EDT Pharmacy Pharmacy, [address] [place] [address] [place] [address] 11/19/2024 11:00 AM EST Imaging Radiology [address] [place] [address] 11/28/2024 8:20 AM EST Office Visit Family Medicine [address] [place] [phone] Jes Medina MD [address] [place] [address] [place] [address] 02/23/2025 3:40 PM EDT Office Visit Rheumatology [address] [place] [phone] Tony Bruner MD [address] [place] [address] [place] [address] Scheduled Orders Name Type Priority Associated Diagnoses Orde r Schedule MYCODE INITIAL DRAW MULTIPLE ORDERS (LAV/GOLD) Procedures Routine MyCode Research Other*[id number] Expected: 09/14/2016, Expires: 10/05/2016 Health Maintenance Due Date Last Done Comments Cologuard 2010 Fecal Occult Blood Test 2010 Sigmoidoscopy 2010 Depression Monitoring 09/15/2020 09/15/2019 Colonoscopy 06/27/2021 06/27/2016, 06/27/2016 Colorectal Cancer Screening 06/27/2021 Mammogram 02/21/2023 02/21/2022, 0411/2020, 11/17/2019, Additional history exists COVID-19 Vaccine ( [...] this encounter Visit Diagnoses Diagnosis MyCode Research Other*[id number] Primary documented in this encounter Additional Health Concerns Infection Onset Date Last Indicated Resolved Time Respiratory Rule-Out 09/14/2022 09/14/2022 022 12:18 PM EST documented as of this encounter Care Teams Purification Operator Relationship Specialty Start Date End Date Jes Medina MD [address] [place] [address] [place] [address] PCP - General Family Medicine 11/27/23 documented as of this encounter
--- OUTSIDE RECORDS SUMMARY | 2024-08-15 02:56 | External Medical Summary | Summary of Care ---
Author Name Unknown Organization [facility] Address [address] [place] [address] Phone [phone] Care Team Providers Care Drawing Press Operator Name Role Phone Jes Medina MD Primary Care Provide r Reason for Visit * Reason Onset Date Comments Test Results 07/15/2024 Encounter Details Date Type Department Care Team (Late st Contact Info) Description 07/15/2024 Telephone Cardiology, [facility] [address] [place] [address] Shahbaz Whitman, [address] [place] [address] Test Results Allergies Active Allergy Reactions Criticality Noted Date Comments Carmelo Inhibitors Cough 12/10/2012 Empagliflozin Other (Please comment) 03/29/2021 Yeast infection(s) documented as of this encounter (statuses as of 07/15/2024) Medications Medication Sig Dispensed Refills Start Date End Date Status BD Pen Needle Namrata U/F 32G X 4 MM (Insulin Pen Needle)Indications: Type 2 diabetes mellitus with hemoglobin A1c goal of less than 7.0% ([facility]) Use once a day with Lantus. DX [...] at bedtime. 39 mL 3 12/14/2022 Active Atorvastatin Calcium 80 MG Oral Tablet (Lipitor)Indication s:Dyslipidemia, goal LDL below 100 TAKE 1 TABLET DAILY 90 Tablet 3 02/08/2023 Active busPIRone HCl 10 MG Oral Tablet (Buspar)Indications :Moderate episode of recurrent major depressive disorder (HCC) TAKE 1 TABLET TWICE A DAY NEEDED FOR ANXIETY 180 Tablet 3 05/11/2023 Active Ezetimibe 10 MG Oral Tablet (Zetia)Indications: [...] (Demadex)Indication s:MOYA (dyspnea on exertion),NICM (nonischemic cardiomyopathy) ([facility]) One tablet by mouth three days per [...] at bedtime. 90 Tablet 3 07/04/2024 Active documented as of this encounter (statuses as of 07/15/2024) Active Problems Problem Noted Date Diagnosed Date [...] recurrent major depressive d isorder 03/05/2015 Old [place] (myocardial infarction) 11/20/2014 GERD (gastroesophageal reflux disease) [...] as of this encounter (statuses as of 07/15/2024) Resolved Problems Problem Noted Date Diagnosed Date [...] as of this encounter (statuses as of 07/15/2024) Immunizations Name Administration Dates Next Due COVID-19 mRNA, LNP-s, No Pre serve, 2-Dose Series (Moderna) 07/13/2021,03/09/2021,02/09/2021 COVID-19, mRNA, LNP-s, PF, B ooster, 100mcg/0.5mg (Moderna) 02/07/2022 Covid-19, Mrna, Lnp-s, Pf, B ivalent, 30 Mcg, IM, 12 yrs and above (Pfizer) 08/29/2022 Hepatitis B, 20+ yrs 12/13/2015,07/09/2015,06/07 Pneumococcal Conjugate Vacci ne, 20-valent ([id number]) 08/21/2022 Pneumococcal Polysaccharide PPV23 (Pneumovax) 07/16/2007,10/29/2000 Seasonal [...] on file documented as of this encounter Miscellaneous Notes * Telephone Encounter - Lake Perez LPN - 07/15/2024 3:04 PM EDT Sent patient a [employer] message to make aware. ----- Message from Shahbaz Whitman DO sent at 07/14/2024 4:55 PM EDT ----- Cardiology nursing: please reach out to pt by phone to follow up symptoms. Echo on 07/09/24 reveals stable findings, normal LVEF, normal valve function. No significant changes on the echo. Shahbaz Whitman DO documented in this encounter Plan of Treatment Upcoming Encounters Date Type Department Care Team (Late st Contact Info) Description 08/08/2024 6:10 PM EDT Pharmacy Pharmacy, [address] [place] [address] [place] [address] 11/19/2024 11:00 AM EST Imaging Radiology [address] [place] [address] 11/28/2024 8:20 AM EST Office Visit Family Medicine [address] [place] [phone] Jes Medina MD [address] [place] [address] [place] [address] 02/23/2025 3:40 PM EDT Office Visit Rheumatology [address] [place] [phone] Tony Bruner MD [facility] [place] [employer] [place] [address] Health Maintenance Due Date Last Done Comments [...] Not on filedocumented as of this encounter Care Teams Drawing Press Operator Relationship Specialty Start Date End Date Jes Medina MD [address] [place] [address] [place] [address] PCP - General Family Medicine 11/27/23 documented as of this encounter
--- OUTSIDE RECORDS SUMMARY | 2024-08-15 02:56 | External Medical Summary | Summary of Care ---
Author Name Unknown Organization [facility] Address [address] [place] [address] Phone [phone] Care Team Providers Care Nurse Office Name Role Phone Jes Medina MD Primary Care Provide r Reason for Visit * Reason Onset Date Comments Appointment 06/20/2024 Colonoscopy Encounter Details Date Type Department Care Team (Late st Contact Info) Description 06/20/2024 Telephone Family Medicine [address] [phone] Jes Medina MD [address] [place] [address] [place] [address] Appointment (Colonoscopy ) Allergies Active Allergy Reactions Criticality Noted Date Comments Carmelo Inhibitors Cough 12/10/2012 Empagliflozin Other (Please comment) 03/29/2021 Yeast infection(s) documented as of this encounter (statuses as of 06/20/2024) Medications Medication Sig Dispensed Refills Start Date End Date Status BD Pen Needle Namrata U/F 32G X 4 MM (Insulin Pen Needle)Indications: Type 2 diabetes mellitus with hemoglobin A1c goal of less than 7.0% ([facility]) Use once a day with Lantus. DX e11.9 100 Each 3 12/26/2021 Active FreeStyle Lite Test In Vitro Strip (Glucose Blood)Indications:T ype 2 diabetes mellitus with hemoglobin A1c goal of less than 7.0% ([facility]) Use to check blood sugar [...] (Demadex)Indication s:MOYA (dyspnea on exertion),NICM (nonischemic cardiomyopathy) (HCC) One [...] Additional Information Patient not taking.Reported on 06/20/2024 documented as of this encounter (statuses as of 06/20/2024) Active Problems Problem Noted Date Diagnosed Date [...] recurrent major depressive d isorder 03/05/2015 Old [place] (myocardial infarction) 11/20/2014 GERD (gastroesophageal reflux disease) [...] as of this encounter (statuses as of 06/20/2024) Resolved Problems Problem Noted Date Diagnosed Date [...] as of this encounter (statuses as of 06/20/2024) Immunizations Name Administration Dates Next Due COVID-19 mRNA, LNP-s, No Pre serve, 2-Dose Series (Moderna) 07/13/2021,03/09/2021,02/09/2021 COVID-19, mRNA, LNP-s, PF, B ooster, 100mcg/0.5mg (Moderna) 02/07/2022 Covid-19, Mrna, Lnp-s, Pf, B ivalent, 30 Mcg, IM, 12 yrs and above (Pfizer) 08/29/2022 Hepatitis B, 20+ yrs 12/13/2015,07/09/2015,06/07 Pneumococcal Conjugate Vacci ne, 20-valent ([id number]) 08/21/2022 Pneumococcal Polysaccharide PPV23 (Pneumovax) 07/16/2007,10/29/2000 Seasonal Influenza, PF, 6 M & above, IM , (FluLaval or Fluzone) 07/13/2023,08/21/2022,07/26/2021,07/20,09/15/2019,07/04/2018,10/08/2017 Seasonal Influenza, Split, I IV3, With Preserve, Inj 06/30/2014,07/07/2013,12/19/2012,10/26,11/20/2008(Deferred: Patient Refused),09/26/2007 TD - Tetanus/Diptheria (ADULT) [...] encounter Miscellaneous Notes * Telephone Encounter - Marietta Hernandez OSA - 06/20/2024 3:26 PM EDT Bailey needs scheduled for colonoscopy for: Special screening for malignant neoplasms, colon [Z12.11] documented in this encounter Plan of Treatment Upcoming Encounters Date Type Department Care Team (Late st Contact Info) Description 07/09/2024 10:30 AM EDT Cardiac Studies Cardiac Studies [address] [place] [address] 07/11/2024 6:10 PM EDT Pharmacy Pharmacy, [address] [place] [address] [place] [address] 11/19/2024 11:00 AM EST Imaging Radiology [address] [place] [address] 11/28/2024 8:20 AM EST Office Visit Family Medicine [address] [place] [phone] Jes Medina MD [address] [place] [address] [place] [address] 02/23/2025 3:40 PM EDT Office Visit Rheumatology [address] [place] [phone] Tony Bruner MD [address] [place] [address], [place] [address] Health Maintenance Due Date Last Done Comments Cologuard 2010 Fecal Occult Blood Test 2010 Sigmoidoscopy 2010 Depression Monitoring 09/15/2020 09/15/2019 Colonoscopy 06/27/2021 06/27/2016, 06/27/2016 Colorectal Cancer Screening 06/27/2021 Mammogram 02/21/2023 02/21/2022, 04/0 11/2020, 11/17/2019, Additional history exists COVID-19 Vaccine ( season) 2023 08/29/2022, 02/07/2022, 07/13/2021, Additional history exists Influenza [...] Cervical Cancer Screening 08/15/2028 HPV/Co-Test 08/15/2028 08/15/2023 DTaP,Tdap,and Td Vaccines (3 - Td or Tdap) 02/01/2032 [...] filedocumented as of this encounter Care Teams Nurse Office Relationship Specialty Start Date End Date eJs Medina MD [address] [place] [address] [place] [address] PCP - General Family Medicine 11/27/23 documented as of this encounter
--- OUTSIDE RECORDS SUMMARY | 2024-08-15 02:56 | External Medical Summary | Summary of Care ---
Author Name Unknown Organization [facility] Address [address] [place] [address] Phone [phone] Care Team Providers Care Structural Engineering Technician Name Role Phone Jes Medina MD Primary Care Provide r Reason for Visit * Reason Comments eRx-Medication Refill Encounter Details Date Type Department Care Team (Late st Contact Info) Description 07/17/2024 Refill Pharmacy, [address] [place] [address] Jes Medina MD [address] [place] [address] [place] [address] Type 2 diabetes mellitus with hemoglobin A1c goal of less than 7.0% ([facility]) Allergies Active Allergy Reactions Criticality Noted Date Comments Carmelo Inhibitors Cough 12/10/2012 Empagliflozin Other (Please comment) 03/29/2021 Yeast infection(s) documented as of this encounter (statuses as of 07/18/2024) Medications Medication Sig Dispensed Refills Start Date End Date Status BD Pen Needle Namrata U/F 32G X 4 MM (Insulin Pen Needle)Indication s:Type 2 diabetes mellitus with hemoglobin A1c goal of less than 7.0% ([facility]) Use once a day with Lantus. DX e11.9 100 Each 3 12/26/2021 Active FreeStyle Lite Test In Vitro Strip (Glucose Blood)Indications :Type 2 diabetes mellitus with hemoglobin A1c goal of less than 7.0% ([facility]) Use to check blood sugar two times daily or as directed. E 11.9 200 Strip 3 12/26/2021 Active FreeStyle LancetsIndication s:Type 2 diabetes mellitus with hemoglobin A1c goal of less than 7.0% (HCC) Use to test blood sugar TWICE a day. DX e11.9 200 Each 3 12/26/2021 Active FreeStyle Lite DeviceIndications :Type 2 diabetes mellitus with hemoglobin A1c goal of less than 7.0% (HCC) Use to test blood sugar TWICE a day. DX e11.9 1 Each 12/26/2021 Active Insulin Glargine 100 UNIT/ML Subcutaneous Solution Pen-injector (Lantus)Indicatio ns:Type 2 diabetes mellitus with hemoglobin A1c goal of less than 7.0% (HCC) Inject 40 Units under the skin every night at bedtime. 39 mL 3 12/14/2022 Active Atorvastatin Calcium 80 MG Oral Tablet (Lipitor)Indicati ons:Dyslipidemia, goal LDL below 100 TAKE 1 TABLET DAILY 90 Tablet 3 02/08/2023 Active Ezetimibe 10 MG Oral Tablet (Zetia)Indication s:Dyslipidemia, goal LDL below 70 TAKE 1 TABLET DAILY 90 Tablet 3 08/07/2023 Active traZODone HCl 50 MG Oral Tablet (Desyrel)Indicati ons:Persistent insomnia TAKE 1 TABLET AT BEDTIME 90 Tablet 3 10/08/2023 Active Pantoprazole Sodium 20 MG Oral Tablet Delayed Release (Protonix)Indicat ions:Gastroesopha geal reflux disease, unspecified whether esophagitis present TAKE 1 TABLET IN THE MORNING 90 Tablet 3 10/08/2023 Active Metoprolol Succinate ER 25 MG Oral Tablet Extended Release 24 Hour (toPROL XL) TAKE 1 TABLET IN THE MORNING ONCE DAILY IN ADDITION TO TAKING METOPROLOL 100 MG FOR A TOTAL DAILY DOSE OF 125 MG 90 Tablet 3 10/30/2023 Active Entresto 49-51 MG Oral Tablet (sacubitril-valsa rtan 49-51 mg per tab) TAKE 1 TABLET [...] Active FLUoxetine HCl 20 MG Oral Capsule (PROzac)Indicatio ns:Depression TAKE 1 CAPSULE DAILY 90 Capsule 3 03/03/2024 Active Apixaban 5 MG Oral Tablet (Eliquis) Take 1 Tablet by mouth in the morning and 1 Tablet before bedtime. 180 Tablet 30 04/10/2024 Active Methotrexate Sodium 2.5 MG Oral Tablet TAKE 6 TABLETS ONCE A WEEK FOR USAGE IN RHEUMATIC DISEASES 78 Tablet 1 04/11/2024 Active Torsemide 10 MG Oral Tablet (Demadex)Indicati ons:MOYA (dyspnea on exertion),NICM (nonischemic cardiomyopathy) (HCC) One tablet by mouth three days per week on Mondays, Sunday, and Fridays with extra dose as needed for swelling 45 Tablet 3 05/02/2024 Active Levothyroxine Sodium 125 MCG Oral Tablet (Levoxyl)Rustyti ons:Hypothyroidis m (acquired) TAKE 1 TABLET IN THE MORNING (AT LEAST 30 MINUTES PRIOR TO BREAKFAST OR OTHER MEDICATIONS) 90 Tablet 3 05/07/2024 Active Dapagliflozin Propanediol 10 MG Oral Tablet (Farxiga)Rustyti ons:Chronic heart failure with preserved ejection fraction (HCC) Take 1 Tablet by mouth in the morning. 90 Tablet 3 06/17/2024 Active Additional Information Patient not taking.Reported on 06/20/2024 Famotidine 20 MG Oral Tablet (Pepcid)Keveno ns:Gastroesophage al reflux disease, unspecified whether esophagitis present Take 1 Tablet by mouth every night at bedtime. 90 Tablet 3 07/04/2024 Active busPIRone HCl 10 MG Oral Tablet (Buspar)Rustytio ns:Moderate episode of recurrent major depressive disorder (HCC) TAKE 1 TABLET TWICE A DAY NEEDED FOR ANXIETY 180 Tablet 3 05/11/2023 07/18/20 24 Discontinued documented as of this encounter (statuses as of 07/18/2024) Active Problems Problem Noted Date Diagnosed Date [...] recurrent major depressive d isorder 03/05/2015 Old [place] (myocardial infarction) 11/20/2014 GERD (gastroesophageal reflux disease) [...] as of this encounter (statuses as of 07/18/2024) Resolved Problems Problem Noted Date Diagnosed Date [...] as of this encounter (statuses as of 07/18/2024) Immunizations Name Administration Dates Next Due COVID-19 mRNA, LNP-s, No Pre serve, 2-Dose Series (Moderna) 07/13/2021,03/09/2021,02/09/2021 COVID-19, mRNA, LNP-s, PF, B ooster, 100mcg/0.5mg (Moderna) 02/07/2022 Covid-19, Mrna, Lnp-s, Pf, B ivalent, 30 Mcg, IM, 12 yrs and above (Pfizer) 08/29/2022 Hepatitis B, 20+ yrs 12/13/2015,07/09/2015,06/07 Pneumococcal Conjugate Vacci ne, 20-valent ([id number]) 08/21/2022 Pneumococcal Polysaccharide PPV23 (Pneumovax) 07/16/2007,10/29/2000 Seasonal [...] encounter Miscellaneous Notes * Telephone Encounter - Adore Rios [facility] - 07/18/2024 12:40 PM EDT Refused Prescriptions: Disp Refills Trulicity 4.5 MG/0.5ML Subcutaneous Soluti*6 mL 3 Sig: INJECT 4.5 MG UNDER THE SKIN ONCE A WEEK Refused By: ADORE RIOS Reason for Refusal: Course of treatment complete * Telephone Encounter - Karis Combs [facility] - 07/17/2024 2:33 PM EDT Pending Prescriptions: Disp Refills Trulicity 4.5 MG/0.5ML Subcutaneous Soluti*6 mL 3 Sig: INJECT 4.5 MG UNDER THE SKIN ONCE A WEEK documented in this encounter Plan of Treatment Upcoming Encounters Date Type Department Care Team (Late st Contact Info) Description 08/08/2024 6:10 PM EDT Pharmacy Pharmacy, [address] [place] [address] [place] [address] 11/19/2024 11:00 AM EST Imaging Radiology [address] [place] [address] 11/28/2024 8:20 AM EST Office Visit Family Medicine [address] [place] Jes Medina MD [address] [place] [address] [place] [address] 02/23/2025 3:40 PM EDT Office Visit Rheumatology [address] [place] [phone] Tony Bruner MD [facility] [place] [facility] [place] [address] Health Maintenance Due Date Last Done Comments [...] hemoglobin A1c goal of less than 7.0% ([facility]) documented in this encounter Care Teams Structural Engineering Technician Relationship Specialty Start Date End Date Jes Medina MD [address] [place] [address] [place] [address] PCP - General Family Medicine 11/27/23 documented as of this encounter
--- OUTSIDE RECORDS SUMMARY | 2024-08-15 02:56 | External Medical Summary | Summary of Care ---
Author Name Unknown Organization [facility] Address [address] [place] [address] Phone [phone] Care Team Providers Care Reaming Press Operator Name Role Phone Jes Medina MD Primary Care Provide r Reason for Visit * Reason Onset Date Comments Appointment 06/20/2024 Colonoscopy Encounter Details Date Type Department Care Team (Late st Contact Info) Description 06/20/2024 Telephone Family Medicine [address] [phone] Jes Medina MD [address] [place] [address] [place] [address] Appointment (Colonoscopy ) Allergies Active Allergy Reactions Criticality Noted Date Comments Carmelo Inhibitors Cough 12/10/2012 Empagliflozin Other (Please comment) 03/29/2021 Yeast infection(s) documented as of this encounter (statuses as of 06/24/2024) Medications Medication Sig Dispensed Refills Start Date End Date Status BD Pen Needle Namrata U/F 32G X 4 MM (Insulin Pen Needle)Indications: Type 2 diabetes mellitus with hemoglobin A1c goal of less than 7.0% ([facility]) Use once a day with Lantus. DX e11.9 100 Each 3 12/26/2021 Active FreeStyle Lite Test In Vitro Strip (Glucose Blood)Indications:T ype 2 diabetes mellitus with hemoglobin A1c goal of less than 7.0% ([facility]) Use to check blood sugar two [...] as of this encounter (statuses as of 06/24/2024) Active Problems Problem Noted Date Diagnosed Date [...] as of this encounter (statuses as of 06/24/2024) Resolved Problems Problem Noted Date Diagnosed Date [...] as of this encounter (statuses as of 06/24/2024) Immunizations Name Administration Dates Next Due COVID-19 mRNA, LNP-s, No Pre serve, 2-Dose Series (Moderna) 07/13/2021,03/09/2021,02/09/2021 COVID-19, mRNA, LNP-s, PF, B ooster, 100mcg/0.5mg (Moderna) 02/07/2022 Covid-19, Mrna, Lnp-s, Pf, B ivalent, 30 Mcg, IM, 12 yrs and above (Pfizer) 08/29/2022 Hepatitis B, 20+ yrs 12/13/2015,07/09/2015,06/07 Pneumococcal Conjugate Vacci ne, 20-valent ([id number]) 08/21/2022 Pneumococcal Polysaccharide PPV23 (Pneumovax) 07/16/2007,10/29/2000 Seasonal [...] Telephone Encounter - Marietta Hernandez [facility] - 06/24/2024 8:17 AM EDT Colonoscopy order faxed to [facility] at [phone] * Telephone Encounter - Allie Alonso [facility] - 06/23/2024 1:38 PM EDT Pt needs OR setting and does not wish to go to [place]. Please forward information to [facility] for scheduling SARA Gambino 06/23/2024 1:39 PM * Telephone Encounter - Marietta Hernandez [facility] - 06/20/2024 3:26 PM EDT Bailey needs scheduled for colonoscopy for: Special screening for malignant neoplasms, colon [Z12.11] documented in this encounter Plan of Treatment Upcoming Encounters Date Type Department Care Team (Late st Contact Info) Description 07/09/2024 10:30 AM EDT Cardiac Studies Cardiac Studies [address] [place] [address] 07/11/2024 6:10 PM EDT Pharmacy Pharmacy, [address] [place] [address] [place] [address] 11/19/2024 11:00 AM EST Imaging Radiology [address] [place] [address] 11/28/2024 8:20 AM EST Office Visit Family Medicine [address] [place] [phone] Jes Medina MD [address] [place] [address] [place] [address] 02/23/2025 3:40 PM EDT Office Visit Rheumatology [address] [place] [phone] Tony Bruner MD [address] [place] [address] [place] [address] Health Maintenance Due Date Last Done Comments [...] filedocumented as of this encounter Care Teams Reaming Press Operator Relationship Specialty Start Date End Date Jes Medina MD [address] [place] [address] [place] [address] PCP - General Family Medicine 11/27/23 documented as of this encounter
--- OUTSIDE RECORDS SUMMARY | 2024-08-15 02:56 | External Medical Summary | Summary of Care ---
Author Name Unknown Organization [facility] Address [address] [place] [address] Phone [phone] Care Team Providers Care Airworthiness Inspector Name Role Phone Jes Medina MD Primary Care Provide r Encounter Details Date Type Department Care Team (Late st Contact Info) Description 07/02/2024 Result Scan Unspecified Department Shahbaz Whitman, DO [address] [place] [address] <No scans attached> Allergies Active Allergy Reactions Criticality Noted Date Comments Carmelo Inhibitors Cough 12/10/2012 Empagliflozin Other (Please comment) 03/29/2021 Yeast infection(s) documented as of this encounter (statuses as of 07/02/2024) Medications Medication Sig Dispensed Refills Start Date [...] as of this encounter (statuses as of 07/02/2024) Active Problems Problem Noted Date Diagnosed Date [...] as of this encounter (statuses as of 07/02/2024) Resolved Problems Problem Noted Date Diagnosed Date [...] as of this encounter (statuses as of 07/02/2024) Immunizations Name Administration Dates Next Due COVID-19 mRNA, LNP-s, No Pre serve, 2-Dose Series (Moderna) 07/13/2021,03/09/2021,02/09/2021 COVID-19, mRNA, LNP-s, PF, B ooster, 100mcg/0.5mg (Moderna) 02/07/2022 Covid-19, Mrna, Lnp-s, Pf, B ivalent, 30 Mcg, IM, 12 yrs and above ([employer]) 08/29/2022 Hepatitis B, 20+ yrs 12/13/2015,07/09/2015,06/07 Pneumococcal Conjugate Vacci ne, 20-valent ([id number]) 08/21/2022 Pneumococcal Polysaccharide PPV23 (Pneumovax) 07/16/2007,10/29/2000 Seasonal [...] 10:30 AM EDT Cardiac Studies Cardiac Studies [address] [place] [address] 07/11/2024 6:10 PM EDT Pharmacy Pharmacy, [address] [place] [address] [place] [address] 11/19/2024 11:00 AM EST Imaging Radiology [address] [place] [address] 11/28/2024 8:20 AM EST Office Visit Family Medicine [address] [place] Jes Medina MD [address] [place] [address] [place] [address] 02/23/2025 3:40 PM EDT Office Visit Rheumatology [address] [place] [phone] Tony Bruner MD [address] [place] [address] [place] [address] Health Maintenance Due Date Last Done Comments [...] Not on filedocumented as of this encounter Procedures Procedure Name Priority Date/Time Associated Diagnosis Comments CARDIOLOGY SCANNED RESULT 07/02/2024 documented in this encounter Results * CARDIOLOGY SCANNED RESULT (07/02/2024) 07/02/2024 Shahbaz Whitman DO OTHER documented in this encounter Care Teams Airworthiness Inspector Relationship Specialty Start Date End Date Jes Medina MD [address] [place] [address] [place] [address] PCP - General Family Medicine 11/27/23 documented as of this encounter
--- OUTSIDE RECORDS SUMMARY | 2024-08-15 02:56 | External Medical Summary | Summary of Care ---
Author Name Unknown Organization [facility] Address [address] [place] [address] Phone [phone] Care Team Providers Care Systems Integration Advisor Name Role Phone Jes Medina MD Primary Care Provide r Reason for Visit * Reason Comments eRx-Medication Refill Encounter Details Date Type Department Care Team (Late st Contact Info) Description 07/17/2024 Refill Cardiology, [facility] [address] [place] [address] [place], [place] [address] [place] [address] Dyslipidemia, goal LDL below 100 Allergies Active Allergy Reactions Criticality Noted Date Comments Carmelo Inhibitors Cough 12/10/2012 Empagliflozin Other (Please comment) 03/29/2021 Yeast infection(s) documented as of this encounter (statuses as of 07/18/2024) Medications Medication Sig Dispensed Refills Start Date End Date Status BD Pen Needle Namrata U/F 32G X 4 MM (Insulin Pen Needle)Indication s:Type 2 diabetes mellitus with hemoglobin A1c goal of less than 7.0% ([facility]) Use once a day with Lantus. DX e11.9 100 Each 3 12/26/2021 Active FreeStyle Lite Test In Vitro Strip (Glucose Blood)Indications :Type 2 diabetes mellitus with hemoglobin A1c goal of less than 7.0% ([facility]) Use to check blood sugar two times [...] 12/14/2022 Active Ezetimibe 10 MG Oral Tablet (Zetia)Indication [...] Active Levothyroxine Sodium 125 MCG Oral Tablet (Levoxyl)Indicati ons:Hypothyroidis m (acquired) TAKE 1 TABLET IN THE MORNING (AT LEAST 30 MINUTES PRIOR TO BREAKFAST OR OTHER MEDICATIONS) 90 Tablet 3 05/07/2024 Active Dapagliflozin Propanediol 10 MG Oral Tablet (Farxiga)Indicati ons:Chronic heart failure with preserved ejection fraction [...] Active busPIRone HCl 10 MG Oral Tablet (Buspar)Indicatio ns:Moderate episode of recurrent major depressive disorder (HCC) TAKE 1 TABLET TWICE A DAY NEEDED FOR ANXIETY 180 Tablet 3 07/18/2024 Active Atorvastatin Calcium 80 MG Oral Tablet (Lipitor)Indicati ons:Dyslipidemia, goal LDL below 100 TAKE 1 TABLET DAILY 90 Tablet 3 02/08/2023 07/18/20 24 Discontinued documented as of this [...] yrs 12/13/2015,07/09/2015,06/07 Pneumococcal Conjugate Vacci ne, 20-valent ([id number]) 08/21/2022 Pneumococcal Polysaccharide PPV23 (Pneumovax) 07/16/2007,10/29/2000 Seasonal [...] encounter Miscellaneous Notes * Telephone Encounter - Jonathan Albarado [facility] - 07/18/2024 3:47 PM EDTSigned Prescriptions: Disp Refills Atorvastatin Calcium 80 MG Oral Tablet (Li*90 Tab*3 Sig: TAKE 1 TABLET DAILYAuthorizing Provider: ANTHONY LARIOS User: JONATHAN ALBARADO documented in this encounter Plan of Treatment Upcoming Encounters Date Type Department Care Team (Late st Contact Info) Description 08/08/2024 6:10 PM EDT Pharmacy Pharmacy, [address] [place] [address] [place] [address] 11/19/2024 11:00 AM EST Imaging Radiology [address] [place] [address] 11/28/2024 8:20 AM EST Office Visit Family Medicine [address] [place] [phone] eJs Medina MD [address] [place] [address] [place] [address] 02/23/2025 3:40 PM EDT Office Visit Rheumatology [address] [place] [phone] Tony Bruner MD [address] [facility] [place] [address] Health Maintenance Due Date Last Done Comments [...] as of this encounter Visit Diagnoses Diagnosis Dyslipidemia, goal LDL below 100 Other and unspecified hyperlipidemia documented in this encounter Care Teams Systems Integration Advisor Relationship Specialty Start Date End Date Jes Medina MD [address] [place] [address] [place] [address] PCP - General Family Medicine 11/27/23 documented as of this encounter
--- OUTSIDE RECORDS SUMMARY | 2024-08-15 02:56 | External Medical Summary | Summary of Care ---
Author Name Unknown Organization [facility] Address [address] [place] [address] Phone [phone] Care Team Providers Care Veneer Splicer Name Role Phone Jes Medina MD Primary Care Provide r Reason for Visit * Reason Comments Appointment Encounter Details Date Type Department Care Team (Late st Contact Info) Description 07/11/2024 6:10 PM EDT Pharmacy Pharmacy, [address] [place] [address] [place] [address] Type 2 diabetes mellitus with hemoglobin A1c goal of less than 7.0% ([facility])* Allergies Active Allergy Reactions Criticality Noted Date Comments Carmelo Inhibitors Cough 12/10/2012 Empagliflozin Other (Please comment) 03/29/2021 Yeast infection(s) documented as of this encounter (statuses as of 07/11/2024) Medications Medication Sig Dispensed Refills Start Date End Date Status BD Pen Needle Namrata U/F 32G X 4 MM (Insulin Pen Needle)Indications: Type 2 diabetes mellitus with hemoglobin A1c goal of less than 7.0% ([facility]) Use once a day with Lantus. DX e11.9 100 Each 3 12/26/2021 Active FreeStyle Lite Test In Vitro Strip (Glucose Blood)Indications:T ype 2 diabetes mellitus with hemoglobin A1c goal of less than 7.0% ([facility]) Use to check blood sugar two times [...] 1 Tablet Oral ONCE, Reported on 03/04/2024 Geronimoa SureClick 140 MG/ML Subcutaneous Solution Auto-injector (evolocumab) [...] as of this encounter (statuses as of 07/11/2024) Active Problems Problem Noted Date Diagnosed Date [...] recurrent major depressive d isorder 03/05/2015 Old [place] (myocardial infarction) 11/20/2014 GERD (gastroesophageal reflux disease) [...] as of this encounter (statuses as of 07/11/2024) Resolved Problems Problem Noted Date Diagnosed Date [...] as of this encounter (statuses as of 07/11/2024) Immunizations Name Administration Dates Next Due COVID-19 mRNA, LNP-s, No Pre serve, 2-Dose Series (Moderna) 07/13/2021,03/09/2021,02/09/2021 COVID-19, mRNA, LNP-s, PF, B ooster, 100mcg/0.5mg (Moderna) 02/07/2022 Covid-19, Mrna, Lnp-s, Pf, B ivalent, 30 Mcg, IM, 12 yrs and above (Pfizer) 08/29/2022 Hepatitis B, 20+ yrs 12/13/2015,07/09/2015,06/07 Pneumococcal Conjugate Vacci ne, 20-valent ([id number]) 08/21/2022 Pneumococcal Polysaccharide PPV23 (Pneumovax) 07/16/2007,10/29/2000 Seasonal [...] as of this encounter Progress Notes * Olya Liang PHARM Tech - 07/11/2024 8:15 AM EDT Patient Phone Numbers Left message on patients answering machine to schedule [facility] appointment for DM management. [facility] message sent --no Clinic will follow up again in 4 week(s). [Attempt # 2] Thank you, Olya Liang Auditor [facility] 07/11/2024, 8:17 AM documented in this encounter Plan of Treatment Upcoming Encounters Date Type Department Care Team (Late st Contact Info) Description 08/08/2024 6:10 PM EDT Pharmacy Pharmacy, [address] [place] [address] [place] [address] 11/19/2024 11:00 AM EST Imaging Radiology [address] [place] [address] 11/28/2024 8:20 AM EST Office Visit Family Medicine [address] [place] [phone] Jes Medina MD [address] [place] [address] [place] [address] 02/23/2025 3:40 PM EDT Office Visit Rheumatology [address] [place] [phone] Tony Bruner MD [facility] [place] [employer] [place] [address] Health Maintenance Due Date Last Done Comments [...] goal of less than 7.0% ([facility])- Primary documented in this encounter Care Teams Veneer Splicer Relationship Specialty Start Date End Date Jes Medina MD [address] [place] [address] [place] [id number] PCP - General Family Medicine 11/27/23 documented as of this encounter
--- OUTSIDE RECORDS SUMMARY | 2024-08-15 02:56 | External Medical Summary | Summary of Care ---
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 Role Phone Jes Medina MD Primary Care Provide r Reason for Referral * Ancillary Services (Within 30 days (routine)) - Pending Review Specialty Diagnoses / Procedures Referred By Jaleel laurent Referred To Contact Gastroenterology Diagnoses Special screening for malignant neoplasms, colon Gardenia Aguirre PA-C [address] [place] [address] [place] [id number] Referral ID Status Reason Start Date Expiration Date Visits Requested Visits Authorized [id number] Pending Review Ancillary Services Required 06/20/[phone] Question Answer Referral Priority Within 30 days (routine) Where should this appointment be scheduled? [facility] Comments ALERT: Do not order for pediatric patients (18 years or younger). Cancel off screen and order PEDS GASTROENTEROLOGY CONSULT (Type: 1 visit only-Evaluate and Treat) The following Pt. Instructions are available: - Gastro Colonoscopy Prep Instructions [[id number]] - Gastro Colonoscopy Prep Instructions (Syriac Version) [[id number]] Go to the Pt. Instructions section within the Visit Navigator to access. Colonoscopy ASGE Guidelines: Average risk screening (begin at age 50, 10 year intervals) ADDITIONAL INFORMATION 1. Is the patient on Coumadin? No 2. Is the patient on Pradaxa? No Reason for Visit * Reason Comments Re-Check Encounter Details Date Type Department Care Team (Latest Contact Info) Description 06/20/2024 2:00 PM EDT Office Visit Family Medicine [address] [place] [id number] Gardenia Aguirre PA-C [address] [place] [address] [place] [id number] Type 2 diabetes mellitus with hyperglycemia, with long-term current use of insulin ([facility])*; Special screening for malignant neoplasms, colon; Cerebrovascular disease, arteriosclerotic, post-stroke; Type 2 diabetes mellitus with hemoglobin A1c goal of less than 7.0% ([facility]); Moderate episode of recurrent major depressive disorder ([facility]); Dyslipidemia, goal LDL below 70; HTN, goal below 140/90; Hypothyroidism (acquired); Lumbar degenerative disc disease; Gastroesophageal reflux disease without esophagitis; S/P lumbar spinal fusion; Primary osteoarthritis of both knees; Cardiac sarcoidosis; S/P ICD (internal cardiac defibrillator) procedure; Chronic heart failure with preserved ejection fraction (HCC); NICM (nonischemic cardiomyopathy) ([facility]) Allergies Active Allergy Reactions Criticality Noted Date Comments Carmelo Inhibitors Cough 12/10/2012 Empagliflozin Other (Please comment) 03/29/2021 Yeast infection(s) documented as of this encounter (statuses as of 06/20/2024) Medications Medication Sig Dispensed Refills Start Date End Date Status BD Pen Needle [place] U/F 32G X 4 MM (Insulin Pen Needle)Indications :Type 2 diabetes mellitus with hemoglobin A1c goal of less than 7.0% ([facility]) Use once a day with Lantus. DX e11.9 100 Each 3 12/26/2021 Active FreeStyle Lite Test In Vitro Strip (Glucose Blood)Indications: Type 2 diabetes mellitus with hemoglobin A1c goal of less than 7.0% ([facility]) Use to check blood sugar two times daily or as directed. E 11.9 200 Strip 3 12/26/2021 Active FreeStyle LancetsIndications :Type 2 diabetes mellitus with hemoglobin A1c goal of less than 7.0% ([facility]) Use to test blood sugar TWICE a day. DX e11.9 200 Each 3 12/26/2021 Active FreeStyle Lite DeviceIndications: Type 2 diabetes mellitus with hemoglobin A1c goal of less than 7.0% ([facility]) Use to test blood sugar TWICE a day. DX e11.9 1 Each 12/26/2021 Active Insulin Glargine 100 UNIT/ML Subcutaneous Solution Pen-injector (Lantus)Indication s:Type 2 diabetes mellitus with hemoglobin A1c goal of less than 7.0% ([facility]) Inject 40 Units under the skin every night at bedtime. 39 mL 3 12/14/2022 Active Atorvastatin Calcium 80 MG Oral Tablet (Lipitor)Indicatio ns:Dyslipidemia, goal LDL below 100 TAKE 1 TABLET DAILY 90 Tablet 3 02/08/2023 Active busPIRone HCl 10 MG Oral Tablet (Buspar)Indication s:Moderate episode of recurrent major depressive disorder (HCC) TAKE 1 TABLET TWICE A DAY NEEDED FOR ANXIETY 180 Tablet 3 05/11/2023 Active Ezetimibe 10 MG Oral Tablet (Zetia)Indications :Dyslipidemia, goal LDL below 70 TAKE 1 TABLET DAILY 90 Tablet 3 08/07/2023 Active traZODone HCl 50 MG Oral Tablet (Desyrel)Indicatio ns:Persistent insomnia TAKE 1 TABLET AT BEDTIME 90 Tablet 3 10/08/2023 Active Pantoprazole Sodium 20 MG Oral Tablet Delayed Release (Protonix)Indicati ons:Gastroesophage al reflux disease, unspecified whether esophagitis present TAKE 1 TABLET IN THE MORNING 90 Tablet 3 10/08/2023 Active Metoprolol Succinate ER 25 MG Oral Tablet Extended Release 24 Hour (toPROL XL) TAKE 1 TABLET IN THE MORNING ONCE DAILY IN ADDITION TO TAKING METOPROLOL 100 MG FOR A TOTAL DAILY DOSE OF 125 MG 90 Tablet 3 10/30/2023 Active Entresto 49-51 MG Oral Tablet (sacubitril-valsar kaufman 49-51 mg per tab) TAKE 1 TABLET IN THE MORNING AND 1 TABLET BEFORE BEDTIME 180 Tablet 3 11/05/2023 Active Additional Information Patient taking differently: 1 Tablet Oral ONCE, Reported on 03/04/2024 Yokasta Gómezick 140 MG/ML Subcutaneous Solution Auto-injector (evolocumab) INJECT [...] Active FLUoxetine HCl 20 MG Oral Capsule (PROzac)Indication s:Depression TAKE 1 CAPSULE DAILY 90 Capsule 3 03/03/2024 Active Apixaban 5 MG Oral Tablet (Eliquis) Take 1 Tablet by mouth in the morning and 1 Tablet before bedtime. 180 Tablet 30 04/10/2024 Active Methotrexate Sodium 2.5 MG Oral Tablet TAKE 6 TABLETS ONCE A WEEK FOR USAGE IN RHEUMATIC DISEASES 78 Tablet 1 04/11/2024 Active Torsemide 10 MG Oral Tablet (Demadex)Indicatio ns:OMYA (dyspnea on exertion),NICM (nonischemic cardiomyopathy) ([facility]) One tablet by mouth three days per week on Mondays, Sunday, and Fridays with extra dose as needed for swelling 45 Tablet 3 05/02/2024 Active Levothyroxine Sodium 125 MCG Oral Tablet (Levoxyl)Indicatio ns:Hypothyroidism (acquired) TAKE 1 TABLET IN THE MORNING (AT LEAST 30 MINUTES PRIOR TO BREAKFAST OR OTHER MEDICATIONS) 90 Tablet 3 05/07/2024 Active Dapagliflozin Propanediol 10 MG Oral Tablet (Farxiga)Indicatio ns:Chronic heart failure with preserved ejection fraction (HCC) Take 1 Tablet by mouth in the morning. 90 Tablet 3 06/17/2024 Active Additional Information Patient not taking.Reported on 06/20/2024 ProAir HFA 108 (90 Base) MCG/ACT Inhalation Aerosol SolutionIndication s:Wheezing Inhale by mouth 2 Puffs every 4 hours as needed for Wheezing. 18 g 1 08/21/2022 4 Discontinue d(Patient preference/ discontinua tion) Trulicity 4.5 MG/0.5ML Subcutaneous Solution Pen-injector (Dulaglutide)Indic ations:Type 2 diabetes mellitus with hemoglobin A1c goal of less than 7.0% (HCC) INJECT 4.5 MG UNDER THE SKIN ONCE A WEEK 6 mL 3 04/23/2023 4 Discontinue d(Patient preference/ discontinua tion) documented as of this encounter (statuses as [...] recurrent major depressive d isorder 03/05/2015 [place] (myocardial infarction) 11/20/2014 GERD (gastroesophageal reflux disease) [...] yrs 12/13/2015,07/09/2015,06/07 Pneumococcal Conjugate Vacci ne, 20-valent ([id number]) 08/21/2022 Pneumococcal Polysaccharide PPV23 (Pneumovax) 07/16/2007,10/29/2000 Seasonal [...] Sign Reading Time Taken Comments Blood Pressure 110/62 06/20/2024 1:37 PM EDT Pulse 73 06/20/2024 1:37 PM EDT Temperature 36 C (96.8 F) 06/20/2024 1:37 PM EDT Respiratory Rate 16 06/20/2024 1:37 PM EDT Oxygen Saturation - - Inhaled Oxygen Concentration - - Weight 100.8 kg (222 lb 4 oz) 06/20/2024 1:37 PM EDT Height - - Body Mass Index 36.98 08/15/2023 7:59 AM EDT documented in this encounter Patient Instructions * Patient Instructions* Brenda Clement LPN - 06/20/2024 1:41 PM EDT Images from the original note were not included. Diabetes: Keeping Feet Healthy Inspect your feet every day for signs of a problem. Diabetes can damage nerves in your feet and cause neuropathy. This condition makes it hard for you to feel injuries or sore spots. Diabetes can also change blood flow, making it harder for small problems, like a blister, to heal properly. In fact, minor injuries can quickly become serious infections that send you to the hospital. Practice self-care to protect your feet and keep them healthy. Take Special Care Inspect your feet daily for problems such as redness, blisters, cracks, dry skin, or numbness. Use a mirror to see the bottoms of your feet. Or, ask for help. Manage your diabetes. Monitor and control your blood sugar. Take all your medications as prescribed. Avoid walking barefoot, even indoors. Wash your feet with warm water and mild soap. Dry well, especially between toes. Dont treat corns or calluses yourself. Talk to your doctor or ironer hand (a doctor who specializes in foot care) if you need assistance trimming your toenails. Use moisturizing cream or lotion if you have dry skin, but dont use it between toes. Dont use heating pads on your feet. If you have neuropathy, you could get a burn and not feel it. Stop smoking. Smoking restricts blood flow and can make it harder for wounds to heal. Have Regular Checkups Foot problems can develop quickly. So be sure to follow your healthcare teams schedule for regular checkups. During office visits, take off your shoes and socks as soon as you get in the exam room. Ask your healthcare provider to examine your feet for problems. This will make it easier to find and treat small skin irritations before they get worse. Regular checkups can also help keep track of the blood flow and feeling in your feet. If you have neuropathy, you may need to have checkups more often. Wear Proper Footwear Wearing proper footwear is very important. If areas of your feet have been damaged by too much pressure, your healthcare provider may recommend changing your footwear. In some cases, avoiding high heels or tight work boots may be all thats needed. Or, your healthcare provider may recommend special shoes or custom inserts. These help protect your feet and keep existing irritations from getting worse. If you need special footwear, ask your healthcare provider if you qualify for [employer] diabetic shoe program. Make Sure Shoes and Socks Fit Any pair of shoes--new or old--should feel comfortable as soon as you put them on. There shouldnt be any rubbing when you walk. Wear the right shoe for any activity. For instance, a running shoe is designed to keep your feet injury-free while jogging. Buy shoes at the end of the day, when your feet are larger. Make sure they provide support without feeling too loose. Make sure your socks fit, too. Wear soft, seamless, well-padded socks for activity. Cotton or microfiber socks are best to help to absorb sweat. To protect your feet, avoid shoes that are open-toed or open-heeled. If you have questions about what kinds of shoes and socks are best, talk to your healthcare team. Get Regular Exercise Regular exercise improves blood flow in your feet. It also increases foot strength and flexibility.Gentle exercises, like walking or riding a stationary bicycle, are best. You can also do special foot exercises. Just be sure to talk with your healthcare provider before starting any exercise program. Also mention if any exercise causes pain, redness, or other signs of foot problems. Note: If you have any kind of break in the skin of your foot or ankle, keep the area clean. Then call your doctor--especially if the area doesnt appear to be healing. 2641-3670 [employer], [address] [place] [address], [place] [address]. All rights reserved. This information is not intended as a substitute for professional medical care. Always follow your healthcare professional's instructions. Colorectal Cancer Screening Colorectal cancer (cancer in the colon or rectum) is a leading cause of cancer deaths in the [place] But it doesnt have to be. When this cancer is found and removed early, the chances of a full recovery are very good. Because colorectal cancer rarely causes symptoms in its early stages, screening for the disease is important. Its even more crucial if you have risk factors for the disease. Learn more about colorectal cancer and its risk factors. Then talk to your healthcare provider about being screened. You could be saving your own life. Risk factors for colorectal cancer Your risk of having colorectal cancer increases if you: Are 50 years of age or older Have a family history or personal history of colorectal cancer or polyps Have a personal history of type 2 diabetes, Crohns disease, or ulcerative colitis Have an inherited genetic syndrome like Schmidt syndrome (also known as HNPCC) or familial adenomatous polyposis (FAP) Are very overweight Are not physically active Smoke Drink a lot of alcohol Eat a lot of red or processed meat The colon and rectum Waste from food you eat enters the colon from the small intestine. As it travels through the colon,the waste (stool) loses water and becomes more solid. Intestinal muscles push it toward the sigmoid--the last section of the colon. Stool then moves into the rectum, where its stored until its ready to leave the body during a bowel movement. How cancer develops Polyps are growths that form on the inner lining of the colon or rectum. Most are benign, which means they arent cancerous. But over time, some polyps can become cancer (malignant). This happens when cells in these polyps begin growing abnormally. In time, malignant cells invade more and more ofthe colon and rectum. The cancer may also spread to nearby organs or lymph nodes or to other parts of the body. Finding and removing polyps can help prevent cancer from ever forming. Your screening Screening means looking for a health problem before you have symptoms. During screening for colorectal cancer, your healthcare provider will ask about your health history, examine you, and do one or more tests. History and exam The history and exam involve the following: Health history. Your healthcare provider will ask about your health history. Mention if a family member has had colon cancer or polyps. Also mention any health problems you have had in the past. Digital rectal exam (CALEB). During a CALEB, the healthcare provider inserts a lubricated gloved fingerinto the rectum. The test is painless and takes less than a minute. Healthcare providers agree thatthis test alone is not enough to screen for colorectal cancer. Screening test choices: Fecal occult blood test (FOBT) or fecal immunochemical test (FIT) These tests check for occult blood in stool (blood you cant see). Hidden blood may be a sign of colon polyps or cancer. A small sample of stool is tested for blood in a laboratory. Most often, youcollect this sample at home using a kit your healthcare provider gives you. Follow the instructionscarefully for using this kit. You might need to avoid certain foods and medicines before the test, as directed. Barium enema with contrast (double-contrast barium enema) This test uses X-rays to provide images of the entire colon and rectum. The day before this test, you will need to do a bowel prep to clean out the colon and rectum. A bowel prep is a liquid diet plus strong laxatives or enemas. You will be awake for the test, but you may be given medicine to help you relax. At the start of the test, a radiologist (a healthcare provider who specializes in imagingtests) places a soft tube into the rectum. The tube is used to fill the colon with a contrast liquid (barium) and air. This can be uncomfortable for some people. The liquid helps the colon show up clearly on the X-rays. Because the test uses X-rays, it exposes you to a small amount of radiation. Virtual colonoscopy This exam is also called a CT colonography. It uses a series of X-ray photographs to create a 3-D view of the colon and rectum. The day before the test, you will need to do a bowel prep to clean out your colon. Your healthcare provider will give you instructions on how to do this. During the procedure, you will lie on a table that is part of a special X-ray machine called a CT scanner. A small tube will be placed into your rectum to fill the colon and rectum with air. This can be uncomfortable for some people. Then, the table will move into the machine and pictures will be taken of your colonand rectum. A computer will combine these photos to create a 3-D picture. Because the test uses X-rays, it exposes you to a small amount of radiation. Cologuard Cologuard is an easy to use, noninvasive colon cancer screening test that you can use in the privacy of your own home. It identifies altered DNA and/or blood in stool, which are associated with the possibility of colon cancer or precancer. DNA is continuously shed from cells in the intestinal lining, where it is passed into the stool. Ifcancer or precancer is present, abnormal cells will shed into the colon and stool along with normalcells. A molecular biology process is used to capture specific pieces of DNA for further analysis. Scope exams Here are two types of scope exams: Colonoscopy. This test can be used to find and remove polyps anywhere in the colon or rectum. The day before the test, you will do a bowel prep. This is a liquid diet plus a strong laxative solution or an enema. The bowel prep will cleanse your colon. You will be given instructions for this. Just before the test, you are given a medicine to make you sleepy. Then, a long, flexible, lighted tube called a colonoscope is gently inserted into the rectum and guided through the entire colon. Images ofthe colon are viewed on a video screen. Any polyps that are found are removed and sent to a lab fortesting. If a polyp cant be removed, a sample of tissue is taken and the polyp might be removed l ater during surgery. You will need to bring someone with you to drive you home after this test. Sigmoidoscopy. This test is similar to colonoscopy, but focuses only on the sigmoid colon and rectum. As with colonoscopy, bowel prep must be done the day before this test. It might not need to be ascomplete as the bowel prep for a colonoscopy. You are awake during the procedure, but you may be given medicine to help you relax. During the test, the healthcare provider guides a thin, flexible, lighted tube called a sigmoidoscope through your rectum and lower colon. The images are displayed on avideo screen. Polyps are removed, if possible, and sent to a lab for testing. Colonoscopy is the only screening test that lets your healthcare provider see the entire colon and rectum. This test also lets your healthcare provider remove any pieces of tissue that need to be looked at by a lab. If something suspicious is found using any other tests, you will likely need a colonoscopy. When to call your healthcare provider after a test Call your healthcare provider if you have any of the following after any screening test: Bleeding Fever of 100.4F (38C) or higher, or as directed by your healthcare provider Abdominal pain Vomiting Date Last Reviewed: 09/01/201519994890-[address] [employer] [place] [address]. All rights reserved. This information is not intended as a substitute for professional medical care. Always follow your healthcare professional's instructions. documented in this encounter Progress Notes * Brenda Clement LPN - 06/20/2024 1:41 PM EDT DM Foot Exam completed today. Provider aware. Brenda Clement LPN Socks and Shoes Removed for Annual Diabetic Foot Screening RIGHT FOOT: No Reddened, Cracking, Or Open Areas Noted. RIGHT Dorsalis Pedis Pulse: Palpable RIGHT Posterior Tibial Pulse: Palpable RIGHT Monofilament:Patient reports feeling monofilament pressure on plantar surface of foot LEFT FOOT: No Reddened, Cracking or Open Areas Noted. LEFT Dorsalis Pedis Pulse: Palpable LEFT Posterior Tibial Pulse: Palpable LEFT Monofilament:Patient reports feeling monofilament pressure on plantar surface of foot Do you need diabetic shoes: No * Gardenia Aguirre PA-C - 06/20/2024 1:40 PM EDT Nursing Notes: RacquelBrenda ULICES Choi 06/20/24 [id number] Sign at exiting of workspace 6 month recheck Agrees to do colonoscopy. Pt here today for recheck. Pt with PMH of DM, anxiety, dyslipidemia, GERD, HTN, depression, CVD, CHF, hypothyroid, lower back pain, cardiomyopathy, OA, ICD. Just had some labs - all good. She is taking trazodone at bedtime. She doesn't feel like it is working too well. She did just lose her husbandabout a month ago. She is taking her prozac and buspar. She follows with cardiology. Review of patient's allergies indicates: Allergen Reactions Carmelo Inhibitors Cough Jardiance [Empagliflozin] Other (Please comment) Yeast infection(s) Current Outpatient Medications Medication Sig Dispense Refill [...] every night at bedtime. 39 mL 3 Atorvastatin Calcium 80 MG Oral Tablet (Lipitor) TAKE 1 TABLET DAILY 90 Tablet 3 busPIRone HCl 10 MG Oral Tablet (Buspar) TAKE 1 TABLET TWICE A DAY NEEDED FOR ANXIETY 180 Tablet3 Ezetimibe 10 MG Oral Tablet (Zetia) TAKE [...] 1 Tablet by mouth in the morning. (Patient not taking: Reported on 06/20/2024) 90 Tablet 3 No current facility-administered medications for this visit. Past Medical History: Diagnosis Date Allergic rhinitis Asthma, mild persistent Cerebrovascular disease, arteriosclerotic, post-stroke 02/26/2012 Constipation 09/29/2014 CVA (cerebral vascular accident) (HCC) Depressive disorder, not elsewhere classified DM type 2, goal A1c below 7 04/13/2014 DM type 2, not at goal (HCC) Dyslipidemia, goal LDL below 100 Esophageal reflux GERD (gastroesophageal reflux disease) 09/29/2014 HTN, goal below 140/90 01/12/2012 Hypothyroidism (acquired) 05/14/2014 Intermittent asthma with reliever use up to twice per week 04/13/2014 Left ventricular aneurysm 07/2014 Low back pain 05/26/2014 Lumbar degenerative disc disease 08/06/2014 Metabolic syndrome 10/30/2006 Osteoarthrosis Other postablative hypothyroidism Social History Socioeconomic History Marital status: Spouse name: Not on file Number of children: 2 Years of education: Not on file Highest education level: Not on file Occupational History Occupation: housewife Tobacco Use Smoking status: Former Current packs/day: 0.00 Average packs/day: 1 pack/day for 10.0 years (10.0 ttl pk-yrs) Types: Cigarettes Start date: 09/11/1995 Quit date: 09/11/2005 Years since quittin.7 Smokeless tobacco: Never Vaping Use Vaping status: [...] Needs: Not on file Social Connections: Unknown (06/20/2024) Social Connections How often do you feel lonely or isolated from those around you? (Adult - for ages 18 years and over): Not on file Housing Stability: Not on file O:Blood pressure 110/62, pulse 73, temperature 36 C (96.8 F), temperature source Tympanic, resp. rate 16, weight 100.8 kg (222 lb 4 oz), last menstrual period 09/12/2013. GENERAL: alert, healthy, and no distress NECK: supple, no adenopathy, no bruits, thyroid normal size, non-tender, without nodularity EYES: PERRLA, conjunctiva are pink and non-injected, sclera clear EARS: External ears normal, Canals clear, TM's Normal NOSE: no mucosal erythema, no mucosal edema, no purulent discharge OROPHARYNX: no exudate, no erythema, lips, buccal mucosa, and tongue normal, and mucous membranes are moist HEART: regular rate & rhythm, no murmur, and no gallops LUNGS: chest symmetric with normal AP diameter, no chest deformities noted, no chest wall tenderness, lungs clear to auscultation A:Type 2 diabetes mellitus with hyperglycemia, with long-term current use of insulin ([facility]) (Primary) - DIABETES FOOT EXAM Special screening for malignant neoplasms, colon - COLONOSCOPY, GI REFERRAL OP Cerebrovascular disease, arteriosclerotic, post-stroke Type 2 diabetes mellitus with hemoglobin A1c goal of less than 7.0% ([facility]) Moderate episode of recurrent major depressive disorder ([facility]) Dyslipidemia, goal LDL below 70 HTN, goal below 140/90 Hypothyroidism (acquired) Lumbar degenerative disc disease Gastroesophageal reflux disease without esophagitis S/P lumbar spinal fusion Primary osteoarthritis of both knees Cardiac sarcoidosis S/P ICD (internal cardiac defibrillator) procedure Chronic heart failure with preserved ejection fraction ([facility]) NICM (nonischemic cardiomyopathy) ([facility]) Continue current meds. Any questions/problems, please call. If anything changes, worsens, develops new sx, please call [facility]. Follow Up: Return if symptoms worsen or fail to improve. Gardenia Aguirre PA-C documented in this encounter Nursing Notes * Brenda Clement LPN - 06/20/2024 1:36 PM EDT 6 month recheck Agrees to do colonoscopy. documented in this encounter Plan of Treatment Upcoming Encounters Date Type Department Care Team (Late st Contact Info) Description 07/09/2024 10:30 AM EDT Cardiac Studies Cardiac Studies [address] [place] [address] 07/11/2024 6:10 PM EDT Pharmacy Pharmacy, [address] [place] [address] [place] [address] 11/19/2024 11:00 AM EST Imaging Radiology [address] [place] [address] 11/28/2024 8:20 AM EST Office Visit Family Medicine [address] [place] [phone] Jes Medina MD [address] [place] [address] [place] [address] 02/23/2025 3:40 PM EDT Office Visit Rheumatology [address] [place] [address] Tony Bruner MD [facility] [place] [address] Scheduled Referrals Name Type Priority Associated Diagnoses Orde r Schedule COLONOSCOPY, GI REFERRAL OP Referral Within 30 days (routine) Special screening for malignant neoplasms, colon Ordered: 06/20/2024 Health Maintenance Due Date Last Done Comments [...] long-term current use of insulin (HCC)- Primary Special screening for malignant neoplasms, colon Cerebrovascular disease, arteriosclerotic, post-stroke Cerebral atherosclerosis Type 2 diabetes mellitus with hemoglobin A1c goal of less than 7.0% (HCC) Moderate episode of recurrent major depressive disorder (HCC) Dyslipidemia, goal LDL below 70 Other and unspecified hyperlipidemia HTN, goal below 140/90 Unspecified essential hypertension Hypothyroidism (acquired) Unspecified hypothyroidism Lumbar degenerative disc disease Degeneration of lumbar or lumbosacral intervertebral disc Gastroesophageal reflux disease without esophagitis Esophageal reflux S/P lumbar spinal fusion Arthrodesis status Primary osteoarthritis of both knees Primary localized osteoarthrosis, lower leg Cardiac sarcoidosis S/P ICD (internal cardiac defibrillator) procedure Automatic implantable cardiac defibrillator in situ Chronic heart failure with preserved ejection fraction (HCC) NICM (nonischemic cardiomyopathy) (HCC) Other primary cardiomyopathies documented in this encounter Care Teams Extractor Plant Operator Relationship Specialty Start Date End Date Jes Medina MD [address] [place] [address] [place] [address] PCP - General Family Medicine 11/27/23 documented as of this encounter
--- OUTSIDE RECORDS SUMMARY | 2024-08-15 02:56 | External Medical Summary | Summary of Care ---
Author Name Unknown Organization [facility] Address [address] [place] [address] Phone [phone] Care Team Providers Care Director Clinical Operations Name Role Phone Kelvin Medina MD Primary Care Provide r Reason for Visit * Reason Comments eRx-Medication Refill Encounter Details Date Type Department Care Team (Late st Contact Info) Description 07/17/2024 Refill Family Medicine [address] [phone] Anyi Curry MD [address] [place] [address] [place] [address] Moderate episode of recurrent major depressive disorder (HCC) Allergies Active Allergy Reactions Criticality Noted Date Comments Carmelo Inhibitors Cough 12/10/2012 Empagliflozin Other (Please comment) 03/29/2021 Yeast infection(s) documented as of this encounter (statuses as of 07/18/2024) Medications Medication Sig Dispensed Refills Start Date End Date Status BD Pen Needle Namrata U/F 32G X 4 MM (Insulin Pen Needle)Indication s:Type 2 diabetes mellitus with hemoglobin A1c goal of less than 7.0% ([facility]) Use once a day with Lantus. DX e11.9 100 Each 3 12/26/2021 Active FreeStyle Lite Test In Vitro Strip (Glucose Blood)Indications :Type 2 diabetes mellitus with hemoglobin A1c goal of less than 7.0% ([facility]) Use to check blood sugar [...] FOR ANXIETY 180 Tablet 3 07/18/2024 Active busPIRone HCl 10 [...] yrs 12/13/2015,07/09/2015,06/07 Pneumococcal Conjugate Vacci ne, 20-valent ([id number]) 08/21/2022 Pneumococcal Polysaccharide PPV23 (Pneumovax) 07/16/2007,10/29/2000 Seasonal [...] encounter Miscellaneous Notes * Telephone Encounter - Kelvin Medina MD - 07/18/2024 12:42 PM EDT Signed Prescriptions: Disp Refills busPIRone HCl 10 MG Oral Tablet (Buspar) 180 Ta*3 Sig: TAKE 1 TABLET TWICE A DAY NEEDED FOR ANXIETY Authorizing Provider: KELVIN MEDINA * Telephone Encounter - Adore Rios [facility] - 07/18/2024 12:40 PM EDT Pending Prescriptions: Disp Refills busPIRone HCl 10 MG Oral Tablet (Buspar) 180 Ta*3 Sig: TAKE 1 TABLET TWICE A DAY NEEDED FOR ANXIETY * Telephone Encounter - Adore Rios [facility] - 07/18/2024 12:40 PM EDT Refill pharmacists currently not authorized to approve refills for this class of medication per refill protocol. Please approve if appropriate. Thank you, Adore Rios, PharmD. Clinical Pharmacist Pharmacy Refill Call Center 07/18/2024, 12:40 PM documented in this encounter Plan of Treatment Upcoming Encounters Date Type Department Care Team (Late st Contact Info) Description 08/08/2024 6:10 PM EDT Pharmacy Pharmacy, [address] [place] [address] [place] [address] 11/19/2024 11:00 AM EST Imaging Radiology [address] [place] [address] 11/28/2024 8:20 AM EST Office Visit Family Medicine [address] [place] [phone] Kelvin Medina MD [address] [place] [address] [place] [address] 02/23/2025 3:40 PM EDT Office Visit Rheumatology [address] [place] [address] Tony Bruner MD [address] [place], [place] [address] [address] Health Maintenance Due Date Last Done Comments [...] as of this encounter Visit Diagnoses Diagnosis Moderate episode of recurrent major depressive disorder (HCC) documented in this encounter Care Teams Director Clinical Operations Relationship Specialty Start Date End Date Kelvin Medina MD [address] [place] [address] [place] [phone] PCP - General Family Medicine 11/27/23 documented as of this encounter
--- OUTSIDE RECORDS SUMMARY | 2024-08-15 02:56 | External Medical Summary | Summary of Care ---
Author Name Unknown Organization [facility] Address [address] [place] [address] Phone [phone] Care Team Providers Care Student Development Advisor Name Role Phone Jes Medina MD Primary Care Provide r Reason for Visit * Reason Onset Date Comments Appointment 06/20/2024 Colonoscopy Encounter Details Date Type Department Care Team (Late st Contact Info) Description 06/20/2024 Telephone Family Medicine [address] [phone] Jes Medina MD [address] [place] [address] [place] [address] Appointment (Colonoscopy ) Allergies Active Allergy [...] hemoglobin A1c goal of less than 7.0% ([facility]) Use once a day with Lantus. DX e11.9 100 Each 3 12/26/2021 Active FreeStyle Lite Test In Vitro Strip (Glucose Blood)Indications:T ype 2 diabetes mellitus with hemoglobin A1c goal of less than 7.0% ([facility]) Use to check blood sugar two times [...] recurrent major depressive d isorder 03/05/2015 Old ID (myocardial infarction) 11/20/2014 GERD (gastroesophageal reflux disease) [...] yrs 12/13/2015,07/09/2015,06/07 Pneumococcal Conjugate Vacci ne, 20-valent ([id number]) 08/21/2022 Pneumococcal Polysaccharide PPV23 (Pneumovax) 07/16/2007,10/29/2000 Seasonal [...] 8:17 AM EDT Colonoscopy order faxed to [facility] at [phone] * Telephone Encounter - Allie Alonso OSA - 06/23/2024 1:38 PM EDT Pt needs OR setting and does not wish to go to [place]. Please forward information to [facility] for [...] 10:30 AM EDT Cardiac Studies Cardiac Studies [address] [place] [address] 07/11/2024 6:10 PM EDT Pharmacy Pharmacy, [address] [place] [address] [place] [address] 11/19/2024 11:00 AM EST Imaging Radiology [address] [place] [address] 11/28/2024 8:20 AM EST Office Visit Family Medicine [address] [place] [phone] Jes Medina MD [address] [place] [address] [place] [address] 02/23/2025 3:40 PM EDT Office Visit Rheumatology [address] [place] [phone] Tony Bruner MD [address] [place] [address] [place] [address] Health Maintenance Due Date Last Done Comments [...] filedocumented as of this encounter Care Teams Student Development Advisor Relationship Specialty Start Date End Date Jes Medina MD [address] [place] [address] [place] [address] PCP - General Family Medicine 11/27/23 documented as of this encounter
--- OUTSIDE RECORDS SUMMARY | 2024-08-15 02:56 | External Medical Summary | Summary of Care ---
Author Name Unknown Organization [facility] Address [address] [place] [address] Phone [phone] Care Team Providers Care Refining Still Operator Name Role Phone Jes Medina MD Primary Care Provide r Reason for Visit * Reason Onset Date Comments Appointment 06/20/2024 Colonoscopy Encounter Details Date Type Department Care Team (Late st Contact Info) Description 06/20/2024 Telephone Family Medicine [address] [phone] Jes Medina MD [address] [place] [address] [place] [address] Appointment (Colonoscopy ) Allergies Active Allergy Reactions Criticality Noted Date Comments Carmelo Inhibitors Cough 12/10/2012 Empagliflozin Other (Please comment) 03/29/2021 Yeast infection(s) documented as of this encounter (statuses as of 06/23/2024) Medications Medication Sig Dispensed Refills Start Date End Date Status BD Pen Needle Namrata U/F 32G X 4 MM (Insulin Pen Needle)Indications: Type 2 diabetes mellitus with hemoglobin A1c goal of less than 7.0% ([facility]) Use once a day with Lantus. DX e11.9 100 Each 3 12/26/2021 Active FreeStyle Lite Test In Vitro Strip (Glucose Blood)Indications:T ype 2 diabetes mellitus with hemoglobin A1c goal of less than 7.0% ([facility]) Use to check blood sugar [...] as of this encounter (statuses as of 06/23/2024) Active Problems Problem Noted Date Diagnosed Date [...] recurrent major depressive d isorder 03/05/2015 Old [place] (myocardial infarction) 11/20/2014 GERD (gastroesophageal reflux disease) [...] as of this encounter (statuses as of 06/23/2024) Resolved Problems Problem Noted Date Diagnosed Date [...] as of this encounter (statuses as of 06/23/2024) Immunizations Name Administration Dates Next Due COVID-19 mRNA, LNP-s, No Pre serve, 2-Dose Series (Moderna) 07/13/2021,03/09/2021,02/09/2021 COVID-19, mRNA, LNP-s, PF, B ooster, 100mcg/0.5mg (Moderna) 02/07/2022 Covid-19, Mrna, Lnp-s, Pf, B ivalent, 30 Mcg, IM, 12 yrs and above (Pfizer) 08/29/2022 Hepatitis B, 20+ yrs 12/13/2015,07/09/2015,06/07 Pneumococcal Conjugate Vacci ne, 20-valent ([id number]) 08/21/2022 Pneumococcal Polysaccharide PPV23 (Pneumovax) 07/16/2007,10/29/2000 Seasonal [...] encounter Miscellaneous Notes * Telephone Encounter - Allie Alonso OSA - 06/23/2024 1:38 PM EDT Pt needs OR setting and does not wish to go to [place]. Please forward information to [facility] for [...] 10:30 AM EDT Cardiac Studies Cardiac Studies [address] [place] [address] 07/11/2024 6:10 PM EDT Pharmacy Pharmacy, [address] [place] [address] [place] [address] 11/19/2024 11:00 AM EST Imaging Radiology [address] [place] [address] 11/28/2024 8:20 AM EST Office Visit Family Medicine [address] [place] [phone] Jes Medina MD [address] [place] [address] [place] [address] 02/23/2025 3:40 PM EDT Office Visit Rheumatology [address] [place] [phone] Tony Bruner MD [facility] [address] Health Maintenance Due Date Last Done Comments [...] filedocumented as of this encounter Care Teams Refining Still Operator Relationship Specialty Start Date End Date Jes Medina MD [address] [place] [address] [place] [address] PCP - General Family Medicine 11/27/23 documented as of this encounter
--- OUTSIDE RECORDS SUMMARY | 2024-08-15 02:57 | External Medical Summary | Summary of Care ---
Author Name Unknown Organization [facility] Address [address] [place] [address] Phone [phone] Care Team Providers Care Laborer Road Name Role Phone Jes Medina MD Primary Care Provide r Reason for Visit * Reason Comments Outpatient Testing Encounter Details Date Type Department Care Team (Late st Contact Info) Description 06/09/2024 10:00 AM EDT Laboratory Laboratory [address] [place] [phone] [place] [address] Dyslipidemia, goal LDL below 70 Allergies Active Allergy Reactions Criticality Noted Date Comments Carmelo Inhibitors Cough 12/10/2012 Empagliflozin Other (Please comment) 03/29/2021 Yeast infection(s) documented as of this encounter (statuses as of 06/09/2024) Medications Medication Sig Dispensed Refills Start Date [...] day. DX e11.9 1 Each 12/26/2021 Active ProAir HFA 108 (90 Base) MCG/ACT Inhalation Aerosol SolutionIndications :Wheezing Inhale by mouth 2 Puffs every 4 hours as needed for Wheezing. 18 g 1 08/21/2022 Active Insulin Glargine 100 UNIT/ML Subcutaneous Solution Pen-injector (Lantus)Indications :Type 2 diabetes mellitus with hemoglobin A1c goal of less than 7.0% (HCC) Inject 40 Units under the skin every night at bedtime. 39 mL 3 12/14/2022 Active Atorvastatin Calcium 80 MG Oral Tablet (Lipitor)Indication s:Dyslipidemia, goal LDL below 100 TAKE 1 TABLET DAILY 90 Tablet 3 02/08/2023 Active Trulicity 4.5 MG/0.5ML Subcutaneous Solution Pen-injector (Dulaglutide)Indica tions:Type 2 diabetes mellitus with hemoglobin A1c goal of less than 7.0% (HCC) INJECT 4.5 MG UNDER THE SKIN ONCE A WEEK 6 mL 3 04/23/2023 Active busPIRone HCl 10 MG Oral Tablet [...] 14 DAYS 6 mL 3 12/31/2023 Active Dapagliflozin Propanediol 10 MG Oral Tablet (Farxiga)Indication s:Chronic heart failure with preserved ejection fraction (HCC) Take 1 Tablet by mouth in the morning. 90 Tablet 3 01/08/2024 Active Metoprolol Succinate ER 100 MG Oral [...] OTHER MEDICATIONS) 90 Tablet 3 05/07/2024 Active documented as of this encounter (statuses as of 06/09/2024) Active Problems Problem Noted Date Diagnosed Date [...] recurrent major depressive d isorder 03/05/2015 Old [place] (myocardial infarction) 11/20/2014 GERD (gastroesophageal reflux disease) [...] as of this encounter (statuses as of 06/09/2024) Resolved Problems Problem Noted Date Diagnosed Date [...] Per Obesity Taxonomy Tobacco use disorder 06/14/2005 05/22/2 008 documented as of this encounter (statuses as of 06/09/2024) Immunizations Name Administration Dates Next Due COVID-19 mRNA, LNP-s, No Pre serve, 2-Dose Series (Moderna) 07/13/2021,03/09/2021,02/09/2021 COVID-19, mRNA, LNP-s, PF, B ooster, 100mcg/0.5mg (Moderna) 02/07/2022 Covid-19, Mrna, Lnp-s, Pf, B ivalent, 30 Mcg, IM, 12 yrs and above (Pfizer) 08/29/2022 Hepatitis B, 20+ yrs 12/13/2015,07/09/2015,06/07 Pneumococcal Conjugate Vacci ne, 20-valent ([id number]) 08/21/2022 Pneumococcal Polysaccharide PPV23 (Pneumovax) 07/16/2007,10/29/2000 Seasonal [...] Care Team (Late st Contact Info) Description 06/11/2024 8:00 AM EDT Office Visit Dermatology [address] [place] [address] Misty Rogel PA-C [address] [place] [address] [place] [address] 06/13/2024 6:10 PM EDT Pharmacy Pharmacy, [address] [place] [address] [place] [address] 06/20/2024 2:00 PM EDT Office Visit Family Medicine [address] [place] [phone] Gardenia Aguirre PA-C [address] [place] [address] [place] [address] 07/09/2024 10:30 AM EDT Cardiac Studies Cardiac Studies [address] [place] [address] 11/19/2024 11:00 AM EST Imaging Radiology [address] [place] [address] 11/28/2024 8:20 AM EST Office Visit Family Medicine [address] [place] [phone] Jes Medina MD [address] [place] [address] [place] [address] 02/23/2025 3:40 PM EDT Office Visit Rheumatology [address] [place] [phone] Tony Bruner MD [address] [employer] [facility], [place] [address] Pending Results Name Type Priority Associated Diagnoses Date /Time LIPID PANEL WITH DIRECT LDL IF TG IS HIGH Lab Routine Dyslipidemia, goal LDL below 70 06/09/2024 9:51 AM EDT Health Maintenance Due Date Last Done Comments Cologuard 2010 Fecal Occult Blood Test 2010 Sigmoidoscopy 2010 Depression Monitoring 09/15/2020 09/15/2019 Colonoscopy 06/27/2021 06/27/2016, 06/27/2016 Colorectal Cancer Screening 06/27/2021 Mammogram 02/21/2023 02/21/2022, 11/2020, 11/17/2019, Additional history exists Diabetic Foot Exam 05/29/2023 05/29/2022, 0 03/18/2020, 03/11/2019, Additional history exists COVID-19 Vaccine ( season) [...] 03/25/2025 03/25/2024, 04/29, 01/01/2023, Additional history exists Pap Smear 08/15/2026 08/15/2023, [...] Visit Diagnoses Diagnosis Dyslipidemia, goal LDL below 70 Other and unspecified hyperlipidemia documented in this encounter Care Teams Laborer Road Relationship Specialty Start Date End Date Jes Medina MD [address] [place] [address] [place] [phone] PCP - General Family Medicine 11/27/23 documented as of this encounter
--- OUTSIDE RECORDS SUMMARY | 2024-08-15 02:57 | External Medical Summary | Summary of Care ---
Author Name Unknown Organization [facility] Address [address] [place] [address] Phone [phone] Care Team Providers Care Deputy Grand Jury Name Role Phone Jes Medina MD Primary Care Provide r Reason for Visit * Reason Comments Appointment Encounter Details Date Type Department Care Team (Late st Contact Info) Description 06/13/2024 6:10 PM EDT Pharmacy Pharmacy, [address] [place] [address] [place] [address] Type 2 diabetes mellitus with hemoglobin A1c goal of less than 7.0% ([facility])* Allergies Active Allergy Reactions Criticality Noted Date Comments Carmelo Inhibitors Cough 12/10/2012 Empagliflozin Other (Please comment) 03/29/2021 Yeast infection(s) documented as of this encounter (statuses as of 06/13/2024) Medications Medication Sig Dispensed Refills Start Date End Date Status BD Pen Needle Namrata U/F 32G X 4 MM (Insulin Pen Needle)Indications: Type 2 diabetes mellitus with hemoglobin A1c goal of less than 7.0% ([facility]) Use once a day with Lantus. DX e11.9 100 Each 3 12/26/2021 Active FreeStyle Lite Test In Vitro Strip (Glucose Blood)Indications:T ype 2 diabetes mellitus with hemoglobin A1c goal of less than 7.0% ([facility]) Use to check blood sugar [...] (Demadex)Indication s:MOYA (dyspnea on exertion),NICM (nonischemic cardiomyopathy) ([facility]) One tablet by mouth three [...] as of this encounter (statuses as of 06/13/2024) Active Problems Problem Noted Date Diagnosed Date [...] recurrent major depressive d isorder 03/05/2015 Old [place] (myocardial infarction) 11/20/2014 GERD (gastroesophageal reflux disease) [...] as of this encounter (statuses as of 06/13/2024) Resolved Problems Problem Noted Date Diagnosed Date [...] as of this encounter (statuses as of 06/13/2024) Immunizations Name Administration Dates Next Due COVID-19 mRNA, LNP-s, No Pre serve, 2-Dose Series (Moderna) 07/13/2021,03/09/2021,02/09/2021 COVID-19, mRNA, LNP-s, PF, B ooster, 100mcg/0.5mg (Moderna) 02/07/2022 Covid-19, Mrna, Lnp-s, Pf, B ivalent, 30 Mcg, IM, 12 yrs and above (Pfizer) 08/29/2022 Hepatitis B, 20+ yrs 12/13/2015,07/09/2015,06/07 Pneumococcal Conjugate Vacci ne, 20-valent ([id number]) 08/21/2022 Pneumococcal Polysaccharide PPV23 (Pneumovax) 07/16/2007,10/29/2000 Seasonal [...] this encounter Progress Notes * Chica Sharp manager military - 06/13/2024 8:41 AM EDT Patient Phone Numbers Sent patient [facility] message to schedule [facility] appointment for diabetes management. [facility] message sent --yes Clinic will follow up again in 4 week(s). [Attempt # 1] Thank you, Chica Sharp, [facility] ([facility] 06/13/2024,8:42 AM documented in this encounter Plan of Treatment Upcoming Encounters Date Type Department Care Team (Late st Contact Info) Description 06/20/2024 2:00 PM EDT Office Visit Family Medicine [address] [place] [phone] Gardenia Aguirre PA-C [address] [place] [address] [place] [address] 07/09/2024 10:30 AM EDT Cardiac Studies Cardiac Studies [address] [place] [address] 07/11/2024 6:10 PM EDT Pharmacy Pharmacy, [address] [place] [address] [place] [address] 11/19/2024 11:00 AM EST Imaging Radiology [address] [place] [address] 11/28/2024 8:20 AM EST Office Visit Family Medicine [address] [place] [phone] Jes Medina MD [address] [place] [address] [place] [address] 02/23/2025 3:40 PM EDT Office Visit Rheumatology [address] [place] [phone] Tony Bruner MD [facility] [place] [employer] [place] [place] [address] Health Maintenance Due Date Last Done Comments Cologuard 2010 Fecal Occult Blood Test 2010 Sigmoidoscopy 2010 Depression Monitoring 09/15/2020 09/15/2019 Colonoscopy 06/27/2021 06/27/2016, 06/27/2016 Colorectal Cancer Screening 06/27/2021 Mammogram 02/21/2023 02/21/2022, 04/0 11/2020, 11/17/2019, Additional history exists Diabetic Foot [...] Primary documented in this encounter Care Teams Deputy Grand Jury Relationship Specialty Start Date End Date Jes Medina MD [address] [place] [address] [place] [address] PCP - General Family Medicine 11/27/23 documented as of this encounter
--- OUTSIDE RECORDS SUMMARY | 2024-08-15 02:57 | External Medical Summary | Summary of Care ---
Author Name Unknown Organization [facility] Address [address] [place] [address] Phone [phone] Care Team Providers Care Section Housekeeper Name Role Phone Jes Medina MD Primary Care Provide r Reason for Visit * Reason Onset Date Comments Order Request 05/18/2024 Encounter Details Date Type Department Care Team (Late st Contact Info) Description 05/18/2024 Telephone Family Medicine [address] [phone] Jes Medina MD [address] [place] [address] [place] [address] Order Request Allergies Active Allergy Reactions Criticality Noted Date Comments Carmelo Inhibitors Cough 12/10/2012 Empagliflozin Other (Please comment) 03/29/2021 Yeast infection(s) documented as of this encounter (statuses as of 05/19/2024) Medications Medication Sig Dispensed Refills Start Date End Date Status BD Pen Needle Namrata U/F 32G X 4 MM (Insulin Pen Needle)Indications: Type 2 diabetes mellitus with hemoglobin A1c goal of less than 7.0% ([facility]) Use once a day with Lantus. DX e11.9 100 Each 3 12/26/2021 Active FreeStyle Lite Test In Vitro Strip (Glucose Blood)Indications:T ype 2 diabetes mellitus with hemoglobin A1c goal of less than 7.0% ([facility]) Use to check blood sugar two times [...] as of this encounter (statuses as of 05/19/2024) Active Problems Problem Noted Date Diagnosed Date [...] recurrent major depressive d isorder 03/05/2015 Old [place] (myocardial infarction) 11/20/2014 GERD (gastroesophageal reflux disease) [...] as of this encounter (statuses as of 05/19/2024) Resolved Problems Problem Noted Date Diagnosed Date [...] as of this encounter (statuses as of 05/19/2024) Immunizations Name Administration Dates Next Due COVID-19 mRNA, LNP-s, No Pre serve, 2-Dose Series (Moderna) 07/13/2021,03/09/2021,02/09/2021 COVID-19, mRNA, LNP-s, PF, B ooster, 100mcg/0.5mg (Moderna) 02/07/2022 Covid-19, Mrna, Lnp-s, Pf, B ivalent, 30 Mcg, IM, 12 yrs and above (Pfizer) 08/29/2022 Hepatitis B, 20+ yrs 12/13/2015,07/09/2015,06/07 Pneumococcal Conjugate Vacci ne, 20-valent ([id number]) 08/21/2022 Pneumococcal Polysaccharide PPV23 (Pneumovax) 07/16/2007,10/29/2000 Seasonal [...] Telephone Encounter - Marietta Hernandez OSA - 05/19/2024 12:01 PM EDT Mamm scheduled, pt aware. * Telephone Encounter - Jes Medina MD - 05/19/2024 10:49 AM EDT Signed * Telephone Encounter - Juan Alberto Paredes MED ASSIST - 05/19/2024 9:12 AM EDT Mammogram order pended, last performed 02/21/2022. * Telephone Encounter - Jaymie De Jesus OSA - 05/18/2024 6:00 PM EDT Hello, Please place order for mammogram. Thank you, SARA Murphy documented in this encounter Plan of Treatment Upcoming Encounters Date Type Department Care Team (Late st Contact Info) Description 05/23/2024 11:00 AM EDT Office Visit Pharmacy, [address] [place] [address] [place] [address] 05/23/2024 3:30 PM EDT Imaging Radiology [address] [place] [address] 06/11/2024 8:00 AM EDT Office Visit Dermatology [address] [place] [address] Misty Rogel PA-C [address] [place] [address] [place] [address] 06/20/2024 2:00 PM EDT Office Visit Family [address] [place] [phone] Gardenia Aguirre PA-C [address] [place] [address] [place] [address] 07/09/2024 10:30 AM EDT Cardiac Studies Cardiac Studies [address] [place] [address] 08/21/2024 3:30 PM EDT Office Visit Cardiology, [facility] [address] [place] [address] Shahbaz Whitman DO [address] [place] [address] 11/28/2024 8:20 AM EST Office Visit Family [address] [place] [address] Jes Medina MD [address] [place] [address] [place] [address] 02/23/2025 3:40 PM EDT Office Visit Rheumatology [address] [place] [address] Tony Bruner MD [address] [facility] [place] [address] Scheduled Orders Name Type Priority Associated Diagnoses Orde r Schedule MAMMOGRAM SCREENING ALLIE BILATERAL Medical Imaging Routine Encounter for screening mammogram for breast cancer Expected: 11/19/2024, Expires: 06/19/2025 Health Maintenance Due Date Last Done Comments [...] as of this encounter Visit Diagnoses Diagnosis Encounter for screening mammogram for breast cancer- Primary documented in this encounter Care Teams Section Housekeeper Relationship Specialty Start Date End Date Jes Medina MD [address] [place] [address] [place] [address] PCP - General Family Medicine 11/27/23 documented as of this encounter
--- OUTSIDE RECORDS SUMMARY | 2024-08-15 02:57 | External Medical Summary ---
Author Name Unknown Address Unknown Organization [facility] [address] [facility] [place] [address] Laboratory Report Ordering Provider Test Date Status IRENE LINDQUIST 06/09/2024 09:51:53 Final Observation Date Value Abnormality Reference (Units ) Status Triglyceride 06/09/2024 09:51:53 87 <=174 ( mg/dL) Final Triglyceride Reference Range s (mg/dL):
<150 Acceptable
150-174 Borderline high
175-499 High
>=500 Very high Cholesterol 06/09/2024 09:51:53 121 <200 (mg /dL) Final Total Cholesterol Reference Ranges (mg/dL):
<200 Desirable
200-239 Borderline high
>=240 High HDL 06/09/2024 09:51:53 60 >49 (mg/dL ) Final HDL Cholesterol Reference Ra nges (mg/dL):
>=60 High (Desirable)
<50 Low (Undesirable) For Females
<40 Low (Undesirable) For Males NON-HDL CHOLESTEROL 06/09/2024 09:51:53 61 <=159 (mg/dL) Final Non-HDL Cholesterol Referenc e Range (mg/dL):
<100 Target level for high risk ASCVD patient
<130 Optimal for general population
130-159 Near optimal for general population
160-189 Borderline High
190-219 High
>=220 Very High LDL, (calculated) 06/09/2024 09:51:53 44 <= 129 (mg/dL) Final LDL Cholesterol Reference Ra nges (mg/dL):
<70 Target level for high risk ASCVD patient
<100 Optimal for general population
100-129 Near optimal for general population
130-159 Borderline high
160-189 High
>=190 Very high Performing Location LAB[facility]ATORY [facility] - [address] [facility] [address]
--- OUTSIDE RECORDS SUMMARY | 2024-08-15 02:57 | External Medical Summary | Summary of Care ---
Author Name Unknown Organization [facility] Address [address] [place] [address] Phone [phone] Care Team Providers Care Channel Turner Name Role Phone Jes Medina MD Primary Care Provide r Reason for Visit * Reason Comments Outpatient Testing Encounter Details Date Type Department Care Team (Late st Contact Info) Description 06/09/2024 10:00 AM EDT Laboratory Laboratory [address] [place] [phone] [place] [address] Dyslipidemia, goal LDL below 70 Allergies Active [...] recurrent major depressive d isorder 03/05/2015 Old [place] (myocardial infarction) 11/20/2014 GERD (gastroesophageal reflux disease) [...] yrs 12/13/2015,07/09/2015,06/07 Pneumococcal Conjugate Vacci ne, 20-valent ([id number]) 08/21/2022 Pneumococcal Polysaccharide PPV23 (Pneumovax) 07/16/2007,10/29/2000 Seasonal [...] 06/11/2024 8:00 AM EDT Office Visit Dermatology [address] [place] [address] Misty Rogel PA-C [address] [place] [address] [place] [address] 06/13/2024 6:10 PM EDT Pharmacy Pharmacy, [address] [place] [address] [place] [address] 06/20/2024 2:00 PM EDT Office Visit Family Medicine [address] [place] [phone] Gardenia Aguirre PA-C [address] [place] [address] [place] [address] 07/09/2024 10:30 AM EDT Cardiac Studies Cardiac Studies [address] [place] [address] 11/19/2024 11:00 AM EST Imaging Radiology [address] [place] [address] 11/28/2024 8:20 AM EST Office Visit Family Medicine [address] [place] [phone] Jes Medina MD [address] [place] [address] [place] [address] 02/23/2025 3:40 PM EDT Office Visit Rheumatology [address] [place] [phone] Tony Bruner MD [address] [employer] [facility] [address] Pending Results Name Type Priority Associated Diagnoses [...] hyperlipidemia documented in this encounter Care Teams Channel Turner Relationship Specialty Start Date End Date Jes Medina MD [address] [place] [address] [place] [phone] PCP - General Family Medicine 11/27/23 documented as of this encounter
--- OUTSIDE RECORDS SUMMARY | 2024-08-15 02:57 | External Medical Summary | Summary of Care ---
Author Name Unknown Organization [facility] Address [address] [place] [address] Phone [phone] Care Team Providers Care Residential Property Manager Name Role Phone Jes Medina MD Primary Care Provide r Reason for Visit * Reason Onset Date Comments Medication Refill 06/17/2024 Encounter Details Date Type Department Care Team (Late st Contact Info) Description 06/17/2024 Refill Cardiology, [facility] [address] [place] [address] Mecca Branham PA-C [address] [place] [address] Chronic heart failure with preserved ejection fraction (HCC) Allergies Active Allergy Reactions Criticality Noted Date Comments Carmelo Inhibitors Cough 12/10/2012 Empagliflozin Other (Please comment) 03/29/2021 Yeast infection(s) documented as of this encounter (statuses as of 06/17/2024) Medications Medication Sig Dispensed Refills Start Date [...] Active Trulicity 4.5 MG/0.5ML Subcutaneous Solution Pen-injector (Dulaglutide)Indic [...] Active Torsemide 10 MG Oral Tablet (Demadex)Indicatio ns:MOYA (dyspnea on exertion),NICM (nonischemic cardiomyopathy) (HCC) One [...] the morning. 90 Tablet 3 06/17/2024 Active Dapagliflozin Propanediol 10 MG Oral Tablet (Farxiga)Indicatio ns:Chronic heart failure with preserved ejection fraction (HCC) Take 1 Tablet by mouth in the morning. 90 Tablet 3 01/08/2024 4 Discontinue d(Refill) documented as of this encounter (statuses as of 06/17/2024) Active Problems Problem Noted Date Diagnosed Date [...] recurrent major depressive d isorder 03/05/2015 Old [place] (myocardial infarction) 11/20/2014 GERD (gastroesophageal reflux disease) [...] as of this encounter (statuses as of 06/17/2024) Resolved Problems Problem Noted Date Diagnosed Date [...] as of this encounter (statuses as of 06/17/2024) Immunizations Name Administration Dates Next Due COVID-19 mRNA, LNP-s, No Pre serve, 2-Dose Series (Moderna) 07/13/2021,03/09/2021,02/09/2021 COVID-19, mRNA, LNP-s, PF, B ooster, 100mcg/0.5mg (Moderna) 02/07/2022 Covid-19, Mrna, Lnp-s, Pf, B ivalent, 30 Mcg, IM, 12 yrs and above (Pfizer) 08/29/2022 Hepatitis B, 20+ yrs 12/13/2015,07/09/2015,06/07 Pneumococcal Conjugate Vacci ne, 20-valent ([id number]) 08/21/2022 Pneumococcal Polysaccharide PPV23 (Pneumovax) 07/16/2007,10/29/2000 Seasonal [...] encounter Miscellaneous Notes * Telephone Encounter - Mecca Branham PA-C - 06/17/2024 11:20 AM EDT Signed Prescriptions: Disp Refills Dapagliflozin Propanediol 10 MG Oral Table*90 Tab*3 Sig: Take 1 Tablet by mouth in the morning. Authorizing Provider: MECCA BRANHAM * Telephone Encounter - Lake Perez LPN - 06/17/2024 9:27 AM EDTPending Prescriptions: Disp Refills Dapagliflozin Propanediol 10 MG Oral Table*90 Tab*3 Sig: Take 1 Tablet by mouth in the morning. * Telephone Encounter - Lake Perez LPN - 06/17/2024 9:26 AM EDT Did you pend patient's preferred pharmacy and medication before forwarding?yes Pharmacy: [facility] Pending Prescriptions: Disp Refills Dapagliflozin Propanediol 10 MG Oral Tabl*90 Tab*3 Sig: Take 1 Tablet by mouth in the morning. Last Visit: 05/02/2024 (in office), 10/07/2021 (telemedicine) Next Visit: Visit date not found If no future appointments scheduled, and last appointment is greater than a year ago, please schedule patient for a follow-up appointment Last date the medication was ordered: 01/08/24 Is this request for a controlled substance?No Urine Drug Screen:No results found. However, due to the size of the patient record, not all encounters were searched. Please check Results Review for a complete set of results. Patient Phone Numbers Labs: Lab Results Component Value Date/Time CREAT 1.0 03/25/2024 10:11 AM CREAT 0.9 06/02/2020 08:59 AM POTASSIUM 4.2 03/25/2024 10:11 AM POTASSIUM 4.5 06/02/2020 08:59 AM TSH 3.26 03/25/2024 10:11 AM TSH 2.57 06/02/2020 08:59 AM LDLCALC 44 06/09/2024 09:51 AM LDLCALC 87 06/02/2020 08:59 AM LDLDIRECT NOT APPLICABLE 06/02/2020 08:59 AM ALT 18 03/25/2024 10:11 AM ALT 14 06/02/2020 08:59 AM HGBA1C 6.8 (H) 02/22/2024 10:53 AM HGBA1C 9.3 (H) 06/02/2020 08:59 AM documented in this encounter Plan of Treatment Upcoming Encounters Date Type Department Care Team (Late st Contact Info) Description 06/20/2024 2:00 PM EDT Office Visit Family Medicine [address] [place] [phone] Gardenia Aguirre PA-C [address] [place] [address] [place] [address] 07/09/2024 10:30 AM EDT Cardiac Studies Cardiac Studies [address] [place] [address] 07/11/2024 6:10 PM EDT Pharmacy Pharmacy, [address] [place] [address] [place] [address] 11/19/2024 11:00 AM EST Imaging Radiology [address] [place] [address] 11/28/2024 8:20 AM EST Office Visit Family Medicine [address] [place] [phone] Jes Medina MD [address] [place] [address] [place] [address] 02/23/2025 3:40 PM EDT Office Visit Rheumatology [address] [place] [address] Tony Bruner MD [facility] [place] [address] Health Maintenance Due Date Last Done Comments [...] as of this encounter Visit Diagnoses Diagnosis Chronic heart failure with preserved ejection fraction (HCC) documented in this encounter Care Teams Residential Property Manager Relationship Specialty Start Date End Date Jes Medina MD [address] [place] [address] [place] [phone] PCP - General Family Medicine 11/27/23 documented as of this encounter
--- OUTSIDE RECORDS SUMMARY | 2024-08-15 02:58 | External Medical Summary ---
Author Name Unknown Address Unknown Organization K01:[facility] [address] [facility] [address] Laboratory Report Ordering Provider Test Date Status REBA CAMILO 03/25/2024 10:11:04 Final Observation Date Value Abnormality Reference (Units ) Status SYNC LEUKOCYTES IN BLOOD BY AUTOMATED COUNT 03/25/2024 10:11:04 7.35 4.00-10.80 (K/uL) Final Segs 03/25/2024 10:11:04 65.9 40.0-75.0 (%) Final Lymphs % 03/25/2024 10:11:04 22.6 18.0-42.0 (%) Final Monos 03/25/2024 10:11:04 8.6 1.0-11.0 (%) Final Eosinophils 03/25/2024 10:11:04 1.8 0.0-6.0 (%) Final Basos 03/25/2024 10:11:04 0.8 0.0-2.0 (%) Final Immature Granulocyte, Percent 03/25/2024 10:11:04 0.3 0.0-2.0 (%) Final Absolute Segs 03/25/2024 10:11:04 4.85 1.80-7.70 (K/uL) Final Lymphs, absolute 03/25/2024 10:11:04 1.66 1.00-4.80 (K/ul) Final Monos, Abs 03/25/2024 10:11:04 0.63 0.00-1.10 (K/uL) Final Eos, Abs 03/25/2024 10:11:04 0.13 0.00-0.70 (K/uL) Final Basos, Abs 03/25/2024 10:11:04 0.06 0.00-0.20 (K/uL) Final Immature Granulocytes, Number 03/25/2024 10:11:04 0.02 0.00-0.20 (K/uL) Final Performing Location [facility] [place] [address] [facility] [address]
--- OUTSIDE RECORDS SUMMARY | 2024-08-15 02:58 | External Medical Summary | Summary of Care ---
Author Name Unknown Organization [facility] Address [address] [place] [address] Phone [phone] Care Team Providers Care Radar Systems Engineer Name Role Phone Jes Medina MD Primary Care Provide r Reason for Visit * Reason Comments Dosage Adjustment In Person (Anticoag Cl inic) Diabetes Follow-Up Encounter Details Date Type Department Care Team (Late st Contact Info) Description 04/04/2024 11:00 AM EDT Office Visit Pharmacy, [address] [place] [address] [place] [address] Type 2 diabetes mellitus with hemoglobin A1c goal of less than 7.0% (HCC)* Allergies Active Allergy Reactions Criticality Noted Date Comments Carmelo Inhibitors Cough 12/10/2012 Empagliflozin Other (Please comment) 03/29/2021 Yeast infection(s) documented as of this encounter (statuses as of 04/04/2024) Medications Medication Sig Dispensed Refills Start Date [...] FOR ANXIETY 180 Tablet 3 05/11/2023 Active Levothyroxine Sodium 125 MCG Oral Tablet (Levoxyl)Indication s:Hypothyroidism (acquired) TAKE 1 TABLET BY MOUTH IN THE MORNING (at least 30 min prior to breakfast or other meds) 90 Tablet 1 05/12/2023 Active Methotrexate 2.5 MG Oral Tablet TAKE 6 TABLETS ONCE A WEEK. FOR USAGE IN RHEUMATIC DISEASES 78 Tablet 1 06/12/2023 Active Torsemide 20 MG Oral Tablet (Demadex) Take 1 Tablet by mouth in the morning. 34 Tablet 11 07/13/2023 Active Ezetimibe 10 MG Oral Tablet (Zetia)Indications: [...] 1 Tablet Oral ONCE, Reported on 03/04/2024 Nitrofurantoin Macrocrystal 100 MG Oral Capsule (Macrodantin) Take 1 Capsule by mouth in the morning and 1 Capsule before bedtime. 09/27/2023 Active metroNIDAZOLE 1 % External Gel (Metrogel)Indicatio ns:Rosacea Apply topically to affected area daily. Apply to facde 60 g 3 11/27/2023 Active Repatha SureClick 140 MG/ML Subcutaneous Solution Auto-injector [...] the morning and 1 Tablet before bedtime. 60 Tablet 3 03/18/2024 Active documented as of this encounter (statuses as of 04/04/2024) Active Problems Problem Noted Date Diagnosed Date [...] recurrent major depressive d isorder 03/05/2015 Old [place] (myocardial infarction) 11/20/2014 GERD (gastroesophageal reflux disease) [...] as of this encounter (statuses as of 04/04/2024) Resolved Problems Problem Noted Date Diagnosed Date [...] as of this encounter (statuses as of 04/04/2024) Immunizations Name Administration Dates Next Due COVID-19 mRNA, LNP-s, No Pre serve, 2-Dose Series (Moderna) 07/13/2021,03/09/2021,02/09/2021 COVID-19, mRNA, LNP-s, PF, B ooster, 100mcg/0.5mg (Moderna) 02/07/2022 Covid-19, Mrna, Lnp-s, Pf, B ivalent, 30 Mcg, IM, 12 yrs and above (Pfizer) 08/29/2022 Hepatitis B, 20+ yrs 12/13/2015,07/09/2015,06/07 Pneumococcal Conjugate Vacci ne, 20-valent ([id number]) 08/21/2022 Pneumococcal Polysaccharide PPV23 (Pneumovax) 07/16/2007,10/29/2000 Seasonal [...] as of this encounter Progress Notes * Montyfaye Karisemerald Irene, [facility] - 04/04/2024 10:57 AM EDT Medication Therapy Disease Management [facility] - Diabetes Management Progress Note Bailey Alejandra, identified by name and date of , is a 58 year old female being seen for diabetes management/education. Patient presents for return diabetic visit. DIABETES: Current diabetic medications: Farxiga 10mg daily Trulicity 4.5mg once weekly (not taking d/t backorder) Lantus 40 units daily at bedtime eGFR 70 as of 11/22/23 Medication Injection Site: Abdomen Lifestyle: Diet: unchanged Glucose Review/SMBG: Not available Hypoglycemia: Does your blood sugar go below 70 mg/dL? Denies Hyperglycemia symptoms present: none Recent Labs Units 02/22/24 1053 11/27/23 1608 05/21/23 1225 HEMOGLOBIN A1C - [facility] % 6.8* 7.8* 7.1* Recent Labs Units 03/25/24 1011 11/22/23 0957 08/09/23 1231 ESTIMATED GLOMERULAR FILTRATION RATE - [facility] mL/min 63 70 75 CREATININE - [facility] mg/dL 1.0 0.9 0.9 HYPERTENSION: Patient on ACEi/ARB: yes BP Readings from Last 3 Encounters: 03/04/24 108/72 02/21/24 120/78 11/27/23 118/74 Blood pressure at goal: yes HYPERLIPIDEMIA: Patient is taking moderate or high intensity statin: yes HEALTH MAINTENANCE REVIEW: Health Maintenance Due Topic Date Due Colorectal Cancer Screening 06/27/2021 Mammogram 02/21/2023 Diabetic Foot Exam 05/29/2023 COVID-19 Vaccine ( season) 2023 ASSESSMENT & PLAN: ICD-10-CM 1. Type 2 diabetes mellitus with hemoglobin A1c goal of less than 7.0% ([facility]) E11.9 Considerations: Joyce Pedraza (Rx help: [phone]) Metformin ER - Intolerant (GI upset) BG Readings - Blood sugars not available. Not testing often. Medications - Reviewed current regimen. Patient notes she has been out of Trulicity d/t back order.Obtaining through [facility]. Discussed national back order and encouraged to contact [facility] to assess what doses are in stock for temporary decrease. Patient expressed understanding. Encouraged to message [facility] clinic after restarting with fasting AM blood sugars as dose decrease of Lantus may be needed. Diet, Exercise, Lifestyle - Undergoing increased stress as and several family members are in the hospital. Patient is agreeable to SMBG 1-3 time(s) daily. Patient aware to contact clinic if any hypoglycemia before next visit. MEDICATION CHANGES: See below Diabetic Medications: Farxiga 10mg daily Trulicity 4.5mg once weekly (once able to obtain) Lantus 40 units daily at bedtime eGFR 70 as of 11/22/23 HEALTH MAINTENANCE INTERVENTIONS: Labs: Up to Date Immunizations: COVID Foot Exam: Due Eye Exam: Up to Date Annual Wellness Visit: N/A FOLLOW UP: Return to clinic in 6 weeks 05/23/2024 Karis Combs [facility] Clinical Pharmacist - Display Director Medication Therapy Management Clinic 04/04/2024, 10:57 AM documented in this encounter Plan of Treatment Upcoming Encounters Date Type Department Care Team (Late st Contact Info) Description 05/02/2024 11:00 AM EDT Office Visit Cardiology, [facility] [address] [place] [address] Shahbaz Whitman, [address] [place] [address] 05/23/2024 11:00 AM EDT Office Visit Pharmacy, [address] [place] [address] [place] [address] 05/27/2024 2:20 PM EDT Office Visit Family Medicine [address] [place] [phone] Gardenia Aguirre PA-C [address] [place] [address] [place] [address] 06/11/2024 8:00 AM EDT Office Visit Dermatology [address] [place] [address] Misty Rogel PA-C [address] [place] [address] [place] [address] 08/21/2024 3:30 PM EDT Office Visit Cardiology, [facility] [address] [place] [address] Shahbaz Whitman DO [address] [place] [address] 11/28/2024 8:20 AM EST Office Visit Family [address] [place] [phone] Jes Medina MD [address] [place] [address] [place] [address] 02/23/2025 3:40 PM EDT Office Visit Rheumatology [address] [place] [phone] Tony Bruner MD [facility] [place] [address] Health Maintenance Due Date Last Done Comments Cologuard 2010 Fecal Occult Blood Test 2010 Sigmoidoscopy 2010 Colonoscopy 06/27/2021 06/27/2016, 06/27/2016 Colorectal Cancer Screening 06/27/2021 Mammogram 02/21/2023 02/21/2022, 04/0 11/2020, 11/17/2019, Additional history exists Diabetic Foot Exam 05/29/2023 05/29/2022, 0 03/18/2020, 03/11/2019, Additional history exists COVID-19 Vaccine ( - 2022- season) 2023 08/29/2022, 02/07/2022, 07/13/2021, Additional history exists HbA1c 08/23/2024 02/22/2024, 10/31, [...] Tdap) 02/01/2032 01/31/2022, 05/19/2011, 10/29/2002 Hepatitis B Completed 12/13/2015, 06/29, 06/07/2015 RETIRED - COLONOSCOPY-EVERY 5 YRS AGES 18-100 Discontinued 06/27/2016, 06/27/2016 Zoster Vaccines Completed 08/23/2020, 03/18/2020 Pneumococcal Vaccine: Pediatrics (0 to 5 Years) and At-Risk Patients (6 to 64 Years) Completed 08/21/2022, 07/16/2007, 10/29/2000 Influenza Vaccine (FLU shot) Completed 07/13/2023, 08/21/2022, 07/26/2021, Additional history exists GARDASIL-HPV IMMUNIZATION SERIES Aged Out No longer eligible based on [...] Primary documented in this encounter Care Teams Radar Systems Engineer Relationship Specialty Start Date End Date Jes Medina MD [address] [place] [address] [place] [address] PCP - General Family Medicine 11/27/23 documented as of this encounter
--- OUTSIDE RECORDS SUMMARY | 2024-08-15 02:58 | External Medical Summary | Summary of Care ---
Author Name Unknown Organization [facility] Address [address] [place] [address] Phone [phone] Care Team Providers Care Docketing Specialist Name Role Phone Jes Medina MD Primary Care Provide r Reason for Referral * Precert (Within 10 days (routine)) - Pending Review Specialty Diagnoses / Procedures Referred By Jaleel laurent Referred To Contact Cardiac Studies Diagnoses MOYA (dyspnea on exertion) NICM (nonischemic cardiomyopathy) (HCC) Cardiac sarcoidosis Procedures ECHO, COMPLETE (2D), TRANS-THORACIC Shahbaz Whitman DO [address] [place] [address] Referral ID Status Reason Start Date Expiration Date Visits Requested Visits Authorized [id number] Pending Review Precert 05/03/2024 999 999 Reason for Visit * Reason Comments Follow Up Encounter Details Date Type Department Care Team (Late st Contact Info) Description 05/02/2024 11:00 AM EDT Office Visit Cardiology, [facility] [address] [place] [address] Shahbaz Whitman DO [address] [place] [id number] MOYA (dyspnea on exertion)*; NICM (nonischemic cardiomyopathy) (HCC); Cardiac sarcoidosis; Paroxysmal atrial fibrillation (HCC); Chronic heart failure with preserved ejection fraction (HCC); HTN, goal below 140/90; ICD (implantable cardioverter-defibril lator), dual, in situ Allergies Active Allergy Reactions Criticality Noted Date Comments Carmelo Inhibitors Cough 12/10/2012 Empagliflozin Other (Please comment) 03/29/2021 Yeast infection(s) documented as of this encounter (statuses as of 05/02/2024) Medications Medication Sig Dispensed Refills Start Date [...] day. DX e11.9 1 Each 2 Active ProAir HFA 108 (90 Base) MCG/ACT Inhalation Aerosol SolutionIndicati ons:Wheezing Inhale by mouth 2 Puffs every 4 hours as needed for Wheezing. 18 g 1 2 Active Insulin Glargine 100 UNIT/ML Subcutaneous Solution Pen-injector (Lantus)Indicati ons:Type 2 diabetes mellitus with hemoglobin A1c goal of less than 7.0% (HCC) Inject 40 Units under the skin every night at bedtime. 39 mL 3 3 Active Atorvastatin Calcium 80 MG Oral Tablet (Lipitor)Indicat ions:Dyslipidemi a, goal LDL below 100 TAKE 1 TABLET DAILY 90 Tablet 3 3 Active Trulicity 4.5 MG/0.5ML Subcutaneous Solution Pen-injector (Dulaglutide)Ind ications:Type 2 diabetes mellitus with hemoglobin A1c goal of less than 7.0% ([facility]) INJECT 4.5 MG UNDER THE SKIN ONCE A WEEK 6 mL 3 3 Active busPIRone HCl 10 MG Oral Tablet (Buspar)Indicati ons:Moderate episode of recurrent major depressive disorder (HCC) TAKE 1 TABLET TWICE A DAY NEEDED FOR ANXIETY 180 Tablet 3 3 Active Levothyroxine Sodium 125 MCG Oral Tablet (Levoxyl)Indicat ions:Hypothyroid ism (acquired) TAKE 1 TABLET BY MOUTH IN THE MORNING (at least 30 min prior to breakfast or other meds) 90 Tablet 1 3 Active Ezetimibe 10 MG Oral Tablet (Zetia)Indicatio ns:Dyslipidemia, goal LDL below 70 TAKE 1 TABLET DAILY 90 Tablet 3 3 Active traZODone HCl 50 MG Oral Tablet (Desyrel)Indicat ions:Persistent insomnia TAKE 1 TABLET AT BEDTIME 90 Tablet 3 3 Active Pantoprazole Sodium 20 MG Oral Tablet Delayed Release (Protonix)Indica tions:Gastroesop hageal reflux disease, unspecified whether esophagitis present TAKE 1 TABLET IN THE MORNING 90 Tablet 3 3 Active Metoprolol Succinate [...] 14 DAYS 6 mL 3 4 Active Dapagliflozin Propanediol 10 MG Oral Tablet (Farxiga)Indicat ions:Chronic heart failure with preserved ejection fraction (HCC) Take 1 Tablet by mouth in the morning. 90 Tablet 3 4 Active Metoprolol Succinate ER 100 MG Oral Tablet Extended Release 24 Hour (toPROL XL) TAKE 1 TABLET ONCE DAILY IN ADDITION TO TAKING METOPROLOL 25 MG, FOR A TOTAL DAILY DOSE OF 125 MG 90 Tablet 3 4 Active FLUoxetine HCl 20 MG Oral Capsule (PROzac)Indicati ons:Depression TAKE 1 CAPSULE DAILY 90 Capsule 3 4 Active Apixaban 5 MG Oral Tablet (Eliquis) Take 1 Tablet by mouth in the morning and 1 Tablet before bedtime. 180 Tablet 30 4 Active Methotrexate Sodium 2.5 MG Oral Tablet TAKE 6 TABLETS ONCE A WEEK FOR USAGE IN RHEUMATIC DISEASES 78 Tablet 1 4 Active Torsemide 10 MG Oral Tablet (Demadex)Indicat ions:MOYA (dyspnea on exertion),NICM (nonischemic cardiomyopathy) (HCC) One tablet by mouth three days per week on Mondays, Sunday, and Fridays with extra dose as needed for swelling 45 Tablet 3 4 Active Torsemide 20 MG Oral Tablet (Demadex) Take 1 Tablet by mouth in the morning. 34 Tablet 11 3 05/02/20 24 Discontinued(Med ication/Dose Changed) Nitrofurantoin Macrocrystal 100 MG Oral Capsule (Macrodantin) Take 1 Capsule by mouth in the morning and 1 Capsule before bedtime. 3 05/02/20 24 Discontinued metroNIDAZOLE 1 % External Gel (Metrogel)Indica tions:Rosacea Apply topically to affected area daily. Apply to facde 60 g 3 4 05/02/20 24 Discontinued documented as of this encounter (statuses as of 05/02/2024) Active Problems Problem Noted Date Diagnosed Date [...] recurrent major depressive d isorder 03/05/2015 Old MA (myocardial infarction) 11/20/2014 GERD (gastroesophageal reflux disease) [...] as of this encounter (statuses as of 05/02/2024) Resolved Problems Problem Noted Date Diagnosed Date [...] as of this encounter (statuses as of 05/02/2024) Immunizations Name Administration Dates Next Due COVID-19 mRNA, LNP-s, No Pre serve, 2-Dose Series (Moderna) 07/13/2021,03/09/2021,02/09/2021 COVID-19, mRNA, LNP-s, PF, B ooster, 100mcg/0.5mg (Moderna) 02/07/2022 Covid-19, Mrna, Lnp-s, Pf, B ivalent, 30 Mcg, IM, 12 yrs and above (Pfizer) 08/29/2022 Hepatitis B, 20+ yrs 12/13/2015,07/09/2015,06/07 Pneumococcal Conjugate Vacci ne, 20-valent ([id number]) 08/21/2022 Pneumococcal Polysaccharide PPV23 (Pneumovax) 07/16/2007,10/29/2000 Seasonal [...] 1 11/11/1994 - 09/11/2005 Smokeless Tobacco: Never Tobacco Cessation:Counseling Given: Not Answered Alcohol Use Standard Drinks/Week Comments No 0 [...] Sign Reading Time Taken Comments Blood Pressure 110/68 05/02/2024 11:00 AM EDT Pulse 74 05/02/2024 11:00 AM EDT Temperature - - Respiratory Rate - - Oxygen Saturation 96% 05/02/2024 11:00 AM EDT Inhaled Oxygen Concentration - - Weight 98.4 kg (217 lb) 05/02/2024 11:00 AM EDT Height - - Body Mass Index 36.11 08/15/2023 7:59 AM EDT documented in this encounter Progress Notes * Shahbaz Whitman, DO - 05/02/2024 11:20 AM EDT 05/02/2024 Cardiology Follow Up CHIEF COMPLAINT: Shortness of breath and chest pressure, history of cardiac sarcoidosis, history ofheart failure with reduced ejection fraction, recent diagnosis of atrial fibrillation, history of hypertension SUBJECTIVE: Bailey Alejandra is a 58 year old year old female who presents today in follow-up due to the above concerns. She notes that she has not taken torsemide 20 milligrams daily on a routine basisfor a number of months. She took 1 dose a few weeks ago due to subjective lower extremity swelling which then resolved and she has not taken it. She states that she has had difficulty with taking allof her medications consistently due to forgetfulness. She does not utilize a pillbox. She has been under a great deal stress. Her has a history of hemochromatosis and underwent liver transplant on March 09, 2024. He remains hospitalized in the intensive care unit at [facility] and now has a tracheostomy it was on dialysis. Her dual-chamber AICD he had been interrogated remotely in Feb, 2024 interrogation revealed 7 recent episodes of atrial fibrillation, the longest of which was 1 hour 27 minutes in duration on 02/12/2024. This was a new diagnosis for her. She had since been started on Eliquis 5 milligrams twice daily which she was tolerated well. She describes symptoms of chest pain and shortness of breath that may occur with walking, although she has some chest symptoms that even occurred at rest. Cardiac problems: Cardiac Sarcoidosis S/P dual chamber ICD 10/30/2021 NICM EF 30-34% improved to 50-54% echo December, CAD luminal irregularities on cath from 12/2020 Ectopic atrial rhythm CVA Atrial fibrillation hypertension HLD DM Genetic testing with variants of uncertain significance in regards to cardiomyopathy and FH Extensive ROS: All systems reviewed & are unremarkable except as noted in HPI & below Cardiovascular (chest pain/palpitations/fluttering/diaphoresis/dyspnea on exertion/paroxysmally nocturnal dyspnea):Negative Review of patient's allergies indicates: Allergen Reactions [...] a day. DX e11.9 1 Each 0 ProAir HFA 108 (90 Base) MCG/ACT Inhalation Aerosol Solution Inhale by mouth 2 Puffs every 4 hours as needed for Wheezing. 18 g 1 Insulin Glargine 100 UNIT/ML Subcutaneous Solution Pen-injector (Lantus) Inject 40 Units under the skin every night at bedtime. 39 mL 3 Atorvastatin Calcium 80 MG Oral Tablet (Lipitor) TAKE 1 TABLET DAILY 90 Tablet 3 Trulicity 4.5 MG/0.5ML Subcutaneous Solution Pen-injector (Dulaglutide) INJECT 4.5 MG UNDER THE SKIN ONCE A WEEK 6 mL 3 busPIRone HCl 10 MG Oral Tablet (Buspar) TAKE 1 TABLET TWICE A DAY NEEDED FOR ANXIETY 180 Tablet3 Levothyroxine Sodium 125 MCG Oral Tablet (Levoxyl) TAKE 1 TABLET BY MOUTH IN THE MORNING (at least 30 min prior to breakfast or other meds) 90 Tablet 1 Torsemide 20 MG Oral Tablet (Demadex) Take 1 Tablet by mouth in the morning. 34 Tablet 11 Ezetimibe 10 MG Oral Tablet (Zetia) TAKE [...] SKIN EVERY 14 DAYS 6 mL 3 Dapagliflozin Propanediol 10 MG Oral Tablet (Farxiga) Take 1 Tablet by mouth in the morning. 90 Tablet 3 Metoprolol Succinate ER 100 MG Oral [...] USAGE IN RHEUMATIC DISEASES 78 Tablet 1 No current facility-administered medications for this visit. OBJECTIVE/PHYSICAL EXAMINATION: BP 110/68 | Pulse 74 | Wt 98.4 kg (217 lb) | LMP 09/12/2013 | SpO2 96% | BMI 36.11 kg/m | BSA 2.12 m . BP Readings from Last 4 Encounters: 05/02/24 110/68 03/04/24 108/72 02/21/24 120/78 11/27/23 118/74 Wt Readings from Last 3 Encounters: 05/02/24 98.4 kg (217 lb) 03/04/24 98.5 kg (217 lb 1.6 oz) 02/21/24 100.2 kg (221 lb) General: no acute distress and stated age Eyes: conjunctiva are pink and non-injected, sclera clear Neck: normal jugular venous pulse, no hepatojugular reflux Chest: normal shape and normal respiratory effort Lungs: clear to auscultation , no rales rhonchi or wheezing Cardiac Exam: - regular heart sounds, no murmurs, rubs, or gallops Abdomen: abdomen soft, non-tender, no abnormal masses and no hepatosplenomegaly Musculoskeletal: no gait disturbance, no weakness Extremities: no edema and no cyanosis Neuro: grossly normal exam Psych: appropriate affect and insight. Data: Lipid Panel Results: Results for orders placed or performed in visit on 05/21/23 LIPID PANEL WITH DIRECT LDL IF TG IS HIGH Result Value Ref Range Triglycerides 115 <=174 mg/dL Cholesterol 143 <200 mg/dL HDL Cholesterol 62 >49 mg/dL Non-HDL Cholesterol 81 <=159 mg/dL LDL Cholesterol 58 <=129 mg/dL ASSESSMENT / PLAN: 58 year old year old female ICD-10-CM 1. MOYA (dyspnea on exertion) R06.09 2. NICM (nonischemic cardiomyopathy) ([facility]) I42.8 3. Cardiac sarcoidosis D86.85 4. Paroxysmal atrial fibrillation ([facility]) I48.0 5. Chronic heart failure with preserved ejection fraction ([facility]) I50.32 6. HTN, goal below 140/90 I10 7. ICD (implantable cardioverter-defibrillator), dual, in situ Z95.810 -patient was not examined as be acutely volume overloaded -at the time of most recent echocardiogram in 2022 her ejection fraction had normalized -my suspicion for this being angina due to underlying coronary heart disease is low based on previous cardiac catheterization results -will update echocardiogram for reassessment of ejection fraction. -she was not been able to tolerate torsemide 20 milligrams daily because of the urge to having to urinate all the time interfering with her lifestyle. Will therefore reduce the dose to 10 milligrams and have her take it 3 times per week perhaps on Mondays, Wednesdays, and Fridays. She can adjust the schedule as it sits her lifestyle, but she needs to keep track either with a pillbox or with a date book. As noted, patient is seen in longitudinal follow-up of nonischemic cardiomyopathy due to cardiac sarcoidosis, hypertension, atrial fibrillation, dual-chamber AICD with assessment and plan as noted. DISPOSITION: Follow-up: Return in about 4 months (around 08/21/2024). | Check-out note: Echo , perhaps today or soon . Keep 08/21 visit with me. Shahbaz Whitman, DO Cardiology, [address] [place] [address] This chart was completed in part utilizing [employer] Speech Voice Recognition Software. Grammatical errors, random word insertions, prounoun errors, and incomplete sentences are an occasional consequence of this system due to software limitations, ambient noise, and hardware issues. Any formal questions or concerns about the content, text, or information contained within the body of this dictation should be directly addressed to the provider for clarification. documented in this encounter Nursing Notes * Vianey Farrell CMA - 05/02/2024 10:59 AM EDT Examination Room: 10 Name: Bailey Alejandra Date of : (1965) Reason for Visit: f/u Interim Hospitalization(s): none Problems/Concerns: denied Chest Pain/SOB: chest pain and SOB almost every day [facility] is a way you can talk to your provider online through e-mail. Would you like to sign up? I can activate it for you? ALREADY ACTIVE Patient was instructed to not get up on the exam table until directed and assisted by their provider; patient is to remain seated in the chair/ wheelchair/ exam table for fall prevention and safety reasons. Patient is aware to have assistance to step down off exam table with personnel. Patient voiced full comprehension of instructions. documented in this encounter Plan of Treatment Upcoming Encounters Date Type Department Care Team (Late st Contact Info) Description 05/19/2024 1:00 PM EDT Cardiac Studies Cardiac Studies, [address] [place] [address] 05/21/2024 2:20 PM EDT Office Visit Family Medicine [address] [place] [phone] Gardenia Aguirre PA-C [address] [place] [address] [place] [address] 05/23/2024 11:00 AM EDT Office Visit Pharmacy, [address] [place] [address] [place] [address] 06/11/2024 8:00 AM EDT Office Visit Dermatology [address] [place] [address] Misty Rogel PA-C [address] [place] [address] [place] [address] 08/21/2024 3:30 PM EDT Office Visit Cardiology, [facility] [address] [place] [address] Shahbaz Whitman, [address] [place] [address] 11/28/2024 8:20 AM EST Office Visit Family Medicine [address] [place] [phone] Jes Medina MD [address] [place] [address] [place] [address] 02/23/2025 3:40 PM EDT Office Visit Rheumatology [address] [place] [phone] Tony Bruner MD [address] [place] [address] [place] [id number] Scheduled Orders Name Type Priority Associated Diagnoses Orde r Schedule ECHO, COMPLETE (2D), TRANS-THORACIC Echocardiology Routine MOYA (dyspnea on exertion) NICM (nonischemic cardiomyopathy) (HCC) Cardiac sarcoidosis Expected: 05/03/2024 (Approximate), Expires: 11/02/2024 Health Maintenance Due Date Last Done Comments [...] as of this encounter Visit Diagnoses Diagnosis MOYA (dyspnea on exertion)- Primary Other dyspnea and respiratory abnormality NICM (nonischemic cardiomyopathy) (HCC) Other primary cardiomyopathies Cardiac sarcoidosis Paroxysmal atrial fibrillation (HCC) Atrial fibrillation Chronic heart failure with preserved ejection fraction (HCC) HTN, goal below 140/90 Unspecified essential hypertension ICD (implantable cardioverter-defibrillator), dual, in situ documented in this encounter Care Teams Docketing Specialist Relationship Specialty Start Date End Date Jes Medina MD [address] [place] [address] [place] [phone] PCP - General Family Medicine 11/27/23 documented as of this encounter"
--- OUTSIDE RECORDS SUMMARY | 2024-08-15 02:58 | External Medical Summary | Summary of Care ---
Author Name Unknown Organization [facility] Address [address] [place] [address] Phone [phone] Care Team Providers Care Teacher Counselor Name Role Phone Jes Medina MD Primary Care Provide r Reason for Visit * Reason Onset Date Comments Follow Up 03/26/2024 Encounter Details Date Type Department Care Team (Late st Contact Info) Description 03/26/2024 Telephone Cardiology, [facility] [address] [place] [address] Shahbaz Whitman, [address] [place] [address] Follow Up Allergies Active Allergy Reactions Criticality Noted Date Comments Carmelo Inhibitors Cough 12/10/2012 Empagliflozin Other (Please comment) 03/29/2021 Yeast infection(s) documented as of this encounter (statuses as of 03/26/2024) Medications Medication Sig Dispensed Refills Start Date End Date Status BD Pen Needle Namrata U/F 32G X 4 MM (Insulin Pen Needle)Indications: Type 2 diabetes mellitus with hemoglobin A1c goal of less than 7.0% ([facility]) Use once a day with Lantus. [...] as of this encounter (statuses as of 03/26/2024) Active Problems Problem Noted Date Diagnosed Date [...] recurrent major depressive d isorder 03/05/2015 Old [place] (myocardial infarction) 11/20/2014 GERD (gastroesophageal reflux disease) [...] as of this encounter (statuses as of 03/26/2024) Resolved Problems Problem Noted Date Diagnosed Date [...] as of this encounter (statuses as of 03/26/2024) Immunizations Name Administration Dates Next Due COVID-19 mRNA, LNP-s, No Pre serve, 2-Dose Series (Moderna) 07/13/2021,03/09/2021,02/09/2021 COVID-19, mRNA, LNP-s, PF, B ooster, 100mcg/0.5mg (Moderna) 02/07/2022 Covid-19, Mrna, Lnp-s, Pf, B ivalent, 30 Mcg, IM, 12 yrs and above (Pfizer) 08/29/2022 Hepatitis B, 20+ yrs 12/13/2015,07/09/2015,06/07 Pneumococcal Conjugate Vacci ne, 20-valent ([id number]) 08/21/2022 Pneumococcal Polysaccharide PPV23 (Pneumovax) 07/16/2007,10/29/2000 Seasonal Influenza, PF, 6 M & above, IM , (FluLaval or Fluzone) 07/13/2023,08/21/2022,07/26/2021,07/20,09/15/2019,07/04/2018,10/08/2017 Seasonal Influenza, Split, I IV3, With Preserve, Inj 06/30/2014,07/07/2013,12/19/2012,10/26,11/20/2008(Deferred: Patient Refused),09/26/2007 TD - Tetanus/Diptheria (ADULT) 10/29/2002 TDAP (age 10 and older)(Boostrix) 01/31/2022 TDAP (age 11 and older)(Adacel) 05/19/2011 Zoster Vaccine Recombinant (Shingrix) 08/23/2020 ,03/18/2020 [...] encounter Miscellaneous Notes * Telephone Encounter - Shahbaz Whitman DO - 03/26/2024 2:21 PM EDT I called and spoke to the patient. We discussed that her [id number] score is 6 for risk factors of female sex, diabetes, hypertension, past TIA/stroke, and history of CHF and therefore she was felt to be at high risk for cardioembolic stroke and anticoagulation with warfarin or a direct oral anticoagulant is therefore recommended. She has been taking Eliquis ( stopped Plavix) since 03/21/2024 and is tolerating well. Her chemistry panel reveals normal kidney function electrolytes, TSH is within normal limits, CBC within normal limits. Continue Eliquis. Future considerations include adding back anti-platelet therapy with aspirin 81 milligrams daily given previous TIA, but I think it is most prudent to remain on a single agent at present. Patient agreeable. Questions answered to her satisfaction. She has an in-person follow-up visit with me on 05/02/2024 and she is to keep that appointment. Shahbaz Whitman DO documented in this encounter Plan of Treatment Upcoming Encounters Date Type Department Care Team (Late st Contact Info) Description 04/04/2024 11:00 AM EDT Office Visit Pharmacy, [address] [place] [address] [place] [address] 05/02/2024 11:00 AM EDT Office Visit Cardiology, [address] [place] [address] Shahbaz Whitman, [address] [place] [address] 05/27/2024 2:20 PM EDT Office Visit Family Medicine [address] [place] [phone] Gardenia Aguirre PA-C [address] [place] [address] [place] [address] 06/11/2024 8:00 AM EDT Office Visit Dermatology [address] [place] [address] Misty Rogel PA-C [address] [place] [address] [place] [address] 08/21/2024 3:30 PM EDT Office Visit Cardiology, [facility] [address] [place] [address] Shahbaz Whitman, [address] [place] [address] 11/28/2024 8:20 AM EST Office Visit Family Medicine [address] [place] [phone] Jes Medina MD [address] [place] [address] [place] [address] 02/23/2025 3:40 PM EDT Office Visit Rheumatology [address] [place] [phone] Tony Bruner MD [facility] [place] [address] Health Maintenance Due Date Last Done Comments [...] filedocumented as of this encounter Care Teams Teacher Counselor Relationship Specialty Start Date End Date Jes Medina MD [address] [place] [address] [place] [phone] PCP - General Family Medicine 11/27/23 documented as of this encounter
--- OUTSIDE RECORDS SUMMARY | 2024-08-15 02:58 | External Medical Summary | Summary of Care ---
Author Name Unknown Organization [facility] Address [address] [place] [address] Phone [phone] Care Team Providers Care Entry Level Sales Representative Name Role Phone Jes Medina MD Primary Care Provide r Reason for Visit * Reason Onset Date Comments Test Results 03/18/2024 Encounter Details Date Type Department Care Team (Late st Contact Info) Description 03/18/2024 Telephone Cardiology, [facility] [address] [place] [address] Shahbaz Whitman, [address] [place] [address] Test Results Allergies Active Allergy Reactions Criticality [...] A1c goal of less than 7.0% ([facility]) Use once a day with [...] A1c goal of less than 7.0% ([facility]) INJECT 4.5 MG UNDER THE SKIN ONCE A WEEK 6 mL 3 04/23/2023 Active busPIRone HCl 10 MG Oral Tablet (Buspar)Indication s:Moderate episode of recurrent major depressive disorder (HCC) TAKE 1 TABLET TWICE A DAY NEEDED FOR ANXIETY 180 Tablet 3 05/11/2023 Active Levothyroxine Sodium 125 MCG Oral Tablet (Levoxyl)Indicatio ns:Hypothyroidism (acquired) TAKE 1 TABLET BY MOUTH IN [...] 07/13/2023 Active Ezetimibe 10 MG Oral Tablet (Zetia)Indications [...] 09/27/2023 Active metroNIDAZOLE 1 % External Gel (Metrogel)Indicati ons:Rosacea Apply topically to affected area daily. Apply [...] before bedtime. 60 Tablet 3 03/18/2024 Active Clopidogrel Bisulfate 75 MG Oral Tablet (pLAVix)Indication s:Cerebrovascular disease, arteriosclerotic, post-stroke TAKE 1 TABLET DAILY 90 Tablet 3 06/04/2023 4 Discontinue d(Medicatio n/Dose Changed) Aspirin 81 MG Oral Tablet Delayed Release Take 1 Tablet by mouth in the morning. 90 Tablet 3 03/18/2024 4 Discontinue d(Medicatio n/Dose Changed) documented as of this encounter (statuses as [...] recurrent major depressive d isorder 03/05/2015 Old [place] (myocardial infarction) 11/20/2014 GERD (gastroesophageal reflux disease) [...] 30 Mcg, IM, 12 yrs and above ([employer]) 08/29/2022 Hepatitis B, 20+ yrs 12/13/2015,07/09/2015,06/07 Pneumococcal Conjugate Vacci ne, 20-valent ([id number]) 08/21/2022 Pneumococcal Polysaccharide PPV23 (Pneumovax) 07/16/2007,10/29/2000 Seasonal [...] Telephone Encounter - Lake Perez LPN - 03/21/2024 1:51 PM EDT Sent patient a [employer] reply to make her aware. Scheduling please assist. * Telephone Encounter - Karen Arriaga LPN - 03/20/2024 11:59 AM EDT Pt checks portal. Left a message there too asking her to call office. * Telephone Encounter - Joan Goodman CMA - 03/19/2024 11:15 AM EDT Attempted to call patient. No answer on cell phone and mailbox is full. Called home phone -- no answer -- left message asking patient to return call. * Telephone Encounter - Shahbaz Whitman DO - 03/18/2024 2:24 PM EDT Cardiology nursing: Please notify patient I reviewed her recent ICD interrogation. Device interrogation reveals 7 recent episodes of atrial fibrillation, the longest of which was 1 hour 27 minutes in duration on 02/12/2024. She was in sinus rhythm at the time of device check. This is a new diagnosis for her. He [id number] is 5 given risk factors of female sex, history of hypertension, history of diabetes, history of past stroke protecting a high risk of cardioembolic stroke. Recommendations: Lab work including CBC, CMP, TSH. Orders entered, can have this at the [facility] site most convenient for her on or after 03/19/2024. Discontinue clopidogrel in favor of Eliquis 5 milligrams twice daily. Prescription sent to her pharmacy on file. She may require a repeat card. Counseled her that the Eliquis is a potent blood thinner that was utilized to prevent blood clots that can be associated with the atrial fibrillation. If these blood clots form, they can break coughing cost strokes. Please help arrange sooner appointment in terms of follow-up with me perhaps within the next month. Shahbaz Whitman DO documented in this encounter Plan of Treatment Upcoming Encounters Date Type Department Care Team (Late st Contact Info) Description 04/04/2024 11:00 AM EDT Office Visit Pharmacy, [address] [place] [address] [place] [address] 05/02/2024 11:00 AM EDT Office Visit Cardiology, [facility] [address] [place] [address] Shahbaz Whitman DO [address] [address] 05/27/2024 2:20 PM EDT Office Visit Family Medicine [address] [place] [phone] Gardenia Aguirre PA-C [address] [place] [address] [place] [address] 06/11/2024 8:00 AM EDT Office Visit Dermatology [address] [place] [address] Misty Rogel PA-C [address] [place] [address] [place] [address] 08/21/2024 3:30 PM EDT Office Visit Cardiology, [facility] [address] [place] [address] Shahbaz Whitman DO [address] [place] [address] 11/28/2024 8:20 AM EST Office Visit Family Medicine [address] [place] [phone] Jes Medina MD [address] [place] [address] [place] [address] 02/23/2025 3:40 PM EDT Office Visit Rheumatology [address] [place] [phone] Tony Bruner MD [address] [place] [address], [place] [address] Health Maintenance Due Date Last Done Comments Cologuard 2010 Fecal Occult Blood Test 2010 Sigmoidoscopy 2010 Colonoscopy 06/27/2021 06/27/2016, 06/27/2016 Colorectal Cancer Screening 06/27/2021 Mammogram 02/21/2023 02/21/2022, 04/0 11/2020, 11/17/2019, Additional history exists Diabetic Foot Exam 05/29/2023 05/29/2022, 0 03/18/2020, 03/11/2019, Additional history exists COVID-19 Vaccine (6 season) 2023 08/29/2022, 02/07/2022, 07/13/2021, Additional history [...] Not on filedocumented as of this encounter Results * TSH WITH FREE T4 IF INDICATED (03/25/2024 10:11 AM EDT) TSH 3.26 0.27 - 4.20 uIU/mL 03/26/2024 2:10 AM EDT [facility] Blood Venous blood specimen / Unknown Venipuncture / Unknown 03/25/2024 10:11 AM EDT 03/25/2024 10:11 AM EDT Shahbaz Whitman DO LAB BLOOD ORDERABLES LAB[facility] [address] [place] [address] documented in this encounter Visit Diagnoses Diagnosis Paroxysmal atrial fibrillation (HCC)- Primary Atrial fibrillation documented in this encounter Care Teams Entry Level Sales Representative Relationship Specialty Start Date End Date Jes Medina MD [address] [place] [address] [place] [address] PCP - General Family Medicine 11/27/23 documented as of this encounter
--- OUTSIDE RECORDS SUMMARY | 2024-08-15 02:58 | External Medical Summary ---
Author Name Unknown Address Unknown Organization K01:LABORATORY [facility] - [address] [facility] [address] Laboratory Report Ordering Provider Test Date Status RIC CRUZ 03/25/2024 10:11:04 Final Observation Date Value Abnormality Reference (Units ) Status TSH 03/25/2024 10:11:04 3.26 0.27-4.20 (uIU/mL) Final Performing Location LABORATORY [facility] - [address] [facility] [address]
--- OUTSIDE RECORDS SUMMARY | 2024-08-15 02:58 | External Medical Summary | Summary of Care ---
Author Name Unknown Organization [facility] Address [address] [place] [address] Phone [phone] Care Team Providers Care Business Proposal Rep Name Role Phone Jes Medina MD Primary Care Provide r Encounter Details Date Type Department Care Team (Late st Contact Info) Description 03/25/2024 Orders Only PATIENT PORTAL DO NOT DELETE THIS [place]PT [place] [address] Allergies Active Allergy Reactions Criticality Noted Date Comments Carmelo Inhibitors Cough 12/10/2012 Empagliflozin Other (Please comment) 03/29/2021 Yeast infection(s) documented as of this encounter (statuses as of 03/25/2024) Medications Medication Sig Dispensed Refills Start Date [...] as of this encounter (statuses as of 03/25/2024) Active Problems Problem Noted Date Diagnosed Date [...] recurrent major depressive d isorder 03/05/2015 Old [place] (myocardial infarction) 11/20/2014 GERD (gastroesophageal reflux disease) [...] as of this encounter (statuses as of 03/25/2024) Resolved Problems Problem Noted Date Diagnosed Date [...] as of this encounter (statuses as of 03/25/2024) Immunizations Name Administration Dates Next Due COVID-19 mRNA, LNP-s, No Pre serve, 2-Dose Series (Moderna) 07/13/2021,03/09/2021,02/09/2021 COVID-19, mRNA, LNP-s, PF, B ooster, 100mcg/0.5mg (Moderna) 02/07/2022 Covid-19, Mrna, Lnp-s, Pf, B ivalent, 30 Mcg, IM, 12 yrs and above (Pfizer) 08/29/2022 Hepatitis B, 20+ yrs 12/13/2015,07/09/2015,06/07 Pneumococcal Conjugate Vacci ne, 20-valent ([id number]) 08/21/2022 Pneumococcal Polysaccharide PPV23 (Pneumovax) 07/16/2007,10/29/2000 Seasonal [...] Care Team (Late st Contact Info) Description 03/27/2024 11:45 AM EDT Office Visit Orthopaedics [address] [phone] Juancarlos Ridley MD [address] [place] [address] 04/04/2024 11:00 AM EDT Office Visit Pharmacy, [address] [place] [address] [place] [address] 05/27/2024 2:20 PM EDT Office Visit Family Medicine [address] [place] [phone] Gardenia Aguirre PA-C [address] [place] [address] [place] [address] 06/11/2024 8:00 AM EDT Office Visit Dermatology [address] [place] [address] Misty Rogel PA-C [address] [place] [address] [place] [address] 08/21/2024 3:30 PM EDT Office Visit Cardiology, [facility] [address] [place] [address] Shahbaz Whitman DO [address] [place] [address] 11/28/2024 8:20 AM EST Office Visit Family Medicine [address] [place] [phone] Jes Medina MD [address] [place] [address] [place] [address] 02/23/2025 3:40 PM EDT Office Visit Rheumatology [address] [place] [phone] Tony Bruner MD [address] [place] [address] [place] [address] Health Maintenance Due Date Last Done Comments Cologuard 2010 Fecal Occult Blood Test 2010 Sigmoidoscopy 2010 Colonoscopy 06/27/2021 06/27/2016, 06/27/2016 Colorectal Cancer Screening 06/27/2021 Mammogram 02/21/2023 02/21/2022, 040 11/2020, 11/17/2019, Additional history exists Diabetic Foot Exam 05/29/2023 05/29/2022, 0 03/18/2020, 03/11/2019, Additional history exists COVID-19 Vaccine ( season) 2023 08/29/2022, 02/07/2022, 07/13/2021, Additional history exists TSH 05/21/2024 05/21/2023, 030 03/2023, 12/01/2022, Additional history exists HbA1c 08/23/2024 02/22/2024, 10/31, 05/21/2023, Additional history exists GFR 11/22/2024 11/22/2023, 07/29, 05/21/2023, Additional history exists Albumin/Creatinine Ratio 11/27/2024 024, 01/01/2023, 12/26/2021, Additional history exists Diabetic Eye Exam 12/12/2024 12/12/2023, , 06/30/2021, Additional history exists Pap Smear 08/15/2026 08/15/2023, [...] filedocumented as of this encounter Care Teams Business Proposal Rep Relationship Specialty Start Date End Date Jes Medina MD [address] [place] [address] [place] [address] PCP - General Family Medicine 11/27/23 documented as of this encounter
--- OUTSIDE RECORDS SUMMARY | 2024-08-15 02:58 | External Medical Summary | Summary of Care ---
Author Name Unknown Organization [facility] Address [address] [place] [address] Phone [phone] Care Team Providers Care Beekeeper Farmer Name Role Phone Jes Medina MD Primary Care Provide r Reason for Visit * Reason Onset Date Comments Medication Refill 05/07/2024 Encounter Details Date Type Department Care Team (Late st Contact Info) Description 05/07/2024 Refill Family Medicine [address] [phone] Jes Medina MD [address] [place] [address] [place] [address] Hypothyroidism (acquired) Allergies Active Allergy Reactions Criticality Noted Date Comments Carmelo Inhibitors Cough 12/10/2012 Empagliflozin Other (Please comment) 03/29/2021 Yeast infection(s) documented as of this encounter (statuses as of 05/07/2024) Medications Medication Sig Dispensed Refills Start Date End Date Status BD Pen Needle [place]rata U/F 32G X 4 MM (Insulin Pen Needle)Indications: Type 2 diabetes mellitus with hemoglobin A1c goal of less than 7.0% ([facility]) Use once a day with Lantus. DX e11.9 100 Each 3 12/26/2021 Active FreeStyle Lite Test In Vitro Strip (Glucose Blood)Indications:T ype 2 diabetes mellitus with hemoglobin A1c goal of less than 7.0% ([facility]) Use to check blood sugar two [...] as of this encounter (statuses as of 05/07/2024) Active Problems Problem Noted Date Diagnosed Date [...] as of this encounter (statuses as of 05/07/2024) Resolved Problems Problem Noted Date Diagnosed Date [...] as of this encounter (statuses as of 05/07/2024) Immunizations Name Administration Dates Next Due COVID-19 mRNA, LNP-s, No Pre serve, 2-Dose Series (Moderna) 07/13/2021,03/09/2021,02/09/2021 COVID-19, mRNA, LNP-s, PF, B ooster, 100mcg/0.5mg (Moderna) 02/07/2022 Covid-19, Mrna, Lnp-s, Pf, B ivalent, 30 Mcg, IM, 12 yrs and above (Pfizer) 08/29/2022 Hepatitis B, 20+ yrs 12/13/2015,07/09/2015,06/07 Pneumococcal Conjugate Vacci ne, 20-valent ([id number]) 08/21/2022 Pneumococcal Polysaccharide PPV23 (Pneumovax) 07/16/2007,10/29/2000 Seasonal [...] encounter Miscellaneous Notes * Telephone Encounter - Vickie Castellon RPh - 05/07/2024 9:48 PM EDT Duplicate request * Telephone Encounter - Vickie Castellon RPh - 05/07/2024 9:48 PM EDT Refused Prescriptions: Disp Refills Levothyroxine Sodium 125 MCG Oral Tablet (*90 Tab*1 Sig: TAKE 1 TABLET BY MOUTH IN THE MORNING (at least 30 min prior to breakfast or other meds) Refused By: VICKIE CASTELLON Reason for Refusal: Duplicate Request documented in this encounter Plan of Treatment Upcoming Encounters Date Type Department Care Team (Late st Contact Info) Description 05/19/2024 1:00 PM EDT Cardiac Studies Cardiac Studies, [facility] [address] [facility] [place] [address] 05/21/2024 2:20 PM EDT Office Visit Family Medicine [address] [place] [phone] Gardenia Aguirre PA-C [address] [place] [address] [place] [address] 05/23/2024 11:00 AM EDT Office Visit Pharmacy[address] [place] [address] [place] [address] 06/11/2024 8:00 AM EDT Office Visit Dermatology [address] [place] [address] Misty Rogel PA-C [address] [place] [address] [place] [address] 08/21/2024 3:30 PM EDT Office Visit Cardiology, [facility] [address] [place] [address] Shahbaz Whitman DO [address] [place] [address] 11/28/2024 8:20 AM EST Office Visit Family Medicine [address] [place] [phone] Jes Medina MD [address] [place] [address] [place] [address] 02/23/2025 3:40 PM EDT Office Visit Rheumatology [address] [place] [phone] Tony Bruner MD [address] [place], [place] [address] [address] Health Maintenance Due Date Last Done Comments [...] as of this encounter Visit Diagnoses Diagnosis Hypothyroidism (acquired) Unspecified hypothyroidism documented in this encounter Care Teams Beekeeper Farmer Relationship Specialty Start Date End Date Jes Medina MD [address] [place] [address] [place] [address] PCP - General Family Medicine 11/27/23 documented as of this encounter
--- OUTSIDE RECORDS SUMMARY | 2024-08-15 02:58 | External Medical Summary ---
Author Name Unknown Address Unknown Organization K01:LABORATORY [facility] - [address] [facility] [address] Laboratory Report Ordering Provider Test Date Status REBA CAMILO 03/25/2024 10:11:04 Final Observation Date Value Abnormality Reference (Units ) Status WBC, Total 03/25/2024 10:11:04 7.35 4.00-10.80 (K/uL) Final RBC 03/25/2024 10:11:04 5.31 3.85-5.15 (M/uL) Final Hemoglobin 03/25/2024 10:11:04 15.3 12.0-15.3 (g/dL) Final HCT 03/25/2024 10:11:04 47.7 Above high normal 36.0-45.2 (%) Final MCV 03/25/2024 10:11:04 89.8 81.5-97.5 (fL) Final MCH 03/25/2024 10:11:04 28.8 27.0-34.0 (pg) Final MCHC 03/25/2024 10:11:04 32.1 32.0-36.0 (g/dL) Final RDW 03/25/2024 10:11:04 13.9 11.5-15.5 (%) Final Platelets 03/25/2024 10:11:04 230 140-400 (K/uL) Final MPV 03/25/2024 10:11:04 10.6 6.6-11.1 (fL) Final Nucleated erythrocytes/100 leukocytes [Ratio] in Blood by Automated count 03/25/2024 10:11:04 0 <=0 (/100 WBCs) Final Performing Location LABORATORY [facility] - [address] [facility] [address]
--- OUTSIDE RECORDS SUMMARY | 2024-08-15 02:58 | External Medical Summary | Summary of Care ---
Author Name Unknown Organization [facility] Address [address] [place] [address] Phone [phone] Care Team Providers Care Beef Killer Name Role Phone Jes Medina MD Primary Care Provide r Reason for Visit * Reason Comments Outpatient Testing Encounter Details Date Type Department Care Team (Late st Contact Info) Description 03/25/2024 10:30 AM EDT Laboratory Laboratory [address] [place] [phone] [place] [address] [employer] Other*[id number]; Cardiac sarcoidosis; Encounter for therapeutic drug monitoring; Paroxysmal atrial fibrillation (HCC) Allergies Active Allergy Reactions Criticality Noted [...] yrs 12/13/2015,07/09/2015,06/07 Pneumococcal Conjugate Vacci ne, 20-valent ([id number]) 08/21/2022 Pneumococcal Polysaccharide PPV23 (Pneumovax) 07/16/2007,10/29/2000 Seasonal [...] 03/27/2024 11:45 AM EDT Office Visit Orthopaedics [address] [place] [phone] Juancarlos Ridley MD [address] [place] [address] 04/04/2024 11:00 AM EDT Office Visit Pharmacy, [address] [place] [address] [place] [address] 05/27/2024 2:20 PM EDT Office Visit Family Medicine [address] [place] [phone] Gardenia Aguirre PA-C [address] [place] [address] [place] [address] 06/11/2024 8:00 AM EDT Office Visit Dermatology [address] [place] [address] Misty Rogel PA-C [address] [place] [address] [place] [address] 08/21/2024 3:30 PM EDT Office Visit Cardiology, [facility] [address] [address] Shahbaz Whitman, DO [address] [place] [address] 11/28/2024 8:20 AM EST Office Visit Family Medicine [address] [place] [phone] Jes Medina MD [address] [place] [address] [place] [address] 02/23/2025 3:40 PM EDT Office Visit Rheumatology [address] [place] [phone] Tony Bruner MD [address] [place] [address] [place] [address] Pending Results Name Type Priority Associated Diagnoses Date /Time MYCODE SUBSEQUENT ADULT Lab Routine [employer] Other*[id number] 03/25/2024 10:11 AM EDT CBC WITH WBC DIFFERENTIAL Lab Routine Cardiac sarcoidosis Encounter for therapeutic drug monitoring 03/25/2024 10:11 AM EDT COMPREHENSIVE METABOLIC PANEL Lab Routine Cardiac sarcoidosis Encounter for therapeutic drug monitoring 03/25/2024 10:11 AM EDT TSH WITH FREE T4 IF INDICATED Lab Routine Paroxysmal atrial fibrillation (HCC) 03/25/2024 10:11 AM EDT MYCODE SST1 Lab Routine [employer] Other*[id number] 03/25/2024 10:11 AM EDT MYCODE SST2 Lab Routine [employer] Other*[id number] 03/25/2024 10:11 AM EDT CBC Lab Routine Cardiac sarcoidosis Encounter for therapeutic drug monitoring 03/25/2024 10:11 AM EDT DIFFERENTIAL, AUTOMATED Lab Routine Cardiac sarcoidosis Encounter for therapeutic drug monitoring 03/25/2024 10:11 AM EDT Health Maintenance Due Date Last Done Comments Cologuard 2010 Fecal Occult Blood Test 2010 Sigmoidoscopy 2010 Colonoscopy 06/27/2021 06/27/2016, 06/27/2016 Colorectal Cancer Screening 06/27/2021 Mammogram 02/21/2023 02/21/2022, 040 11/2020, 11/17/2019, Additional history exists Diabetic Foot Exam 05/29/2023 05/29/2022, 0 03/18/2020, 03/11/2019, Additional history exists COVID-19 Vaccine ( season) 2023 08/29/2022, 02/07/2022, 07/13/2021, Additional history exists TSH 05/21/2024 05/21/2023, 03/2023, 12/01/2022, Additional history exists HbA1c 08/23/2024 [...] this encounter Visit Diagnoses Diagnosis [employer] Other*[id number] Cardiac sarcoidosis Encounter for therapeutic drug monitoring Paroxysmal atrial fibrillation (HCC) Atrial fibrillation documented in this encounter Care Teams Beef Killer Relationship Specialty Start Date End Date Jes Medina MD [address] [place] [address] [place] [id number] PCP - General Family Medicine 11/27/23 documented as of this encounter
--- OUTSIDE RECORDS SUMMARY | 2024-08-15 02:58 | External Medical Summary ---
Author Name Unknown Address Unknown Organization K01:[facility] - [address] [facility] [address] Laboratory Report Ordering Provider Test Date Status REBA CAMILO 03/25/2024 10:11:04 Final Observation Date Value Abnormality Reference (Units ) Status BUN 03/25/2024 10:11:04 14 6-20 (mg/dL) Final Creatinine 03/25/2024 10:11:04 1.0 0.5-1.0 (mg/dL) Final Glomerular filtration rate/1.73 sq M.predicted [Volume Rate/Area] in Serum, Plasma or Blood by Creatinine-based formula (CKD-EPI) 03/25/2024 10:11:04 63 >=60 (mL/min) Final eGFR is calculated based on the CKD-EPI 2020 equation Sodium 03/25/2024 10:11:04 138 135-146 (m mol/L) Final Potassium 03/25/2024 10:11:04 4.2 3.5-5.1 (m mol/L) Final Cl 03/25/2024 10:11:04 102 98-107 (mm ol/L) Final CO2 03/25/2024 10:11:04 23 22-32 (mmo l/L) Final Anion gap 03/25/2024 10:11:04 13 7-15 (mmol /L) Final Glucose 03/25/2024 10:11:04 108 70-120 (mg /dL) Final Albumin 03/25/2024 10:11:04 4.5 3.8-5.0 (g /dL) Final AST (Aspartate aminotransferase) 03/25/2024 10:11:04 18 10-35 (U/L) Final Alk Phos 03/25/2024 10:11:04 87 35-130 (U/ L) Final Bilirubin, Total 03/25/2024 10:11:04 0.4 <=1 .2 (mg/dL) Final Calcium 03/25/2024 10:11:04 9.2 8.4-10.2 ( mg/dL) Final Protein 03/25/2024 10:11:04 7.2 6.0-8.3 (g /dL) Final ALT (Alanine aminotransferase) 03/25/2024 10:11:04 18 10-35 (U/L) Final Performing Location LABORATORY [facility] - [facility] [address] [facility] [address]
--- OUTSIDE RECORDS SUMMARY | 2024-08-15 02:58 | External Medical Summary | Summary of Care ---
Author Name Unknown Organization [facility] Address [address] [place] [address] Phone [phone] Care Team Providers Care Bottle Blowing Machine Tender Name Role Phone Jes Medina MD Primary Care Provide r Reason for Visit * Reason Comments eRx-Medication Refill Encounter Details Date Type Department Care Team (Late st Contact Info) Description 04/10/2024 Refill Rheumatology [address] [place] [phone] Leslee Britton MD [facility] [place] [address] Allergies Active Allergy Reactions Criticality Noted Date Comments Carmelo Inhibitors Cough 12/10/2012 Empagliflozin Other (Please comment) 03/29/2021 Yeast infection(s) documented as of this encounter (statuses as of 04/11/2024) Medications Medication Sig Dispensed Refills Start Date End Date Status BD Pen Needle Namrata U/F 32G X 4 MM (Insulin Pen Needle)Indication s:Type 2 diabetes mellitus with hemoglobin A1c goal of less than 7.0% ([facility]) Use once a day with Lantus. DX e11.9 100 Each 3 12/26/2021 Active FreeStyle Lite Test In Vitro Strip (Glucose Blood)Indications :Type 2 diabetes mellitus with hemoglobin A1c goal of less than 7.0% ([facility]) Use to check blood sugar two times [...] HFA 108 (90 Base) MCG/ACT Inhalation Aerosol SolutionIndicatio ns:Wheezing Inhale by mouth 2 Puffs every 4 [...] Active Trulicity 4.5 MG/0.5ML Subcutaneous Solution Pen-injector (Dulaglutide)Catalina cations:Type 2 diabetes mellitus with hemoglobin A1c goal [...] (Levoxyl)Indicati ons:Hypothyroidis m (acquired) TAKE 1 TABLET BY MOUTH IN THE MORNING (at least 30 min prior to breakfast or other meds) 90 Tablet 1 05/12/2023 Active Torsemide 20 MG Oral Tablet (Demadex) Take 1 Tablet by mouth in the morning. 34 Tablet 11 07/13/2023 Active Ezetimibe 10 MG Oral Tablet (Zetia)Indication [...] 09/27/2023 Active metroNIDAZOLE 1 % External Gel (Metrogel)Indicat ions:Rosacea Apply topically to affected area daily. Apply [...] RHEUMATIC DISEASES 78 Tablet 1 04/11/2024 Active Methotrexate 2.5 MG Oral Tablet TAKE 6 TABLETS ONCE A WEEK. FOR USAGE IN RHEUMATIC DISEASES 78 Tablet 1 06/12/2023 04/11/20 24 Discontinued documented as of this encounter (statuses as of 04/11/2024) Active Problems Problem Noted Date Diagnosed Date [...] recurrent major depressive d isorder 03/05/2015 Old PR (myocardial infarction) 11/20/2014 GERD (gastroesophageal reflux disease) [...] as of this encounter (statuses as of 04/11/2024) Resolved Problems Problem Noted Date Diagnosed Date [...] as of this encounter (statuses as of 04/11/2024) Immunizations Name Administration Dates Next Due COVID-19 mRNA, LNP-s, No Pre serve, 2-Dose Series (Moderna) 07/13/2021,03/09/2021,02/09/2021 COVID-19, mRNA, LNP-s, PF, B ooster, 100mcg/0.5mg (Moderna) 02/07/2022 Covid-19, Mrna, Lnp-s, Pf, B ivalent, 30 Mcg, IM, 12 yrs and above (Xendo) 08/29/2022 Hepatitis B, 20+ yrs 12/13/2015,07/09/2015,06/07 Pneumococcal Conjugate Vacci ne, 20-valent ([id number]) 08/21/2022 Pneumococcal Polysaccharide PPV23 (Pneumovax) 07/16/2007,10/29/2000 Seasonal [...] encounter Miscellaneous Notes * Telephone Encounter - Salma Haynes RPh - 04/11/2024 9:11 AM EDTSigned Prescriptions: Disp Refills Methotrexate Sodium 2.5 MG Oral Tablet 78 Tab*1 Sig: TAKE 6 TABLETS ONCE A WEEK FOR USAGE IN RHEUMATIC DISEASESAuthorizing Provider: LESLEE BRITTON User: SALMA AHYNES * Telephone Encounter - Salma Haynes RPh - 04/11/2024 9:09 AM EDT Rheumatology: Refill Request(s) Per review of the refill parameters, Medication was refilled Salma Haynes RPh [facility] Clinical Pharmacist Rheumatology Department 04/11/2024,9:11 AM documented in this encounter Plan of Treatment Upcoming Encounters Date Type Department Care Team (Late st Contact Info) Description 05/02/2024 11:00 AM EDT Office Visit Cardiology, [address] [place] [address] Shahbaz Whitman, DO [address] [place] [address] 05/23/2024 11:00 AM EDT Office Visit Pharmacy, [address] [place] [address] [place] [address] 05/27/2024 2:20 PM EDT Office Visit Family Medicine [address] [place] [phone] Gardenia Aguirre PA-C [address] [place] [address] [place] [address] 06/11/2024 8:00 AM EDT Office Visit Dermatology [address] [place] [address] Misty Rogel PA-C [address] [place] [address] [place] [address] 08/21/2024 3:30 PM EDT Office Visit Cardiology, [facility] [address] [place] [address] Shahbaz Whitman, DO [address] [place] [address] 11/28/2024 8:20 AM EST Office Visit Family Medicine [address] [place] [phone] Jes Medina MD [address] [place] [address] [place] [address] 02/23/2025 3:40 PM EDT Office Visit Rheumatology [address] [place] [phone] Leslee Britton MD [address] [place] [address], [place] [address] Health Maintenance Due Date Last Done Comments Cologuard 2010 Fecal Occult Blood Test 2010 Sigmoidoscopy 2010 Depression Monitoring 09/15/2020 09/15/2019 Colonoscopy 06/27/2021 06/27/2016, 06/27/2016 Colorectal Cancer Screening 06/27/2021 Mammogram 02/21/2023 02/21/2022, 04/0 11/2020, 11/17/2019, Additional history exists Diabetic Foot Exam 05/29/2023 05/29/2022, 0 03/18/2020, 03/11/2019, Additional history exists COVID-19 Vaccine (2022- season) 2023 08/29/2022, 02/07/2022, 07/13/2021, Additional history [...] filedocumented as of this encounter Care Teams Bottle Blowing Machine Tender Relationship Specialty Start Date End Date Jes Medina MD [address] [place] [address] [place] [address] PCP - General Family Medicine 11/27/23 documented as of this encounter
--- OUTSIDE RECORDS SUMMARY | 2024-08-15 02:58 | External Medical Summary | Summary of Care ---
Author Name Unknown Organization [facility] Address [address] [place] [address] Phone [phone] Care Team Providers Care Meat Butcher Name Role Phone Jes Medina MD Primary Care Provide r Reason for Visit * Reason Comments eRx-Medication Refill Encounter Details Date Type Department Care Team (Late st Contact Info) Description 05/07/2024 Refill Family Medicine [address] [phone] Jes Medina MD [address] [place] [phone] Hypothyroidism (acquired) Allergies Active Allergy Reactions [...] hemoglobin A1c goal of less than 7.0% ([facility]) Use once a day with [...] 05/11/2023 Active Ezetimibe 10 MG Oral Tablet (Zetia)Indication [...] (Demadex)Indicati ons:MOYA (dyspnea on exertion),NICM (nonischemic cardiomyopathy) ([facility]) One tablet by mouth three days per week on Mondays, Sunday, and Fridays with extra dose as needed for swelling 45 Tablet 3 05/02/2024 Active Levothyroxine Sodium 125 MCG Oral Tablet (Levoxyl)Indicati ons:Hypothyroidis m (acquired) TAKE 1 TABLET IN THE MORNING (AT LEAST 30 MINUTES PRIOR TO BREAKFAST OR OTHER MEDICATIONS) 90 Tablet 3 05/07/2024 Active Levothyroxine Sodium 125 MCG Oral Tablet (Levoxyl)Indicati ons:Hypothyroidis m (acquired) TAKE 1 TABLET BY MOUTH IN THE MORNING (at least 30 min prior to breakfast or other meds) 90 Tablet 1 05/12/2023 05/07/20 24 Discontinued documented as of this encounter [...] yrs 12/13/2015,07/09/2015,06/07 Pneumococcal Conjugate Vacci ne, 20-valent ([id number]) 08/21/2022 Pneumococcal Polysaccharide PPV23 (Pneumovax) 07/16/2007,10/29/2000 Seasonal [...] Castellon RPh - 05/07/2024 9:48 PM EDT Signed Prescriptions: Disp Refills Levothyroxine Sodium 125 MCG Oral Tablet (*90 Tab*3 Sig: TAKE 1 TABLET IN THE MORNING (AT LEAST 30 MINUTES PRIOR TO BREAKFAST OR OTHER MEDICATIONS)Authorizing Provider: JES MEDINA User: VICKIE CASTELLON documented in this encounter Plan of Treatment Upcoming Encounters Date Type Department Care Team (Late st Contact Info) Description 05/19/2024 1:00 PM EDT Cardiac Studies Cardiac Studies, [facility] [address] [facility] [place] [address] 05/21/2024 2:20 PM EDT Office Visit Family Medicine [address] [place] [phone] Gardenia Aguirre PA-C [address] [place] [address] [place] [phone] 05/23/2024 11:00 AM EDT Office Visit Pharmacy, [address] [place] [address] [place] [address] 06/11/2024 8:00 AM EDT Office Visit Dermatology [address] [place] [address] Misty Rogel PA-C [address] [place] [address] [place] [address] 08/21/2024 3:30 PM EDT Office Visit Cardiology, [facility] [address] [place] [address] Shahbaz Whitman DO [address] [place] [address] 11/28/2024 8:20 AM EST Office Visit Family Medicine [address] [place] [phone] Jes Medina MD [address] [place] [address] [place] [address] 02/23/2025 3:40 PM EDT Office Visit Rheumatology [address] [place] [phone] Tony Bruner MD [address] [place] [address] [place] [address] Health Maintenance Due Date Last Done Comments [...] hypothyroidism documented in this encounter Care Teams Meat Butcher Relationship Specialty Start Date End Date Jes Medina MD [address] [place] [address] [place] [address] PCP - General Family Medicine 11/27/23 documented as of this encounter
--- OUTSIDE RECORDS SUMMARY | 2024-08-15 02:58 | External Medical Summary | Summary of Care ---
Author Name Unknown Organization [facility] Address [address] [place] [address] Phone [phone] Care Team Providers Care Dietitian Research Name Role Phone Jes Medina MD Primary Care Provide r Reason for Visit * Reason Comments New Med Request Encounter Details Date Type Department Care Team (Late st Contact Info) Description 04/10/2024 Refill Cardiology, [facility] [address] [place] [address] Shahbaz Whitman, [address] [place] [address] Allergies Active Allergy Reactions Criticality Noted Date Comments Carmelo Inhibitors Cough 12/10/2012 Empagliflozin Other (Please comment) 03/29/2021 Yeast infection(s) documented as of this encounter (statuses as of 04/10/2024) Medications Medication Sig Dispensed Refills Start Date End Date Status BD Pen Needle Namrata U/F 32G X 4 MM (Insulin Pen Needle)Indication s:Type 2 diabetes mellitus with hemoglobin A1c goal of less than 7.0% ([facility]) Use once a day with Lantus. DX e11.9 100 Each 3 12/26/2021 Active FreeStyle Lite Test In Vitro Strip (Glucose Blood)Indications :Type 2 diabetes mellitus with hemoglobin A1c goal of less than 7.0% ([facility]) Use to check blood sugar two [...] before bedtime. 180 Tablet 30 04/10/2024 Active Apixaban 5 MG Oral Tablet (Eliquis) Take 1 Tablet by mouth in the morning and 1 Tablet before bedtime. 60 Tablet 3 03/18/2024 04/10/20 24 Discontinued documented as of this encounter (statuses as of 04/10/2024) Active Problems Problem Noted Date Diagnosed Date [...] recurrent major depressive d isorder 03/05/2015 Old [place] (myocardial infarction) 11/20/2014 GERD (gastroesophageal reflux disease) [...] as of this encounter (statuses as of 04/10/2024) Resolved Problems Problem Noted Date Diagnosed Date [...] as of this encounter (statuses as of 04/10/2024) Immunizations Name Administration Dates Next Due COVID-19 mRNA, LNP-s, No Pre serve, 2-Dose Series (Moderna) 07/13/2021,03/09/2021,02/09/2021 COVID-19, mRNA, LNP-s, PF, B ooster, 100mcg/0.5mg (Moderna) 02/07/2022 Covid-19, Mrna, Lnp-s, Pf, B ivalent, 30 Mcg, IM, 12 yrs and above (Pfizer) 08/29/2022 Hepatitis B, 20+ yrs 12/13/2015,07/09/2015,06/07 Pneumococcal Conjugate Vacci ne, 20-valent ([id number]) 08/21/2022 Pneumococcal Polysaccharide PPV23 (Pneumovax) 07/16/2007,10/29/2000 Seasonal [...] encounter Miscellaneous Notes * Telephone Encounter - Parmjit Campoverde MD - 04/10/2024 1:21 PM EDTSigned Prescriptions: Disp Refills Apixaban 5 MG Oral Tablet (Eliquis) 180 Ta*30 Sig: Take 1 Tablet by mouth in the morning and 1 Tablet before bedtime. Authorizing Provider: PARMJIT CAMPOVERDE * Telephone Encounter - Terrance Gaston RN - 04/10/2024 1:02 PM EDTPending Prescriptions: Disp Refills Apixaban 5 MG Oral Tablet (Eliquis) 180 Ta*30 Sig: Take 1 Tablet by mouth in the morning and 1 Tablet before bedtime. * Telephone Encounter - Terrance Gaston RN - 04/10/2024 12:59 PM EDT Pending Prescriptions: Disp Refills Apixaban 5 MG Oral Tablet (Eliquis) 180 Ta*30 Sig: Take 1 Tablet by mouth in the morning and 1 Tablet before bedtime. Last Visit: 03/04/2024 (in office), 10/07/2021 (telemedicine) Next Visit: 05/02/2024 Last medication order date: 03/18/2024 Have you choosen a preferred pharm?? yes Patient Active Problem List Diagnosis Family history of other cardiovascular diseases ADVANCE DIRECTIVE INFORMATION Allergic rhinitis FAM HX-DIABETES MELLITUS Dyslipidemia, goal LDL below 70 HTN, goal below 140/90 Cerebrovascular disease, arteriosclerotic, post-stroke Type 2 diabetes mellitus with hemoglobin A1c goal of less than 7.0% (HCC) Hypothyroidism (acquired) Lumbar degenerative disc disease GERD (gastroesophageal reflux disease) Constipation Old AR (myocardial infarction) Moderate episode of recurrent major depressive disorder (HCC) Edema Mitral regurgitation Primary osteoarthritis of right hand S/P lumbar spinal fusion Type 2 diabetes mellitus with hyperglycemia, with long-term current use of insulin ([facility]) Trochanteric bursitis of right hip Primary osteoarthritis of both knees Cardiac sarcoidosis Encounter for therapeutic drug monitoring S/P ICD (internal cardiac defibrillator) procedure History of 2019 novel coronavirus disease (COVID-19) Chronic heart failure with preserved ejection fraction (HCC) NICM (nonischemic cardiomyopathy) ([facility]) Labs: Lab Results Component Value Date/Time CREATININE - [facility] 1.0 03/25/2024 10:11 AM CREATININE - [facility] 0.9 06/02/2020 08:59 AM CREATININE, RANDOM URINE - [facility] 35 11/27/2023 04:08 PM CREATININE, RANDOM URINE - [facility] 72 06/02/2020 08:59 AM Lab Results Component Value Date/Time POTASSIUM - [facility] 4.2 03/25/2024 10:11 AM POTASSIUM - [facility] 4.5 06/02/2020 08:59 AM Lab Results Component Value Date/Time TSH - [facility] 3.26 03/25/2024 10:11 AM TSH - [facility] 2.57 06/02/2020 08:59 AM Lab Results Component Value Date/Time LDL CHOLESTEROL (CALCULATED) - [facility] 58 05/21/2023 12:25 PM LDL CHOLESTEROL (CALCULATED) - [facility] 53 05/30/2022 08:07 AM LDL CHOLESTEROL (CALCULATED) - [facility] 87 06/02/2020 08:59 AM LDL CHOLESTEROL (CALCULATED) - [facility] 104 08/08/2019 09:13 AM LDL CHOLESTEROL (DIRECT MEASURE) - [facility] NOT APPLICABLE 06/02/2020 08:59 AM LDL CHOLESTEROL (DIRECT MEASURE) - [facility] NOT APPLICABLE 08/08/2019 09:13 AM Lab Results Component Value Date/Time ALT - [facility] 18 03/25/2024 10:11 AM ALT - [facility] 14 06/02/2020 08:59 AM Hemoglobin AIC Results: Lab Results Component Value Date/Time HEMOGLOBIN A1C - [facility] 6.8 (H) 02/22/2024 10:53 AM HEMOGLOBIN A1C - [facility] 7.8 (H) 11/27/2023 04:08 PM HEMOGLOBIN A1C - [facility] 7.1 (H) 05/21/2023 12:25 PM HEMOGLOBIN A1C - [facility] 9.3 (H) 06/02/2020 08:59 AM HEMOGLOBIN A1C - [facility] 9.2 (H) 12/30/2019 01:28 PM HEMOGLOBIN A1C - [facility] 9.5 (H) 08/11/2019 03:02 PM documented in this encounter Plan of Treatment Upcoming Encounters Date Type Department Care Team (Late st Contact Info) Description 05/02/2024 11:00 AM EDT Office Visit Cardiology, [facility] [address] [place] [address] Shahbaz Whitman, [address] [place] [address] 05/23/2024 11:00 AM EDT Office Visit Pharmacy, [address] [place] [address] [place] [address] 05/27/2024 2:20 PM EDT Office Visit Family Medicine [address] [place] [phone] Gardenia Aguirre PA-C [address] [place] [address] [place] [address] 06/11/2024 8:00 AM EDT Office Visit Dermatology [address] [place] [address] Misty Rogel PA-C [address] [place] [address] [place] [address] 08/21/2024 3:30 PM EDT Office Visit Cardiology, [facility] [address] [place] [address] Shahbaz Whitman DO [address] [place] [address] 11/28/2024 8:20 AM EST Office Visit Family Medicine [address] [place] [phone] Jes Medina MD [address] [place] [address] [place] [address] 02/23/2025 3:40 PM EDT Office Visit Rheumatology [address] [place] [phone] Tony Bruner MD [address] [place] [address] [place] [address] Health Maintenance Due Date Last Done Comments [...] filedocumented as of this encounter Care Teams Dietitian Research Relationship Specialty Start Date End Date Jes Medina MD [address] [place] [address] [place] [phone] PCP - General Family Medicine 11/27/23 documented as of this encounter
--- OUTSIDE RECORDS SUMMARY | 2024-08-15 02:59 | External Medical Summary | Summary of Care ---
Author Name Unknown Organization [facility] Address [address] [place] [address] Phone [phone] Care Team Providers Care Poultry Hatchery Man Name Role Phone Jes Medina MD Primary Care Provide r Reason for Visit * Reason Comments Outpatient Testing Encounter Details Date Type Department Care Team (Late st Contact Info) Description 02/22/2024 11:10 AM EDT Laboratory Laboratory [address] [place] [phone] [place] [address] Type 2 diabetes mellitus with hemoglobin A1c goal of less than 7.0% (HCC) Allergies Active Allergy Reactions Criticality Noted Date Comments Carmelo Inhibitors Cough 12/10/2012 Empagliflozin Other (Please comment) 03/29/2021 Yeast infection(s) documented as of this encounter (statuses as of 02/22/2024) Medications Medication Sig Dispensed Refills Start Date End Date Status BD Pen Needle Namrata U/F 32G X 4 MM (Insulin Pen Needle)Indications:T ype 2 diabetes mellitus with hemoglobin A1c goal of less than 7.0% (HCC) Use once a day with Lantus. DX e11.9 100 Each 3 12/26/2021 Active FreeStyle Lite Test In Vitro Strip (Glucose Blood)Indications:Ty pe 2 diabetes mellitus with hemoglobin A1c goal of less than 7.0% (HCC) Use to check blood sugar two times daily or as directed. E 11.9 200 Strip 3 12/26/2021 Active FreeStyle LancetsIndications:T ype 2 diabetes mellitus with hemoglobin A1c goal of less than 7.0% (HCC) Use to test blood sugar TWICE a day. DX e11.9 200 Each 3 12/26/2021 Active FreeStyle Lite DeviceIndications:Ty pe 2 diabetes mellitus with hemoglobin A1c goal of less than 7.0% (HCC) Use to test blood sugar TWICE a day. DX e11.9 1 Each 0 12/26/2021 Active ProAir HFA 108 (90 Base) MCG/ACT Inhalation Aerosol SolutionIndications: Wheezing Inhale by mouth 2 Puffs every 4 hours as needed for Wheezing. 18 g 1 08/21/2022 Active Insulin Glargine 100 UNIT/ML Subcutaneous Solution Pen-injector (Lantus)Indications: Type 2 diabetes mellitus with hemoglobin A1c goal of less than 7.0% (HCC) Inject 40 Units under the skin every night at bedtime. 39 mL 3 12/14/2022 Active Atorvastatin Calcium 80 MG Oral Tablet (Lipitor)Indications :Dyslipidemia, goal LDL below 100 TAKE 1 TABLET DAILY 90 Tablet 3 02/08/2023 Active FLUoxetine HCl 20 MG Oral Capsule (PROzac)Indications: Depression TAKE 1 CAPSULE DAILY 90 Capsule 3 03/12/2023 Active Trulicity 4.5 MG/0.5ML Subcutaneous Solution Pen-injector (Dulaglutide)Indicat ions:Type 2 diabetes mellitus with hemoglobin A1c goal of less than 7.0% (HCC) INJECT 4.5 MG UNDER THE SKIN ONCE A WEEK 6 mL 3 04/23/2023 Active busPIRone HCl 10 MG Oral Tablet (Buspar)Indications: Moderate episode of recurrent major depressive disorder (HCC) TAKE 1 TABLET TWICE A DAY NEEDED FOR ANXIETY 180 Tablet 3 05/11/2023 Active Levothyroxine Sodium 125 MCG Oral Tablet (Levoxyl)Indications :Hypothyroidism (acquired) TAKE 1 TABLET BY MOUTH IN THE MORNING (at least 30 min prior to breakfast or other meds) 90 Tablet 1 05/12/2023 Active Clopidogrel Bisulfate 75 MG Oral Tablet (pLAVix)Indications: Cerebrovascular disease, arteriosclerotic, post-stroke TAKE 1 TABLET DAILY 90 Tablet 3 06/04/2023 Active Methotrexate 2.5 MG Oral Tablet TAKE 6 TABLETS ONCE A WEEK. FOR USAGE IN RHEUMATIC DISEASES 78 Tablet 1 06/12/2023 Active Torsemide 20 MG Oral Tablet (Demadex) Take 1 Tablet by mouth in the morning. 34 Tablet 11 07/13/2023 Active Ezetimibe 10 MG Oral Tablet (Zetia)Indications:D yslipidemia, goal LDL below 70 TAKE 1 TABLET DAILY 90 Tablet 3 08/07/2023 Active Montelukast Sodium 10 MG Oral Tablet (Singulair)Indicatio ns:Seasonal allergic rhinitis due to pollen TAKE 1 TABLET DAILY FOR ALLERGIES AND ASTHMA 90 Tablet 3 08/08/2023 Active traZODone HCl 50 MG Oral Tablet (Desyrel)Indications :Persistent insomnia TAKE 1 TABLET AT BEDTIME 90 Tablet 3 10/08/2023 Active Pantoprazole Sodium 20 MG Oral Tablet Delayed Release (Protonix)Indication s:Gastroesophageal reflux disease, unspecified whether esophagitis present TAKE 1 TABLET IN THE MORNING 90 Tablet 3 10/08/2023 Active Metoprolol Succinate ER 25 MG Oral Tablet Extended Release 24 Hour (toPROL XL) TAKE 1 TABLET IN THE MORNING ONCE DAILY IN ADDITION TO TAKING METOPROLOL 100 MG FOR A TOTAL DAILY DOSE OF 125 MG 90 Tablet 3 10/30/2023 Active Entresto 49-51 MG Oral Tablet (sacubitril-valsarta n 49-51 mg per tab) TAKE 1 TABLET IN THE MORNING AND 1 TABLET BEFORE BEDTIME 180 Tablet 3 11/05/2023 Active Nitrofurantoin Macrocrystal 100 MG Oral Capsule (Macrodantin) Take 1 Capsule by mouth in the morning and 1 Capsule before bedtime. 0 09/27/2023 Active metroNIDAZOLE 1 % External Gel (Metrogel)Indication s:Rosacea Apply topically to affected area daily. Apply to facde 60 g 3 11/27/2023 Active Repatha SureClick 140 MG/ML Subcutaneous Solution Auto-injector (evolocumab) INJECT 140 MG UNDER THE SKIN EVERY 14 DAYS 6 mL 3 12/31/2023 Active Dapagliflozin Propanediol 10 MG Oral Tablet (Farxiga)Indications :Chronic heart failure with preserved ejection fraction (HCC) Take 1 Tablet by mouth in the morning. 90 Tablet 3 01/08/2024 Active Metoprolol Succinate ER 100 MG Oral Tablet Extended Release 24 Hour (toPROL XL) TAKE 1 TABLET ONCE DAILY IN ADDITION TO TAKING METOPROLOL 25 MG, FOR A TOTAL DAILY DOSE OF 125 MG 90 Tablet 3 02/06/2024 Active documented as of this encounter (statuses as of 02/22/2024) Active Problems Problem Noted Date Diagnosed Date [...] recurrent major depressive d isorder 03/05/2015 Old [place] (myocardial infarction) 11/20/2014 GERD (gastroesophageal reflux disease) [...] as of this encounter (statuses as of 02/22/2024) Resolved Problems Problem Noted Date Diagnosed Date [...] as of this encounter (statuses as of 02/22/2024) Immunizations Name Administration Dates Next Due COVID-19 mRNA, LNP-s, No Pre serve, 2-Dose Series (Moderna) 07/13/2021,03/09/2021,02/09/2021 COVID-19, mRNA, LNP-s, PF, B ooster, 100mcg/0.5mg (Moderna) 02/07/2022 Covid-19, Mrna, Lnp-s, Pf, B ivalent, 30 Mcg, IM, 12 yrs and above (Evcarco) 08/29/2022 Hepatitis B, 20+ yrs 12/13/2015,07/09/2015,06/07 Pneumococcal Conjugate Vacci ne, 20-valent ([id number]) 08/21/2022 Pneumococcal Polysaccharide PPV23 (Pneumovax) 07/16/2007,10/29/2000 Seasonal [...] Care Team (Late st Contact Info) Description 03/04/2024 1:30 PM EDT Office Visit Cardiology, [facility] [address] [place] [address] Shahbaz Whitman DO [address] [place] [address] 03/06/2024 1:15 PM EDT Office Visit Orthopaedics [address] [phone] Juancarlos Ridley MD [address] [place] [address] 03/25/2024 11:00 AM EDT Cardiac Studies Cardiology [address] [place] [address] Tam Greenr [facility] [address] [place] [address] 04/04/2024 11:00 AM EDT Office Visit Pharmacy, [address] [place] [address] [place] [address] 05/27/2024 2:20 PM EDT Office Visit Family Medicine [address] [place] [phone] Gardenia Aguirre PA-C [address] [place] [address] [place] [address] 06/11/2024 8:00 AM EDT Office Visit Dermatology [address] [place] [address] Misty Rogel PA-C [address] [place] [address] [place] [address] 11/28/2024 8:20 AM EST Office Visit Family Medicine [address] [place] [phone] Jes Medina MD [address] [place] [address] [place] [address] 02/23/2025 3:40 PM EDT Office Visit Rheumatology [address] [place] [phone] Tony Bruner MD [address] [place] [address] Pending Results Name Type Priority Associated Diagnoses Date /Time HEMOGLOBIN A1C Lab Routine Type 2 diabetes mellitus with hemoglobin A1c goal of less than 7.0% ([facility]) 02/22/2024 10:53 AM EDT Health Maintenance Due Date Last Done Comments COLONOSCOPY-EVERY 5 YRS AGES 18-100 06/27/2021 06/27/2016, 06/27/2016 Mammogram 02/21/2023 02/21/2022, 04/0 11/2020, 11/17/2019, Additional history exists Diabetic Foot Exam 05/29/2023 05/29/2022, 0 03/18/2020, 03/11/2019, Additional history exists COVID-19 Vaccine (2022- season) 2023 08/29/2022, 02/07/2022, 07/13/2021, Additional history exists TSH 05/21/2024 05/21/2023, 03/0 03/2023, 12/01/2022, Additional history exists HbA1c 05/27/2024 11/27/2023, 04/29, 12/14/2022, Additional history exists GFR 11/22/2024 11/22/2023, 07/29, 05/21/2023, Additional history exists Albumin/Creatinine Ratio 11/27/2024 024, 01/01/2023, 12/26/2021, Additional history exists Diabetic Eye Exam 12/12/2024 12/12/2023, , 06/30/2021, Additional history exists Pap Smear 08/15/2026 08/15/2023, 11/17/2013 Cervical Cancer Screening 08/15/2028 HPV/Co-Test 08/15/2028 08/15/2023 DTaP,Tdap,and Td Vaccines (3 - Td or Tdap) 02/01/2032 01/31/2022, 05/19/2011, 10/29/2002 Hepatitis B Completed 12/13/2015, 06/29, 06/07/2015 Zoster Vaccines Completed 08/23/2020, 03/18/2020 Pneumococcal Vaccine: Pediatrics (0 to 5 Years) and At-Risk Patients (6 to 64 Years) Completed 08/21/2022, 07/16/2007, 10/29/2000 Influenza Vaccine (FLU shot) Completed , 08/21/2022, 07/26/2021, Additional history exists GARDASIL-HPV IMMUNIZATION [...] A1c goal of less than 7.0% (HCC) documented in this encounter Care Teams Poultry Hatchery Man Relationship Specialty Start Date End Date Jes Medina MD [address] [place] [address] [place] [id number] PCP - General Family Medicine 11/27/23 documented as of this encounter
--- OUTSIDE RECORDS SUMMARY | 2024-08-15 02:59 | External Medical Summary | Summary of Care ---
Author Name Unknown Organization [facility] Address [address] [place] [address] Phone [phone] Care Team Providers Care Drivers License Examiner Name Role Phone Jes Medina MD Primary Care Provide r Reason for Visit * Reason Comments Rheum Follow Up Recheck, Sarcoidosis Encounter Details Date Type Department Care Team (Late st Contact Info) Description 02/21/2024 10:00 AM EDT Office Visit Rheumatology [address] [place] [phone] Tony Bruner MD [address] [facility] [place] [address] Cardiac sarcoidosis*; Encounter for therapeutic drug monitoring Allergies Active Allergy Reactions Criticality Noted Date Comments Carmelo Inhibitors Cough 12/10/2012 Empagliflozin Other (Please comment) 03/29/2021 Yeast infection(s) documented as of this encounter (statuses as of 02/21/2024) Medications Medication Sig Dispensed Refills Start Date [...] Active Clopidogrel Bisulfate 75 MG Oral Tablet (pLAVix)Indicatio ns:Cerebrovascula r disease, arteriosclerotic, post-stroke TAKE 1 TABLET DAILY [...] Active Montelukast Sodium 10 MG Oral Tablet (Singulair)Indica tions:Seasonal allergic rhinitis due to pollen TAKE 1 [...] 125 MG 90 Tablet 3 02/06/2024 Active ASPIRIN 81 MG PO TABS 1 tablet a day 0 4 Discontinued Potassium Chloride ER 20 MEQ Oral Tablet Extended Release Take 1 Tablet by mouth in the morning. 90 Tablet 3 05/18/2023 4 Discontinued Dexcom G7 Sensor Use as directed to check blood sugars daily. Change every 10 days. 9 Each 3 01/18/2024 4 Discontinued documented as of this encounter (statuses as of 02/21/2024) Active Problems Problem Noted Date Diagnosed Date [...] recurrent major depressive d isorder 03/05/2015 [place] (myocardial infarction) 11/20/2014 GERD (gastroesophageal reflux disease) [...] as of this encounter (statuses as of 02/21/2024) Resolved Problems Problem Noted Date Diagnosed Date [...] as of this encounter (statuses as of 02/21/2024) Immunizations Name Administration Dates Next Due COVID-19 mRNA, LNP-s, No Pre serve, 2-Dose Series (Moderna) 07/13/2021,03/09/2021,02/09/2021 COVID-19, mRNA, LNP-s, PF, B ooster, 100mcg/0.5mg (Moderna) 02/07/2022 Covid-19, Mrna, Lnp-s, Pf, B ivalent, 30 Mcg, IM, 12 yrs and above (Pfizer) 08/29/2022 Hepatitis B, 20+ yrs 12/13/2015,07/09/2015,06/07 Pneumococcal Conjugate Vacci ne, 20-valent ([id number]) 08/21/2022 Pneumococcal Polysaccharide PPV23 (Pneumovax) 07/16/2007,10/29/2000 Seasonal [...] Sign Reading Time Taken Comments Blood Pressure 120/78 02/21/2024 9:46 AM EDT Pulse - - Temperature 36.8 C (98.2 F) 02/21/2024 9:46 AM ED T Respiratory Rate - - Oxygen Saturation - - Inhaled Oxygen Concentration - - Weight 100.2 kg (221 lb) 02/21/2024 9:46 AM EDT Height - - Body Mass Index 36.78 08/15/2023 7:59 AM EDT documented in this encounter Progress Notes * Tony Bruner MD - 02/21/2024 9:57 AM EDT Subjective: Patient seen today for further follow up evaluation of sarcoidosis - cardiac. Since the last visit she missed herMTX on Sunday because she has dealt with cold like symtpoms. Started with sneezing and now nasal congestion. Gets these type of issues spring an fall. No fevers. She notes she is a little more achy then normal. She had labs in Oct that were good. She is taking 6 tabs of MTX weekly. Seeing cardiology next month. Sees ortho for her shoulder. Also having back pain. Musculoskeletal ROS: . Abnormal: joint pain and back pain . Pain scale (0-10): 8 Other ROS: . Constitutional: normal . Head normal . Eyes: normal . Ears, nose, throat, mouth: nasal congestion . Cardiovascular: normal . Respiratory: cough . Gastrointestinal: normal . Genitourinary: normal . Skin: normal All other ros reviewed and negative Social History: Social History Tobacco Use Smoking status: Former Current packs/day: 0.00 Average packs/day: 1 pack/day for 10.0 years (10.0 ttl pk-yrs) Types: Cigarettes Start date: 09/11/1995 Quit date: 09/11/2005 Years since quittin.4 Smokeless tobacco: Never Substance Use Topics Alcohol use: No Vaping/E-Cigarette Use Vaping/E-Cigarette Use Never User Vaping/E-Cigarette Substances Vaping/E-Cigarette Devices Current Outpatient Medications Medication Sig Dispense Refill [...] TAKE 1 TABLET DAILY 90 Tablet 3 FLUoxetine HCl 20 MG Oral Capsule (PROzac) TAKE 1 CAPSULE DAILY 90 Capsule 3 Trulicity 4.5 MG/0.5ML Subcutaneous Solution Pen-injector [...] breakfast or other meds) 90 Tablet 1 Clopidogrel Bisulfate 75 MG Oral Tablet (pLAVix) TAKE 1 TABLET DAILY 90 Tablet 3 Methotrexate 2.5 MG Oral Tablet TAKE 6 TABLETS ONCE A WEEK. FOR USAGE IN RHEUMATIC DISEASES 78 Tablet 1 Torsemide 20 MG Oral Tablet (Demadex) Take 1 Tablet by mouth in the morning. 34 Tablet 11 Ezetimibe 10 MG Oral Tablet (Zetia) TAKE 1 TABLET DAILY 90 Tablet 3 Montelukast Sodium 10 MG Oral Tablet (Singulair) TAKE 1 TABLET DAILY FOR ALLERGIES AND ASTHMA 90 Tablet 3 traZODone HCl 50 MG [...] 1 TABLET BEFORE BEDTIME 180 Tablet 3 Nitrofurantoin Macrocrystal 100 MG Oral Capsule (Macrodantin) Take 1 Capsule by mouth in the morning and 1 Capsule before bedtime. metroNIDAZOLE 1 % External Gel (Metrogel) Apply topically to affected area daily. Apply to facde 60g 3 Repatha SureClick 140 MG/ML Subcutaneous Solution [...] DOSE OF 125 MG 90 Tablet 3 ProAir HFA 108 (90 Base) MCG/ACT Inhalation Aerosol Solution Inhale by mouth 2 Puffs every 4 hours as needed for Wheezing. 18 g 1 No current facility-administered medications for this visit. 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 She is dealing with a seasonal cold and would hold methotrexate until better. At this point can do labs every 6 months. Plan: 1. Resume methotrexate once feeling better 2. Labs every 6 months -new order placed 3. We cardiology evaluation 4. Return to clinic in 1 year Tony Bruner MD Department of Rheumatology documented in this encounter Nursing Notes * Ban Gudino LPN - 02/21/2024 9:43 AM EDT Chief Complaint Patient presents with Rheum Follow Up Recheck, Sarcoidosis documented in this encounter Plan of Treatment Upcoming Encounters Date Type Department Care Team (Late st Contact Info) Description 02/22/2024 10:30 AM EDT Office Visit Pharmacy, [address] [place] [address] [place] [address] 03/04/2024 1:30 PM EDT Office Visit Cardiology, [facility] [address] [place] [address] Shahbaz Whitman DO [address] [place] [address] 03/06/2024 1:15 PM EDT Office Visit Orthopaedics [address] [place] [phone] Juancarlos Ridley MD [address] [place] [address] 03/25/2024 11:00 AM EDT Cardiac Studies Cardiology [address] [place] [address] [facility] [address] [place] [address] 05/27/2024 2:20 PM EDT Office Visit Family Medicine [address] [place] [phone] Gardenia Aguirre PA-C [address] [place] [address] [place] [address] 06/11/2024 8:00 AM EDT Office Visit Dermatology [address] [place] [address] Misty Rogel PA-C [address] [place] [address] [place] [address] 11/28/2024 8:20 AM EST Office Visit Family [address] [place] [phone] Jes Medina MD [address] [place] [address] [place] [address] 02/23/2025 3:40 PM EDT Office Visit Rheumatology [address] [place] [phone] Tony Bruner MD [facility] [place] [address] Scheduled Orders Name Type Priority Associated Diagnoses Orde r Schedule CBC WITH WBC DIFFERENTIAL Lab Routine Cardiac sarcoidosis Encounter for therapeutic drug monitoring Every 6 Months for 2 Occurrences starting 02/21/2024 until 02/20/2025 COMPREHENSIVE METABOLIC PANEL Lab Routine Cardiac sarcoidosis Encounter for therapeutic drug monitoring Every 6 Months for 2 Occurrences starting 02/21/2024 until 02/20/2025 Health Maintenance Due Date Last Done Comments [...] as of this encounter Visit Diagnoses Diagnosis Cardiac sarcoidosis- Primary Encounter for therapeutic drug monitoring documented in this encounter Care Teams Drivers License Examiner Relationship Specialty Start Date End Date Jes Medina MD [address] [place] [address] [place] [address] PCP - General Family Medicine 11/27/23 documented as of this encounter"
--- OUTSIDE RECORDS SUMMARY | 2024-08-15 02:59 | External Medical Summary | Summary of Care ---
Author Name Unknown Organization [facility] Address [address] [place] [address] Phone [phone] Care Team Providers Care Airport Tower Controller Name Role Phone Jes Medina MD Primary Care Provide r Reason for Visit * Reason Comments Follow Up Encounter Details Date Type Department Care Team (Late st Contact Info) Description 03/04/2024 1:30 PM EDT Office Visit Cardiology, [facility] [address] [place] [address] Shahbaz Whitman, [address] [place] [address] Chronic heart failure with preserved ejection fraction (HCC)*; NICM (nonischemic cardiomyopathy) (HCC); Cardiac sarcoidosis; ICD (implantable cardioverter-defibril lator), dual, in situ; HTN, goal below 140/90; Dyslipidemia, goal LDL below 70 Allergies Active Allergy Reactions Criticality Noted Date Comments Carmelo Inhibitors Cough 12/10/2012 Empagliflozin Other (Please comment) 03/29/2021 Yeast infection(s) documented as of this encounter (statuses as of 03/04/2024) Medications Medication Sig Dispensed Refills Start Date [...] hemoglobin A1c goal of less than 7.0% ([facility]) Use to test blood sugar TWICE a day. DX e11.9 200 Each 3 12/26/2021 Active FreeStyle Lite DeviceIndications: Type 2 diabetes mellitus with hemoglobin A1c goal of less than 7.0% ([facility]) Use to test blood sugar TWICE a day. DX e11.9 1 Each 0 12/26/2021 Active ProAir HFA 108 (90 Base) MCG/ACT Inhalation Aerosol SolutionIndication s:Wheezing Inhale by mouth 2 Puffs every 4 hours as needed for Wheezing. 18 g 1 08/21/2022 Active Insulin Glargine 100 UNIT/ML Subcutaneous Solution Pen-injector (Lantus)Indication s:Type 2 diabetes mellitus with hemoglobin A1c goal of less than 7.0% ([facility]) Inject 40 Units under the skin every night at bedtime. 39 mL 3 12/14/2022 Active Atorvastatin Calcium 80 MG Oral Tablet (Lipitor)Indicatio ns:Dyslipidemia, goal LDL below 100 TAKE 1 TABLET DAILY 90 Tablet 3 02/08/2023 Active Trulicity 4.5 MG/0.5ML Subcutaneous Solution Pen-injector (Dulaglutide)Indic ations:Type 2 diabetes mellitus with hemoglobin A1c goal of less than 7.0% ([facility]) INJECT 4.5 MG UNDER THE [...] CAPSULE DAILY 90 Capsule 3 03/03/2024 Active Montelukast Sodium 10 MG Oral Tablet (Singulair)Indicat ions:Seasonal allergic rhinitis due to pollen TAKE 1 TABLET DAILY FOR ALLERGIES AND ASTHMA 90 Tablet 3 08/08/2023 Discontinue d(Patient preference/ discontinua tion) documented as of this encounter (statuses as of 03/04/2024) Active Problems Problem Noted Date Diagnosed Date [...] as of this encounter (statuses as of 03/04/2024) Resolved Problems Problem Noted Date Diagnosed Date [...] as of this encounter (statuses as of 03/04/2024) Immunizations Name Administration Dates Next Due COVID-19 mRNA, LNP-s, No Pre serve, 2-Dose Series (Moderna) 07/13/2021,03/09/2021,02/09/2021 COVID-19, mRNA, LNP-s, PF, B ooster, 100mcg/0.5mg (Moderna) 02/07/2022 Covid-19, Mrna, Lnp-s, Pf, B ivalent, 30 Mcg, IM, 12 yrs and above (Pfizer) 08/29/2022 Hepatitis B, 20+ yrs 12/13/2015,07/09/2015,06/07 Pneumococcal Conjugate Vacci ne, 20-valent ([id number]) 08/21/2022 Pneumococcal Polysaccharide PPV23 (Pneumovax) 07/16/2007,10/29/2000 Seasonal [...] Sign Reading Time Taken Comments Blood Pressure 108/72 03/04/2024 1:05 PM EDT Pulse 72 03/04/2024 1:05 PM EDT Temperature - - Respiratory Rate 16 03/04/2024 1:05 PM EDT Oxygen Saturation - - Inhaled Oxygen Concentration - - Weight 98.5 kg (217 lb 1.6 oz) 03/04/2024 1:05 P M EDT Height - - Body Mass Index 36.13 08/15/2023 7:59 AM EDT documented in this encounter Patient Instructions * Patient Instructions* Shahbaz Whitman DO - 03/04/2024 1:46 PM EDT Start back on torsemide 20 mg in am three days per week. 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 Patient notes shortnessof breath with exertion and occasional lightheadedness and dizziness. She had been taking Entresto one time per day as compared to twice a day due to dizziness attributed to orthostatic hypotension. . She has worsening sub breath which she feels is worse over the last 6 months has acute lightheadedness dizziness. She weighs 217 pounds today as compared to 2 pounds in our clinic in June. Cardiac problems: Cardiac Sarcoidosis S/P dual chamber ICD 10/30/2021 NICM EF 30-34% improved to 50-54% echo December, CAD luminal irregularities on cath from 12/2020 Ectopic atrial rhythm CVA HLD DM Genetic testing with variants of uncertain significance in regards to cardiomyopathy and FH Extensive ROS: All systems reviewed & are unremarkable except as noted in HPI & below Cardiovascular (chest pain/palpitations/fluttering/diaphoresis/dyspnea on exertion/paroxysmally nocturnal dyspnea):Negative Review of patient's allergies indicates: Allergen Reactions Carmelo Inhibitors Cough Jardiance [Empagliflozin] Other (Please comment) Yeast infection(s) Current Outpatient Medications Medication Sig Dispense Refill ProAir HFA 108 (90 Base) MCG/ACT Inhalation [...] Tablet by mouth once.) 180 Tablet 3 Nitrofurantoin Macrocrystal 100 MG [...] TAKE 1 CAPSULE DAILY 90 Capsule 3 BD Pen Needle Namrata U/F 32G X [...] a day. DX e11.9 1 Each 0 No current facility-administered medications for this visit. OBJECTIVE/PHYSICAL EXAMINATION: BP 108/72 (BP Site: Left Arm, BP Position: Sitting) | Pulse 72 | Resp 16 | Wt 98.5 kg (217 lb 1.6 oz) | LMP 09/12/2013 | BMI 36.13 kg/m | BSA 2.13 m General: no acute distress and stated age Eyes: conjunctiva are pink and non-injected, sclera clear Neck: normal jugular venous pulse, no hepatojugular reflux Chest: normal shape and normal respiratory effort -left ventricular ICD pocket clean dry and intact, no erosion, no erythema Lungs: clear to auscultation , no rales rhonchi or wheezing Cardiac Exam: - regular heart sounds, no murmurs, rubs, or gallops Abdomen: abdomen soft, non-tender, no abnormal masses and no hepatosplenomegaly Musculoskeletal: no gait disturbance, no weakness Extremities: no edema and no cyanosis Neuro: grossly normal exam Psych: appropriate affect and insight. Data: EKG performed today 03/04/2024 and interpreted independently: Sinus rhythm at 72 beats per minute with atrial pacing, poor R-wave progression in the anterior precordial leads and therefore an age undetermined anterior infarct can not be excluded, compared to the previous dated 01/01/2023, no significant change The patient's most recent remote device interrogation took place November,: Presenting rhythm was sinus rhythm with atrial sensing and ventricular sensed rhythm. Thoracic impedance revealed baseline thoracic impedance indicating stable fluid status Patient was atrial paced 37.6% the time, right ventricular paced 0.06% the time, no recent detectedepisodes of atrial tachycardia/ atrial fibrillation Lead function normal Battery longevity 8.9 years Lipid Panel Results: Results for orders placed or performed in visit on 05/21/23 LIPID PANEL WITH DIRECT LDL IF TG IS HIGH Result Value Ref Range Triglycerides 115 <=174 mg/dL Cholesterol 143 <200 mg/dL HDL Cholesterol 62 >49 mg/dL Non-HDL Cholesterol 81 <=159 mg/dL LDL Cholesterol 58 <=129 mg/dL Latest Reference Range & Units 11/27/23 16:08 02/22/24 10:53 Hemoglobin A1C 4.0 - 5.6 % 7.8 (H) 6.8 (H) (H): Data is abnormally high ASSESSMENT / PLAN: 58 year old year old female Chronic heart failure with preserved ejection fraction (HCC) (Primary) NICM (nonischemic cardiomyopathy) (HCC) Cardiac sarcoidosis ICD (implantable cardioverter-defibrillator), dual, in situ HTN, goal below 140/90 Dyslipidemia, goal LDL below 70 --patient has yet to resume torsemide. The diuretic effect does get in the way of her lifestyle. Will have her resume at 20 milligrams, 1 tablet 3 days per week to see if this assists with regards toher shortness of breath feelings. Otherwise she should continue her current doses of atorvastatin, aspirin, clopidogrel, Entresto, ezetimibe, Farixga, metoprolol, and Repatha. Patient is seen in longitudinal follow-up of the above concerns with the assessment and plan as outlined above. DISPOSITION: Follow Up: Return in about 6 months (around 09/04/2024) for Clinic Visit. | For: Clinic Visit Shahbaz Whitman DO Cardiology, [address] [address] This chart was completed in part utilizing [employer] Speech Voice Recognition Software. Grammatical errors, random [...] documented in this encounter Nursing Notes * Joan Goodman CMA - 03/04/2024 1:04 PM EDT Examination Room: 10 Name: Bailey Baezn Date of : (1965). Reason for Visit: follow up Interim Hospitalization(s): denies Problems/Concerns: dizziness/lightheadedness -- when standing or turning too quickly Chest Pain/SOB: SOB/chest heaviness when walking -- none at present [facility] Discussed: Not applicable My [facility] is a way you can talk to [...] Care Team (Late st Contact Info) Description 03/06/2024 1:15 PM EDT Office Visit Orthopaedics [address] [place] [phone] Juancarlos Ridley MD [address] [place] [address] 03/25/2024 11:00 AM EDT Cardiac Studies Cardiology [address] [place] [address] [facility] [place] [address] 04/04/2024 11:00 AM EDT Office Visit Pharmacy, [address] [place] [address] [place] [address] 05/27/2024 2:20 PM EDT Office Visit Family Medicine [address] [place] [phone] Gardenia Aguirre PA-C [address] [place] [address] [place] [address] 06/11/2024 8:00 AM EDT Office Visit Dermatology [address] [place] [address] Misty Rogel PA-C [address] [place] [address] [place] [address] 08/21/2024 3:30 PM EDT Office Visit Cardiology, [facility] [address] [place] [address] Shahbaz Whitman, [address] [place] [address] 11/28/2024 8:20 AM EST Office Visit Family Medicine [address] [place] [phone] Jes Medina MD [address] [place] [address] [place] [address] 02/23/2025 3:40 PM EDT Office Visit Rheumatology [address] [place] [phone] Tony Bruner MD [address] [place], [place] [address] [address] Scheduled Orders Name Type Priority Associated Diagnoses Orde r Schedule EKG EKG Routine NICM (nonischemic cardiomyopathy) (HCC) Ordered: 03/04/2024 Health Maintenance Due Date Last Done Comments [...] 03/0 03/2023, 12/01/2022, Additional history exists HbA1c 08/23/2024 [...] Chronic heart failure with preserved ejection fraction (HCC)- Primary NICM (nonischemic cardiomyopathy) (HCC) Other primary cardiomyopathies Cardiac sarcoidosis ICD (implantable cardioverter-defibrillator), dual, in situ HTN, goal below 140/90 Unspecified essential hypertension Dyslipidemia, goal LDL below 70 Other and unspecified hyperlipidemia documented in this encounter Care Teams Airport Tower Controller Relationship Specialty Start Date End Date Jes Medina MD [address] [place] [address] [place] [address] PCP - General Family Medicine 11/27/23 documented as of this encounter"
--- OUTSIDE RECORDS SUMMARY | 2024-08-15 02:59 | External Medical Summary ---
Author Name Unknown Address Unknown Organization [id number]:[facility] [place] - [address] [facility] [address] Laboratory Report Ordering Provider Test Date Status JUDD GONZALEZ 02/22/2024 10:53:04 Final Observation Date Value Abnormality Reference (Units ) Status HbA1C 02/22/2024 10:53:04 6.8 Above high normal 4. 0-5.6 (%) Final The use of HbA1c to monitor glycemic status is based on normal hemoglobin and HbA composition. This test should not be used in patients with abnormal hemoglobin that affects the half life of the red blood cell or the in vivo glycation rates. Glucose, estimated average 02/22/2024 10:53:04 148 Above high normal <126 (mg/dL) Fernando garcía Performing Location [facility] - [address] [facility] [address]
--- OUTSIDE RECORDS SUMMARY | 2024-08-15 02:59 | External Medical Summary | Summary of Care ---
Author Name Unknown Organization [facility] Address [address] [place] [address] Phone [phone] Care Team Providers Care Compounding Pharmacy Technician Name Role Phone Jes Medina MD Primary Care Provide r Encounter Details Date Type Department Care Team (Late st Contact Info) Description 03/18/2024 Result Scan Unspecified Department Shahbaz Whitman, DO [address] [place] [address] <No scans attached> Allergies Active Allergy Reactions Criticality Noted Date Comments Carmelo Inhibitors Cough 12/10/2012 Empagliflozin Other (Please comment) 03/29/2021 Yeast infection(s) documented as of this encounter (statuses as of 03/18/2024) Medications Medication Sig Dispensed Refills Start Date [...] as of this encounter (statuses as of 03/18/2024) Active Problems Problem Noted Date Diagnosed Date [...] as of this encounter (statuses as of 03/18/2024) Resolved Problems Problem Noted Date Diagnosed Date [...] as of this encounter (statuses as of 03/18/2024) Immunizations Name Administration Dates Next Due COVID-19 mRNA, LNP-s, No Pre serve, 2-Dose Series (Moderna) 07/13/2021,03/09/2021,02/09/2021 COVID-19, mRNA, LNP-s, PF, B ooster, 100mcg/0.5mg (Moderna) 02/07/2022 Covid-19, Mrna, Lnp-s, Pf, B ivalent, 30 Mcg, IM, 12 yrs and above (Pfizer) 08/29/2022 Hepatitis B, 20+ yrs 12/13/2015,07/09/2015,06/07 Pneumococcal Conjugate Vacci ne, 20-valent ([id number]) 08/21/2022 Pneumococcal Polysaccharide PPV23 (Pneumovax) 07/16/2007,10/29/2000 Seasonal [...] 03/27/2024 11:45 AM EDT Office Visit Orthopaedics [address] [place] [phone] Juancarlos Ridley MD [address] [place] [address] 04/04/2024 11:00 AM EDT Office Visit Pharmacy, [address] [place] [address] [place] [address] 05/27/2024 2:20 PM EDT Office Visit Family Medicine [address] [place] [phone] Gardenia Aguirre PA-C [address] [place] [address] [place] [address] 06/11/2024 8:00 AM EDT Office Visit Dermatology [address] [place] [address] Misty Rogel PA-C [address] [place] [address] [place] [address] 08/21/2024 3:30 PM EDT Office Visit Cardiology, [facility] [address] [place] [address] Shahbaz Whitman DO [address] [place] [address] 11/28/2024 8:20 AM EST Office Visit Family Medicine [address] [place] [phone] Jes Medina MD [address] [place] [address] [place] [address] 02/23/2025 3:40 PM EDT Office Visit Rheumatology [address] [place] [phone] Tony Bruner MD [facility] [place] [address] Health Maintenance Due Date Last Done Comments [...] Date/Time Associated Diagnosis Comments CARDIOLOGY SCANNED RESULT 03/18/2024 documented in this encounter Results * CARDIOLOGY SCANNED RESULT (03/18/2024) 03/18/2024 Shahbaz Whitman DO OTHER documented in this encounter Care Teams Compounding Pharmacy Technician Relationship Specialty Start Date End Date Jes Medina MD [address] [place] [address] [place] [address] PCP - General Family Medicine 11/27/23 documented as of this encounter
--- OUTSIDE RECORDS SUMMARY | 2024-08-15 02:59 | External Medical Summary ---
Author Name Unknown Address Unknown Organization K01:[facility] [place] - [address] [place] [address] Laboratory Report Ordering Provider Test Date Status JUSTIN SHIPLEY 03/25/2024 10:11:04 Final Observation Date Value Abnormality Reference (Units ) Status MYCODE SPECIMEN-SST 03/25/2024 10:11:04 Freezing of extracted DNA, whole blood and/or serum. Final Performing Location [facility]ATORY [facility] - [address] [facility] [address]
--- OUTSIDE RECORDS SUMMARY | 2024-08-15 02:59 | External Medical Summary | Summary of Care ---
Author Name Unknown Organization [facility] Address [address] [place] [address] Phone [phone] Care Team Providers Care Hydrator Operator Name Role Phone Jes Medina MD Primary Care Provide r Reason for Visit * Reason Comments Dosage Adjustment In Person (Anticoag Cl inic) Diabetes Follow-Up Encounter Details Date Type Department Care Team (Late st Contact Info) Description 02/22/2024 10:30 AM EDT Office Visit Pharmacy, [address] [place] [address] [place] [address] Type 2 diabetes mellitus with hemoglobin A1c goal of less than 7.0% ([facility])* Allergies Active Allergy Reactions Criticality Noted Date [...] yrs 12/13/2015,07/09/2015,06/07 Pneumococcal Conjugate Vacci ne, 20-valent ([id number]) 08/21/2022 Pneumococcal Polysaccharide PPV23 (Pneumovax) 07/16/2007,10/29/2000 Seasonal [...] as of this encounter Progress Notes * Karis Combs, [facility] - 02/22/2024 10:28 AM EDT Images from the original note were not included. Medication Therapy Disease Management [facility] - Diabetes Management Progress Note Bailey Alejandra, identified by name and date of , is a 58 year old female being seen for diabetes management/education. Patient presents for return diabetic visit. DIABETES: Current diabetic medications: Farxiga 10mg daily Trulicity 4.5mg once weekly Lantus 40 units daily at bedtime eGFR 70 as of 11/22/23 Medication Injection Site: Abdomen Lifestyle: Diet: Discussed below Glucose Review/SMBG: Readings obtained from patient device Hypoglycemia: Does your blood sugar go below 70 mg/dL? No Hyperglycemia symptoms present: none Recent Labs Units 11/27/23 1608 05/21/23 1225 12/14/22 1028 HEMOGLOBIN A1C - [facility] % 7.8* 7.1* 7.7* Recent Labs Units 11/22/23 0957 08/09/23 1231 05/21/23 1225 ESTIMATED GLOMERULAR FILTRATION RATE - [facility] mL/min 70 75 78 CREATININE - [facility] mg/dL 0.9 0.9 0.9 HYPERTENSION: Patient on ACEi/ARB: yes BP Readings from Last 3 Encounters: 02/21/24 120/78 11/27/23 118/74 08/15/23 118/70 Blood pressure at goal: yes HYPERLIPIDEMIA: Patient is taking moderate or high intensity statin: yes HEALTH MAINTENANCE REVIEW: Health Maintenance Due Topic Date Due COLONOSCOPY-EVERY 5 YRS AGES 18-100 06/27/2021 Mammogram 02/21/2023 Diabetic Foot Exam 05/29/2023 COVID-19 Vaccine ( season) 2023 ASSESSMENT & PLAN: ICD-10-CM 1. Type 2 diabetes mellitus with hemoglobin A1c goal of less than 7.0% ([facility]) E11.9 Considerations: Joyce Pedraza (Rx help: [phone]) Metformin ER - Intolerant (GI upset) BG Readings - Blood sugars reviewed. Only able to utilizing Dexcom sensor from 01/17 - 01/27. Revieweddata, BG readings significantly improved with CGM use since last A1c. Insurance requiring the use of basal insulin as well as multiple meal time injections to cover Dexcom. Patient plans to contact insurance company regarding [place]. Medications - Reviewed current regimen, patient is adherent to regimen. Tolerating well. Diet, Exercise, Lifestyle - Discussed continue to follow habits formed while using CGM. Notes to only eating about one meal daily. Encouraged to work on eating smaller balanced meals throughout the day. Updated A1c ordered for patient to obtain today. Patient is agreeable to SMBG 1-3 time(s) daily. Patient aware to contact clinic if any hypoglycemia before next visit. MEDICATION CHANGES: no change Diabetic Medications: Farxiga 10mg daily Trulicity 4.5mg once weekly Lantus 40 units daily at bedtime eGFR 70 as of 11/22/23 HEALTH MAINTENANCE INTERVENTIONS: Deferred d/t time constraints FOLLOW UP: Return to clinic in 6 weeks 04/04/2024 Karis Combs RPh Clinical Pharmacist - Poured Concrete Wall Technician Medication Therapy Management Clinic 02/22/2024, 10:28 AM documented in this encounter Plan of Treatment Upcoming Encounters Date Type Department Care Team (Late st Contact Info) Description 03/04/2024 1:30 PM EDT Office Visit Cardiology, [facility] [address] [place] [address] Shahbaz Whitman DO [address] [place] [address] 03/06/2024 1:15 PM EDT Office Visit Orthopaedics [address] [place] [phone] Juancarlos Ridley MD [address] [place] [address] 03/25/2024 11:00 AM EDT Cardiac Studies Cardiology [address] [place] [address] [facility] [address] [place] [address] 04/04/2024 11:00 AM EDT Office Visit Pharmacy, [address] [place] [address] [place] [address] 05/27/2024 2:20 PM EDT Office Visit Family Medicine [address] [place] [phone] Gardenia Aguirre PA-C [address] [place] [address] [place] [address] 06/11/2024 8:00 AM EDT Office Visit Dermatology [address] [place] [address] Misty Rogel PA-C [address] [place] [address] [place] [address] 11/28/2024 8:20 AM EST Office Visit Family Medicine [address] [place] [phone] Jes Medina MD [address] [place] [address] [place] [address] 02/23/2025 3:40 PM EDT Office Visit Rheumatology [address] [place] [phone] Tony Bruner MD [address] [facility] [place] [address] Pending Results Name Type Priority Associated Diagnoses Date /Time HEMOGLOBIN A1C Lab Routine Type 2 diabetes mellitus with hemoglobin A1c goal of less than 7.0% (HCC) 02/22/2024 10:53 AM EDT Scheduled Orders Name Type Priority Associated Diagnoses Orde r Schedule HEMOGLOBIN A1C Lab Routine Type 2 diabetes mellitus with hemoglobin A1c goal of less than 7.0% ([facility]) Expected: 02/22/2024 (Approximate), Expires: 02/21/2025 Health Maintenance Due Date Last Done Comments COLONOSCOPY-EVERY 5 YRS AGES 18-100 06/27/2021 06/27/2016, 06/27/2016 Mammogram 02/21/2023 02/21/2022, 040 11/2020, 11/17/2019, Additional history exists Diabetic Foot Exam 05/29/2023 05/29/2022, 0 03/18/2020, 03/11/2019, Additional history exists COVID-19 Vaccine ( season) 2023 08/29/2022, 02/07/2022, 07/13/2021, Additional history exists TSH 05/21/2024 05/21/2023, 03/0 03/2023, 12/01/2022, Additional history exists HbA1c 05/27/2024 11/27/2023, 072 01/2023, 12/14/2022, Additional history exists GFR 11/22/2024 11/22/2023, [...] A1c goal of less than 7.0% ([facility])- Primary documented in this encounter Care Teams Hydrator Operator Relationship Specialty Start Date End Date Jes Medina MD [address] [place] [address] [place] [address] PCP - General Family Medicine 11/27/23 documented as of this encounter
--- OUTSIDE RECORDS SUMMARY | 2024-08-15 02:59 | External Medical Summary | Summary of Care ---
Author Name Unknown Organization [facility] Address [address] [place] [address] Phone [phone] Care Team Providers Care Ground Crew Chief Name Role Phone Jes Medina MD Primary Care Provide r Reason for Visit * Reason Onset Date Comments Pacemaker Clinic 03/17/2024 Home monitoring Encounter Details Date Type Department Care Team (Late st Contact Info) Description 03/17/2024 Telephone Cardiology, [facility] [address] [place] [address] [place], Pacer Clinic [facility] [address] [place] [address] Pacemaker Clinic (Home monitoring ) Allergies Active Allergy Reactions Criticality Noted Date Comments Carmelo Inhibitors Cough 12/10/2012 Empagliflozin Other (Please comment) 03/29/2021 Yeast infection(s) documented as of this encounter (statuses as of 03/17/2024) Medications Medication Sig Dispensed Refills Start Date [...] Active Clopidogrel Bisulfate 75 MG Oral Tablet (pLAVix)Indications :Cerebrovascular disease, arteriosclerotic, post-stroke TAKE 1 TABLET DAILY [...] CAPSULE DAILY 90 Capsule 3 03/03/2024 Active documented as of this encounter (statuses as of 03/17/2024) Active Problems Problem Noted Date Diagnosed Date [...] as of this encounter (statuses as of 03/17/2024) Resolved Problems Problem Noted Date Diagnosed Date [...] as of this encounter (statuses as of 03/17/2024) Immunizations Name Administration Dates Next Due COVID-19 mRNA, LNP-s, No Pre serve, 2-Dose Series (Moderna) 07/13/2021,03/09/2021,02/09/2021 COVID-19, mRNA, LNP-s, PF, B ooster, 100mcg/0.5mg (Moderna) 02/07/2022 Covid-19, Mrna, Lnp-s, Pf, B ivalent, 30 Mcg, IM, 12 yrs and above (Pfizer) 08/29/2022 Hepatitis B, 20+ yrs 12/13/2015,07/09/2015,06/07 Pneumococcal Conjugate Vacci ne, 20-valent ([id number]) 08/21/2022 Pneumococcal Polysaccharide PPV23 (Pneumovax) 07/16/2007,10/29/2000 Seasonal [...] encounter Miscellaneous Notes * Telephone Encounter - Olya Leon LPN - 03/17/2024 6:55 AM EDT Ridejoy[employer] message sent to patient regarding monitor set up documented in this encounter Plan of Treatment Upcoming Encounters Date Type Department Care Team (Late st Contact Info) Description 03/25/2024 11:00 AM EDT Cardiac Studies Cardiology [address] [place] [address] [facility], [facility] [address] [place] [address] 03/27/2024 11:45 AM EDT Office Visit Orthopaedics [address] [place] [phone] Juancarlos Ridley MD [address] [place] [address] 04/04/2024 11:00 AM EDT Office Visit Pharmacy, [address] [place] [address] [place] [address] 05/27/2024 2:20 PM EDT Office Visit Family Medicine [address] [place] [phone] Gardenia Aguirre PA-C [address] [place] [address] [place] [address] 06/11/2024 8:00 AM EDT Office Visit Dermatology [address] [place] [address] Misty Rogel PA-C [address] [place] [address] [place] [address] 08/21/2024 3:30 PM EDT Office Visit Cardiology, [facility] [address] [place] [address] Shahbaz Whitman DO [address] [place] [address] 11/28/2024 8:20 AM EST Office Visit Family Medicine [address] [place] [phone] Jes Medina MD [address] [place] [address] [place] [address] 02/23/2025 3:40 PM EDT Office Visit Rheumatology [address] [place] [phone] Tony Bruner MD [facility]0 [facility] [address] Health Maintenance Due Date Last Done Comments [...] filedocumented as of this encounter Care Teams Ground Crew Chief Relationship Specialty Start Date End Date Jes Medina MD [address] [place] [address] [place] [address] PCP - General Family Medicine 11/27/23 documented as of this encounter
--- OUTSIDE RECORDS SUMMARY | 2024-08-15 02:59 | External Medical Summary | Summary of Care ---
Author Name Unknown Organization [facility] Address [address] [place] [address] Phone [phone] Care Team Providers Care Wire Dropper Name Role Phone Jes Medina MD Primary Care Provide r Reason for Visit * Reason Onset Date Comments Pacemaker Clinic 03/17/2024 Home monitoring Encounter Details Date Type Department Care Team (Late st Contact Info) Description 03/17/2024 Telephone Cardiology, [facility] [address] [place] [address] [place], Pacer Clinic [facility] [address] [place] [address] Pacemaker Clinic (Home monitoring ) Allergies Active [...] hemoglobin A1c goal of less than 7.0% ([facility]) Use once a day with Lantus. DX [...] yrs 12/13/2015,07/09/2015,06/07 Pneumococcal Conjugate Vacci ne, 20-valent ([id number]) 08/21/2022 Pneumococcal Polysaccharide PPV23 (Pneumovax) 07/16/2007,10/29/2000 Seasonal [...] Leon LPN - 03/17/2024 6:55 AM EDT [employer] Cloud[employer] message sent to patient regarding monitor set up documented in this encounter Plan of Treatment Upcoming Encounters Date Type Department Care Team (Late st Contact Info) Description 03/25/2024 11:00 AM EDT Cardiac Studies Cardiology [address] [place] [address] [facility] [address] [place] [address] 03/27/2024 11:45 AM EDT Office Visit Orthopaedics [address] [place] [phone] Juancarlos Ridley MD [address] [place] [address] 04/04/2024 11:00 AM EDT Office Visit Pharmacy, [address] [place] [address] [place] [address] 05/27/2024 2:20 PM EDT Office Visit Family Medicine [address] [place] [phone] Gardenia Aguirre PA-C [address] [place] [address] [place] [address] 06/11/2024 8:00 AM EDT Office Visit Dermatology [address] [place] [address] Misty Rogel PA-C [address] [place] [address] [place] [address] 08/21/2024 3:30 PM EDT Office Visit Cardiology, [facility] [address] [place] [address] Shahbaz Whitman DO [address] [place] [address] 11/28/2024 8:20 AM EST Office Visit Family Medicine [address] [place] [phone] Jes Medina MD [address] [place] [address] [place] [address] 02/23/2025 3:40 PM EDT Office Visit Rheumatology [address] [place] [phone] Tony Bruner MD [facility], [place] [address] Health Maintenance Due Date Last Done Comments [...] filedocumented as of this encounter Care Teams Wire Dropper Relationship Specialty Start Date End Date Jes Medina MD [address] [place] [address] [place] [address] PCP - General Family Medicine 11/27/23 documented as of this encounter
--- OUTSIDE RECORDS SUMMARY | 2024-08-15 02:59 | External Medical Summary | Summary of Care ---
Author Name Unknown Organization [facility] Address [address] [place] [address] Phone [phone] Care Team Providers Care Student Life Coordinator Name Role Phone Jes Medina MD Primary Care Provide r Reason for Visit * Reason Comments eRx-Medication Refill Encounter Details Date Type Department Care Team (Late st Contact Info) Description 03/02/2024 Refill Family Medicine [address] [phone] Jes Medina MD [address] [place] [address] [place] [address] Depression Allergies Active Allergy Reactions Criticality Noted Date Comments Carmelo Inhibitors Cough 12/10/2012 Empagliflozin Other (Please comment) 03/29/2021 Yeast infection(s) documented as of this encounter (statuses as of 03/03/2024) Medications Medication Sig Dispensed Refills Start Date End Date Status BD Pen Needle Namrata U/F 32G X 4 MM (Insulin Pen Needle)Indication s:Type 2 diabetes mellitus with hemoglobin A1c goal of less than 7.0% ([facility]) Use once a day with Lantus. DX e11.9 100 Each 3 12/26/2021 Active FreeStyle Lite Test In Vitro Strip (Glucose Blood)Indications :Type 2 diabetes mellitus with hemoglobin A1c goal of less than 7.0% ([facility]) Use to check blood sugar two times [...] CAPSULE DAILY 90 Capsule 3 03/03/2024 Active FLUoxetine HCl 20 MG Oral Capsule (PROzac)Indicatio ns:Depression TAKE 1 CAPSULE DAILY 90 Capsule 3 03/12/2023 4 Discontinued documented as of this encounter (statuses as of 03/03/2024) Active Problems Problem Noted Date Diagnosed Date [...] as of this encounter (statuses as of 03/03/2024) Resolved Problems Problem Noted Date Diagnosed Date [...] as of this encounter (statuses as of 03/03/2024) Immunizations Name Administration Dates Next Due COVID-19 mRNA, LNP-s, No Pre serve, 2-Dose Series (Moderna) 07/13/2021,03/09/2021,02/09/2021 COVID-19, mRNA, LNP-s, PF, B ooster, 100mcg/0.5mg (Moderna) 02/07/2022 Covid-19, Mrna, Lnp-s, Pf, B ivalent, 30 Mcg, IM, 12 yrs and above (Pfizer) 08/29/2022 Hepatitis B, 20+ yrs 12/13/2015,07/09/2015,06/07 Pneumococcal Conjugate Vacci ne, 20-valent ([id number]) 08/21/2022 Pneumococcal Polysaccharide PPV23 (Pneumovax) 07/16/2007,10/29/2000 Seasonal [...] encounter Miscellaneous Notes * Telephone Encounter - Shannon Otero RPh - 03/03/2024 8:33 PM EDT Signed Prescriptions: Disp Refills FLUoxetine HCl 20 MG Oral Capsule (PROzac) 90 Cap*3 Sig: TAKE 1CAPSULE DAILYAuthorizing Provider: JES MEDINA User: SHANNON OTERO---- documented in this encounter Plan of Treatment Upcoming Encounters Date Type Department Care Team (Late st Contact Info) Description 03/04/2024 1:30 PM EDT Office Visit Cardiology, [facility] [address] [place] [address] Shahbaz Whitman DO [address] [place] [address] 03/06/2024 1:15 PM EDT Office Visit Orthopaedics [address] [place] [phone] Juancarlos Rdiley MD [address] [place] [address] 03/25/2024 11:00 AM EDT Cardiac Studies Cardiology [address] [place] [address] [facility] [address] [place] [address] 04/04/2024 11:00 AM EDT Office Visit Pharmacy, [address] [place] [address] [place] [address] 05/27/2024 2:20 PM EDT Office Visit Family Medicine [address] [place] [phone] Gardenia Aguirre PA-C [address] [place] [address] [place] [address] 06/11/2024 8:00 AM EDT Office Visit Dermatology [address] [place] [address] Misty Rogel PA-C [address] [place] [address] [place] [address] 11/28/2024 8:20 AM EST Office Visit Family Medicine [address] [place] [phone] Jes Medina MD [address] [place] [address] [place] [address] 02/23/2025 3:40 PM EDT Office Visit Rheumatology [address] [place] [phone] Tony Bruner MD [address] [facility] [place] [address] Health Maintenance Due Date Last Done Comments [...] as of this encounter Visit Diagnoses Diagnosis Depression Depressive disorder, not elsewhere classified documented in this encounter Care Teams Student Life Coordinator Relationship Specialty Start Date End Date Jes Medina MD [address] [place] [address] [place] [address] PCP - General Family Medicine 11/27/23 documented as of this encounter
--- OUTSIDE RECORDS SUMMARY | 2024-08-15 02:59 | External Medical Summary ---
Author Name Unknown Address Unknown Organization K01[place] [place] [address] [place] [address] Laboratory Report Ordering Provider Test Date Status JUSTIN SHIPLEY 03/25/2024 10:11:04 Final Observation Date Value Abnormality Reference (Units ) Status MYCODE SPECIMEN-SST 03/25/2024 10:11:04 Freezing of extracted DNA, whole blood and/or serum. Final Performing Location [facility] [place] [address] [place] [address]
[2024-08-15 03:09] LABS: Basophils # (auto) 0.05 K/uL (0.00-0.20); Basophils % (auto) 0.7 %; Eosinophils # (auto) 0.14 K/uL (0.00-0.50); Hematocrit (blood only) 38.7 % (37.0-47.0); Hemoglobin 13.3 g/dl (12.0-16.0); Immature Granulocytes # (auto) 0.02 K/uL (0.01-0.20); Immature Granulocytes % (auto) 0.3 %; Lymphocytes # (auto) 2.55 K/uL (1.20-3.40); Lymphocytes % (auto) 35.8 %; Mean Corpuscular Hemoglobin 28.9 pg (25.0-34.0); Mean Corpuscular Hgb Conc 34.4 g/dL (32.0-36.0); Mean Corpuscular Volume 84.1 fL (80.0-100.0); Mean Platelet Volume 10.4 fL (9.4-12.4); Monocytes # (auto) 0.52 K/uL (0.11-0.59); Monocytes % (auto) 7.3 %; Neutrophils # (auto) 3.84 K/uL (1.40-6.50); Neutrophils % (auto) 53.9 %; Platelet Count 213 K/uL (130-400); RDW Coefficient of Variation 14.6 % (11.5-14.5); RDW Standard Deviation 44.2 fL (36.4-46.3); White Blood Count 7.12 K/ul (4.8-10.8)
[2024-08-15 03:15] LABS: Albumin Globulin Ratio 1.3 (0.9-2); Albumin Level 3.7 gm/dl (3.4-5.0); BUN Creatinine Ratio 12.5 (10-20); Bilirubin,Total 0.4 mg/dl (0.2-1.0); Calcium 8.6 mg/dl (8.6-10.3); Creatinine Clr Calc Pharmacy 81.9 ml/min; Globulin 2.9 gm/dl (2.5-4.0); Magnesium 2.4 mg/dl (1.7-2.4); Potassium 4.1 mmol/L (3.5-5.1); Total Protein 6.6 gm/dl (6.0-8.3)
[2024-08-15] MEDS: LEVOTHYROXINE SODIUM 137 MCG TABLET PO SCH (05:56)
[2024-08-15 07:26] VITALS: RESP 18
[2024-08-15 07:38] LABS: Estimated Average Glucose 214 mg/dl; Hemoglobin A1C 9.1 % (4.5-5.6)
--- NOTE | 2024-08-15 07:42 | Electrocardiogram Report ---
Test Reason : Blood Pressure : */* mmHG Vent. Rate : 64 BPM Atrial Rate : 64 BPM P-R Int : 152 ms QRS Dur : 98 ms QT Int : 482 ms P-R-T Axes : -80 45 103 degrees QTcB Int : 497 ms Unusual P axis, possible ectopic atrial rhythm with occasional Premature ventricular complexes Electronic atrial pacemaker seen intermittently Low voltage QRS Prolonged QT Abnormal ECG When compared with ECG of 14-Aug-2024 15:04, Ectopic atrial rhythm has replaced Sinus rhythm Electronic atrial pacemaker now present Confirmed by Willy Limon ([id number]) on 08/15/2024 7:42:33 AM Referred By: REFERRED SELF Confirmed By: Willy Limon
--- NOTE | 2024-08-15 09:05 | Electrocardiogram Report ---
Test Reason : Blood Pressure : */* mmHG Vent. Rate : 135 BPM Atrial Rate : 135 BPM P-R Int : 280 ms QRS Dur : 92 ms QT Int : 168 ms P-R-T Axes : 107 -42 -55 degrees QTcB Int : 252 ms Supraventricular tachycardia Low voltage QRS Left axis deviation Pulmonary disease pattern Poor R wave progression, consider anterior AK vs. lead placement vs. LVH Abnormal ECG When compared with ECG of 09-Nov-2021 13:14, Supraventricular tachycardia now present Vent. rate has increased by 70 bpm Confirmed by Willy Limon ([id number]) on 08/14/2024 2:41:07 PM Referred By: Confirmed By: Willy Limon
[2024-08-15] MEDS: ATORVASTATIN 40 MG TAB PO SCH (09:17)
[2024-08-15] MEDS: PANTOprazole 40 MG TAB PO SCH (09:17)
[2024-08-15] MEDS: METOPROLOL SUCC 25MG EXT REL TAB PO SCH (09:18)
[2024-08-15] MEDS: METOPROLOL SUCC 50MG EXT REL TAB PO SCH (09:19)
[2024-08-15] MEDS: EZETIMIBE 10 MG TAB PO SCH (09:19)
[2024-08-15] MEDS: TORSEMIDE 10 MG TAB PO SCH (09:20)
[2024-08-15 11:08] VITALS: PULSE 71; TEMP 98.1; O2SAT 97
--- NOTE | 2024-08-15 12:16 | Cardiology Progress Note ---
Date of Service August 15, 2024 Assessment & Plan (1) Atrial flutter with rapid ventricular response: (2) Nonadherence to medication: (3) Hypomagnesemia: (4) Cardiac sarcoidosis: Plan 08/14/24: Patient admitted to [facility] after receiving 2 AICD shocks due to atrial flutter RVR . [facility] found to have atrial flutter with ventricular rate in the 130's. She admits to non compliance with oral metoprolol. She had run out of the 100 mg tablets on Sunday and was only taking 25 mg (not 125 mg as prescribed) Upon arrival to ER, she was given oral metoprolol 100 mg and started on IV diltiazem. She successfully converted to NSR/atrial paced rhythm with these therapies. She has been taking apixaban without missed doses. Continue metoprolol 125 mg daily. Compliance encouraged continue Apixaban 5 mg BID. If she has recurrent or more frequent arrhythmias, would consider EP evaluation Magnesium was low on arrival - likely due to GI illness this week. Supplementation ordered. Recheck in AM. Mag goal > 2.0 Potassium was also low normal. This was supplemented. Recheck in AM. Goal 4.0- 5.0. She has been non compliant with levothyroxine at home. TSH > 12. Will need to resume therapy and monitor as outpatient. Recent echo with preserved EF, no significant valvular heart disease. Minimally elevated troponin at 24 consistent with Atrial flutter RVR. Not indicative of ACS. Continue other outpatient medications including Atorvastatin, Zetia, Entresto, torsemide. 08/15/24: No recurrent atrial fib/flutter on telemetry. Home/prior dose of metoprolol resumed at 125 mg daily. Adherence to medications discussed. She will need short term supply sent to pharmacy. Discussed with hospitalist. She also needs to take her thyroid medication as prescribed. This needs rechecked as outpatient. Improved potassium and magnesium levels today. Continue current outpatient meds. No changes to cardiac prescriptions. No further cardiac testing warranted. To be discharged today. Discussed with hospitalist. Case discussed with Dr. Quiroga I spent a total of 25 minutes on the date of service in preparation, delivery, and documentation of the care provided to this patient, excluding any time spent in the performance of separately billed services. Eden Waller PA-C Department of Cardiology, [facility] This chart was completed in part utilizing Speech Voice Recognition Software. Grammatical errors, random word insertions, pronoun errors, and incomplete sentences are an occasional consequence of this system due to software limitations, ambient noise, and hardware issues. Any formal questions or concerns about the content, text, or information contained within the body of this dictation should be directly addressed to the provider for clarification. Admission and Anticipated Discharge Date Admission Date: August 14, 2024 Supervising Physician Co-Signing Physician Notes I have personally performed a history and physical examination on the patient. I have reviewed the advance practitioner's documentation, and I agree with, and take responsibility for the plan of care. 58-year-old female presents to the ER after ICD firing x 2 secondary to paroxysmal atrial flutter with rapid ventricular response. History of ICD implantation for primary prevention due to sarcoidosis. Recurrent atrial flutter secondary to noncompliance with beta-thad therapy. Treated with 100 mg oral metoprolol yesterday with return to sinus rhythm. She has remained in sinus rhythm overnight. Continue metoprolol succinate 125 mg daily and oral anticoagulation with Eliquis. No further inpatient cardiac testing or intervention recommended at this time. Cardiology will sign off. Please call with additional concerns/questions. Cortez Quiroga DO, [facility] Subjective Patient resting in bed this morning. No recurrent atrial fib/flutter overnight. She is feeling well. Anxious to go home. no chest pain, SOB. Review of Systems Review of Systems: All systems reviewed & are unremarkable except as noted in HPI & below Physical Exam Constitutional: WD/WN, vitals as above well developed; no acute distress Neck: trachea midline, no thyromegaly Respiratory: normal respiratory effort, lungs clear to auscultation Cardiovascular: RRR, no murmur, no edema Gastrointestinal (Abdomen): normal bowel sounds, soft, nontender, no hepatosplenomegaly Musculoskeletal: no cyanosis or clubbing, extremities motor strength 5/5 Neurologic: PERRL, EOMI, accommodation nl, no face palsy, no dysarthria Psychiatric: A+Ox3, euthymic affect Results & Data Vital Signs (Past 12 Hours) Vital Signs Temp Pulse Pulse Resp BP Pulse Ox O2 Del Method 08/15/24 11:07 36.7 C 71 18 98/66 L 97 Room Air 10/18/24 07:25 36.8 C 65 18 104/66 96 Room Air 08/15/24 07:00 65 08/15/24 03:02 36.6 C 66 20 97/65 L 95 Room Air Laboratory Results Cardiac Enzymes 08/14/24 08/14/24 08/14/24 Range/Units 11:42 14:20 20:00 AST 16 (13-39) U/L Troponin I High Sens 24.4 H 50.9 H* D 47.2 H (0-14) pg/ml 08/15/24 Range/Units 02:44 AST 15 (13-39) U/L Troponin I High Sens 34.1 H D (0-14) pg/ml Coagulation 08/14/24 Range/Units 11:42 PT 10.9 (9.0-12.0) Seconds APTT 27 (21-31) Seconds CBC 08/14/24 08/15/24 Range/Units 11:42 02:44 WBC 6.56 7.12 (4.8-10.8) K/ul RBC 5.21 4.60 (4.20-5.40) M/uL Hgb 14.6 13.3 (12.0-16.0) g/dl Hct 43.4 38.7 (37.0-47.0) % Plt Count 211 213 (130-400) K/uL Neut # (Auto) 4.33 3.84 (1.40-6.50) K/uL Lymph # (Auto) 1.55 2.55 (1.20-3.40) K/uL [place] # (Auto) 0.52 0.52 (0.11-0.59) K/uL Eos # (Auto) 0.11 0.14 (0.00-0.50) K/uL Baso # (Auto) 0.03 0.05 (0.00-0.20) K/uL Comprehensive Metabolic Panel 08/14/24 08/15/24 Range/Units 11:42 02:44 Sodium 139 138 (136-145) mmol/L Potassium 3.8 4.1 (3.5-5.1) mmol/L Chloride 107 109 H (98-107) mmol/L Carbon Dioxide 19 L 24 (21-32) mmol/L BUN 9 11 (6-23) mg/dl Creatinine 1.03 0.88 (0.6-1.2) mg/dl Glucose 208 H 128 H (70-99(Fasting)) mg/dl Calcium 9.3 8.6 (8.6-10.3) mg/dl AST 16 15 (13-39) U/L ALT 14 12 (7-52) U/L Alkaline Phosphatase 88 74 (34-104) U/L Total Protein 7.6 6.6 (6.0-8.3) gm/dl Albumin 4.2 3.7 (3.4-5.0) gm/dl Intake and Output 08/14/24 08/15/24 08/15/24 22:59 06:59 14:59 Intake Total 350 / 1775 225 / 1775 Balance 350 / 1775 225 / 1775 Intake: IV 100 / 1425 125 / 1425 Magnesium Sulfate / D5w 1 gm In 100 / 100 100 ml @ 50 mls/hr IV ONE ONE Rx#:[id number] dilTIAZem HCL 125 mg In 125 / 125 Dextrose 5% 100 ml @ 5 MG/HR 5 mls/hr IV .Q24H [facility] Rx#: [id number] Oral 250 / 350 100 / 350 Other: # Unmeasured Voids 1 1 Weight 100.7 kg 93.032 kg Weight Measurement Method [facility] Built in [facility] Diagnostic Findings Telemetry reviewed: NSR with intermittent pacing in the 60's. No recurrent atrial fib/flutter since admission. Medications Administered Current Inpatient Medications Acetaminophen (Acetaminophen 325 Mg Tab) 650 mg PO Q4H PRN PRN Reason: Pain or Fever Stop: 09/13/24 16:42 Apixaban (Apixaban 5 Mg Tablet) 5 mg PO BID TIFFANY Stop: 09/13/24 20:59 Last Admin: 08/15/24 09:17 Dose: 5 mg Atorvastatin Calcium (Atorvastatin 40 Mg Tab) 80 mg PO DAILY TIFFANY Stop: 09/14/24 08:59 Last Admin: 08/15/24 09:17 Dose: 80 mg Buspirone HCl (Buspirone 5 Mg Tab) 10 mg PO HS TIFFANY Stop: 09/13/24 20:59 Last Admin: 08/14/24 20:13 Dose: 10 mg Dextrose (Dextrose 50% 50 Ml Syringe) 25 - 50 ml IV UD PRN; Protocol PRN Reason: Hypoglycemia Protocol Stop: 09/13/24 16:42 Ezetimibe (Ezetimibe 10 Mg Tab) 10 mg PO DAILY TIFFANY Stop: 09/14/24 08:59 Last Admin: 08/15/24 09:19 Dose: 10 mg Escitalopram Oxalate (Escitalopram Oxalate 10 Mg Tab) 10 mg PO HS TIFFANY Stop: 09/13/24 20:59 Last Admin: 08/14/24 20:13 Dose: 10 mg Famotidine (Famotidine 20 Mg Tab) 20 mg PO DAILY PRN PRN Reason: Heartburn Stop: 09/13/24 16:42 Famotidine (Famotidine 20 Mg Tab) 20 mg PO HS TIFFANY Stop: 09/13/24 20:59 Last Admin: 08/14/24 20:13 Dose: 20 mg Glucagon (Glucagon For Inj 1 Mg Vial) 1 mg SQ UD PRN; Protocol PRN Reason: Hypoglycemia Protocol Stop: 09/13/24 16:42 Glucose (Glucose 40% Gel 15 Gm Tube) 15 - 30 gm PO UD PRN; Protocol PRN Reason: Hypoglycemia Protocol Stop: 09/13/24 16:42 Glucose (Glucose 10 Tab/Tube) 4 - 8 tab PO UD PRN; Protocol PRN Reason: Hypoglycemia Treatment Stop: 09/13/24 16:42 Influenza Virus Vacc Triv Types A&B (Influenza Vacc [id number](6m+)/Pf (Iiv3) 0.5ml Syr) 0.5 ml IM .ONCE ONE Stop: 08/15/24 16:56 Insulin Aspart (Insulin Aspart Per Unit Charge) 0 units SC ACHS [facility] Stop: 09/13/24 16:42 Last Admin: 08/15/24 09:12 Dose: 3 units Insulin Glargine (Lantus Per Unit Charge) 0 units SQ HS TIFFANY Stop: 09/13/24 20:59 Last Admin: 08/14/24 20:20 Dose: 15 units Levothyroxine Sodium (Levothyroxine Sodium 137 Mcg Tablet) 137 mcg PO DAILY@0630 TIFFANY Stop: 09/14/24 06:29 Last Admin: 08/15/24 05:56 Dose: 137 mcg Magnesium Oxide (Magnesium Oxide 400 Mg Tab) 400 mg PO QAM [facility] Stop: 09/13/24 16:42 Last Admin: 08/15/24 09:16 Dose: 400 mg Melatonin (Melatonin 3 Mg Tab) 6 mg PO HS PRN PRN Reason: Sleep Stop: 09/13/24 20:59 Metoprolol Succinate (Metoprolol Succ 50mg Ext Rel Tab) 100 mg PO DAILY TIFFANY Stop: 09/14/24 08:59 Last Admin: 08/15/24 09:19 Dose: 100 mg Metoprolol Succinate (Metoprolol Succ 25mg Ext Rel Tab) 25 mg PO DAILY TIFFANY Stop: 09/14/24 08:59 Last Admin: 08/15/24 09:18 Dose: 25 mg Miscellaneous (Carbohydrates For Hypoglycemia ) 15 - 30 gm PO UD PRN PRN Reason: Hypoglycemia Protocol Stop: 09/13/24 16:42 Miscellaneous (Farxiga 10mg---Order Awaiting Action) 1 each N/A QS [facility] Stop: 09/14/24 00:00 Last Admin: 08/15/24 09:15 Dose: Not Given Ondansetron HCl (Ondansetron Inj 2 Mg/Ml 2 Ml Vial) 4 mg IV Q6H PRN PRN Reason: Nausea Stop: 09/13/24 16:42 Pantoprazole Sodium (Pantoprazole 40 Mg Tab) 40 mg PO DAILY TIFFANY Stop: 09/14/24 08:59 Last Admin: 08/15/24 09:17 Dose: 40 mg Polyethylene Glycol (Polyethylene (Miralax) 17 Gm Pack) 17 gm PO DAILY PRN PRN Reason: Constipation Stop: 09/13/24 16:42 Sacubitril/Valsartan (Valsartan/Sacubitril 51/49 Mg Tab) 1 tab PO BID TIFFANY Stop: 09/13/24 20:59 Last Admin: 08/15/24 09:18 Dose: 1 tab Sucralfate (Sucralfate 1 Gm Tab) 1 gm PO QID TIFFANY Stop: 09/13/24 16:59 Last Admin: 08/15/24 09:18 Dose: 1 gm Torsemide (Torsemide 10 Mg Tab) 10 mg PO MoWeFr@0900 TIFFANY Stop: 09/14/24 08:59 Last Admin: 08/15/24 09:20 Dose: 10 mg Trazodone HCl (Trazodone Hcl 100 Mg Tab) 100 mg PO HS TIFFANY Stop: 09/13/24 20:59 Last Admin: 08/14/24 20:13 Dose: 100 mg
--- NOTE | 2024-08-15 12:42 | Hospitalist Progress Note ---
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 Pt presents to ED after sustaining chest pressure, SOB and her ICD firing x 2 approx 20 minutes apart. Interrogation revealed HR in 200s with likely atrial flutter. Pt reports recent GI illness as well as missing her metoprolol succinate dose at least for 3 days. Atrial flutter with RVR Elevated troponin Nonadherence to medication due to running out of supply Diltiazem discontinue resumed home metoprolol On Eliquis for anticoagulation Appreciate cardiology input Last echo 07/09/24 preserved EF replace electrolytes as needed Hypomagnesemia replace and Monitor Cardiac sarcoidosis Hx of nonischemic Cardiomyopathy Chronic HFpEF CAD continue eliquis, statin, zetia, repatha, metoprolol, entreso, farxiga and torsemide pt reports she has not been taking her torsemide due to lifestyle and it making her urinate daily weights, strict I and O, she reports recent weight loss/no edema DM II HbA1c 6.8 in January, will repeat as pt has not been taking lantus lantus/novolog per protocol GERD: on PPI/H2 thad - pt reports heartburn x 2 months, will add sucralfate Complicated grief: Pt lost her 3 months ago and is under a lot of stress Hypothyroidism: TSH high, T4 low normal - will increase levothyroxine to 137.5mcg, recommend repeat TSH in 6 weeks DVT Px: Eliquis CODE STATUS DNR/DNI Disposition Home Admission and Anticipated Discharge Date Admission Date: August 14, 2024 Subjective Patient is seen and examined at bedside States having mild left shoulder pain secondary to the fall yesterday Otherwise no complaints today Denies any chest pain, dyspnea, nausea, vomiting, abdominal pain, palpitations Discussed with cardiology today Plan to be discharged home today Review of Systems Review of Systems: All systems reviewed & are unremarkable except as noted in Subjective Physical Exam Physical Exam: Physical Exam: Vitals signs as noted above General Appearance:Obese, no apparent distress Head: normocephalic, Atraumatic Eyes: normal inspection, EOMI Neck: supple, Trachea midline Respiratory/Chest: Normal breath sounds, CTA, No accessory muscle use Cardiovascular: S1, S2, No murmur, +ICD Abdomen/GI:Soft, Non tender, Bowel sounds present Extremities/Musculoskeletal:normal inspection, no edema Neurologic/Psych:AAOX3, grossly no focal neurological deficits Skin: normal color, warm Results & Data Results & Data Vital Signs (Past 12 Hours) Vital Signs Temp Pulse Pulse Resp BP Pulse Ox O2 Del Method 08/15/24 11:07 36.7 C 71 18 98/66 L 97 Room Air 08/15/24 07:25 36.8 C 65 18 104/66 96 Room Air 08/15/24 07:00 65 08/15/24 03:02 36.6 C 66 20 97/65 L 95 Room Air Laboratory Results Short CBC 08/15/24 Range/Units 02:44 WBC 7.12 (4.8-10.8) K/ul Hgb 13.3 (12.0-16.0) g/dl Hct 38.7 (37.0-47.0) % Plt Count 213 (130-400) K/uL BMP 08/15/24 02:44 Sodium 138 Potassium 4.1 Chloride 109 H Carbon Dioxide 24 BUN 11 Creatinine 0.88 Glucose 128 H Calcium 8.6 Liver Function 08/15/24 Range/Units 02:44 Total Bilirubin 0.4 (0.2-1.0) mg/dl AST 15 (13-39) U/L ALT 12 (7-52) U/L Alkaline Phosphatase 74 (34-104) U/L Albumin 3.7 (3.4-5.0) gm/dl
--- NOTE | 2024-08-15 13:04 | Discharge Summary ---
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 Hx obtained from pt and op chart review. Her last echo was in Jun of 07/09/24 which showed stable findings, no valvular heart disease and preserved EF. Around 930 she started to feel substernal chest heaviness and shortness of breath. She tried to lean forward to make it easier to breath and she felt her ICD fire, "it blew up." She thene then fell backward. She was able to get herself up and went to sit down on toilet. After she sat down she began to feel chest heaviness again and an additional ICD shock occurred. These episodes were approximately 20 minutes apart. She then summoned EMS. This has never happened in the past. Per ED provider her pacemaker was interrogated and pt was having sustained atrial flutter in the 200s. Upon presentation to ED she was persistent in the 130s. She received IV magnesium along with IVF and 10mg IV diltiazem. She was eventually started on diltiazem gtt. She reports through Sunday and Sunday she had a GI illness consistent with nausea and diarrhea. She also had poor appetite. She also reports not being compliant with her medication due to running out of them. She reports not taking her 100 mg of metoprolol for at least 3 days as well as missing her insulin. She also reports not taking her methotrexate yesterday because she, "forgot. "She reports being under a lot of stress. Her passed 3 months ago and she reports she was left with a mess. Currently in ED she is chest pain free. She reports persistent heart burn for last 2 months despite pepcid/PPI. She denies current f/c/s, chest pain, sob, n/v/d, abd pain. She is now moving bowels regularly and denies any urinary sx. She denies any sick contacts. Admission Exam Per Admitting Provider Gen: WD/WN,F, NAD, A&O x3 HEENT: Normocephalic, atraumatic, conjunctivae moist, sclerae anicteric, mucous membranes moist. Lung: Clear to Auscultation bilaterally, no wheezes/rales/rhonchi Heart: IRR/IRR, ICD noted LACW, no murmurs, rubs, or gallops Abdomen: Soft, NT, ND +BS x 4 Extremities: No edema Skin: Warm, no rash, negative turgor. Principal Diagnosis Atrial flutter with RVR Hypomagnesemia Hypothyroidism Discharge Data Allergies Allergy/AdvReac Type Severity Reaction Status Date / Time lisinopril AdvReac Intermediate cough Unverified 01/23/24 13:32 Consultations 08/14/24 13:09 ED Decision to Admit Stat 08/14/24 13:59 Consult Cardiology Routine Procedures Performed Short CBC 08/15/24 Range/Units 02:44 WBC 7.12 (4.8-10.8) K/ul Hgb 13.3 (12.0-16.0) g/dl Hct 38.7 (37.0-47.0) % Plt Count 213 (130-400) K/uL BMP 08/15/24 02:44 Sodium 138 Potassium 4.1 Chloride 109 H Carbon Dioxide 24 BUN 11 Creatinine 0.88 Glucose 128 H Calcium 8.6 Liver Function 08/15/24 Range/Units 02:44 Total Bilirubin 0.4 (0.2-1.0) mg/dl AST 15 (13-39) U/L ALT 12 (7-52) U/L Alkaline Phosphatase 74 (34-104) U/L Albumin 3.7 (3.4-5.0) gm/dl Diabetes Follow up Diabetes Follow-up Needed for HgbA1c >9% Hospital Course (1) Atrial flutter with rapid ventricular response: (2) Elevated troponin I level: (3) Hypomagnesemia: (4) Nonadherence to medication: (5) CAD (coronary artery disease): (6) Cardiac sarcoidosis: (7) Diabetes mellitus, type II: Plan Patient is a 58 yr old F who has a significant PMH of cardiac 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 Pt presents to ED after sustaining chest pressure, SOB and her ICD firing x 2 approx 20 minutes apart. Interrogation revealed HR in 200s with likely atrial flutter. Pt reports recent GI illness as well as missing her metoprolol succinate dose at least for 3 days. Atrial flutter with RVR Elevated troponin Nonadherence to medication due to running out of supply Diltiazem discontinue resumed home metoprolol On Eliquis for anticoagulation Appreciate cardiology input Last echo 07/09/24 preserved EF replace electrolytes as needed Hypomagnesemia replace and Monitor Cardiac sarcoidosis Hx of nonischemic Cardiomyopathy Chronic HFpEF CAD continue eliquis, statin, zetia, repatha, metoprolol, entreso, farxiga and torsemide pt reports she has not been taking her torsemide due to lifestyle and it making her urinate daily weights, strict I and O, she reports recent weight loss/no edema DM II HbA1c 6.8 in January, will repeat as pt has not been taking lantus lantus/novolog per protocol GERD: on PPI/H2 thad - pt reports heartburn x 2 months, will add sucralfate Complicated grief: Pt lost her 3 months ago and is under a lot of stress Hypothyroidism: TSH high, T4 low normal - will increase levothyroxine to 137.5mcg, recommend repeat TSH in 6 weeks DVT Px: Eliquis CODE STATUS DNR/DNI Disposition Home Total Time Total Time Spent Total Time Spent (In Minutes): 45 minutes Discharge Plan Discharge Items Patient Disposition: Home - Self-Care Reason For Visit: ATRIAL FLUTTER Discharge Diagnosis: Atrial flutter with RVR Hypomagnesemia Hypothyroidism Activity: Per Instructions section Exercise/Sports: Gradually increase as tolerated Non-emergency contact: Primary Care Provider Call non-emergency contact if: you have any medication questions, your symptoms worsen, your pain is concerning for you and you have a fever Follow-up/Referrals: Jes Medina MD [Primary Care Provider] - (Date & Time 08/19/2024 2:20 PM Provider Jes Medina MD Department [facility] ) Diet: Carb Consistent or DM2 and Heart Healthy Addtl Attending Provider Instructions: Follow-up with your primary care physician in 1 week -- Your thyroid function test was abnormal noticed during your hospitalization. Will increase your levothyroxine dose to 137.5 mcg daily Get repeat blood work(thyroid function test) in 4 to 6 weeks for further adjustment of medications as needed Seek immediate medical attention if your symptoms reoccur or worsen Please take all medications as instructed on discharge list below. Please call if you have any questions or problems. You can reach a [facility] hospitalist on duty at [facility] 24 hours a day by calling [phone] Pending Studies at Discharge: No Stand-Alone Forms: My [facility], Smoking Cessation Medications and DC Order Prescriptions: New levothyroxine 137 mcg Tablet 137 mcg PO DAILY@0630 30 Days Qty: 30 1RF sucralfate 1 gram Tablet 1 g PO QID 10 Days Qty: 40 0RF (DME) blood-glucose meter [FreeStyle Lite Meter] Kit See Rx Instructions .Route Qty: 1 0RF Rx Instructions: As directed magnesium chloride 64 mg tablet,delayed release (DR/EC) 64 mg PO BID Qty: 60 0RF Continued atorvastatin 80 mg tablet 80 mg PO DAILY torsemide 10 mg Tablet 10 mg PO MOWEFR pantoprazole 20 mg tablet,delayed release (DR/EC) 40 mg PO DAILY famotidine 20 mg tablet 20 mg PO HS methotrexate sodium 2.5 mg tablet 15 mg PO WE trazodone 100 mg Tablet 100 mg PO HS buspirone 10 mg tablet 10 mg PO HS escitalopram oxalate 10 mg Tablet 10 mg PO HS ezetimibe 10 mg Tablet 10 mg PO DAILY insulin glargine 100 unit/mL (3 mL) Insulin Pen 40 unit SUBCUT HS apixaban 5 mg Tablet 5 mg PO BID dapagliflozin propanediol [Farxiga] 10 mg Tablet 10 mg PO QAM Trulicity 0.75 mg/0.5 mL Pen Injector 0.75 mg SUBCUT WK Entresto 49-51 mg Tablet 1 tab PO BID Repatha SureClick 140 mg/mL pen injector 140 mg SUBCUT Q14D metoprolol succinate 100 mg tablet extended release 24 hr 100 mg PO DAILY Qty: 30 1RF Rx Instructions: take with 25 to = 125mg metoprolol succinate 25 mg tablet extended release 24 hr 25 mg PO DAILY Qty: 30 1RF Rx Instructions: take with 100 to = 125mg Discontinued levothyroxine 125 mcg tablet 125 mcg PO DAILY@0630 Discharge Orders: Discharge Order (Routine); Ordered 08/15/24 Ordered By: Victorino Arrington Admission Data Admit Date/Time: 08/14/24 13:25 Attending Provider: Victorino Arrington Admit Provider: Rubi López Primary Care Provider: Jes Medina Other Providers: Rubi López; Cortez Quiroga
[2024-08-15 13:17] VITALS: BP 95/62
[2024-08-15] MEDS ORDERED: INFLUENZA VACC TS2024-25(6m+)/PF (IIV3) 0.5mL Syr IM ONE (16:55)
== END 2024-08-15 13:49 | disposition home or self-care (01) | DRG 309 ==
LOC: ED 11:33 → 2S 13:25 → SUATTDRO 13:25 → 2S 17:06
DX: E11.9 Type 2 diabetes mellitus without complications; E66.9 Obesity, unspecified; Z66 Do not resuscitate; I25.10 Atherosclerotic heart disease of native coronary artery without angina pectoris; E03.9 Hypothyroidism, unspecified; E83.42 Hypomagnesemia; Z88.8 Allergy status to other drugs, medicaments and biological substances; Z68.34 Body mass index [BMI] 34.0-34.9, adult; D86.85 Sarcoid myocarditis; I48.0 Paroxysmal atrial fibrillation; Z79.01 Long term (current) use of anticoagulants; Z79.82 Long term (current) use of aspirin; Z86.19 Personal history of other infectious and parasitic diseases; Z95.810 Presence of automatic (implantable) cardiac defibrillator; Z79.02 Long term (current) use of antithrombotics/antiplatelets; I48.92 Unspecified atrial flutter; Z79.899 Other long term (current) drug therapy; K21.9 Gastro-esophageal reflux disease without esophagitis; Z98.1 Arthrodesis status; Z91.128 Patient's intentional underdosing of medication regimen for other reason; Z11.52 Encounter for screening for COVID-19; Z79.890 Hormone replacement therapy; F43.81 Prolonged grief disorder; I50.32 Chronic diastolic (congestive) heart failure; I25.2 Old myocardial infarction; I11.0 Hypertensive heart disease with heart failure; Z87.891 Personal history of nicotine dependence; Z79.4 Long term (current) use of insulin; Z86.73 Personal history of transient ischemic attack (TIA), and cerebral infarction without residual deficits; E78.5 Hyperlipidemia, unspecified; I24.89 Other forms of acute ischemic heart disease

== ENCOUNTER 2025-05-01 12:13 | Observation (INO) ==
[2025-05-01] MEDS: SODIUM CHLORIDE 0.9% 1,000 ML IV STA (12:39)
[2025-05-01] MEDS: KETOROLAC TROMETHAMINE 15 MG/ML VIAL IV ONE (12:40)
[2025-05-01] MEDS: ACETAMINOPHEN 1,000 MG/100 ML VIAL IV STA (12:40)
[2025-05-01] MEDS: ONDANSETRON INJ 2 MG/ML 2 ML VIAL IV STA (12:40)
--- NOTE | 2025-05-01 12:41 | Emergency Department Note ---
Impression & Plan Pyelonephritis, Tachycardia, Bilateral flank pain, Failure of outpatient treatment ED Provider Note NAME: SHANELLE GUERRERO AGE: 59 SEX: F : 1965 ARRIVES VIA: Walk-In INFORMANT: [Patient] ED PROVIDER(S): [Eliecer Godoy MD] CHIEF COMPLAINT: Urinary symptoms HISTORY OF PRESENT ILLNESS: The patient is a 59-year-old female who states that 6 or so days ago, she began noticing some urinary frequency and burning. She went to her doctor's office 4 days ago and was placed on Bactrim. 2 days ago, she was switched to Macrobid as there was some resistance in the urine culture. The patient states that things are no better, she still has the urinary symptoms. She has been chilled with nausea and has been quite dizzy especially to stand. In the last 24 hours, she has not noticed flank pain, worse on the right. Of note, urine culture results from 04/27/2025 showed 100,000 E. coli susceptible to Augmentin, cefazolin, cefepime, ceftriaxone, ciprofloxacin, levofloxacin, nitrofurantoin and Zosyn. There was resistance to Bactrim, gentamicin. PMHx/PSHx/Social Hx: See Below PHYSICAL EXAM: GENERAL: Patient is in no acute distress. HEENT: No acute trauma, normocephalic atraumatic, mucous membranes moist, no nasal congestion. NECK: No stridor, no adenopathy, no meningismus, trachea is midline. LUNGS: Clear to auscultation bilaterally, no wheeze, no rhonchi, breath sounds equal. HEART: Tachycardic, regular rhythm, no murmurs. ABDOMEN: Soft, nontender, no peritonitis. EXTREMITIES: No cyanosis, full range of motion of all the joints without pain or difficulty. NEUROLOGIC: Oriented x 3, no acute motor or sensory deficits, no focal weakness. SKIN: No jaundice, no diaphoresis. DIFFERENTIAL DIAGNOSIS: Dehydration, renal failure, hydronephrosis, UTI, pyelonephritis, failed outpatient management, among others. EMERGENCY DEPARTMENT PROCEDURES: MEDICAL DECISION MAKING: There is no leukocytosis or concerning anemia. There is no bandemia. There is a normal platelet count. No renal failure or significant electrolyte abnormality. No concerning liver enzyme elevation. No evidence for pancreatitis. ECG shows a sinus tachycardia, no ischemia or dysrhythmia. Cardiac enzyme testing x 1 is not consistent with acute cardiac injury. Abdominal and pelvis CT does not show any urinary obstruction. No acute surgical pathology. Urine culture results from several days ago did show E. coli with resistance to Bactrim. On exam, the patient was tachycardic, she was not febrile, she was not hypotensive. Patient was given IV saline for hydration, she was given IV Toradol, IV Tylenol IV Zofran and IV ceftriaxone. The patient appears to have pyelonephritis. She presents tachycardic, she feels worse than she did when her symptoms first began. She has failed outpatient treatment and I do think requires IV antibiotic therapy and further hydration therapy. Hospitalization is indicated. I spoke with the patient and case management, the on-call hospitalist was consulted. Prior/Outside records/notes reviewed: Outpatient [facility] records showing her urine culture results. ECG per my interpretation: Indication was tachycardia. The ECG shows a sinus tachycardia with a rate of 114. There is no ST elevation, no PVCs. There is poor R wave progression. QTc was 449. Continuous Cardiac Monitoring per my interpretation: An order was placed for continuous cardiac monitoring. The monitor shows a rate of 121 with sinus tachycardia. Imaging/x-ray results per my interpretation: Chronic Medical/Social conditions affecting care: None Care/Management discussed with: Case management, the on-call hospitalist. Level of care consideration(s): After review of the information above and other included data: --I believe the patient requires escalation of care to admission DISPOSITION: Admission Past Med/Surg History Problem List Failure of outpatient treatment (Acute) Bilateral flank pain (Acute) Tachycardia (Acute) Pyelonephritis (Acute) Nonadherence to medication Atrial flutter with rapid ventricular response Elevated troponin I level (Acute) Hypomagnesemia (Acute) Atrial fibrillation with rapid ventricular response (Acute) Atrial flutter (Acute) Recurrent UTI Abnormal nuclear stress test Chest pressure DVT prophylaxis Acute blood loss anemia Shingles Chronic combined systolic and diastolic heart failure CAD (coronary artery disease) Status post lumbar surgery Neurogenic claudication due to lumbar spinal stenosis Encounter for pre-operative examination Hypertension (Acute) Diabetes mellitus, type II (Acute) Asthma (Chronic) Depression (Chronic) Hypothyroidism (Chronic) GERD (gastroesophageal reflux disease) (Chronic) Dyslipidemia (Chronic) Cerebrovascular disease (Chronic) "left cerebellar ischemic stroke 2011" Diabetes mellitus, type II (Chronic) Hypertension (Chronic) TIA (transient ischemic attack) (Acute) Medical History Poor historian History of COVID-19 2021 or 2022 Elevated troponin I level pt does not know. Hospitalization overnight 07/2024 for cardiac. Presence of combination internal cardiac defibrillator (ICD) and pacemaker heart failure dx...? dx in 2021. Last check pacer 08/14/24 while in hospital [facility]. ICD went off and per pt was shocked twice 07/2024. History of atrial flutter (07/2024) History of atrial fibrillation told about afib in january or february 2024. changed from plavix to eliquis. Hypomagnesemia jul 2024, pt not sure current level. History of recent hospitalization (07/2024) hospitalized overnight, cardiac. [facility]. CAD (coronary artery disease) History of asthma History of myocardial infarction (2013) cath...no stents History of TIA (transient ischemic attack) (2013) pt doesn't know about this History of stroke (2011) residual : LUE weakness. Cardiac sarcoidosis Obesity Spinal stenosis Degenerative disc disease Osteoarthritis Depression Anxiety CHF (congestive heart failure) GERD (gastroesophageal reflux disease) controlled Hypothyroidism Diabetes mellitus, type 2 IDDM Hyperlipemia HTN (hypertension) Surgical History Presence of combination internal cardiac defibrillator (ICD) and pacemaker placed 2021 ? History of lumbar surgery ? details/presence of hardware History of D&C History of transesophageal echocardiography (LILI) History of colonoscopy History of cardiac cath [place]...2014- no stents. [facility]. Family History Other Adopted Family history unknown Social History Smoking Status: Never smoker Tobacco Type: Cigarettes Second Hand Exposure: No; Do You Dip or Chew Tobacco: No; Hx Alcohol Use: No Hx Substance Use: No Preferred Language: Romanian Communication Ability: Effective Visual Impairment: Limited Bunch Maker Required: No Beliefs That Will Affect Care: None marital status: Current Living Situation: Family Current Living Situation Comment: pio age 13 Feels Safe at Home: Yes Assistive Devices: Glasses Allergies Allergies Allergy/AdvReac Type Severity Reaction Status Date / Time lisinopril AdvReac Unknown cough Verified 09/04/24 10:03 Home Meds Home Medications Medication Instructions Recorded Confirmed apixaban 5 mg tablet 5 mg PO BID 08/14/24 09/04/24 atorvastatin 80 mg tablet 80 mg PO HS 08/14/24 09/04/24 buspirone 10 mg tablet 10 mg PO HS 08/14/24 09/04/24 dapagliflozin propanediol 10 mg 10 mg PO QAM 08/14/24 09/04/24 tablet (Farxiga) dulaglutide 0.75 mg/0.5 mL 0.75 mg subcut WK 08/14/24 09/04/24 subcutaneous pen injector (Luis) escitalopram oxalate 10 mg tablet 10 mg PO HS 08/14/24 09/04/24 evolocumab 140 mg/mL subcutaneous 140 mg subcut Q14D 08/14/24 09/04/24 pen injector (Yokasta Mueller) ezetimibe 10 mg tablet 10 mg PO HS 08/14/24 09/04/24 famotidine 20 mg tablet 20 mg PO HS 08/14/24 09/04/24 insulin glargine 100 unit/mL (3 40 unit subcut HS 08/14/24 09/04/24 mL) subcutaneous pen methotrexate sodium 2.5 mg tablet 15 mg PO WE 08/14/24 09/04/24 pantoprazole 20 mg tablet,delayed 40 mg PO QAM 08/14/24 09/04/24 release sacubitril 49 mg-valsartan 51 mg 1 tab PO BID 08/14/24 09/04/24 tablet (Entresto) torsemide 10 mg tablet 20 mg PO UD PRN Edema 08/14/24 09/04/24 trazodone 100 mg tablet 100 mg PO HS 08/14/24 09/04/24 levothyroxine 137 mcg tablet 137 mcg PO QAM 09/04/24 09/04/24 magnesium chloride 64 mg 64 mg PO DAILY 09/04/24 09/04/24 (magnesium chloride) tablet,delayed release metoprolol succinate 100 mg 100 mg PO HS 09/04/24 09/04/24 tablet,extended release 24 hr metoprolol succinate 25 mg 25 mg PO HS 09/04/24 09/04/24 tablet,extended release 24 hr Previous Rx's Medication Instructions Recorded blood-glucose meter (FreeStyle #1 ea 08/15/24 Lite Meter kit) peg 3350-sod [id number] See Rx Instructions PO .COMPLEX #2 08/27/24 178.7-7.3-0.5-1.12-0.9 gram oral mL soln (Suflave) Results & Data (ED) Vital Signs Vital Signs - 24 hr 05/01/25 12:16 05/01/25 12:28 05/01/25 12:37 Temperature 36.9 C Temperature Source Temporal Artery Scan Pulse Rate 122 H 103 H Respiratory Rate 18 Respiratory Effort / Characteristics Non-Labored Spontaneous Respiratory Depth Normal Blood Pressure 143/76 H Blood Pressure Mean 98 Blood Pressure Position Sitting Pulse Oximetry 98 98 Oxygen Delivery Method Room Air Sepsis Recent Fever Within 48 Hours No Sepsis New/Unexplained Change in Mental Status N/A Sepsis Action Taken by Nursing No Action Required Home Medications Current Medication List: was personally reviewed by me Laboratory Data Attestation: I reviewed the patient's lab results. 05/01/25 12:33 05/01/25 12:33 Lab Results 05/01/25 Range/Units 12:33 WBC 8.45 (4.8-10.8) K/ul RBC 5.14 (4.20-5.40) M/uL Hgb 14.8 (12.0-16.0) g/dl Hct 44.3 (37.0-47.0) % MCV 86.2 (80.0-100.0) fL MCH 28.8 (25.0-34.0) pg MCHC 33.4 (32.0-36.0) g/dL RDW Std Deviation 45.1 (36.4-46.3) fL RDW Coeff of Daphnie 14.6 H (11.5-14.5) % Plt Count 242 (130-400) K/uL MPV 10.0 (9.4-12.4) fL Immature Gran % (Auto) 0.4 % Neut % (Auto) 50.9 % Lymph % (Auto) 38.6 % [place] % (Auto) 9.2 % Eos % (Auto) 0.4 % Baso % (Auto) 0.5 % Neut # (Auto) 4.31 (1.40-6.50) K/uL Lymph # (Auto) 3.26 (1.20-3.40) K/uL [place] # (Auto) 0.78 H (0.11-0.59) K/uL Eos # (Auto) 0.03 (0.00-0.50) K/uL Baso # (Auto) 0.04 (0.00-0.20) K/uL Immature Gran # (Auto) 0.03 (0.01-0.20) K/uL PT Cancelled INR Cancelled APTT Cancelled PTT Ratio Cancelled Sodium 139 (136-145) mmol/L Potassium 4.4 (3.5-5.1) mmol/L Chloride 105 (98-107) mmol/L Carbon Dioxide 22 (21-32) mmol/L Anion Gap 12 H (3-11) BUN 14 (6-23) mg/dl Creatinine 0.99 (0.6-1.2) mg/dl Est Cr Clr Drug Dosing 68.3 ml/min eGFR 65.68 BUN/Creatinine Ratio 14.1 (10-20) Glucose 140 H (70-99(Fasting)) mg/dl Calcium 9.6 (8.6-10.3) mg/dl Magnesium 2.0 (1.7-2.4) mg/dl Total Bilirubin 0.9 (0.2-1.0) mg/dl AST 28 (13-39) U/L ALT 38 (7-52) U/L Alkaline Phosphatase 89 (34-104) U/L Troponin I High Sens 9.3 (0-14) pg/ml Total Protein 8.1 (6.0-8.3) gm/dl Albumin 4.1 (3.4-5.0) gm/dl Globulin 4.0 (2.5-4.0) gm/dl Albumin/Globulin Ratio 1.0 (0.9-2) Lipase 32 (11-82) U/L Administered Medications Discontinued Medications Sodium Chloride (Nss) 1,000 mls @ 999 mls/hr IV .Q1H1M STA Stop: 05/01/25 13:22 Last Infusion: 05/01/25 13:49 Dose: Infused Documented By: Admin: 05/01/25 12:39 Dose: 999 mls/hr Documented By: MMF Acetaminophen (Ofirmev) 1,000 mg in 100 mls @ 400 mls/hr IV NOW STA Stop: 05/01/25 12:49 Last Infusion: 05/01/25 13:49 Dose: Infused Documented By: Admin: 05/01/25 12:40 Dose: 400 mls/hr Documented By: MMF Ioversol (Optiray 320 100ml) 90 ml IV ONCE ONE Stop: 05/01/25 13:18 Last Admin: 05/01/25 13:18 Dose: 90 ml Documented By: ELI Ketorolac Tromethamine (Ketorolac Tromethamine 15 Mg/Ml Vial) 10 mg IV NOW ONE Stop: 05/01/25 12:36 Last Admin: 05/01/25 12:40 Dose: 10 mg Documented By: BRII Ondansetron HCl (Ondansetron Inj 2 Mg/Ml 2 Ml Vial) 4 mg IV NOW STA Stop: 05/01/25 12:36 Last Admin: 05/01/25 12:40 Dose: 4 mg Documented By: BRII Imaging Data Radiologist's Impression: Abdomen/Pelvis CT 05/01/25 12:22 HISTORY: UTI. Dizziness and weakness. TECHNIQUE: Helical CT imaging of the abdomen and pelvis was performed with contrast. Images are presented in axial, sagittal, and coronal reformats. COMPARISON: None. FINDINGS: Lung Bases/Inferior Mediastinum: Lung bases are clear. Partially imaged pacer leads. Liver: Unremarkable Gallbladder: Unremarkable Spleen: Unremarkable Adrenals: Unremarkable Pancreas: Unremarkable Kidneys: Unremarkable Stomach/Bowel: Distal esophagus, stomach, and duodenum are unremarkable. The small bowel loops are normal in caliber. Normal caliber appendix in the right pelvis. The colon is normal in caliber. Lymph nodes: Unremarkable Vasculature: Mild atherosclerotic vascular disease. Ectasia of the infrarenal abdominal aorta with aorta measuring up to 2.4 cm in diameter. No abdominal aortic aneurysm. Pelvis: Minimal inflammation along the bladder. No obvious bladder wall thickening. Uterus and ovaries are unremarkable. No free pelvic fluid. Soft Tissues: Unremarkable Bones: Postsurgical changes of posterior instrumented fusion extending from L4-S1. Laminectomy changes at L4-5 and L5-S1. Mild degenerative changes of the spine.Mild degenerative changes of the hips and pelvis. IMPRESSION: * Mild inflammation along the urinary bladder without obvious wall thickening. Recommend correlation with urinalysis for possible acute cystitis. * Additional chronic and/or incidental findings as detailed above. Electronically signed by Lisandro Martinez 05-01-2025 13:41 PM Discharge Plan Visit Data Chief Complaint: Urinary Symptoms Stated Complaint: WORSENING UTI SYMPTOMS, ON ANTIBIOTICS ED Provider: Eliecer Godoy Discharge Problem: Pyelonephritis, Tachycardia, Bilateral flank pain, Failure of outpatient treatment Patient Disposition: Admitted As Inpatient Condition: Fair Forms Stand Alone Forms: My [facility] [employer] Prescriptions Prescriptions: No Action Suflave 178.7-7.3-0.5 gram recon soln See Rx Instructions PO .COMPLEX Qty: 2 0RF Rx Instructions: orally; TAKE FIRST DOSE AT 6 PM AND SECOND DOSE 6 HOURS PRIOR TO PROCEDURE BIN: [id number] PCN: [id number] GROUP: [id number] levothyroxine 137 mcg tablet 137 mcg PO QAM metoprolol succinate 100 mg tablet extended release 24 hr 100 mg PO HS Rx Instructions: take with 25 to = 125mg metoprolol succinate 25 mg tablet extended release 24 hr 25 mg PO HS Rx Instructions: take with 100 to = 125mg magnesium chloride 64 mg tablet,delayed release (DR/EC) 64 mg PO DAILY atorvastatin 80 mg tablet 80 mg PO HS torsemide 10 mg Tablet 20 mg PO UD PRN (Reason: Edema) pantoprazole 20 mg tablet,delayed release (DR/EC) 40 mg PO QAM famotidine 20 mg tablet 20 mg PO HS methotrexate sodium 2.5 mg tablet 15 mg PO WE Patient Comments: trazodone 100 mg Tablet 100 mg PO HS buspirone 10 mg tablet 10 mg PO HS escitalopram oxalate 10 mg Tablet 10 mg PO HS ezetimibe 10 mg Tablet 10 mg PO HS insulin glargine 100 unit/mL (3 mL) Insulin Pen 40 unit SUBCUT HS apixaban 5 mg Tablet 5 mg PO BID dapagliflozin propanediol [Farxiga] 10 mg Tablet 10 mg PO QAM Trulicity 0.75 mg/0.5 mL Pen Injector 0.75 mg SUBCUT WK Patient Comments: sundays Entresto 49-51 mg Tablet 1 tab PO BID Repatha SureClick 140 mg/mL pen injector 140 mg SUBCUT Q14D Patient Comments: due 11/10/24 (DME) blood-glucose meter [FreeStyle Lite Meter] Kit See Rx Instructions .Route Qty: 1 0RF Rx Instructions: As directed Referrals Referrals: Jes Medina MD [Primary Care Provider] -
[2025-05-01 12:47] LABS: Hematocrit (blood only) 44.3 % (37.0-47.0); Hemoglobin 14.8 g/dl (12.0-16.0); Mean Corpuscular Hemoglobin 28.8 pg (25.0-34.0); Mean Corpuscular Volume 86.2 fL (80.0-100.0); Platelet Count 242 K/uL (130-400); RDW Standard Deviation 45.1 fL (36.4-46.3); Red Blood Count 5.14 M/uL (4.20-5.40); White Blood Count 8.45 K/ul (4.8-10.8)
[2025-05-01 13:04] LABS: Immature Granulocytes # (auto) 0.03 K/uL (0.01-0.20); Immature Granulocytes % (auto) 0.4 %
[2025-05-01 13:05] LABS: Alanine Aminotransferase 38.0 U/L (7-52); Albumin Globulin Ratio 1.0 (0.9-2); Alkaline Phosphatase 89.0 U/L (34-104); Anion Gap 12.0 (3-11); Bilirubin,Total 0.9 mg/dl (0.2-1.0); Blood Urea Nitrogen 14.0 mg/dl (6-23); Calcium 9.6 mg/dl (8.6-10.3); Carbon Dioxide 22.0 mmol/L (21-32); Chloride 105.0 mmol/L (98-107); Creatinine Clr Calc Pharmacy 68.3 ml/min; Globulin 4.0 gm/dl (2.5-4.0); Glucose 140.0 mg/dl (70-99(Fasting)); Lipase 32.0 U/L (11-82); Magnesium 2.0 mg/dl (1.7-2.4); Potassium 4.4 mmol/L (3.5-5.1); Sodium 139.0 mmol/L (136-145); Total Protein 8.1 gm/dl (6.0-8.3)
[2025-05-01] MEDS: OPTIRAY 320 100ml IV ONE (13:18)
--- NOTE | 2025-05-01 13:42 | CT Scan Report ---
HISTORY: UTI. Dizziness and weakness. TECHNIQUE: Helical CT imaging of the abdomen and pelvis was performed with contrast. Images are presented in axial, sagittal, and coronal reformats. COMPARISON: None. FINDINGS: Lung Bases/Inferior Mediastinum: Lung bases are clear. Partially imaged pacer leads. Liver: Unremarkable Gallbladder: Unremarkable Spleen: Unremarkable Adrenals: Unremarkable Pancreas: Unremarkable Kidneys: Unremarkable Stomach/Bowel: Distal esophagus, stomach, and duodenum are unremarkable. The small bowel loops are normal in caliber. Normal caliber appendix in the right pelvis. The colon is normal in caliber. Lymph nodes: Unremarkable Vasculature: Mild atherosclerotic vascular disease. Ectasia of the infrarenal abdominal aorta with aorta measuring up to 2.4 cm in diameter. No abdominal aortic aneurysm. Pelvis: Minimal inflammation along the bladder. No obvious bladder wall thickening. Uterus and ovaries are unremarkable. No free pelvic fluid. Soft Tissues: Unremarkable Bones: Postsurgical changes of posterior instrumented fusion extending from L4-S1. Laminectomy changes at L4-5 and L5-S1. Mild degenerative changes of the spine.Mild degenerative changes of the hips and pelvis. IMPRESSION: * Mild inflammation along the urinary bladder without obvious wall thickening. Recommend correlation with urinalysis for possible acute cystitis. * Additional chronic and/or incidental findings as detailed above. Electronically signed by Lisandro Martinez 05-01-2025 13:41 PM
[2025-05-01] MEDS ORDERED: busPIRone 5 MG TAB PO PRN (14:32)
[2025-05-01] MEDS: cefTRIAXone SODIUM 2,000 MG/50 ML BAG IV STA (14:34)
--- NOTE | 2025-05-01 14:46 | History & Physical Report ---
Date of Service May 01, 2025 Assessment & Plan (1) Acute cystitis with positive culture: (2) Failure of outpatient treatment: (3) Pyelonephritis: (4) Hypothyroidism: (5) Diabetes mellitus, type 2: (6) Paroxysmal atrial fibrillation: (7) Chronic heart failure with preserved ejection fraction: Plan Patient 59-year-old female with known E. coli cystitis concern for early pyelonephritis and failed outpatient treatment. With her multiple comorbidities high risk for sepsis. Observe in the hospital Continue IV Rocephin Monitor blood cultures Recheck labs in a.m. Continue outpatient medications as ordered Continue monitor glucose and cover with insulin as needed Toradol as needed for any flank pain, NSAIDs often been quite effective for early pyelonephritis pain Anticipate if shows considerable improvement over the next 24 hours could be discharged home on oral fluoroquinolone History of Present Illness Chief Complaint: Weakness, urinary complaints Primary Care Provider: Jes Medina MD Patient is a 59-year-old female who last Sunday started with some urinary frequency and burning. Made a appointment with her PCP this past Sunday and was diagnosed with a UTI on urinalysis in the office. She was initially started on Bactrim. Subsequently urine culture grew out E. coli was resistant to Bactrim and she was transition to Macrobid on Sunday. She is taken about 3 doses of the Macrobid. Came to the emergency room today because she was still having urinary frequency, some incontinence, generalized malaise and weakness. In the emergency room laboratory workup was unremarkable for acute findings. CT of the abdomen did not show definitive pyelonephritis did show evidence of some cysti tis. She did have some flank pain on initial examination. Urine culture and sensitivities were reviewed available. E. coli was resistant to the Bactrim, sensitive Macrobid. Due to the patient's persistent symptoms and concerned that she had failed outpatient therapy was referred to our service. Time my evaluation patient is feeling well. States that her malaise and her flank pain has resolved. She is not sure if she had a fevers at home she did not take her temperature. But did continue with urinary complaints. She states that she has been doing well with her all her other medical issues. No chest pain, no shortness of breath. She is been eating and drinking well. No new swelling in her hands arms legs or feet. No new joint pains. No new changes in her bowel habits. No cough or cold symptoms. Allergies Allergy/AdvReac Type Severity Reaction Status Date / Time lisinopril AdvReac Unknown cough Verified 09/04/24 10:03 Home Medications Medication Instructions Recorded Confirmed Type apixaban 5 mg tablet 5 mg PO BID 08/14/24 09/04/24 History atorvastatin 80 mg tablet 80 mg PO HS 08/14/24 09/04/24 History buspirone 10 mg tablet 10 mg PO HS 08/14/24 09/04/24 History dapagliflozin propanediol 10 mg 10 mg PO QAM 08/14/24 09/04/24 History tablet (Farxiga) dulaglutide 0.75 mg/0.5 mL 0.75 mg subcut WK 08/14/24 09/04/24 History subcutaneous pen injector (Trulicity) escitalopram oxalate 10 mg tablet 10 mg PO HS 08/14/24 09/04/24 History evolocumab 140 mg/mL subcutaneous 140 mg subcut Q14D 08/14/24 09/04/24 History pen injector (Repatha SureClick) ezetimibe 10 mg tablet 10 mg PO HS 08/14/24 09/04/24 History famotidine 20 mg tablet 20 mg PO HS 08/14/24 09/04/24 History insulin glargine 100 unit/mL (3 40 unit subcut HS 08/14/24 09/04/24 History mL) subcutaneous pen methotrexate sodium 2.5 mg tablet 15 mg PO WE 08/14/24 09/04/24 History pantoprazole 20 mg tablet,delayed 40 mg PO QAM 08/14/24 09/04/24 History release sacubitril 49 mg-valsartan 51 mg 1 tab PO BID 08/14/24 09/04/24 History tablet (Entresto) torsemide 10 mg tablet 20 mg PO UD PRN Edema 08/14/24 09/04/24 History trazodone 100 mg tablet 100 mg PO HS 08/14/24 09/04/24 History blood-glucose meter (FreeStyle #1 ea 08/15/24 Rx Lite Meter kit) peg 3350-sod [id number] See Rx Instructions PO .COMPLEX #2 08/27/24 Rx 178.7-7.3-0.5-1.12-0.9 gram oral mL soln (Suflave) levothyroxine 137 mcg tablet 137 mcg PO QAM 09/04/24 09/04/24 History magnesium chloride 64 mg 64 mg PO DAILY 09/04/24 09/04/24 History (magnesium chloride) tablet,delayed release metoprolol succinate 100 mg 100 mg PO HS 09/04/24 09/04/24 History tablet,extended release 24 hr metoprolol succinate 25 mg 25 mg PO HS 09/04/24 09/04/24 History tablet,extended release 24 hr Past Med/Surg History Problem List (Updated 05/01/25 @ 14:44 by Bebeto Casas DO) Chronic heart failure with preserved ejection fraction Paroxysmal atrial fibrillation Acute cystitis with positive culture Failure of outpatient treatment (Acute) Bilateral flank pain (Acute) Tachycardia (Acute) Pyelonephritis (Acute) Nonadherence to medication Atrial flutter with rapid ventricular response Elevated troponin I level (Acute) Hypomagnesemia (Acute) Atrial fibrillation with rapid ventricular response (Acute) Atrial flutter (Acute) Recurrent UTI Abnormal nuclear stress test Chest pressure DVT prophylaxis Acute blood loss anemia Shingles Chronic combined systolic and diastolic heart failure CAD (coronary artery disease) Status post lumbar surgery Neurogenic claudication due to lumbar spinal stenosis Encounter for pre-operative examination Hypertension (Acute) Diabetes mellitus, type II (Acute) Asthma (Chronic) Depression (Chronic) Hypothyroidism (Chronic) GERD (gastroesophageal reflux disease) (Chronic) Dyslipidemia (Chronic) Cerebrovascular disease (Chronic) "left cerebellar ischemic stroke 2011" Diabetes mellitus, type II (Chronic) Hypertension (Chronic) TIA (transient ischemic attack) (Acute) Medical History Poor historian History of COVID-19 2021 or 2022 Elevated troponin I level pt does not know. Hospitalization overnight 07/2024 for cardiac. Presence of combination internal cardiac defibrillator (ICD) and pacemaker heart failure dx...? dx in 2021. Last check pacer 08/14/24 while in hospital [facility]. ICD went off and per pt was shocked twice 07/2024. History of atrial flutter (07/2024) History of atrial fibrillation told about afib in january or february 2024. changed from plavix to eliquis. Hypomagnesemia jul 2024, pt not sure current level. History of recent hospitalization (07/2024) hospitalized overnight, cardiac. [facility]. CAD (coronary artery disease) History of asthma History of myocardial infarction (2013) cath...no stents History of TIA (transient ischemic attack) (2013) pt doesn't know about this History of stroke (2011) residual : LUE weakness. Cardiac sarcoidosis Obesity Spinal stenosis Degenerative disc disease Osteoarthritis Depression Anxiety CHF (congestive heart failure) GERD (gastroesophageal reflux disease) controlled Hypothyroidism Diabetes mellitus, type 2 IDDM Hyperlipemia HTN (hypertension) Surgical History Presence of combination internal cardiac defibrillator (ICD) and pacemaker placed 2021 ? History of lumbar surgery ? details/presence of hardware History of D&C History of transesophageal echocardiography (LILI) History of colonoscopy History of cardiac cath [place]...2013- no stents. [facility]. Family History Other Adopted Family history unknown Social History Smoking Status: Never smoker Tobacco Type: Cigarettes Second Hand Exposure: No; Do You Dip or Chew Tobacco: No; Hx Alcohol Use: No Hx Substance Use: No Preferred Language: Maldivian Communication Ability: Effective Visual Impairment: Limited Make Up Artist Required: No Beliefs That Will Affect Care: None marital status: Current Living Situation: Family Current Living Situation Comment: pio age 13 Feels Safe at Home: Yes Assistive Devices: Glasses Review of Systems Review of Systems: Pertinent positive and negative review of systems as mentioned in the HPI Physical Exam Physical Exam: Constitutional: Alert, mildly ill in appearance, nontoxic HEENT: Mucous membranes moist. Sclera clear Neck: Soft, no adenopathy Lungs: Clear to auscultation, decreased, no wheezes rales or rhonchi CV: S1-S2, regular Abdomen: Soft, nontender, nondistended Extremities: Trace ankle edema Musculoskeletal: No significant joint tenderness Neuro: No focal deficits Psych: Cooperative, normal mood Results & Data Results & Data Vital Signs (Past 12 Hours) Vital Signs Temp Pulse Pulse Resp BP BP Pulse Ox 05/01/25 14:33 92 H 21 110/71 97 05/01/25 12:37 103 H 07/04/25 12:28 98 05/01/25 12:16 36.9 C 122 H 18 143/76 H 98 O2 Del Method 05/01/25 14:33 Room Air 05/01/25 12:37 05/01/25 12:28 05/01/25 12:16 Room Air Diagnostic Findings Reviewed imaging, laboratory and diagnostic studies. Pertinent findings as below. Reviewed outside EMR: Urine culture growing E. coli intermediate to ampicillin, resistant to gentamicin, resistant to trimethoprim. Sensitive to all other antibiotics tested including ceftriaxone and fluoroquinolones CBC within normal ranges WBCs 8.4 Electrolytes within normal ranges Creatinine 0.99 Glucose of 140 LFTs within normal range Lipase 32 CT of the abdomen pelvis showed some mild inflammation of the urinary bladder Code Status & VTE Plan VTE Prophylaxis Plan VTE Prophylaxis will be ordered: No Reason for no VTE drug order: Contraindicated
[2025-05-01 14:55] LABS: INR 1.1 (0.9-1.1); Partial Thromboplastin Time 28 Seconds (21-31); Prothrombin Time 11.5 Seconds (9.0-12.0)
[2025-05-01] MEDS ORDERED: GLUCOSE 40% GEL 15 GM TUBE PO PRN ×2 (15:20→15:30)
[2025-05-01] MEDS ORDERED: MAGNESIUM HYDROXIDE SUSP 30 ML UDC PO PRN (15:20)
[2025-05-01] MEDS ORDERED: cefTRIAXone SODIUM 1,000 MG/50 ML BAG IV SCH (15:20)
[2025-05-01] MEDS ORDERED: CARBOHYDRATES FOR HYPOGLYCEMIA PO PRN ×2 (15:20→15:30)
[2025-05-01] MEDS ORDERED: DEXTROSE 50% 50 ML SYRINGE IV PRN ×2 (15:20→15:30)
[2025-05-01] MEDS ORDERED: GLUCAGON FOR INJ 1 MG VIAL SQ PRN ×2 (15:20→15:30)
[2025-05-01] MEDS ORDERED: GLUCOSE 10 TAB/TUBE PO PRN ×2 (15:20→15:30)
[2025-05-01] MEDS: INSULIN ASPART PER UNIT CHARGE SC SCH (17:10)
[2025-05-01 17:43] LABS: Appearance Urine Clear (Clear); Bacteria Urine Automated None Seen (None Seen); Cast Urine Automated 0-2 /lpf (0-2); Epithelial Cell Urine Auto 0-2 /hpf (0-2); Glucose Urine UA 1+ (Negative); RBC Urine Automated >20 /hpf (0-2)
[2025-05-01 20:10] VITALS: O2SAT 97
[2025-05-01] MEDS: ACETAMINOPHEN 325 MG TAB PO PRN (20:13)
[2025-05-01] MEDS: METOPROLOL SUCC 25MG EXT REL TAB PO SCH (20:29)
[2025-05-01] MEDS: FAMOTIDINE 20 MG TAB PO SCH (20:29)
[2025-05-01] MEDS: METOPROLOL SUCC 50MG EXT REL TAB PO SCH (20:29)
[2025-05-01] MEDS: APIXABAN 5 MG TABLET PO SCH (20:30)
[2025-05-01] MEDS: ATORVASTATIN 40 MG TAB PO SCH (20:30)
[2025-05-01] MEDS: VALSARTAN/SACUBITRIL 51/49 MG TAB PO SCH (20:30)
[2025-05-01] MEDS: EZETIMIBE 10 MG TAB PO SCH (20:30)
[2025-05-01] MEDS: LANTUS PER UNIT CHARGE SC SCH (20:37)
[2025-05-02] MEDS: KETOROLAC TROMETHAMINE 15 MG/ML VIAL IV PRN (04:40)
[2025-05-02] MEDS: ONDANSETRON INJ 2 MG/ML 2 ML VIAL IV PRN (04:41)
[2025-05-02 07:16] LABS: Anion Gap 5.0 (3-11); Blood Urea Nitrogen 14.0 mg/dl (6-23); Calcium 8.5 mg/dl (8.6-10.3); Carbon Dioxide 25.0 mmol/L (21-32); Chloride 109.0 mmol/L (98-107); Creatinine Clr Calc Pharmacy 85.6 ml/min; Glucose 133.0 mg/dl (70-99(Fasting)); Potassium 3.8 mmol/L (3.5-5.1); Sodium 139.0 mmol/L (136-145)
[2025-05-02 07:36] VITALS: BP 129/77; PULSE 79; RESP 16; TEMP 98.1
[2025-05-02] MEDS: LEVOTHYROXINE SODIUM 137 MCG TABLET PO SCH (08:28)
--- NOTE | 2025-05-02 12:39 | Discharge Summary ---
Discharge Summary Date of Service May 02, 2025 Principal Dx & Hospital Course #1 = Principal Diagnosis (1) Acute cystitis with positive culture: (2) Failure of outpatient treatment: (3) Pyelonephritis: (4) Hypothyroidism: (5) Diabetes mellitus, type 2: (6) Paroxysmal atrial fibrillation: (7) Chronic heart failure with preserved ejection fraction: Plan Patient 59-year-old female with known E. coli cystitis concern for early pyelonephritis and failed outpatient treatment. With her multiple comorbidities high risk for sepsis. Observe in the hospital Continue IV Rocephin Monitor blood cultures Recheck labs in a.m. Continue outpatient medications as ordered Continue monitor glucose and cover with insulin as needed Toradol as needed for any flank pain, NSAIDs often been quite effective for early pyelonephritis pain Anticipate if shows considerable improvement over the next 24 hours could be discharged home on oral fluoroquinolone Notes For Next Care Provider Patient is a 59-year-old female who last Sunday started with some urinary frequency and burning. Failed outpatient therapy, admitted to medicine. On medicine, symptoms resolved, patient going on vacation and wanted to go home. Looked at sensitivities of outpatient culture, susceptible to augmentin. On 05/02/2025 patient medically stable for discharge. Medication Changes From Visit -see below Admission HPI Per Admitting Provider Patient is a 59-year-old female who last Sunday started with some urinary frequency and burning. Made a appointment with her PCP this past Sunday and was diagnosed with a UTI on urinalysis in the office. She was initially started on Bactrim. Subsequently urine culture grew out E. coli was resistant to Bactrim and she was transition to Macrobid on Sunday. She is taken about 3 doses of the Macrobid. Came to the emergency room today because she was still having urinary frequency, some incontinence, generalized malaise and weakness. In the emergency room laboratory workup was unremarkable for acute findings. CT of the abdomen did not show definitive pyelonephritis did show evidence of some cystitis. She did have some flank pain on initial examination. Urine culture and sensitivities were reviewed available. E. coli was resistant to the Bactrim, sensitive Macrobid. Due to the patient's persistent symptoms and concerned that she had failed outpatient therapy was referred to our service. Time my evaluation patient is feeling well. States that her malaise and her flank pain has resolved. She is not sure if she had a fevers at home she did not take her temperature. But did continue with urinary complaints. She states that she has been doing well with her all her other medical issues. No chest pain, no shortness of breath. She is been eating and drinking well. No new swelling in her hands arms legs or feet. No new joint pains. No new changes in her bowel habits. No cough or cold symptoms. Discharge Exam Gen: A&O 3 NAD HEENT: NCAT, EOMI, not icteric. External ears normal. No rhinorrhea. Moist mucous membranes. Neck: Supple, full range of motion, no observable masses, No meningeal sign. Lungs: No Respiratory distress. CV: RRR, no edema. Abdomen: Soft, nondistended, No rebound tenderness. MSK: No joint swelling, no redness. Skin: No rashes, petechiae, lesions. Normal color per patient. Neuro: Normal Gait, Grossly intact. Psych: Appropriate for situation. Updated Medication List Medication Instructions Recorded Confirmed Type apixaban 5 mg tablet 5 mg PO BID 08/14/24 05/01/25 History atorvastatin 80 mg tablet 80 mg PO HS 08/14/24 05/01/25 History buspirone 10 mg tablet 10 mg PO HS 08/14/24 05/01/25 History dapagliflozin propanediol 10 mg 10 mg PO QAM 08/14/24 05/01/25 History tablet (Farxiga) evolocumab 140 mg/mL subcutaneous 140 mg subcut Q14D 08/14/24 05/01/25 History pen injector (Yokasta Mueller) ezetimibe 10 mg tablet 10 mg PO HS 08/14/24 05/01/25 History famotidine 20 mg tablet 20 mg PO HS 08/14/24 05/01/25 History insulin glargine 100 unit/mL (3 40 unit subcut HS 08/14/24 05/01/25 History mL) subcutaneous pen methotrexate sodium 2.5 mg tablet 15 mg PO WK 08/14/24 05/01/25 History pantoprazole 20 mg tablet,delayed 40 mg PO QAM 08/14/24 05/01/25 History release sacubitril 49 mg-valsartan 51 mg 1 tab PO BID 08/14/24 05/01/25 History tablet (Entresto) torsemide 10 mg tablet 10 mg PO DAILY PRN Edema 08/14/24 05/01/25 History trazodone 100 mg tablet 100 mg PO HS 08/14/24 05/01/25 History blood-glucose meter (FreeStyle #1 ea 08/15/24 Rx Lite Meter kit) magnesium chloride 64 mg 64 mg PO DAILY 09/04/24 05/01/25 History (magnesium chloride) tablet,delayed release metoprolol succinate 100 mg 100 mg PO HS 09/04/24 05/01/25 History tablet,extended release 24 hr metoprolol succinate 25 mg 25 mg PO HS 09/04/24 05/01/25 History tablet,extended release 24 hr albuterol sulfate 90 mcg/actuation 2 puff inhalation Q6H PRN 05/01/25 05/01/25 History aerosol inhaler Shortness Of Breath Or Wheezing dulaglutide 3 mg/0.5 mL 3 mg subcut WK 05/01/25 05/01/25 History subcutaneous pen injector (Trulicity) duloxetine 30 mg capsule,delayed 30 mg PO HS 05/01/25 05/01/25 History release gabapentin 100 mg capsule 200 mg PO BID 05/01/25 05/01/25 History amoxicillin 500 mg-potassium 1 tab PO BID 5 days #10 tabs 05/02/25 Rx clavulanate 125 mg tablet (Augmentin) levothyroxine 137 mcg tablet 137 mcg PO QAM #30 tabs 05/02/25 Rx phenazopyridine 100 mg tablet 100 mg PO Q8H PRN pain with 05/02/25 Rx (Pyridium) urination #14 tabs Hospital Stay Data Diagnostic Imagining Performed 05/01/25 12:22 CT abd pelvis IV con only Stat Pending Results Patient Have Any Pending Studies at Discharge: No Discharge Instructions Given to Patient (Per Discharging Provider) 1. Please follow up with PCP. 2. Please finish course of antibiotics. 3. Stay hydrated!!! Total Time Total Time Spent Total Time Spent (In Minutes): I spent a total of 40 minutes in direct patient care, including [id number] time with the patient and/or family, reviewing medical records, ordering and reviewing diagnostic tests, and coordinating care with other healthcare providers. This time includes: history taking, physical examination, medical decision making, counseling, ECG interpretation, imaging interpretation, lab interpretation, orders, and education, excluding time spent in the performance of separately billed services.
[2025-05-02] MEDS ORDERED: cefTRIAXone SODIUM 2,000 MG/50 ML BAG IV SCH (14:00)
--- NOTE | 2025-05-03 13:39 | Electrocardiogram Report ---
Test Reason : Blood Pressure : */* mmHG Vent. Rate : 114 BPM Atrial Rate : 114 BPM P-R Int : 140 ms QRS Dur : 92 ms QT Int : 326 ms P-R-T Axes : 79 -52 75 degrees QTcB Int : 449 ms Sinus tachycardia Left anterior fascicular block Anterior infarct , age undetermined Abnormal ECG When compared with ECG of 15-Aug-2024 05:55, Vent. rate has increased by 50 bpm Left anterior fascicular block is now Present Confirmed by Bhaskar Segovia ([id number]) on 05/03/2025 1:39:25 PM Referred By: REFERRED SELF Confirmed By: Bhaskar Segovia
== END 2025-05-02 11:29 | disposition home or self-care (01) ==
LOC: ED 12:13 → 3N 12:13 → SUATTDRO 14:38 → 3N 15:09